=== PATIENT | male | born 1955 | race Caucasian/White ===

== ENCOUNTER 2017-05-25 06:54 | Emergency (ER) | payer MEDICAID, OTHER ==
[~2017-05-25] VITALS: Ht 172.7 cm; Wt 92.7 kg
[2017-05-25 06:56] VITALS: Ht 172.7 cm; Wt 92.7 kg
[2017-05-25] MEDS ORDERED: NITROGLYCERIN (SL) 0.4 MG TAB SL PRN (07:00)
[2017-05-25] MEDS ORDERED: NITROGLYCERIN 2% 1 GM OINT PKT TD STA (07:00)
[2017-05-25 07:46] LABS: BASOPHIL # 0.1 10^3/ul (0.0-0.1); BASOPHILS % 0.7 % (0.0-2.0); EOSINOPHILS # 0.3 10^3/ul (0.0-0.5); EOSINOPHILS % 3.5 % (0.0-7.0); HEMATOCRIT 30.1 % (42.0-52.0); HEMOGLOBIN 10.1 g/dl (14.0-18.0); LYMPHOCYTES # 2.3 10^3/ul (0.8-2.9); LYMPHOCYTES % 26.2 % (15.0-51.0); MEAN CORPUSCULAR HEMOGLOBIN 29.9 pg (29.0-33.0); MEAN CORPUSCULAR HGB CONC 33.6 g/dl (32.0-37.0); MEAN CORPUSCULAR VOLUME 89.1 fl (82.0-101.0); MEAN PLATELET VOLUME 10.5 fl (7.4-10.4); MONOCYTE # 0.8 10^3/ul (0.3-0.9); MONOCYTES % 8.9 % (0.0-11.0); NEUTROPHIL # 5.3 10^3/ul (1.6-7.5); NEUTROPHILS % 60.4 % (39.0-77.0); PLATELET COUNT 208 10^3/UL (140-415); RED BLOOD COUNT 3.38 10^6/ul (4.70-6.10); RED CELL DISTRIBUTION WIDTH 14.1 % (11.5-14.5); WHITE BLOOD COUNT 8.7 10^3/ul (4.8-10.8)
--- NOTE | 2017-05-25 07:59 | RADRPT ---
PROCEDURE: XR Chest. CLINICAL INDICATION: Chest pain. TECHNIQUE: Chest x-ray, single view. COMPARISON: None. FINDINGS: The cardiac silhouette is magnified.Thoracic aortic arch atherosclerotic calcification is present.Pu lmonary vascularity is within normal limits.Low lung volumes are observed. Mild basilar atelectatic changes are present.There is no focal pulmonary parenchymal opacification. There is no evidence of l arge layering pleural effusion. Degenerative changes of the spine are observed. The visualized upper abdomen is unremarkable. IMPRESSION: Low lung volumes with mild basilar atelectatic changes. Thoracic aortic atherosclerosis. RPTAT: AAQQ .Qian Rodney MD, MD Date Time Electronically viewed and signed by .Qian Rodney MD, on 05/25/2017 07:59 .T/
[2017-05-25 08:08] LABS: CALCIUM 9.4 mg/dl (8.4-10.2); CREATININE 3.89 mg/dl (0.61-1.24); POTASSIUM 3.5 mmol/L (3.5-5.1)
[2017-05-25 08:23] LABS: TROPONIN-I 0.04 ng/ml (0.00-0.12)
--- NOTE | 2017-05-25 09:59 | ERD ---
ER Documentation Chief Complaint Date/Time DATE: 05/25/17 TIME: 09:58 Chief Complaint BROUGHT IN VIA EMS FROM HOME DUE TO WAKING UP WITH INCREASING CHEST PAIN HPI Patient is a 61-year-old male with coronary disease, hypertension, and diabetes who presents with chest pain. The patient was brought in by ambulance. He tried nitroglycerin and valerian root at home. He was given aspirin nitroglycerin by paramedics. He said that he currently does not have any chest pain. The chest pain started when he woke up from sleep and was in the midsternal area. It was constant and did not radiate. ROS All systems reviewed and are negative except as per history of present illness. Allergies Allergies: Coded Allergies: No Known Allergy (Verified Allergy, Unknown, 01/12/07) PMhx/Soc History of Surgery: No Anesthesia Reaction: No Hx Neurological Disorder: No Hx Respiratory Disorders: No Hx Cardiac Disorders: Yes (htn , high cholesterol , stent ) Hx Psychiatric Problems: No Hx Miscellaneous Medical Probl: Yes (dm ) Hx Alcohol Use: Yes Hx Substance Use: No Hx Tobacco Use: Yes Smoking Status: Current every day smoker FmHx Family History: coronary disease Physical Exam Vitals Vital Signs Date Time Temp Pulse Resp B/P Pulse Ox O2 Delivery O2 Flow Rate FiO2 05/25/17 08:30 78 18 158/93 99 Room Air 05/25/17 07:07 05/25/17 06:56 97.8 73 18 150/89 100 Physical Exam Const: No acute distress Head: Atraumatic Eyes: Normal Conjunctiva ENT: Normal External Ears, Nose and Mouth. Neck: Full range of motion..~ No meningismus. Resp: Clear to auscultation bilaterally Cardio: Regular rate and rhythm, no murmurs Abd: Soft, non tender, non distended. Normal bowel sounds Skin: No petechiae or rashes Back: No midline or flank tenderness Ext: No cyanosis, or edema Neur: Awake and alert Psych: Normal Mood and Affect Result Diagram: 05/25/1715 05/25/1715 Results 24 hrs Laboratory Tests Test 05/25/17 07:15 White Blood Count 8.710^3/ul Red Blood Count 3.3810^6/ul Hemoglobin 10.1g/dl Hematocrit 30.1% Mean Corpuscular Volume 89.1fl Mean Corpuscular Hemoglobin 29.9pg Mean Corpuscular Hemoglobin Concent 33.6g/dl Red Cell Distribution Width 14.1% Platelet Count 19005^3/UL Mean Platelet Volume 10.5fl Neutrophils % 60.4% Lymphocytes % 26.2% Monocytes % 8.9% Eosinophils % 3.5% Basophils % 0.7% Nucleated Red Blood Cells % 0.0/100WBC Neutrophils # 5.310^3/ul Lymphocytes # 2.310^3/ul Monocytes # 0.810^3/ul Eosinophils # 0.310^3/ul Basophils # 0.110^3/ul Nucleated Red Blood Cells # 0.010^3/ul Sodium Level 141mmol/L Potassium Level 3.5mmol/L Chloride Level 108mmol/L Carbon Dioxide Level 25mmol/L Anion Gap 12 Blood Urea Nitrogen 64mg/dl Creatinine 3.89mg/dl Glucose Level 156mg/dl Calcium Level 9.4mg/dl Troponin I 0.040ng/ml Current Medications Medications (Trade) Dose Ordered Sig/Tori Route PRN Reason Start Time Stop Time Status Last Admin Dose Admin Nitroglycerin (Nitroglycerin 2% Oint) 1 inch ONCE STAT TD 05/25/17 07:00 05/25/17 07:01 DC 05/25/17 07:06 Nitroglycerin (Nitroglycerin (Sl Tab) 0.4 Mg) 1 tab Q5M UP TO 3 DOSES PRN SL CHEST PAIN 05/25/17 07:00 Procedures/MDM EKG #1 read by me: Rate/Rhythm: Left bundle branch block a rate of 75 Intervals: Prolonged MA interval and prolonged QRS interval Impression: Bundle branch block with negative Sgarbossa criteria EKG #2 read by me: Rate/Rhythm: Left bundle branch block a rate of 70 Intervals: Prolonged MA interval and prolonged QRS interval Impression: Bundle branch block with negative Sgarbossa criteria Chest x-ray shows no pneumonia or pneumothorax per radiology. Smoking Cessation Therapy: Pt. was lectured for greater than 3 minutes on the health risks of continued smoking and the benefits of cessation. Patient is a 61-year-old male with multiple cardiac risk factors who presents with chest pain. His troponin is 0.040 which is within normal limits however I am concerned about acute coronary syndrome given his age and comorbidities. I doubt pneumonia, pneumothorax, pulmonary embolism, or aortic dissection. I wanted to admit the patient to the hospital for further treatment but the patient is refusing. He is going to sign out AGAINST MEDICAL ADVICE. He can follow-up with his primary doctor within 24 hours. He can return sooner if symptoms worsen. Departure Diagnosis: Primary Impression: Chest pain Chest pain type: unspecified Qualified Code: R07.9 - Chest pain, unspecified type Additional Impressions: Anemia Anemia type: unspecified type Qualified Code: D64.9 - Anemia, unspecified type Chronic renal failure Chronic kidney disease stage: unspecified stage Qualified Code: N18.9 - Chronic renal failure, unspecified CKD stage Condition: Fair Patient Instructions: Chest Pain, Uncertain Cause Referrals: SOLITARIO BETANCOURT (PCP) Additional Instructions: FOLLOW UP WITH YOUR PRIMARY CARE PHYSICIAN TOMORROW.Return to this facility if you are not improving as expected. TANNA HICKEY MD May 25, 2017 09:59
[2017-05-25 10:20] VITALS: BP 152/88; PULSE 77; RESP 18; TEMP 97.8
== END 2017-05-25 10:22 | disposition left against medical advice (07) ==
LOC: E/R 06:54
DX: R07.9 Chest pain, unspecified (principal); D64.9 Anemia, unspecified; E11.22 Type 2 diabetes mellitus with diabetic chronic kidney disease; N18.9 Chronic kidney disease, unspecified; I12.9 Hypertensive chronic kidney disease with stage 1 through stage 4 chronic kidney disease, or unspecified chronic kidney disease; F17.210 Nicotine dependence, cigarettes, uncomplicated; I25.10 Atherosclerotic heart disease of native coronary artery without angina pectoris; Z98.61 Coronary angioplasty status
CPT/HCPCS: 36415; 71010; 80048; 84484; 85025; 93005; Z7502; Z7610

== ENCOUNTER 2017-06-06 23:33 | Inpatient (IN) | payer OTHER ==
[~2017-06-06] VITALS: Ht 175.3 cm; Wt 96.2 kg
[2017-06-06] MEDS ORDERED: SOD CHLORIDE 0.9% 500 ML IV STA (23:50)
[2017-06-07] VITALS (38 sets, daily range): BP systolic 123–164; BP diastolic 74–93; PULSE 42–69; RESP 10–21; Ht 175.3 cm; Wt 96.2 kg
[2017-06-07 00:22] LABS: BASOPHIL # 0.1 10^3/ul (0.0-0.1); BASOPHILS % 0.9 % (0.0-2.0); EOSINOPHILS # 0.3 10^3/ul (0.0-0.5); HEMATOCRIT 29.4 % (42.0-52.0); LYMPHOCYTES % 25.2 % (15.0-51.0); MEAN CORPUSCULAR HEMOGLOBIN 29.5 pg (29.0-33.0); MEAN CORPUSCULAR VOLUME 86.7 fl (82.0-101.0); MEAN PLATELET VOLUME 10.4 fl (7.4-10.4); MONOCYTE # 0.6 10^3/ul (0.3-0.9); MONOCYTES % 6.9 % (0.0-11.0); NEUTROPHIL # 5.1 10^3/ul (1.6-7.5); NEUTROPHILS % 62.8 % (39.0-77.0); PLATELET COUNT 168 10^3/UL (140-415); RED BLOOD COUNT 3.39 10^6/ul (4.70-6.10); RED CELL DISTRIBUTION WIDTH 14.2 % (11.5-14.5); WHITE BLOOD COUNT 8.1 10^3/ul (4.8-10.8)
[2017-06-07 00:48] LABS: ALBUMIN 3.4 g/dl (3.3-4.9); CALCIUM 9.2 mg/dl (8.4-10.2); CREATININE 3.58 mg/dl (0.61-1.24); TOTAL PROTEIN 6.8 g/dl (6.1-8.1)
--- NOTE | 2017-06-07 00:56 | RADRPT ---
PROCEDURE: XR Chest. CLINICAL INDICATION: Chest pain. TECHNIQUE: Single AP portable chest. COMPARISON: No prior Chest x-ray FINDINGS: The cardiomediastinal silhouette is within normal limits of size. Tortuosity and ectasia of the thor acic aorta. Atherosclerotic calcification of the aorta. The lungs are clear without pleural effusi on or focal consolidation. No pneumothorax. The osseous structures and soft tissues are unremarkable . IMPRESSION: 1. No evidence for active cardiopulmonary disease. RPTAT:AAJJ Physician Cheli Date Time Electronically viewed and signed by Physician Cheli on 06/07/2017 00:56 KAREL/
[2017-06-07 01:01] LABS: TROPONIN-I 0.03 ng/ml (0.00-0.12)
[2017-06-07] MEDS ORDERED: NITROGLYCERIN 2% 1 GM OINT PKT TD STA (01:01)
[2017-06-07] MEDS ORDERED: morphine 4 MG/ML VIAL IV STA (01:01)
[2017-06-07] MEDS ORDERED: ONDANSETRON 4 MG INJ IV STA (01:01)
[2017-06-07] MEDS ORDERED: VALS320T11 PO (01:57)
[2017-06-07] MEDS ORDERED: EZET10TA3 PO (01:57)
[2017-06-07] MEDS ORDERED: TAMS0.4C2 PO (01:57)
[2017-06-07] MEDS ORDERED: METO-407 PO (01:57)
[2017-06-07] MEDS ORDERED: NIFE30TA60 PO (01:57)
[2017-06-07] MEDS ORDERED: FURO40SO PO (01:57)
[2017-06-07] MEDS ORDERED: LABE200T25 PO (01:57)
[2017-06-07] MEDS ORDERED: HYDR-3672 PO (01:57)
[2017-06-07] MEDS ORDERED: ATOR40TA68 PO (01:57)
[2017-06-07] MEDS ORDERED: CLON0.3T PO (01:57)
[2017-06-07] MEDS ORDERED: CLOP75TA4 PO (01:57)
[2017-06-07] MEDS ORDERED: LINA5TAB PO (01:57)
[2017-06-07] MEDS ORDERED: INSU100I7 SQ (01:57)
[2017-06-07] MEDS ORDERED: ASPI-664 PO (01:57)
--- NOTE | 2017-06-07 02:18 | ERA ---
ER Documentation Chief Complaint Date/Time DATE: 06/07/17 TIME: 02:17 Chief Complaint BIB RA FROM HOME FOR CHEST PAIN X 1 WEEK, BS: 355 HPI 61-year-old male brought in from home by ambulance for chest pain on and off for the past 3 days. Patient has history of cardiac stenting in the past and had a recent angiogram which showed blockage. Patient did not proceed with stenting secondary to contrast bolus and history of renal failure. Medically managed the past 4 months but has had chest pain over the past 2 days is crushing, substernal with no exacerbating or alleviating factors. Currently chest pain-free after nitroglycerin given by EMS. Mild associated shortness of breath no nausea no vomiting no chills. No other current issues. ROS All systems reviewed and are negative except as per history of present illness. Medications Home Meds Reported Medications Insulin Lispro Protamin/Lispro (Humalog Mix 75-25 Kwikpen) 100 Unit/1 Ml Insuln.pen, 0 SQ 06/07/17 Linagliptin (TRADJENTA) 5 Mg Tablet, 5 MG PO, TAB 06/07/17 Ezetimibe* (Zetia*) 10 Mg Tablet, 10 MG PO HS, TAB 06/07/17 Valsartan* (Diovan*) 320 Mg Tablet, 320 MG PO DAILY, TAB 06/07/17 Clopidogrel Bisulfate* (Clopidogrel Bisulfate*) 75 Mg Tablet, 75 MG PO DAILY, # 30 TAB 06/07/17 Tamsulosin Hcl* (Tamsulosin Hcl*) 0.4 Mg Cap.er.24h, 0.4 MG PO DAILY, CAP 06/07/17 Aspirin* (Aspirin* EC) 81 Mg Tablet.dr, 81 MG PO DAILY, TAB 06/07/17 Atorvastatin* (Atorvastatin*) 40 Mg Tablet, 40 MG PO QHS, #30 TAB 06/07/17 Furosemide* (Furosemide*) 40 Mg/5 Ml Solution, 40 MG PO DAILY, #150 ML 06/07/17 Metoprolol Tartrate* (Lopressor*) 100 Mg Tablet, 100 MG PO BID, #60 TAB 06/07/17 Labetalol Hcl* (Labetalol Hcl*) 200 Mg Tablet, 200 MG PO BID, TAB 06/07/17 Clonidine Hcl* (Clonidine Hcl*) 0.3 Mg Tablet, 0.3 MG PO Q6H, TAB 06/07/17 Hydralazine Hcl* (Apresoline*) 50 Mg Tab, 50 MG PO Q8, #90 TAB 06/07/17 Nifedipine* (Nifedipine ER*) 30 Mg Tablet.sa, 30 MG PO DAILY, TAB.SA 06/07/17 Allergies Allergies: Coded Allergies: No Known Allergy (Unverified , 06/07/17) PMhx/Soc Medical and Surgical Hx: pt denies Surgical Hx History of Surgery: No Anesthesia Reaction: No Hx Neurological Disorder: No Hx Respiratory Disorders: No Hx Cardiac Disorders: Yes (htn , high cholesterol , stent ) Hx Psychiatric Problems: No Hx Miscellaneous Medical Probl: Yes (dm ) Hx Alcohol Use: Yes (occasional drinker) Hx Substance Use: No Hx Tobacco Use: Yes (on nicotine patch) Smoking Status: Former smoker Physical Exam Vitals Vital Signs Date Time Temp Pulse Resp B/P Pulse Ox O2 Delivery O2 Flow Rate FiO2 06/07/17 01:54 98.3 72 20 170/92 98 Room Air 06/07/17 00:08 Nasal Cannula 2 06/06/17 23:43 98.5 82 18 95 Physical Exam Const: [] Head: Atraumatic Eyes: Normal Conjunctiva ENT: Normal External Ears, Nose and Mouth. Neck: Full range of motion..~ No meningismus. Resp: Clear to auscultation bilaterally Cardio: Regular rate and rhythm, no murmurs Abd: Soft, non tender, non distended. Normal bowel sounds Skin: No petechiae or rashes Back: No midline or flank tenderness Ext: No cyanosis, or edema Neur: Awake and alert Psych: Normal Mood and Affect Result Diagram: 06/07/17 0001 06/07/17 0001 Results 24 hrs Laboratory Tests Test 06/07/17 00:01 White Blood Count 8.110^3/ul Red Blood Count 3.3910^6/ul Hemoglobin 10.0g/dl Hematocrit 29.4% Mean Corpuscular Volume 86.7fl Mean Corpuscular Hemoglobin 29.5pg Mean Corpuscular Hemoglobin Concent 34.0g/dl Red Cell Distribution Width 14.2% Platelet Count 02569^3/UL Mean Platelet Volume 10.4fl Neutrophils % 62.8% Lymphocytes % 25.2% Monocytes % 6.9% Eosinophils % 4.0% Basophils % 0.9% Nucleated Red Blood Cells % 0.0/100WBC Neutrophils # 5.110^3/ul Lymphocytes # 2.010^3/ul Monocytes # 0.610^3/ul Eosinophils # 0.310^3/ul Basophils # 0.110^3/ul Nucleated Red Blood Cells # 0.010^3/ul Sodium Level 139mmol/L Potassium Level 4.0mmol/L Chloride Level 107mmol/L Carbon Dioxide Level 23mmol/L Anion Gap 13 Blood Urea Nitrogen 43mg/dl Creatinine 3.58mg/dl Glucose Level 242mg/dl Calcium Level 9.2mg/dl Total Bilirubin 0.0mg/dl Direct Bilirubin 0.00mg/dl Indirect Bilirubin 0.0mg/dl Aspartate Amino Transf (AST/SGOT) 18IU/L Alanine Aminotransferase (ALT/SGPT) 25IU/L Alkaline Phosphatase 67IU/L Troponin I 0.030ng/ml B-Type Natriuretic Peptide 4550PG/ML Total Protein 6.8g/dl Albumin 3.4g/dl Globulin 3.40g/dl Albumin/Globulin Ratio 1.00 Current Medications Medications (Trade) Dose Ordered Sig/Tori Route PRN Reason Start Time Stop Time Status Last Admin Dose Admin Sodium Chloride (NS) 500 ml @ 500 mls/hr Q1H STAT IV 06/06/17 23:50 06/07/17 00:49 DC 06/07/17 00:14 Nitroglycerin (Nitroglycerin 2% Oint) 1 inch ONCE STAT TD 06/07/17 01:01 06/07/17 01:02 DC 06/07/17 01:06 Morphine Sulfate (morphine) 4 mg ONCE STAT IV 06/07/17 01:01 06/07/17 01:02 DC 06/07/17 01:06 Ondansetron HCl (Zofran Inj) 4 mg ONCE STAT IV 06/07/17 01:01 06/07/17 01:02 DC 06/07/17 01:06 IV Flush (NS 3 ml) 3 ml PER PROTOCOL IV 06/07/17 02:30 UNV Ondansetron HCl (Zofran Inj) 4 mg Q6H PRN IV NAUSEA AND/OR VOMITING 06/07/17 02:30 UNV Nitroglycerin (Nitroglycerin (Sl Tab) 0.4 Mg) 1 tab Q5M PRN SL CHEST PAIN 06/07/17 02:30 UNV Acetaminophen (Tylenol Tab) 650 mg Q6H PRN PO PAIN LEVEL 1-3 OR FEVER 06/07/17 02:30 UNV Morphine Sulfate (morphine) 2 mg Q4H PRN IV PAIN LEVEL 7-10 06/07/17 02:30 UNV Docusate Sodium (Colace) 100 mg Q12H PRN PO CONSTIPATION 06/07/17 02:30 UNV Bisacodyl (Dulcolax) 5 mg DAILY PRN PO CONSTIPATION 06/07/17 02:30 UNV Famotidine (Pepcid) 20 mg Q12 PO 06/07/17 09:00 UNV Procedures/MDM EKG: Rate/Rhythm: [Normal Sinus Rhythm] QRS, ST, T-waves: Left bundle branch block pattern Impression: [No evidence of ischemia or arrhythmia] Chest X-ray 1V Interpreted by me: Soft Tissue: No acute abnormalities Bones: No acute abnormalities Mediastinum/Cardiac Silhouette/Lungs: [No acute abnormalities] Patient's symptoms are concerning for cardiac cause will require inpatient workup and continuous monitoring. Further w/u for ischemia, arrhythmia, PE or dissection will be deferred to the inpatient team. Accepting Care Team: Current data and ongoing care discussed. Time: 2 AM Primary Provider: Dr. Pineda Consulting: [[place]] Outstanding Data: none Departure Diagnosis: Primary Impression: Chest pain Qualified Code: I20.0 - Unstable angina pectoris Condition: Serious [place] Jun 07, 2017 02:18
[2017-06-07] MEDS ORDERED: NACL 0.9% 3 ML SYG IV SCH (02:30)
[2017-06-07] MEDS ORDERED: morphine 2 MG INJ IV PRN (02:30)
[2017-06-07] MEDS ORDERED: NITROGLYCERIN (SL) 0.4 MG TAB SL PRN (02:30)
[2017-06-07] MEDS ORDERED: ACETAMINOPHEN 325 MG TAB PO PRN (02:30)
[2017-06-07] MEDS ORDERED: ONDANSETRON 4 MG INJ IV PRN (02:30)
--- NOTE | 2017-06-07 04:12 | HP ---
Date/Time of Note Date/Time of Note DATE: 06/07/17 TIME: 04:00 Assessment/Plan VTE Prophylaxis VTE Prophylaxis Intervention: SCD's Lines/Catheters IV Catheter Type (from Nrs): Peripheral IV Assessment/Plan Chief Complaint/Hosp Course This is a 61 year old male being admitted to the telemetry floor for: #1. Chest pain: rule out ACS. Extensive risk factors and hx of cardiac disease with stenting. Trend troponins, echo in the am, cardiology consult. #2: CAD: History of 2 stents. Continue Plavix/aspirin/Zetia #3 CHF: Etiology unknown at this time systolic versus diastolic. Patient does not appear to be decompensated at this time. BNP is around 4000. Will check a echocardiogram to further evaluate. Will continue home medications. #4 hypertension: Continue patient home blood pressure medications, except will hold ARB at this time secondary to elevated creatinine. #5 DM: check a1c, ISS, hold home medications #6 Chronic kidney disease: patient remains non oliguric. Avoid nephrotoxic agents. Urine microscopic exam, urinalysis, renal ultrasound, nephro consult, will hold ARB up at this time and continue as per nephro recs. #7 HLD: on zetia #8 dvt and gi prophylaxis: scds, acid ba Further treatment strategy will be in implemented as per the clinical course. Problems: HPI/ROS Admit Date/Time Admit Date/Time Jun 07, 2017 at 02:04 Hx of Present Illness cc: chest pain This is 61-year-old male brought in from home by ambulance for chest pain.. Patient has history of cardiac stenting. He apparently required additional stenting however secondary to his kidney issue they didn't proceed. Medically managed the past 4 months. He had chest pain for 2 hours starting at 9 pm last night, substernal with no exacerbating or alleviating factors, nonradiating.. Currently chest pain-free after nitroglycerin given by EMS. Mild associated shortness of breath no nausea no vomiting no chills. Denies any diaphoresis or lower extremity swelling. allergies; nkda Meds: see yaquelin BASSETT Const: As per HPI Eyes : No pain discharge or redness or change in visual acuity ENT: No pain, sore throat, congestion, congestion, dysphagia or discharge Respiratory: As per HPI Cardiovascular: As per HPI GI : no change in appetite, abdominal pain, nausea, vomiting, diarrhea, constipation, or change in the color his stool Genitourinary: No dysuria, hematuria, flank pain , discharge or CVA tenderness Musculoskeletal: No joint pain, back pain, neck pain, restricted range of motion in neck or joints Skin: No rash, bruising or hives Neuro: No headache, dizziness, syncope, seizure, focal weakness Endocrine: No polyuria, polydipsia, temperature intolerance Psych: No hallucination, depression, anxiety or suicidal ideation PMH/Family/Social Past Medical History cad, [place] in 2007, DM, CKD Past Surgical History Cardiac stents x 2 Family History Significant Family History: no pertinent family hx Social History Alcohol Use: none Smoking Status: Current every day smoker (3 cigs per day x 40 years) Drug Use: none Exam/Review of Systems Vital Signs Vitals Vital Signs Date Time Temp Pulse Resp B/P Pulse Ox O2 Delivery O2 Flow Rate FiO2 06/07/17 03:22 78 18 163/92 18 Room Air 06/07/17 01:54 98.3 06/07/17 00:08 2 Exam Exam General: Patient is a pleasant male lying in bed in no acute distress HEENT: Atraumatic, normocephalic. The pupils are equal, round and reactive. Extraocular motor are intact Neck: Supple with full range of motion. No rigidity or meningismus Chest: Nontender Lungs: Clear to auscultation bilaterally no crackles rales or wheezing Heart: Normal S1-S2, Regular rhythm and rate. No overt murmurs appreciated Abdomen: Soft , nontender, nondistended , bowel sounds are present. No guarding no rebound tenderness Neurologic: Normal mental status, speech normal, cranial nerves II through XII are intact, motor and sensory are intact, no focal weakness Additional Comments EKG: Rate/Rhythm: [Normal Sinus Rhythm] QRS, ST, T-waves: Left bundle branch block pattern As per ED physician documentation PROCEDURE: XR Chest. CLINICAL INDICATION: Chest pain. TECHNIQUE: Single AP portable chest. COMPARISON: No prior Chest x-ray FINDINGS: The cardiomediastinal silhouette is within normal limits of size. Tortuosity and ectasia of the thoracic aorta. Atherosclerotic calcification of the aorta. The lungs are clear without pleural effusion or focal consolidation. No pneumothorax. The osseous structures and soft tissues are unremarkable. IMPRESSION: 1. No evidence for active cardiopulmonary disease. RPTAT:AAJJ Roma Ventura Physician Date Time Electronically viewed and signed by Roma Ventura Physician on 06/07/2017 00:56 KAREL/ CC: [place] Labs Result Diagram: 06/07/17 0001 06/07/17 0001 Medications Medications Current Medications Ondansetron HCl (Zofran Inj) 4 mg Q6H PRN IV NAUSEA AND/OR VOMITING; Start 06/07/17 at 02:30 Nitroglycerin (Nitroglycerin (Sl Tab) 0.4 Mg) 1 tab Q5M PRN SL CHEST PAIN; Start 06/07/17 at 02:30 Acetaminophen (Tylenol Tab) 650 mg Q6H PRN PO PAIN LEVEL 1-3 OR FEVER; Start 06/07/17 at 02:30 Morphine Sulfate (morphine) 2 mg Q4H PRN IV PAIN LEVEL 7-10; Start 06/07/17 at 02:30 Docusate Sodium (Colace) 100 mg Q12H PRN PO CONSTIPATION; Start 06/07/17 at 02: 30 Bisacodyl (Dulcolax) 5 mg DAILY PRN PO CONSTIPATION; Start 06/07/17 at 02:30 Famotidine (Pepcid) 20 mg DAILY PO ; Start 06/07/17 at 09:00 FORTINO THOMAS Jun 07, 2017 04:12
[2017-06-07] MEDS ORDERED: FUROSEMIDE 40 MG TAB PO SCH (06:00)
[2017-06-07 07:57] LABS: ALBUMIN/GLOBULIN RATIO 0.96; CALCIUM 8.9 mg/dl (8.4-10.2); CREATININE 3.66 mg/dl (0.61-1.24); POTASSIUM 3.7 mmol/L (3.5-5.1); TOTAL PROTEIN 6.1 g/dl (6.1-8.1)
[2017-06-07 08:10] LABS: CK-MB 2.87 ng/ml (0.0-2.4)
[2017-06-07 08:14] LABS: TROPONIN-I 0.489 ng/ml (0.00-0.12)
[2017-06-07] MEDS ORDERED: HEPARIN 25000 UNITS/250 ML 250 ML IV SCH (08:30)
[2017-06-07] MEDS ORDERED: FUROSEMIDE 40 MG INJ IV ONE (08:30)
[2017-06-07] MEDS ORDERED: HEPARIN 1000 UNITS/ML 10 ML INJ IV PRN (08:30)
[2017-06-07] MEDS ORDERED: HEPARIN 1000 UNITS/ML 10 ML INJ IV ONE (08:30)
--- NOTE | 2017-06-07 08:45 | CONS ---
Date/Time of Note Date/Time of Note DATE: 06/07/17 TIME: 08:33 Assessment/Plan Assessment/Plan Chief Complaint/Hosp Course NSTEMI: Initial trop normal, now 0.5. Coudl still be type II in setting of uncontrolled BP, known CAD, and mild CHF. I spoke with Dr. Rosales and he will call me back once he checks on the pt's last cardiac cath anatomy. For now, anticoagulate, control BP, trend trops, and await prior cath results to decide on need for repeat cath. Acute on chronic ?systolic heart failure: Unknown EF. Mild CHF by exam CKD: unknown baseline. Cr 3.6 here CAD s/p prior PCI 2006 DM HTN urgency -start heparin drip -continue ASA/plavix -increase lipitor to 80mg -d/c po lasix and give lasix 40mg IV x 1 now -add imdur 60mg -add metoprolol 50mg BID -trend trops -echo -await callback from Dr. Rosales to decide on repeat cath or not Problems: Consultation Date/Type/Reason Admit Date/Time Jun 07, 2017 at 02:04 Date of Consultation: Jun 07, 2017 Type of Consultation: Cardiology Reason for Consultation Chest pain Referring Provider: FORTINO THOMAS Hx of Present Illness 61 yo M with a h/o CAD s/p PCI 10 yrs ago, CKD (Cr 3.6 here, unknown baseline), HTN, DM, active smoker, who presented with chest pain. The pt notes that he had a cardiac cath with his epic professional Dr. River Rosales in December. It is unclear if he has a revascularizeable lesion, [employer], or small vessel disease but he was told that they would manage him medically first due to his renal disease and risk of HD. He has been having exertional chest pain since the angiogram. The pt had chest pain last night not relieved with NTG x 3. He is chest pain free now. His BP was 190s at home during the chest pain. He denies SOB, orthopnea. He has edema which is recent. per HPI Past Medical History per HPI Social History Alcohol Use: none Smoking Status: Current every day smoker Drug Use: none Exam/Review of Systems Vital Signs Vitals Vital Signs Date Time Temp Pulse Resp B/P Pulse Ox O2 Delivery O2 Flow Rate FiO2 06/07/17 08:09 64 06/07/17 07:48 98.4 19 163/92 97 06/07/17 04:30 Nasal Cannula 2.0 Intake and Output 06/06/17 06/06/17 06/07/17 14:59 22:59 06:59 Intake Total 240 ml Balance 240 ml Exam Constitutional: alert, oriented Psych: nl mood/affect, no complaints Head: atraumatic, normocephalic Neck: jvd (8cm) Respiratory: crackles/rales (mild ), No clear to auscultation Cardiovascular: edema (1+), regular rate and rhythm, No systolic murmur Gastrointestinal: non-tender, soft Musculoskeletal: nl extremities to inspection Neurological: nl mental status, nl speech Results EKG: sinus, LBBB Result Diagram: 06/07/17 0001 06/07/17 0710 Results 24 hrs Laboratory Tests Test 06/07/17 00:01 06/07/17 07:10 White Blood Count 8.1 Red Blood Count 3.39 L Hemoglobin 10.0 L Hematocrit 29.4 L Mean Corpuscular Volume 86.7 Mean Corpuscular Hemoglobin 29.5 Mean Corpuscular Hemoglobin Concent 34.0 Red Cell Distribution Width 14.2 Platelet Count 168 Mean Platelet Volume 10.4 Neutrophils % 62.8 Lymphocytes % 25.2 Monocytes % 6.9 Eosinophils % 4.0 Basophils % 0.9 Nucleated Red Blood Cells % 0.0 Neutrophils # 5.1 Lymphocytes # 2.0 Monocytes # 0.6 Eosinophils # 0.3 Basophils # 0.1 Nucleated Red Blood Cells # 0.0 Sodium Level 139 139 Potassium Level 4.0 3.7 Chloride Level 107 108 Carbon Dioxide Level 23 26 Anion Gap 13 9 Blood Urea Nitrogen 43 H 41 H Creatinine 3.58 H 3.66 H Glucose Level 242 H 162 Calcium Level 9.2 8.9 Total Bilirubin 0.0 L 0.0 L Direct Bilirubin 0.00 0.00 Indirect Bilirubin 0.0 0.0 Aspartate Amino Transf (AST/SGOT) 18 18 Alanine Aminotransferase (ALT/SGPT) 25 31 Alkaline Phosphatase 67 69 Troponin I 0.030 0.489 *H B-Type Natriuretic Peptide 4550 H Total Protein 6.8 6.1 Albumin 3.4 3.0 L Globulin 3.40 H 3.10 Albumin/Globulin Ratio 1.00 0.96 Hemoglobin A1c 7.8 H Magnesium Level 2.0 Creatine Kinase 60 Creatine Kinase Index 4.8 Creatinine Kinase MB (Mass) 2.87 H Medications Medications Current Medications Ondansetron HCl (Zofran Inj) 4 mg Q6H PRN IV NAUSEA AND/OR VOMITING; Start 06/07/17 at 02:30 Nitroglycerin (Nitroglycerin (Sl Tab) 0.4 Mg) 1 tab Q5M PRN SL CHEST PAIN; Start 06/07/17 at 02:30 Acetaminophen (Tylenol Tab) 650 mg Q6H PRN PO PAIN LEVEL 1-3 OR FEVER; Start 06/07/17 at 02:30 Morphine Sulfate (morphine) 2 mg Q4H PRN IV PAIN LEVEL 7-10; Start 06/07/17 at 02:30 Docusate Sodium (Colace) 100 mg Q12H PRN PO CONSTIPATION; Start 06/07/17 at 02: 30 Bisacodyl (Dulcolax) 5 mg DAILY PRN PO CONSTIPATION; Start 06/07/17 at 02:30 Famotidine (Pepcid) 20 mg DAILY PO ; Start 06/07/17 at 09:00 Aspirin (Halfprin) 81 mg DAILY PO ; Start 06/07/17 at 09:00 Clonidine (Catapres) 0.3 mg Q6H PO Last administered on 06/07/17 05:08; Admin Dose 0.3 MG; Start 06/07/17 at 05:00 Clopidogrel Bisulfate (plaVIX) 75 mg DAILY PO ; Start 06/07/17 at 09:00 EZETIMIBE (Zetia) 10 mg HS PO ; Start 06/07/17 at 21:00 Hydralazine HCl (Apresoline) 50 mg Q8 PO Last administered on 06/07/17 05:09; Admin Dose 50 MG; Start 06/07/17 at 06:00 Nifedipine (Procardia Xl) 30 mg DAILY PO ; Start 06/07/17 at 09:00 Tamsulosin HCl (Flomax) 0.4 mg DAILY@21 PO ; Start 06/07/17 at 21:00 Isosorbide Mononitrate (Imdur) 60 mg DAILY PO ; Start 06/07/17 at 09:00 Atorvastatin Calcium (Lipitor) 80 mg QHS PO ; Start 06/07/17 at 21:00; Status UNV Furosemide (Lasix) 40 mg ONCE ONCE IV ; Start 06/07/17 at 08:30; Stop 06/07/17 at 08:31; Status UNV Miscellaneous Information (* Miscellaneous Pharmacy Order) DC previous hepa... ONCE ONCE XX ; Start 06/07/17 at 08:30; Stop 06/07/17 at 08:31; Status UNV Heparin Sodium (Porcine) (Heparin (1000 Units/ml)) 4,000 unit ONCE ONCE IV ; Start 06/07/17 at 08:30; Stop 06/07/17 at 08:31; Status UNV Metoprolol Tartrate (Lopressor) 50 mg BID PO ; Start 06/07/17 at 09:00; Status UNV TAYLER BE Jun 07, 2017 08:45
[2017-06-07] MEDS ORDERED: CLOPIDOGREL 75 MG TAB PO SCH (09:00)
[2017-06-07] MEDS ORDERED: VALSARTAN 160 MG TAB PO SCH (09:00)
[2017-06-07] MEDS ORDERED: METOPROLOL 25 MG TAB PO SCH (09:00)
[2017-06-07] MEDS: NIFEdipine (XL) 30 MG TAB PO SCH (09:07)
[2017-06-07] MEDS: FAMOTIDINE 20 MG TAB PO SCH (09:07)
[2017-06-07] MEDS: ISOSORBIDE MONONITRATE(SR)60 MG TAB PO SCH (09:08)
[2017-06-07] MEDS: ASPIRIN (EC) 81 MG TAB PO SCH (09:08)
--- NOTE | 2017-06-07 09:57 | RADRPT ---
PROCEDURE: Renal US. CLINICAL INDICATION: Chest pain. Flank pain. TECHNIQUE: Multiple sonographic images of the kidneys and urinary bladder were obtained. The imag es were reviewed on a PACS workstation. COMPARISON: No prior studies are available for comparison. FINDINGS: The right kidney measures 9.4 cm. The left kidney measures 9.6 cm. There is a benign cyst in the mid right kidney measuring 1.8 cm. There is a benign cyst in the upper left kidney measuring 2.6 cm and a benign cyst in the upper left kidney measuring 2.3 cm. There is a nonobstructing calculus in the upper left kidney measuring 0.7 cm. There is no other renal calculus. There is no solid renal mass. There is no hydronephrosis. Renal parenchymal thickness is normal bilaterally. Both kidneys are hyperechoic consistent with medical renal disease. The perirenal regions are normal with no fluid collection or mass. The urinary bladder is unremarkable. IMPRESSION: 1. Benign bilateral renal cysts. 2. Nonobstructing 0.7 cm calculus in the upper left kidney. 3. Bilateral hyperechoic kidneys consistent with medical renal disease. 4. Otherwise unremarkable study. RPTAT: QQ .Hardy Ghosh MD, Date Time Electronically viewed and signed by .Hardy Ghosh MD, on 06/07/2017 09:57 .R/
[2017-06-07 12:29] LABS: BASOPHIL # 0.1 10^3/ul (0.0-0.1); BASOPHILS % 0.9 % (0.0-2.0); EOSINOPHILS # 0.3 10^3/ul (0.0-0.5); EOSINOPHILS % 3.4 % (0.0-7.0); HEMATOCRIT 28.6 % (42.0-52.0); HEMOGLOBIN 9.3 g/dl (14.0-18.0); LYMPHOCYTES # 2.2 10^3/ul (0.8-2.9); LYMPHOCYTES % 23.6 % (15.0-51.0); MEAN CORPUSCULAR HEMOGLOBIN 28.4 pg (29.0-33.0); MEAN CORPUSCULAR HGB CONC 32.5 g/dl (32.0-37.0); MEAN CORPUSCULAR VOLUME 87.5 fl (82.0-101.0); MEAN PLATELET VOLUME 10.9 fl (7.4-10.4); MONOCYTE # 0.7 10^3/ul (0.3-0.9); MONOCYTES % 7.4 % (0.0-11.0); NEUTROPHIL # 5.9 10^3/ul (1.6-7.5); NEUTROPHILS % 64.3 % (39.0-77.0); PLATELET COUNT 163 10^3/UL (140-415); RED BLOOD COUNT 3.27 10^6/ul (4.70-6.10); RED CELL DISTRIBUTION WIDTH 14.4 % (11.5-14.5); WHITE BLOOD COUNT 9.1 10^3/ul (4.8-10.8)
[2017-06-07 12:31] LABS: INR 0.97; PROTIME 12.9 Sec (12.2-14.2)
[2017-06-07 12:49] LABS: CK-MB 3.23 ng/ml (0.0-2.4)
[2017-06-07 12:53] LABS: TROPONIN-I 0.874 ng/ml (0.00-0.12)
--- NOTE | 2017-06-07 13:17 | CONS ---
DATE OF ADMISSION: 06/07/2017 DATE OF CONSULTATION: 06/07/2017 TYPE OF CONSULTATION: Nephrology. REASON FOR CONSULTATION: Chronic kidney disease. HISTORY OF PRESENT ILLNESS: This is a 61-year-old male with a past medical history of CKD stage IV with a baseline renal function around 25%, history of coronary artery disease, history of hypertensi on, diabetes, dyslipidemia who presents to [facility] for chest pain. The patient stated he has had cardiac stenting in the past and previous angiograms. The patient, upon arrival to the emergency room, was noted to have shortness of breath. An x-ray was done which showed findin gs of no acute cardiopulmonary disease. In the emergency room, the patient was given statin therapy , diuretics, morphine and admitted to telemetry. In terms of the patient's renal history, the patient has underlying chronic kidney disease. He sees a argon tester in outpatient setting, does not know the name. Per patient, he has a renal function around 20% to 25%. PAST MEDICAL HISTORY: History of chronic kidney disease, history of tobacco use, history of diabete s, hypertension, coronary artery disease. PAST SURGICAL HISTORY: Status post cardiac catheterization and PCIs. SOCIAL HISTORY: Occasional smoker, positive tobacco use. FAMILY HISTORY: Noncontributory. MEDICATIONS: The patient's medications have been reviewed. REVIEW OF SYSTEMS: A 14-point review of systems was conducted. Pertinent positives in HPI, otherwi se negative. PHYSICAL EXAMINATION: VITAL SIGNS: Blood pressure is 163/92, respirations 19, pulse 66, temperature is 98.4. HEENT: Head is normocephalic. NECK: Supple. HEART: Regular rate. LUNGS: Show diminished breath sounds at base. ABDOMEN: Soft, nontender to palpation. No rebound or guarding. EXTREMITIES: Negative for clubbing, cyanosis, or edema. DERMATOLOGIC: No rashes. MUSCULOSKELETAL: No joint effusions. NEUROLOGIC: No focal deficits. LABORATORY DATA: Sodium 139, potassium 2.7, BUN 41, creatinine 3.66. Hemoglobin A1c is 7.8. White count 8.1, hemoglobin is 8.0, hematocrit 29.4, platelet count is 168. ASSESSMENT AND PLAN: This is a 61-year-old male who presents with: 1. Nonoliguric acute kidney injury on top of chronic kidney disease stage IV with unknown baseline creatinine with an estimated EGFR of around 25% per patient. Etiology of current acute kidney injur y may be secondary to hemodynamics. Plan is to check urinalysis with microanalysis, check urine heena ctrolytes, will check a renal ultrasound. Otherwise, continue current supportive care, renally dose medications, avoid nephrotoxins. Withhold BAHMAN inhibitor, ARB at this time. Monitor closely on diu retic therapy. 2. Anemia. Monitor hemoglobin and hematocrit levels. 3. Mineral bone disorder. Monitor calcium and phosphorus levels. 4. Hypertension. Continue current blood pressure regimen. 5. Congestive heart failure, unclear if systolic, diastolic. The patient is noted to be decompensa latricia. Followup 2D echo. Continue gentle diuresis. Monitor renal function closely. 6. History of coronary artery disease. Continue medical management and followup cardiology. 7. Chest pain, rule out acute coronary syndrome, continue to monitor serial troponins. 8. Dyslipidemia, continue statin therapy. Thank you, Dr. Pineda, for this interesting consult. It will be a pleasure to follow patient with you throughout the hospital course. Dictated By: REBECCA BLANKENSHIP/BRANDON Conf#: [id number] DID#: [id number]
[2017-06-07 13:21] LABS: PARTIAL THROMBOPLASTIN TIME 88.2 Sec (25.0-35.0)
[2017-06-07] MEDS ORDERED: HEPARIN 1000 UNITS/NS (A-LINE) 1,000 ML ONE (16:44)
[2017-06-07] MEDS ORDERED: LIDOCAINE 1% (MDV) 20 ML INJ ONE (16:44)
[2017-06-07] MEDS ORDERED: HEPARIN 1000 UNITS/ML 10 ML INJ ONE (16:44)
[2017-06-07] MEDS ORDERED: IODIXANOL LOCM 100 ML BTL ONE (16:44)
[2017-06-07] MEDS ORDERED: NITROGLYCERIN (IC) 100 MCG/ML INJ ONE (16:45)
[2017-06-07] MEDS ORDERED: FENTAnyl 50 MCG/ML VIAL ONE (16:45)
[2017-06-07] MEDS ORDERED: MIDAZOLAM 1 MG/ML 2 ML INJ ONE (16:45)
[2017-06-07] MEDS ORDERED: VERAPAMIL 5 MG INJ ONE (16:45)
--- NOTE | 2017-06-07 18:06 | OPR ---
Date/Time of Note Date/Time of Note DATE: 06/07/17 TIME: 17:54 Operative Report Preoperative Diagnosis NSTEMI Postoperative Diagnosis same, 3 vessel disease Surgeon see signature line [place] Representative none Anesthesia Type: moderate sedation Estimated Blood Loss: minimal Transfusion none Specimen none Grafts/Implants none Complications none Procedure Description Procedure Date: 06/07/2017 Help Desk Rep/surgeon:Davonte Benson MD. Procedures Performed: 1)Left heart catheterization with selective left and right coronary angiography. Pre-operative Diagnosis:NSTEMI Post-operative Diagnosis: NSTEMI with three vessel CAD Indications: Description of Procedure: After informed consent, the patient was brought to the cardiac catheterization lab. The procedure site was prepped and draped in usual manner. The patient was premedicated with versed 1 mg and fentanyl 50 mcg. 2 mL lidocaine was injected into the right wrist. Next using the posterior wall technique, the 6/ 5 irish sheath was inserted into the right radial artery. Next using the JL3.5 and JR4, selective angiography of the left and right coronary arteries were obtained and the JL entered the LV so hemodynamics were also obtained.Next all equipment was removed and hemostasis was obtained by TR band. Findings: Anatomy/Hemodynamics: Left main:ostial 20% LAD: mid long segment up to 70%, followed by 80% Diagonal:bifurcating vessel, both branches diffuse 90% disease Ramus: large vessel with mid 80% Circumflex:mid 80% at OM1 Obtuse marginal: prox long 80% RCA:prox stent 50% ISR, mid stent 99% ISR PDA:one branch appears to be occluded with left-right collaterals PLV:luminal irregularities LV angiography:not done due to elevated Cr LV-Ao: no gradient LVEDP: 17 mmHg Contrast used: 30mL Fluoroscopy time:5.6 min Estimated blood loss<10 mL. Specimen: none Grafts/implants: none Complications: none Assessment: Three vessel CAD NSTEMI DM HTN CKD 4 Plan: -will need eval for CABG in this diabetic male with depressed LV function and multivessel CAD -continue medical management for now, d/c plavix -will discuss with primary organizational consultant, DAVONTE Goldtsein Jun 07, 2017 18:06
--- NOTE | 2017-06-07 18:27 | RADRPT ---
Echocardiogram Report Patient Name: LISA SANCHES Gender: Male Date: 1955 Study Date: 07-Jun-2017 [employer] Instructor: Darryl Dunlap [facility] Location: [id number] Ref. Physician: FORTINO THOMAS Quality: Adequate Procedures: Transthoracic echocardiogram with complete 2D, M-Mode, and doppler examination. Indications: Chest Pain. 2D/M Mode Doppler Measurement Value Normal Ranges Measurement Value Normal Ranges LVIDd 2D 4.4 3.5 - 5.6 cm AV Peak Edward 1.3 m/sec LVIDs 2D 2.8 2.1 - 4.1 cm AV Peak PG 6.3 mmHg LVPWd 2D 1.6 0.6 - 1.1 cm LVOT Peak Edward 1.1 m/sec IVSd 2D 1.6 0.6 - 1.1 cm LVOT Peak PG 5.1 mmHg AoR Diam 2D 3.2 2.0 - 3.7 cm MV E Peak Edward 0.7 m/sec EDV 2D 87.9 cm3 MV A Peak Edward 1.1 m/sec ESV 2D 23.1 cm3 MV E/A 0.7 LA Dimen 2D 3.5 2.3 - 4.0 cm MV Decel Time 256 msec MV Decel Yancey 3 MV E/A 0.7 TR Peak Edward 2.2 m/sec TR Peak PG 20.0 mmHg RVSP 23.0 mmHg Findings Left Ventricle: Normal left ventricular cavity size. Moderate concentric left ventricular hypertrophy. Mild left ventricular systolic dysfunction. Ejection fraction is visually estimated at 40 %. Tissue Doppler/Mitral Doppler indices are consistent with impaired relaxation (Stage I diastolic dysfunction). Abnormal septal motion secondary to LBBB as well as septal hypokinesis. Inferior and inferolateral hypokinesis. Right Ventricle: Normal right ventricular size. Normal right ventricular systolic function. Left Atrium: There is mild enlargement of left atrium. Right Atrium: The right atrium is normal in size. Mitral Valve: Mild mitral annular calcification. Mild mitral valve regurgitation. Aortic Valve: Normal appearance of the aortic valve. No significant aortic stenosis or insufficiency. Tricuspid Valve: Normal appearance of the tricuspid valve. Estimated peak PA systolic pressure 23 mmHg. There is trace tricuspid regurgitation. Pulmonic Valve: Pulmonic valve not well visualized. Pericardium: Normal pericardium with no significant pericardial effusion. Aorta: Normal aortic root. IVC: Normal size and normal respiratory collapse consistent with normal right atrial pressure. Conclusions 1.Normal left ventricular cavity size. Moderate concentric left ventricular hypertrophy. Mild left ventricular systolic dysfunction. Ejection fraction is visually estimated at 40 %. Tissue Doppler/Mitral Doppler indices are consistent with impaired relaxation (Stage I diastolic dysfunction). Abnormal septal motion secondary to LBBB as well as septal hypokinesis. Inferior and inferolateral hypokinesis. 2.Mild mitral valve regurgitation. 3.Estimated peak PA systolic pressure 23 mmHg based on RA pressure of 3 mmHg. Electronically Signed By: Davonte Benson 07-Jun-2017 18:27:19 -0700 Patient Name: LISA SANCHES Study Date: 07-Jun-2017 [id number]
[2017-06-07] MEDS ORDERED: ATORVASTATIN 40 MG TAB PO SCH (21:00)
[2017-06-07] MEDS: EZETIMIBE 10 MG TAB PO SCH (21:03)
[2017-06-07] MEDS: TAMSULOSIN (SR) 0.4 MG CAP PO SCH (21:03)
[2017-06-07] MEDS: ATORVASTATIN 40 MG TAB PO SCH (21:03)
[2017-06-08] VITALS (11 sets, daily range): BP systolic 135–162; BP diastolic 74–87; PULSE 50–63; RESP 18–22
[2017-06-08 07:38] LABS: BASOPHIL # 0.1 10^3/ul (0.0-0.1); BASOPHILS % 0.6 % (0.0-2.0); EOSINOPHILS # 0.3 10^3/ul (0.0-0.5); EOSINOPHILS % 3.9 % (0.0-7.0); HEMOGLOBIN 9.4 g/dl (14.0-18.0); LYMPHOCYTES # 1.7 10^3/ul (0.8-2.9); LYMPHOCYTES % 20.7 % (15.0-51.0); MEAN CORPUSCULAR HEMOGLOBIN 28.3 pg (29.0-33.0); MEAN CORPUSCULAR HGB CONC 32.4 g/dl (32.0-37.0); MEAN CORPUSCULAR VOLUME 87.3 fl (82.0-101.0); MEAN PLATELET VOLUME 10.9 fl (7.4-10.4); MONOCYTE # 0.6 10^3/ul (0.3-0.9); MONOCYTES % 7.5 % (0.0-11.0); NEUTROPHIL # 5.5 10^3/ul (1.6-7.5); NEUTROPHILS % 67.1 % (39.0-77.0); PLATELET COUNT 151 10^3/UL (140-415); RED BLOOD COUNT 3.32 10^6/ul (4.70-6.10); RED CELL DISTRIBUTION WIDTH 14.7 % (11.5-14.5); WHITE BLOOD COUNT 8.2 10^3/ul (4.8-10.8)
[2017-06-08 08:04] LABS: CHOL/HDL RATIO 3.1 RATIO
[2017-06-08 08:06] LABS: CALCIUM 9.1 mg/dl (8.4-10.2); CREATININE 3.69 mg/dl (0.61-1.24); PHOSPHORUS 4.6 mg/dl (2.5-4.9); POTASSIUM 4.2 mmol/L (3.5-5.1)
[2017-06-08] MEDS: NIFEdipine (XL) 30 MG TAB PO SCH (10:48)
[2017-06-08] MEDS: ISOSORBIDE MONONITRATE(SR)60 MG TAB PO SCH (10:48)
[2017-06-08] MEDS: FAMOTIDINE 20 MG TAB PO SCH (10:49)
[2017-06-08] MEDS: ASPIRIN (EC) 81 MG TAB PO SCH (10:49)
--- NOTE | 2017-06-08 12:11 | PN ---
Date/Time of Note Date/Time of Note DATE: 06/08/17 TIME: 12:09 Assessment/Plan VTE Prophylaxis VTE Prophylaxis Intervention: heparin Lines/Catheters IV Catheter Type (from Nrs): Peripheral IV Urinary Cath still in place: No Assessment/Plan Assessment/Plan 1. Acute NSTEMI 2 acute on chronic Systolic heart failure 3. H/o CKD with h/o left nephrectomy for RCC 4. h/o CAD s/p prior PCI 2006 5. Hypertensive urgency 6. 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 Subjective 24 Hr Interval Summary Free Text/Dictation no chest pain, no palpitation, no SOB Exam/Review of Systems Vital Signs Vitals Vital Signs Date Time Temp Pulse Resp B/P Pulse Ox O2 Delivery O2 Flow Rate FiO2 06/08/17 11:29 97.8 67 20 162/87 98 06/07/17 19:50 Room Air 06/07/17 08:00 2.0 Intake and Output 06/07/17 06/07/17 06/08/17 15:00 23:00 07:00 Intake Total 30 ml 300 ml Output Total 1200 ml 1200 ml Balance -1170 ml -900 ml Exam Constitutional: alert Psych: no complaints Head: normocephalic Eyes: nl conjunctiva ENMT: nl external ears & nose Neck: non-tender, supple Respiratory: clear to auscultation, diminished breath sounds, normal air movement Cardiovascular: nl pulses, regular rate and rhythm Gastrointestinal: nl liver, spleen, non-tender, soft Musculoskeletal: nl extremities to inspection Neurological: SOD FARMER II-XII intact, nl mental status, nl speech, nl strength Results Result Diagram: 06/08/17 0706/08/17 07 Results 24 hrs Laboratory Tests Test 06/07/17 13:40 06/07/17 20:18 06/08/17 07:02 Activated Partial Thromboplast Time 62.6 H 27.9 White Blood Count 8.2 Red Blood Count 3.32 L Hemoglobin 9.4 L Hematocrit 29.0 L Mean Corpuscular Volume 87.3 Mean Corpuscular Hemoglobin 28.3 L Mean Corpuscular Hemoglobin Concent 32.4 Red Cell Distribution Width 14.7 H Platelet Count 151 Mean Platelet Volume 10.9 H Neutrophils % 67.1 Lymphocytes % 20.7 Monocytes % 7.5 Eosinophils % 3.9 Basophils % 0.6 Nucleated Red Blood Cells % 0.0 Neutrophils # 5.5 Lymphocytes # 1.7 Monocytes # 0.6 Eosinophils # 0.3 Basophils # 0.1 Nucleated Red Blood Cells # 0.0 Sodium Level 141 Potassium Level 4.2 Chloride Level 109 Carbon Dioxide Level 25 Anion Gap 11 Blood Urea Nitrogen 42 H Creatinine 3.69 H Glucose Level 199 Calcium Level 9.1 Phosphorus Level 4.6 Magnesium Level 2.0 Triglycerides Level 135 Cholesterol Level 95 L LDL Cholesterol, Calculated 38 HDL Cholesterol 30 Cholesterol/HDL Ratio 3.1 Medications Medications Current Medications Ondansetron HCl (Zofran Inj) 4 mg Q6H PRN IV NAUSEA AND/OR VOMITING; Start 06/07/17 at 02:30 Nitroglycerin (Nitroglycerin (Sl Tab) 0.4 Mg) 1 tab Q5M PRN SL CHEST PAIN Last administered on 06/07/17 08:56; Admin Dose 1 TAB; Start 06/07/17 at 02:30 Acetaminophen (Tylenol Tab) 650 mg Q6H PRN PO PAIN LEVEL 1-3 OR FEVER; Start 06/07/17 at 02:30 Morphine Sulfate (morphine) 2 mg Q4H PRN IV PAIN LEVEL 7-10; Start 06/07/17 at 02:30 Docusate Sodium (Colace) 100 mg Q12H PRN PO CONSTIPATION; Start 06/07/17 at 02: 30 Bisacodyl (Dulcolax) 5 mg DAILY PRN PO CONSTIPATION; Start 06/07/17 at 02:30 Famotidine (Pepcid) 20 mg DAILY PO Last administered on 06/08/17 10:49; Admin Dose 20 MG; Start 06/07/17 at 09:00 Aspirin (Halfprin) 81 mg DAILY PO Last administered on 06/08/17 10:49; Admin Dose 81 MG; Start 06/07/17 at 09:00 Clonidine (Catapres) 0.3 mg Q6H PO Last administered on 06/08/17 10:48; Admin Dose 0.3 MG; Start 06/07/17 at 05:00 EZETIMIBE (Zetia) 10 mg HS PO Last administered on 06/07/17 21:03; Admin Dose 10 MG; Start 06/07/17 at 21:00 Nifedipine (Procardia Xl) 30 mg DAILY PO Last administered on 06/08/17 10:48; Admin Dose 30 MG; Start 06/07/17 at 09:00 Tamsulosin HCl (Flomax) 0.4 mg DAILY@21 PO Last administered on 06/07/17 21:03 ; Admin Dose 0.4 MG; Start 06/07/17 at 21:00 Isosorbide Mononitrate (Imdur) 60 mg DAILY PO Last administered on 06/08/17 10 :48; Admin Dose 60 MG; Start 06/07/17 at 09:00 Atorvastatin Calcium (Lipitor) 80 mg QHS PO Last administered on 06/07/17 21: 03; Admin Dose 80 MG; Start 06/07/17 at 21:00 Hydralazine HCl (Apresoline) 10 mg Q6H PRN IV SBP>160; Start 06/07/17 at 09:00 Carvedilol (Coreg) 12.5 mg BID PO Last administered on 06/08/17 10:49; Admin Dose 12.5 MG; Start 06/07/17 at 09:00 Miscellaneous Information (* Miscellaneous Pharmacy Order) HOLD all METFORMIN ... ONCE XX ; Start 06/07/17 at 18:00; Stop 06/09/17 at 17:59 Morphine Sulfate (morphine) 2 mg Q2H PRN IV FOR NON CARDIAC PAIN (4-10); Start 06/07/17 at 18:00 Hydralazine HCl (Apresoline) 100 mg Q8 PO ; Start 06/08/17 at 14:00; Status HERBIE MCKAY MD Jun 08, 2017 12:11
--- NOTE | 2017-06-08 13:11 | CONS ---
Date/Time of Note Date/Time of Note DATE: 06/08/17 TIME: 13:06 Assessment/Plan Assessment/Plan Chief Complaint/Hosp Course NSTEMI: s/p cath with 3 vessel CAD, needs CABG Acute on chronic systolic heart failure: EF 40-45%F. ~Euvolemic now CKD: unknown baseline. Cr 3.6 here, stable so far CAD s/p prior PCI 2006 H/o CVA: thinks his speech has changed DM HTN urgency -Dr. Penny to evaluate for CABG -continue ASA -d/c plavix -lipitor 80mg -hold lasix for now -continue imdur 60mg -metoprolol 50mg BID -increase hydralazine to 100mg TID -continue clonidine Problems: Consultation Date/Type/Reason Admit Date/Time Jun 07, 2017 at 02:04 Initial Consult Date 06/07/17 Type of Consultation: Cardiology Referring Provider: FORTINO THOMAS 24 HR Interval Summary Free Text/Dictation No o/n events. Mild chest pain in am before receiving BP meds. Agreeable to CABG. thinks that he has been having slurred speech over the past 2-3 days ( prior to arrival) Exam/Review of Systems Vital Signs Vitals Vital Signs Date Time Temp Pulse Resp B/P Pulse Ox O2 Delivery O2 Flow Rate FiO2 06/08/17 12:42 59 06/08/17 11:29 97.8 20 162/87 98 06/07/17 19:50 Room Air 06/07/17 08:00 2.0 Intake and Output 06/07/17 06/07/17 06/08/17 15:00 23:00 07:00 Intake Total 30 ml 300 ml Output Total 1200 ml 1200 ml Balance -1170 ml -900 ml Exam Constitutional: alert, oriented Psych: nl mood/affect, no complaints Head: atraumatic, normocephalic Neck: No jvd Respiratory: clear to auscultation, No crackles/rales Cardiovascular: edema (trace), regular rate and rhythm Gastrointestinal: non-tender, soft Neurological: nl mental status, nl speech Results Result Diagram: 06/08/17 0702 06/08/17 0702 Results 24 hrs Laboratory Tests Test 06/07/17 13:40 06/07/17 20:18 06/08/17 07:02 Activated Partial Thromboplast Time 62.6 H 27.9 White Blood Count 8.2 Red Blood Count 3.32 L Hemoglobin 9.4 L Hematocrit 29.0 L Mean Corpuscular Volume 87.3 Mean Corpuscular Hemoglobin 28.3 L Mean Corpuscular Hemoglobin Concent 32.4 Red Cell Distribution Width 14.7 H Platelet Count 151 Mean Platelet Volume 10.9 H Neutrophils % 67.1 Lymphocytes % 20.7 Monocytes % 7.5 Eosinophils % 3.9 Basophils % 0.6 Nucleated Red Blood Cells % 0.0 Neutrophils # 5.5 Lymphocytes # 1.7 Monocytes # 0.6 Eosinophils # 0.3 Basophils # 0.1 Nucleated Red Blood Cells # 0.0 Sodium Level 141 Potassium Level 4.2 Chloride Level 109 Carbon Dioxide Level 25 Anion Gap 11 Blood Urea Nitrogen 42 H Creatinine 3.69 H Glucose Level 199 Calcium Level 9.1 Phosphorus Level 4.6 Magnesium Level 2.0 Triglycerides Level 135 Cholesterol Level 95 L LDL Cholesterol, Calculated 38 HDL Cholesterol 30 Cholesterol/HDL Ratio 3.1 Medications Medications Current Medications Ondansetron HCl (Zofran Inj) 4 mg Q6H PRN IV NAUSEA AND/OR VOMITING; Start 06/07/17 at 02:30 Nitroglycerin (Nitroglycerin (Sl Tab) 0.4 Mg) 1 tab Q5M PRN SL CHEST PAIN Last administered on 06/07/17 08:56; Admin Dose 1 TAB; Start 06/07/17 at 02:30 Acetaminophen (Tylenol Tab) 650 mg Q6H PRN PO PAIN LEVEL 1-3 OR FEVER; Start 06/07/17 at 02:30 Morphine Sulfate (morphine) 2 mg Q4H PRN IV PAIN LEVEL 7-10; Start 06/07/17 at 02:30 Docusate Sodium (Colace) 100 mg Q12H PRN PO CONSTIPATION; Start 06/07/17 at 02: 30 Bisacodyl (Dulcolax) 5 mg DAILY PRN PO CONSTIPATION; Start 06/07/17 at 02:30 Famotidine (Pepcid) 20 mg DAILY PO Last administered on 06/08/17 10:49; Admin Dose 20 MG; Start 06/07/17 at 09:00 Aspirin (Halfprin) 81 mg DAILY PO Last administered on 06/08/17 10:49; Admin Dose 81 MG; Start 06/07/17 at 09:00 Clonidine (Catapres) 0.3 mg Q6H PO Last administered on 06/08/17 10:48; Admin Dose 0.3 MG; Start 06/07/17 at 05:00 EZETIMIBE (Zetia) 10 mg HS PO Last administered on 06/07/17 21:03; Admin Dose 10 MG; Start 06/07/17 at 21:00 Nifedipine (Procardia Xl) 30 mg DAILY PO Last administered on 06/08/17 10:48; Admin Dose 30 MG; Start 06/07/17 at 09:00 Tamsulosin HCl (Flomax) 0.4 mg DAILY@21 PO Last administered on 06/07/17 21:03 ; Admin Dose 0.4 MG; Start 06/07/17 at 21:00 Isosorbide Mononitrate (Imdur) 60 mg DAILY PO Last administered on 06/08/17 10 :48; Admin Dose 60 MG; Start 06/07/17 at 09:00 Atorvastatin Calcium (Lipitor) 80 mg QHS PO Last administered on 06/07/17 21: 03; Admin Dose 80 MG; Start 06/07/17 at 21:00 Hydralazine HCl (Apresoline) 10 mg Q6H PRN IV SBP>160; Start 06/07/17 at 09:00 Carvedilol (Coreg) 12.5 mg BID PO Last administered on 06/08/17 10:49; Admin Dose 12.5 MG; Start 06/07/17 at 09:00 Miscellaneous Information (* Miscellaneous Pharmacy Order) HOLD all METFORMIN ... ONCE XX ; Start 06/07/17 at 18:00; Stop 06/09/17 at 17:59 Morphine Sulfate (morphine) 2 mg Q2H PRN IV FOR NON CARDIAC PAIN (4-10); Start 06/07/17 at 18:00 Hydralazine HCl (Apresoline) 100 mg Q8 PO ; Start 06/08/17 at 14:00 TAYLER BE Jun 08, 2017 13:11
--- NOTE | 2017-06-08 14:05 | PN ---
DATE: 06/08/2017 SUBJECTIVE: The patient is stable. No events overnight. No fevers, chills, nausea or vomiting. OBJECTIVE: VITAL SIGNS: Blood pressure is 162/76, respirations 18, pulse 76, temperature 98.3. HEENT: Head is normocephalic. NECK: Supple. HEART: Regular rate. LUNGS: Show diminished breath sounds at base. ABDOMEN: Soft, nontender to palpation. No rebound or guarding. EXTREMITIES: Negative for clubbing, cyanosis, no edema. DERMATOLOGIC: No rashes. MUSCULOSKELETAL: No joint effusions. NEUROLOGIC: No change in exam. MEDICATIONS: The patient's medications have been reviewed. LABORATORY DATA: Showed sodium 141, potassium 4.2, BUN 42, creatinine 3.69. White count 8.2, hemog lobin 9.4, hematocrit 29.1, platelet count 151. ASSESSMENT AND PLAN: 1. Nonoliguric acute kidney injury on top of chronic kidney disease stage IV with unknown baseline creatinine with EGFR of 25%. Etiology of current acute kidney injury is secondary to hemodynamics. Renal function appears to be stable. No evidence of contrast-associated nephropathy. At this poin t, would continue current treatment plan, supportive care, renally dose medications, avoid nephrotox ins. 2. Anemia, monitor hemoglobin and hematocrit levels. 3. Mineral bone disorder. We will also monitor calcium and phosphorus levels. 4. Hypertension. Continue current blood pressure regimen. 5. Congestive heart failure. Continue medical management and follow up with cardiology. 6. Non-ST elevation myocardial infarction. The patient is status post cardiac catheterization. Th e patient will be evaluated for possible coronary artery bypass graft. Continue medical management. 7. Dyslipidemia. Continue statin therapy. Dictated By: REBECCA BLANKENSHIP/BRANDON Conf#: [id number] DID#: [id number]
--- NOTE | 2017-06-08 14:09 | CONS ---
Date/Time of Note Date/Time of Note DATE: 06/08/17 TIME: 14:02 Assessment/Plan Assessment/Plan Additional Assessment/Plan 61 year old male with severe 3V CAD and ischemic cardiomyopathy with EF of 40% and diabetes. I agree CABG is best option. He was on plavix until yesterday and because of his renal insufficiency he will need to wait until Sunday of next week. I explained to patient and his the benefits, risks and alternatives of surgery. The risks are but not limited to bleeding, infection, stroke, need for dialysis, respiratory failure and . They understand and agree to surgery. Consultation Date/Type/Reason Admit Date/Time Jun 07, 2017 at 02:04 Date of Consultation: Jun 08, 2017 Reason for Consultation evaluate for cabg Referring Provider: TAYLER BE Hx of Present Illness 61 year old male with history of DM, HTN, CAD, previous stenting admitted with SOB and chest pain and ruled in for NSTEMI. Cath today shows severe 3V CAD. We are asked to see her regarding CABG. He has renal insufficiency with creat of 3.3 and was on plavix up until yesterday Constitutional: No chills, No diaphoresis, No disoriented, No febrile, No improved, No no complaints, No other, No poor po, No requiring IVF, No requiring O2 Eyes: No discharge, No no complaints, No other, No pain, No redness, No visual change ENT: No bleeding, No congestion, No discharge, No dysphagia, No no complaints, No other, No pain, No sore throat Respiratory: cough, shortness of breath Cardiovascular: chest pain Gastrointestinal: No blood, No constipation, No decreased appetite, No diarrhea , No flatus, No nausea, No no complaints, No other, No pain, No passing stool, No vomiting Genitourinary: No bleeding, No discharge, No dysuria, No flank pain, No hematuria, No no complaints, No other Musculoskeletal: No back pain, No bone/joint pain, No neck pain, No no complaints, No other, No restricted range of motion, No swelling Skin: No bruising, No erythema, No laceration, No no complaints, No other, No pruritis, No rash, No skin lesions Neurologic: No confusion, No dizziness, No focal-weakness, No headache, No no complaints, No other, No seizure, No syncope Endocrine: No dry skin, No no complaints, No other, No polydypsia, No polyuria , No temp intolerance Lymphatic: No adenopathy, No lymphadema, No no complaints, No other, No tender nodes Psychological: nl mood/affect, no complaints, No anxiety, No confusion, No depression, No other, No suicidal Immunologic: No immunodeficiency, No no complaints, No other, No pruritis, No rhinitis, No urticaria Past Medical History Medical History: angina, congestive heart failure, coronary artery disease, diabetes, high cholesterol, hypertension Past Surgical History Past Surgical Hx: no surgical history Family History Significant Family History: no pertinent family hx Social History Alcohol Use: none Smoking Status: Current every day smoker Drug Use: none Exam/Review of Systems Vital Signs Vitals Vital Signs Date Time Temp Pulse Resp B/P Pulse Ox O2 Delivery O2 Flow Rate FiO2 06/08/17 12:42 59 06/08/17 11:29 97.8 20 162/87 98 06/07/17 19:50 Room Air 06/07/17 08:00 2.0 Intake and Output 06/07/17 06/07/17 06/08/17 15:00 23:00 07:00 Intake Total 30 ml 300 ml Output Total 1200 ml 1200 ml Balance -1170 ml -900 ml Exam Constitutional: No alert, No distress, No frail, No non-verbal, No obese, No oriented, No other, No well developed Psych: No anxiety, No confusion, No depression, No nl mood/affect, No no complaints, No other, No suicidal Head: No atraumatic, No hematomas, No lacerations, No normocephalic, No other Eyes: No EOMI, No PERRL, No fundi, disc, No icteric, No nl conjunctiva, No nl lids, No nl sclera, No other ENMT: No intubated, No mucosa pink and moist, No nl external ears & nose, No nl lips & teeth, No nl nasal mucosa & septum, No other, No tympanic membranes Neck: No bruits, No jvd, No masses, No non-tender, No nuchal rigidity, No other , No supple, No thyromegaly Respiratory: No clear to auscultation, No congested cough, No crackles/rales, No diminished breath sounds, No intercostal retraction, No labored breathing, No normal air movement, No other, No respirations, No tactile fremitus, No wheezing Cardiovascular: No S3, No S4, No bruits, No diastolic murmur, No edema, No gallop, No irregular rhythm, No jugular venous distention (JVD), No murmurs/ extra sounds, No nl pulses, No other, No regular rate and rhythm, No rub, No systolic murmur Gastrointestinal: No ascites, No bowel sounds, No distended, No firm, No hepatomegaly, No mass, No nl liver, spleen, No non-tender, No other, No rebound or guarding, No soft, No splenomegaly, No surgical scars, No tender Genitourinary - Male: No CVA tenderness, No discharge, No nl penis, No nl scrotum, No other Musculoskeletal: No joint tenderness, No muscle tone, No muscle weakness, No nl extremities to inspection, No nl gait and stance, No other, No range of motion, No spine non-tender, No swelling Extremities: No calf tenderness, No clubbing, No cyanosis, No edema, No normal pulses, No other, No palpable cord, No pitting pedal edema, No tenderness Neurological: No CASHIER TUBE ROOM II-XII intact, No DTR's symmetric, No confused, No focal weakness, No lethargic, No nl mental status, No nl speech, No nl strength, No numbness, No other, No reflexes, No unresponsive Skin: No diaphoresis, No ecchymosis, No laceration, No nl turgor, No other, No puncture, No rash or lesions Lymph: No enlarged, No nl lymph nodes, No nontender, No other Results Result Diagram: 06/08/1770106/08/17 07 Results 24 hrs Laboratory Tests Test 06/07/17 20:18 06/08/17 07:02 Activated Partial Thromboplast Time 27.9 White Blood Count 8.2 Red Blood Count 3.32 L Hemoglobin 9.4 L Hematocrit 29.0 L Mean Corpuscular Volume 87.3 Mean Corpuscular Hemoglobin 28.3 L Mean Corpuscular Hemoglobin Concent 32.4 Red Cell Distribution Width 14.7 H Platelet Count 151 Mean Platelet Volume 10.9 H Neutrophils % 67.1 Lymphocytes % 20.7 Monocytes % 7.5 Eosinophils % 3.9 Basophils % 0.6 Nucleated Red Blood Cells % 0.0 Neutrophils # 5.5 Lymphocytes # 1.7 Monocytes # 0.6 Eosinophils # 0.3 Basophils # 0.1 Nucleated Red Blood Cells # 0.0 Sodium Level 141 Potassium Level 4.2 Chloride Level 109 Carbon Dioxide Level 25 Anion Gap 11 Blood Urea Nitrogen 42 H Creatinine 3.69 H Glucose Level 199 Calcium Level 9.1 Phosphorus Level 4.6 Magnesium Level 2.0 Triglycerides Level 135 Cholesterol Level 95 L LDL Cholesterol, Calculated 38 HDL Cholesterol 30 Cholesterol/HDL Ratio 3.1 Medications Medications Current Medications Ondansetron HCl (Zofran Inj) 4 mg Q6H PRN IV NAUSEA AND/OR VOMITING; Start 06/07/17 at 02:30 Nitroglycerin (Nitroglycerin (Sl Tab) 0.4 Mg) 1 tab Q5M PRN SL CHEST PAIN Last administered on 06/07/17 08:56; Admin Dose 1 TAB; Start 06/07/17 at 02:30 Acetaminophen (Tylenol Tab) 650 mg Q6H PRN PO PAIN LEVEL 1-3 OR FEVER; Start 06/07/17 at 02:30 Morphine Sulfate (morphine) 2 mg Q4H PRN IV PAIN LEVEL 7-10; Start 06/07/17 at 02:30 Docusate Sodium (Colace) 100 mg Q12H PRN PO CONSTIPATION; Start 06/07/17 at 02: 30 Bisacodyl (Dulcolax) 5 mg DAILY PRN PO CONSTIPATION; Start 06/07/17 at 02:30 Famotidine (Pepcid) 20 mg DAILY PO Last administered on 06/08/17 10:49; Admin Dose 20 MG; Start 06/07/17 at 09:00 Aspirin (Halfprin) 81 mg DAILY PO Last administered on 06/08/17 10:49; Admin Dose 81 MG; Start 06/07/17 at 09:00 Clonidine (Catapres) 0.3 mg Q6H PO Last administered on 06/08/17 10:48; Admin Dose 0.3 MG; Start 06/07/17 at 05:00 EZETIMIBE (Zetia) 10 mg HS PO Last administered on 06/07/17 21:03; Admin Dose 10 MG; Start 06/07/17 at 21:00 Nifedipine (Procardia Xl) 30 mg DAILY PO Last administered on 06/08/17 10:48; Admin Dose 30 MG; Start 06/07/17 at 09:00 Tamsulosin HCl (Flomax) 0.4 mg DAILY@21 PO Last administered on 06/07/17 21:03 ; Admin Dose 0.4 MG; Start 06/07/17 at 21:00 Isosorbide Mononitrate (Imdur) 60 mg DAILY PO Last administered on 06/08/17 10 :48; Admin Dose 60 MG; Start 06/07/17 at 09:00 Atorvastatin Calcium (Lipitor) 80 mg QHS PO Last administered on 06/07/17 21: 03; Admin Dose 80 MG; Start 06/07/17 at 21:00 Hydralazine HCl (Apresoline) 10 mg Q6H PRN IV SBP>160; Start 06/07/17 at 09:00 Carvedilol (Coreg) 12.5 mg BID PO Last administered on 06/08/17 10:49; Admin Dose 12.5 MG; Start 06/07/17 at 09:00 Miscellaneous Information (* Miscellaneous Pharmacy Order) HOLD all METFORMIN ... ONCE XX ; Start 06/07/17 at 18:00; Stop 06/09/17 at 17:59 Morphine Sulfate (morphine) 2 mg Q2H PRN IV FOR NON CARDIAC PAIN (4-10); Start 06/07/17 at 18:00 Hydralazine HCl (Apresoline) 100 mg Q8 PO ; Start 06/08/17 at 14:00 DENISA GREENE MD Jun 08, 2017 14:09
--- NOTE | 2017-06-08 16:33 | RADRPT ---
PROCEDURE: CT Brain without contrast. CLINICAL INDICATION: Neurologic deficit TECHNIQUE: A CT of the brain was performed on multidetector high-resolution CT scanner utilizing a xial sections from the skull base through the vertex without contrast. One or more of the following dose reduction techniques were used: Automated exposure control, Adjustment of the mA and/or kV acc ording to patient size, and/or use of iterative reconstruction technique. DOSE: CTDI = 45 mGy and the DLP = 720 mGy-cm. COMPARISON: None available FINDINGS: No acute intracranial hemorrhage, significant mass effect or midline shift. Patchy hypoattenuation o f the cerebral white matter is compatible with chronic microvascular ischemic changes. Vascular calc ifications. Prominence of the cortical sulci and ventricles are related to mild cerebral volume los s. No significant opacification of the visualized paranasal sinuses or mastoids. IMPRESSION: No acute intracranial hemorrhage or mass effect. Chronic microvascular disease and intracranial atherosclerosis. If there remains suspicion for acute stroke, consider MRI for further evaluation. RPTAT: AA .Manny Garcia MD, MD Date Time Electronically viewed and signed by .Manny Garcia MD, MD on 06/08/2017 16:33 .T/
[2017-06-08] MEDS: EZETIMIBE 10 MG TAB PO SCH (20:53)
[2017-06-08] MEDS: TAMSULOSIN (SR) 0.4 MG CAP PO SCH (20:53)
[2017-06-08] MEDS: ATORVASTATIN 40 MG TAB PO SCH (20:53)
[2017-06-09] VITALS (13 sets, daily range): BP systolic 114–178; BP diastolic 60–94; PULSE 56–64; RESP 18–59
[2017-06-09 07:39] LABS: BASOPHIL # 0.1 10^3/ul (0.0-0.1); BASOPHILS % 0.6 % (0.0-2.0); EOSINOPHILS # 0.3 10^3/ul (0.0-0.5); HEMATOCRIT 30.8 % (42.0-52.0); HEMOGLOBIN 10.2 g/dl (14.0-18.0); LYMPHOCYTES # 1.9 10^3/ul (0.8-2.9); LYMPHOCYTES % 21.3 % (15.0-51.0); MEAN CORPUSCULAR HEMOGLOBIN 29.2 pg (29.0-33.0); MEAN CORPUSCULAR HGB CONC 33.1 g/dl (32.0-37.0); MEAN CORPUSCULAR VOLUME 88.3 fl (82.0-101.0); MEAN PLATELET VOLUME 10.5 fl (7.4-10.4); MONOCYTE # 0.7 10^3/ul (0.3-0.9); MONOCYTES % 8.4 % (0.0-11.0); NEUTROPHIL # 5.9 10^3/ul (1.6-7.5); NEUTROPHILS % 66.5 % (39.0-77.0); PLATELET COUNT 164 10^3/UL (140-415); RED BLOOD COUNT 3.49 10^6/ul (4.70-6.10); RED CELL DISTRIBUTION WIDTH 14.3 % (11.5-14.5); WHITE BLOOD COUNT 8.9 10^3/ul (4.8-10.8)
[2017-06-09] MEDS: FAMOTIDINE 20 MG TAB PO SCH (07:52)
[2017-06-09] MEDS: ASPIRIN (EC) 81 MG TAB PO SCH (07:53)
[2017-06-09] MEDS: NIFEdipine (XL) 30 MG TAB PO SCH (07:53)
[2017-06-09] MEDS: ISOSORBIDE MONONITRATE(SR)60 MG TAB PO SCH (07:53)
[2017-06-09] MEDS: hydrALAzine 20 MG INJ IV PRN (07:54)
[2017-06-09 08:13] LABS: CALCIUM 9.2 mg/dl (8.4-10.2); CREATININE 4.26 mg/dl (0.61-1.24); PHOSPHORUS 4.2 mg/dl (2.5-4.9); POTASSIUM 4.4 mmol/L (3.5-5.1)
--- NOTE | 2017-06-09 08:48 | PN ---
Date/Time of Note Date/Time of Note DATE: 06/09/17 TIME: 08:46 Assessment/Plan Lines/Catheters IV Catheter Type (from [facility]): Saline Lock [place] in Place (from [facility]): No Assessment/Plan Chief Complaint/Hosp Course worsening renal function. creat up to 4.2 tentatively on for Sunday unless renal functions continues to decline Problems: Exam/Review of Systems Vital Signs Vitals Vital Signs Date Time Temp Pulse Resp B/P Pulse Ox O2 Delivery O2 Flow Rate FiO2 06/09/17 08:00 60 06/09/17 07:58 98.0 18 178/94 98 06/07/17 19:50 Room Air 06/07/17 08:00 2.0 Intake and Output 06/08/17 06/08/17 06/09/17 15:00 23:00 07:00 Intake Total 480 ml Output Total 1500 ml Balance -1020 ml Results Result Diagram: 06/09/17 0709 06/09/17 0709 DENISA GREENE MD Jun 09, 2017 08:48
[2017-06-09] MEDS ORDERED: NIFEdipine (XL) 30 MG TAB PO ONE (09:30)
[2017-06-09] MEDS ORDERED: ISOSORBIDE MONONITRATE(SR)60 MG TAB PO ONE (09:30)
--- NOTE | 2017-06-09 10:01 | CONS ---
Date/Time of Note Date/Time of Note DATE: 06/09/17 TIME: 09:58 Assessment/Plan Assessment/Plan Chief Complaint/Hosp Course NSTEMI: s/p cath with 3 vessel CAD, needs CABG Acute on chronic systolic heart failure: EF 40-45%F. ~Euvolemic now Acute on chronic renal failure: unknown baseline. Cr 3.6 initially, now 4.2. ? AMANDA based on timing but minimal contrast used CAD s/p prior PCI 2006 H/o CVA: thinks his speech has changed. CT negative DM HTN urgency -awaiting CABG likely Sunday pending improvement in renal function -continue ASA -lipitor 80mg -hold lasix for now -increase to imdur 120mg -increase to nifedipine 60mg -metoprolol 50mg BID -hydralazine 100mg TID -continue clonidine Problems: Consultation Date/Type/Reason Admit Date/Time Jun 07, 2017 at 02:04 Initial Consult Date 06/07/17 Type of Consultation: Cardiology Referring Provider: TAYLER BE 24 HR Interval Summary Free Text/Dictation No o/n events. Mild CP again this am when SBP 180. Cr up to 4.2 today Exam/Review of Systems Vital Signs Vitals Vital Signs Date Time Temp Pulse Resp B/P Pulse Ox O2 Delivery O2 Flow Rate FiO2 06/09/17 08:00 60 06/09/17 07:58 98.0 18 178/94 98 06/07/17 19:50 Room Air 06/07/17 08:00 2.0 Intake and Output 06/08/17 06/08/17 06/09/17 15:00 23:00 07:00 Intake Total 480 ml Output Total 1500 ml Balance -1020 ml Exam Constitutional: alert, oriented Psych: no complaints Head: atraumatic, normocephalic Neck: No jvd Respiratory: clear to auscultation, No crackles/rales Cardiovascular: edema (trace), regular rate and rhythm Gastrointestinal: non-tender, soft Neurological: nl mental status, nl speech Results Result Diagram: 06/09/17 0709 06/09/17 0709 Results 24 hrs Laboratory Tests Test 06/09/17 07:09 White Blood Count 8.9 Red Blood Count 3.49 L Hemoglobin 10.2 L Hematocrit 30.8 L Mean Corpuscular Volume 88.3 Mean Corpuscular Hemoglobin 29.2 Mean Corpuscular Hemoglobin Concent 33.1 Red Cell Distribution Width 14.3 Platelet Count 164 Mean Platelet Volume 10.5 H Neutrophils % 66.5 Lymphocytes % 21.3 Monocytes % 8.4 Eosinophils % 3.0 Basophils % 0.6 Nucleated Red Blood Cells % 0.0 Neutrophils # 5.9 Lymphocytes # 1.9 Monocytes # 0.7 Eosinophils # 0.3 Basophils # 0.1 Nucleated Red Blood Cells # 0.0 Sodium Level 139 Potassium Level 4.4 Chloride Level 106 Carbon Dioxide Level 26 Anion Gap 11 Blood Urea Nitrogen 44 H Creatinine 4.26 H Glucose Level 198 Calcium Level 9.2 Phosphorus Level 4.2 Magnesium Level 2.0 Medications Medications Current Medications Ondansetron HCl (Zofran Inj) 4 mg Q6H PRN IV NAUSEA AND/OR VOMITING; Start 06/07/17 at 02:30 Nitroglycerin (Nitroglycerin (Sl Tab) 0.4 Mg) 1 tab Q5M PRN SL CHEST PAIN Last administered on 06/07/17 08:56; Admin Dose 1 TAB; Start 06/07/17 at 02:30 Acetaminophen (Tylenol Tab) 650 mg Q6H PRN PO PAIN LEVEL 1-3 OR FEVER; Start 06/07/17 at 02:30 Morphine Sulfate (morphine) 2 mg Q4H PRN IV PAIN LEVEL 7-10; Start 06/07/17 at 02:30 Docusate Sodium (Colace) 100 mg Q12H PRN PO CONSTIPATION; Start 06/07/17 at 02: 30 Bisacodyl (Dulcolax) 5 mg DAILY PRN PO CONSTIPATION; Start 06/07/17 at 02:30 Famotidine (Pepcid) 20 mg DAILY PO Last administered on 06/09/17 07:52; Admin Dose 20 MG; Start 06/07/17 at 09:00 Aspirin (Halfprin) 81 mg DAILY PO Last administered on 06/09/17 07:53; Admin Dose 81 MG; Start 06/07/17 at 09:00 Clonidine (Catapres) 0.3 mg Q6H PO Last administered on 06/09/17 06:25; Admin Dose 0.3 MG; Start 06/07/17 at 05:00 EZETIMIBE (Zetia) 10 mg HS PO Last administered on 06/08/17 20:53; Admin Dose 10 MG; Start 06/07/17 at 21:00 Tamsulosin HCl (Flomax) 0.4 mg DAILY@21 PO Last administered on 06/08/17 20:53 ; Admin Dose 0.4 MG; Start 06/07/17 at 21:00 Atorvastatin Calcium (Lipitor) 80 mg QHS PO Last administered on 06/08/17 20: 53; Admin Dose 80 MG; Start 06/07/17 at 21:00 Hydralazine HCl (Apresoline) 10 mg Q6H PRN IV SBP>160 Last administered on 06/09 07:54; Admin Dose 10 MG; Start 06/07/17 at 09:00 Carvedilol (Coreg) 12.5 mg BID PO Last administered on 06/09/17 07:53; Admin Dose 12.5 MG; Start 06/07/17 at 09:00 Miscellaneous Information (* Miscellaneous Pharmacy Order) HOLD all METFORMIN ... ONCE XX Last administered on 06/08/17 18:01; Admin Dose 1 EA; Start at 18:00; Stop 06/09/17 at 17:59 Morphine Sulfate (morphine) 2 mg Q2H PRN IV FOR NON CARDIAC PAIN (4-10); Start 06/07/17 at 18:00 Hydralazine HCl (Apresoline) 100 mg Q8 PO Last administered on 06/09/17 06:25 ; Admin Dose 100 MG; Start 06/08/17 at 14:00 Nifedipine (Procardia Xl) 60 mg DAILY PO ; Start 06/10/17 at 09:00 Isosorbide Mononitrate (Imdur) 120 mg DAILY PO ; Start 06/10/17 at 09:00 TAYLER BE Jun 09, 2017 10:01
--- NOTE | 2017-06-09 10:28 | PN ---
Date/Time of Note Date/Time of Note DATE: 06/09/17 TIME: 10:26 Assessment/Plan VTE Prophylaxis VTE Prophylaxis Intervention: other Lines/Catheters IV C[facility]ter Type [facility] Peripheral IV Urinary Cath still in place: No Assessment/Plan Chief Complaint/Hosp Course 1. Nonoliguric acute kidney injury (mild) on top of chronic kidney disease stage IV with EGFR of 25%. Etiology of current acute kidney injury is secondary to hemodynamics. Renal function appears to be stable. No evidence of contrast-associated nephropathy. At this point, would continue current treatment plan, supportive care, renally dose medications, avoid nephrotoxins. no indication for HD at this time 2. Anemia, monitor hemoglobin and hematocrit levels. no epogen at this time 3. Mineral bone disorder. We will also monitor calcium and phosphorus levels. 4. Hypertension. Continue current blood pressure regimen. 5. Congestive heart failure. good uop with diuresis. no jan or arb at this time 6. Non-ST elevation myocardial infarction. The patient is status post cardiac catheterization. The patient will be evaluated for possible coronary artery bypass graft. Continue medical management. 7. Dyslipidemia. Continue statin therapy. Problems: Subjective 24 Hr Interval Summary Free Text/Dictation renal follow up SUBJECTIVE: The patient is stable. No events overnight. No fevers, chills, nausea or vomiting. arf on ckd is worse good uop d/w Dr Weiss OBJECTIVE: HEENT: Head is normocephalic. NECK: Supple. HEART: Regular rate. LUNGS: Show diminished breath sounds at base. ABDOMEN: Soft, nontender to palpation. No rebound or guarding. EXTREMITIES: Negative for clubbing, cyanosis, no edema. DERMATOLOGIC: No rashes. MUSCULOSKELETAL: No joint effusions. NEUROLOGIC: No change in exam. MEDICATIONS: The patient's medications have been reviewed. Exam/Review of Systems Vital Signs Vitals Vital Signs Date Time Temp Pulse Resp B/P Pulse Ox O2 Delivery O2 Flow Rate FiO2 06/09/17 08:00 60 06/09/17 07:58 98.0 18 178/94 98 06/07/17 19:50 Room Air 06/07/17 08:00 2.0 Intake and Output 06/08/17 06/08/17 06/09/17 15:00 23:00 07:00 Intake Total 480 ml Output Total 1500 ml Balance -1020 ml Results Result Diagram: 06/09/17 0709 06/09/17 0709 Results 24 hrs Laboratory Tests Test 06/09/17 07:09 White Blood Count 8.9 Red Blood Count 3.49 L Hemoglobin 10.2 L Hematocrit 30.8 L Mean Corpuscular Volume 88.3 Mean Corpuscular Hemoglobin 29.2 Mean Corpuscular Hemoglobin Concent 33.1 Red Cell Distribution Width 14.3 Platelet Count 164 Mean Platelet Volume 10.5 H Neutrophils % 66.5 Lymphocytes % 21.3 Monocytes % 8.4 Eosinophils % 3.0 Basophils % 0.6 Nucleated Red Blood Cells % 0.0 Neutrophils # 5.9 Lymphocytes # 1.9 Monocytes # 0.7 Eosinophils # 0.3 Basophils # 0.1 Nucleated Red Blood Cells # 0.0 Sodium Level 139 Potassium Level 4.4 Chloride Level 106 Carbon Dioxide Level 26 Anion Gap 11 Blood Urea Nitrogen 44 H Creatinine 4.26 H Glucose Level 198 Calcium Level 9.2 Phosphorus Level 4.2 Magnesium Level 2.0 Medications Medications Current Medications Ondansetron HCl (Zofran Inj) 4 mg Q6H PRN IV NAUSEA AND/OR VOMITING; Start 06/07/17 at 02:30 Nitroglycerin (Nitroglycerin (Sl Tab) 0.4 Mg) 1 tab Q5M PRN SL CHEST PAIN Last administered on 06/07/17 08:56; Admin Dose 1 TAB; Start 06/07/17 at 02:30 Acetaminophen (Tylenol Tab) 650 mg Q6H PRN PO PAIN LEVEL 1-3 OR FEVER; Start 06/07/17 at 02:30 Morphine Sulfate (morphine) 2 mg Q4H PRN IV PAIN LEVEL 7-10; Start 06/07/17 at 02:30 Docusate Sodium (Colace) 100 mg Q12H PRN PO CONSTIPATION; Start 06/07/17 at 02: 30 Bisacodyl (Dulcolax) 5 mg DAILY PRN PO CONSTIPATION; Start 06/07/17 at 02:30 Famotidine (Pepcid) 20 mg DAILY PO Last administered on 06/09/17 07:52; Admin Dose 20 MG; Start 06/07/17 at 09:00 Aspirin (Halfprin) 81 mg DAILY PO Last administered on 06/09/17 07:53; Admin Dose 81 MG; Start 06/07/17 at 09:00 Clonidine (Catapres) 0.3 mg Q6H PO Last administered on 06/09/17 06:25; Admin Dose 0.3 MG; Start 06/07/17 at 05:00 EZETIMIBE (Zetia) 10 mg HS PO Last administered on 06/08/17 20:53; Admin Dose 10 MG; Start 06/07/17 at 21:00 Tamsulosin HCl (Flomax) 0.4 mg DAILY@21 PO Last administered on 06/08/17 20:53 ; Admin Dose 0.4 MG; Start 06/07/17 at 21:00 Atorvastatin Calcium (Lipitor) 80 mg QHS PO Last administered on 06/08/17 20: 53; Admin Dose 80 MG; Start 06/07/17 at 21:00 Hydralazine HCl (Apresoline) 10 mg Q6H PRN IV SBP>160 Last administered on 06/09 07:54; Admin Dose 10 MG; Start 06/07/17 at 09:00 Carvedilol (Coreg) 12.5 mg BID PO Last administered on 06/09/17 07:53; Admin Dose 12.5 MG; Start 06/07/17 at 09:00 Miscellaneous Information (* Miscellaneous Pharmacy Order) HOLD all METFORMIN ... ONCE XX Last administered on 06/08/17 18:01; Admin Dose 1 EA; Start at 18:00; Stop 06/09/17 at 17:59 Morphine Sulfate (morphine) 2 mg Q2H PRN IV FOR NON CARDIAC PAIN (4-10); Start 06/07/17 at 18:00 Hydralazine HCl (Apresoline) 100 mg Q8 PO Last administered on 06/09/17 06:25 ; Admin Dose 100 MG; Start 06/08/17 at 14:00 Nifedipine (Procardia Xl) 60 mg DAILY PO ; Start 06/10/17 at 09:00 Isosorbide Mononitrate (Imdur) 120 mg DAILY PO ; Start 06/10/17 at 09:00 MONA QUAN DO Jun 09, 2017 10:28
--- NOTE | 2017-06-09 14:43 | PN ---
Date/Time of Note Date/Time of Note DATE: 06/09/17 TIME: 14:40 Assessment/Plan VTE Prophylaxis VTE Prophylaxis Intervention: heparin Lines/Catheters IV Catheter Type (from Nrsg): Peripheral IV Urinary Cath still in place: No Assessment/Plan Assessment/Plan 1. Acute NSTEMI s/p Cath showing 3 V CAD-- need CABG 2 acute on chronic Systolic heart failure 3. H/o CKD with h/o left nephrectomy for RCC 4. h/o CAD s/p prior PCI 2006 5. Hypertensive urgency 6. DM II, poorlycontrolled Plan: s/p LHC by which showed 3 V CAD- s/p CT surgery evaluation, plan for CABG on sunday tentatively. heparin gtt as per cardiology - Nurse instructed to check with cardiology if still needs it nephrology has been following pt - Cr bumped to 4.26 pt needs better creatinine as per CT surgery prior to getting CABG Subjective 24 Hr Interval Summary Free Text/Dictation no acute events, no chest pain, BP stable,afebrile ,s/p CT surgery evaluation for CABG Exam/Review of Systems Vital Signs Vitals Vital Signs Date Time Temp Pulse Resp B/P Pulse Ox O2 Delivery O2 Flow Rate FiO2 06/09/17 12:24 98.0 62 18 154/88 98 06/07/17 19:50 Room Air 06/07/17 08:00 2.0 Intake and Output 06/08/17 06/08/17 06/09/17 15:00 23:00 07:00 Intake Total 480 ml Output Total 1500 ml Balance -1020 ml Exam Constitutional: alert Psych: no complaints Head: normocephalic Eyes: nl conjunctiva Neck: non-tender, supple Respiratory: clear to auscultation, diminished breath sounds, normal air movement Cardiovascular: nl pulses, regular rate and rhythm Gastrointestinal: non-tender, soft Musculoskeletal: nl extremities to inspection 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, nl mental status, nl speech, nl strength Results Result Diagram: 06/09/17 0709 06/09/17 0709 Results 24 hrs Laboratory Tests Test 06/09/17 07:09 White Blood Count 8.9 Red Blood Count 3.49 L Hemoglobin 10.2 L Hematocrit 30.8 L Mean Corpuscular Volume 88.3 Mean Corpuscular Hemoglobin 29.2 Mean Corpuscular Hemoglobin Concent 33.1 Red Cell Distribution Width 14.3 Platelet Count 164 Mean Platelet Volume 10.5 H Neutrophils % 66.5 Lymphocytes % 21.3 Monocytes % 8.4 Eosinophils % 3.0 Basophils % 0.6 Nucleated Red Blood Cells % 0.0 Neutrophils # 5.9 Lymphocytes # 1.9 Monocytes # 0.7 Eosinophils # 0.3 Basophils # 0.1 Nucleated Red Blood Cells # 0.0 Sodium Level 139 Potassium Level 4.4 Chloride Level 106 Carbon Dioxide Level 26 Anion Gap 11 Blood Urea Nitrogen 44 H Creatinine 4.26 H Glucose Level 198 Calcium Level 9.2 Phosphorus Level 4.2 Magnesium Level 2.0 Medications Medications Current Medications Ondansetron HCl (Zofran Inj) 4 mg Q6H PRN IV NAUSEA AND/OR VOMITING; Start 06/07/17 at 02:30 Nitroglycerin (Nitroglycerin (Sl Tab) 0.4 Mg) 1 tab Q5M PRN SL CHEST PAIN Last administered on 06/07/17 08:56; Admin Dose 1 TAB; Start 06/07/17 at 02:30 Acetaminophen (Tylenol Tab) 650 mg Q6H PRN PO PAIN LEVEL 1-3 OR FEVER; Start 06/07/17 at 02:30 Morphine Sulfate (morphine) 2 mg Q4H PRN IV PAIN LEVEL 7-10; Start 06/07/17 at 02:30 Docusate Sodium (Colace) 100 mg Q12H PRN PO CONSTIPATION; Start 06/07/17 at 02: 30 Bisacodyl (Dulcolax) 5 mg DAILY PRN PO CONSTIPATION; Start 06/07/17 at 02:30 Famotidine (Pepcid) 20 mg DAILY PO Last administered on 06/09/17 07:52; Admin Dose 20 MG; Start 06/07/17 at 09:00 Aspirin (Halfprin) 81 mg DAILY PO Last administered on 06/09/17 07:53; Admin Dose 81 MG; Start 06/07/17 at 09:00 Clonidine (Catapres) 0.3 mg Q6H PO Last administered on 06/09/17 12:53; Admin Dose 0.3 MG; Start 06/07/17 at 05:00 EZETIMIBE (Zetia) 10 mg HS PO Last administered on 06/08/17 20:53; Admin Dose 10 MG; Start 06/07/17 at 21:00 Tamsulosin HCl (Flomax) 0.4 mg DAILY@21 PO Last administered on 06/08/17 20:53 ; Admin Dose 0.4 MG; Start 06/07/17 at 21:00 Atorvastatin Calcium (Lipitor) 80 mg QHS PO Last administered on 06/08/17 20: 53; Admin Dose 80 MG; Start 06/07/17 at 21:00 Hydralazine HCl (Apresoline) 10 mg Q6H PRN IV SBP>160 Last administered on 06/09 07:54; Admin Dose 10 MG; Start 06/07/17 at 09:00 Carvedilol (Coreg) 12.5 mg BID PO Last administered on 06/09/17 07:53; Admin Dose 12.5 MG; Start 06/07/17 at 09:00 Miscellaneous Information (* Miscellaneous Pharmacy Order) HOLD all METFORMIN ... ONCE XX Last administered on 06/08/17 18:01; Admin Dose 1 EA; Start at 18:00; Stop 06/09/17 at 17:59 Morphine Sulfate (morphine) 2 mg Q2H PRN IV FOR NON CARDIAC PAIN (4-10); Start 06/07/17 at 18:00 Hydralazine HCl (Apresoline) 100 mg Q8 PO Last administered on 06/09/17 06:25 ; Admin Dose 100 MG; Start 06/08/17 at 14:00 Nifedipine (Procardia Xl) 60 mg DAILY PO ; Start 06/10/17 at 09:00 Isosorbide Mononitrate (Imdur) 120 mg DAILY PO ; Start 06/10/17 at 09:00 HERBIE YEN MD Jun 09, 2017 14:43
--- NOTE | 2017-06-09 15:45 | RADRPT ---
PROCEDURE: US Carotids. CLINICAL INDICATION: bruit , preop cabg TECHNIQUE: Multiple sonographic of the carotid bifurcation region and vertebral arteries were obta ined utilizing adams scale, duplex and color-flow imaging. The images were reviewed on a PACS worksta tion. COMPARISON: No prior studies are available for comparison. FINDINGS: Evaluation of the right carotid bifurcation region reveals moderate calcific atherosclerotic disease . There is a 53% stenosis in the right carotid bulb region. Evaluation of the left carotid bifurcation region reveals mild to calcific atherosclerotic disease. There is antegrade flow within the vertebral arteries bilaterally. RIGHT CAROTID MEASUREMENTS: Common Carotid [id number] (cm/sec) Internal Carotid Artery - .3 (cm/sec) Internal Carotid Artery - mid69.6 (cm/sec) Internal Carotid Artery - .4 (cm/sec) Internal Carotid/Common Carotid1.25 LEFT CAROTID MEASUREMENTS: Common Carotid [id number] (cm/sec) Internal Carotid Artery - ganlaoab76.9 (cm/sec) Internal Carotid Artery - mid63.8 (cm/sec) Internal Carotid Artery - .4 (cm/sec) Internal Carotid/Common Carotid0.55 RPTAT: AA IMPRESSION: No evidence for hemodynamically significant stenosis in the bilateral internal carotid arteries - va lidated velocity measurements with angiographic measurements, velocity criteria are extrapolated fro m diameter data as defined by the Society of Radiologists in Ultrasound Consensus Conference Radiolo gy 2003; 229;340-346. This study does indirectly reference the measurement of the distal ICA diamet er as the denominator for stenosis measurement. Normal antegrade flow in the vertebral arteries bilaterally. Mild to moderate calcific plaque bilaterally with a 53% stenosis in the right carotid bulb. .Rhett Dove MD, Date Time Electronically viewed and signed by .Rhett Dove MD, MD on 06/09/2017 15:45 .S/
[2017-06-09] MEDS: EZETIMIBE 10 MG TAB PO SCH (20:37)
[2017-06-09] MEDS: ATORVASTATIN 40 MG TAB PO SCH (20:38)
[2017-06-09] MEDS: TAMSULOSIN (SR) 0.4 MG CAP PO SCH (20:39)
[2017-06-10] VITALS (13 sets, daily range): BP systolic 115–156; BP diastolic 60–82; PULSE 57–66; RESP 18–20
[2017-06-10 07:30] LABS: ADD UMIC YES; UR ASCORBIC ACID NEGATIVE (NEGATIVE); UR BILIRUBIN (Dip) NEGATIVE (NEGATIVE); UR BLOOD (Dip) 3+ mg/dL (NEGATIVE); UR CLARITY CLEAR (CLEAR); UR COLOR STRAW (YELLOW); UR GLUCOSE (Dip) 1+ mg/dL (NEGATIVE); UR KETONES (Dip) NEGATIVE (NEGATIVE); UR LEUKOCYTE ESTERASE (Dip) NEGATIVE Leu/ul (NEGATIVE); UR NITRITE (Dip) NEGATIVE (NEGATIVE); UR RBC > 182 /HPF (0-5); UR TOTAL PROTEIN (Dip) 2+ mg/dl (NEGATIVE); UR UROBILINOGEN (Dip) NEGATIVE (NEGATIVE)
[2017-06-10] MEDS: FAMOTIDINE 20 MG TAB PO SCH (08:11)
[2017-06-10] MEDS: NIFEdipine (XL) 30 MG TAB PO SCH (08:11)
[2017-06-10] MEDS: ASPIRIN (EC) 81 MG TAB PO SCH (08:12)
[2017-06-10] MEDS: ISOSORBIDE MONONITRATE(SR)60 MG TAB PO SCH (08:13)
--- NOTE | 2017-06-10 08:59 | PN ---
Date/Time of Note Date/Time of Note DATE: 06/10/17 TIME: 08:58 Assessment/Plan VTE Prophylaxis VTE Prophylaxis Intervention: heparin Lines/Catheters IV Catheter Type (from Nrsg): Peripheral IV Urinary Cath still in place: No Assessment/Plan Assessment/Plan Clinically stable. Recheck Cr. today. Surgery tentativelly Sunday Exam/Review of Systems Vital Signs Vitals Vital Signs Date Time Temp Pulse Resp B/P Pulse Ox O2 Delivery O2 Flow Rate FiO2 06/10/17 08:31 61 06/10/17 08:24 98.0 18 156/76 98 06/07/17 19:50 Room Air 06/07/17 08:00 2.0 Intake and Output 06/09/17 06/09/17 06/10/17 15:00 23:00 07:00 Intake Total 750 ml Output Total 1200 ml Balance -450 ml Results Result Diagram: 06/09/17 0709 06/09/17 0709 Results 24 hrs Laboratory Tests Test 06/10/17 04:35 Urine Color STRAW Urine Clarity CLEAR Urine pH 6.0 Urine Specific [place] 1.010 Urine Ketones NEGATIVE Urine Nitrite NEGATIVE Urine Bilirubin NEGATIVE Urine Urobilinogen NEGATIVE Urine Leukocyte Esterase NEGATIVE Urine Microscopic RBC > 182 H Urine Microscopic WBC 8 H Urine Hemoglobin 3+ H Urine Random Creatinine 47.57 Urine Random Sodium 83 Urine Glucose 1+ H Urine Total Protein 171.0 H Medications Medications Current Medications Ondansetron HCl (Zofran Inj) 4 mg Q6H PRN IV NAUSEA AND/OR VOMITING; Start 06/07/17 at 02:30 Nitroglycerin (Nitroglycerin (Sl Tab) 0.4 Mg) 1 tab Q5M PRN SL CHEST PAIN Last administered on 06/07/17t 08:56; Admin Dose 1 TAB; Start 06/07/17 at 02:30 Acetaminophen (Tylenol Tab) 650 mg Q6H PRN PO PAIN LEVEL 1-3 OR FEVER; Start 06/07/17 at 02:30 Morphine Sulfate (morphine) 2 mg Q4H PRN IV PAIN LEVEL 7-10; Start 06/07/17 at 02:30 Docusate Sodium (Colace) 100 mg Q12H PRN PO CONSTIPATION; Start 06/07/17 at 02: 30 Bisacodyl (Dulcolax) 5 mg DAILY PRN PO CONSTIPATION; Start 06/07/17 at 02:30 Famotidine (Pepcid) 20 mg DAILY PO Last administered on 06/10/17 08:11; Admin Dose 20 MG; Start 06/07/17 at 09:00 Aspirin (Halfprin) 81 mg DAILY PO Last administered on 06/10/17 08:12; Admin Dose 81 MG; Start 06/07/17 at 09:00 Clonidine (Catapres) 0.3 mg Q6H PO Last administered on 06/10/17 05:38; Admin Dose 0.3 MG; Start 06/07/17 at 05:00 EZETIMIBE (Zetia) 10 mg HS PO Last administered on 06/09/17 20:37; Admin Dose 10 MG; Start 06/07/17 at 21:00 Tamsulosin HCl (Flomax) 0.4 mg DAILY@21 PO Last administered on 06/09/17 20:39 ; Admin Dose 0.4 MG; Start 06/07/17 at 21:00 Atorvastatin Calcium (Lipitor) 80 mg QHS PO Last administered on 06/09/17 20: 38; Admin Dose 80 MG; Start 06/07/17 at 21:00 Hydralazine HCl (Apresoline) 10 mg Q6H PRN IV SBP>160 Last administered on 06/09 07:54; Admin Dose 10 MG; Start 06/07/17 at 09:00 Carvedilol (Coreg) 12.5 mg BID PO Last administered on 06/10/17 08:12; Admin Dose 12.5 MG; Start 06/07/17 at 09:00 Morphine Sulfate (morphine) 2 mg Q2H PRN IV FOR NON CARDIAC PAIN (4-10); Start 06/07/17 at 18:00 Hydralazine HCl (Apresoline) 100 mg Q8 PO Last administered on 06/10/17 05:35 ; Admin Dose 100 MG; Start 06/08/17 at 14:00 Nifedipine (Procardia Xl) 60 mg DAILY PO Last administered on 06/10/17 08:11; Admin Dose 60 MG; Start 06/10/17 at 09:00 Isosorbide Mononitrate (Imdur) 120 mg DAILY PO Last administered on 06/10/17 08:13; Admin Dose 120 MG; Start 06/10/17 at 09:00 MEL MAYS MD Jun 10, 2017 08:59
--- NOTE | 2017-06-10 10:46 | PN ---
Date/Time of Note Date/Time of Note DATE: 06/10/17 TIME: 10:46 Assessment/Plan VTE Prophylaxis VTE Prophylaxis Intervention: other Lines/Catheters IV [facility] Peripheral IV Urinary Cath still in place: No Assessment/Plan Chief Complaint/Hosp Course 1. Nonoliguric acute kidney injury (mild) on top of chronic kidney disease stage IV with EGFR of 25%. Etiology of current acute kidney injury is secondary to hemodynamics. Renal function appears to be stable. No evidence of contrast-associated nephropathy. At this point, would continue current treatment plan, supportive care, renally dose medications, avoid nephrotoxins. no indication for HD at this time 2. Anemia, monitor hemoglobin and hematocrit levels. no epogen at this time 3. Mineral bone disorder. We will also monitor calcium and phosphorus levels. 4. Hypertension. Continue current blood pressure regimen. 5. Congestive heart failure. good uop with diuresis. no jan or arb at this time 6. Non-ST elevation myocardial infarction. The patient is status post cardiac catheterization. The patient will be evaluated for possible coronary artery bypass graft. Continue medical management. 7. Dyslipidemia. Continue statin therapy. Problems: Exam/Review of Systems Vital Signs Vitals Vital Signs Date Time Temp Pulse Resp B/P Pulse Ox O2 Delivery O2 Flow Rate FiO2 06/10/17 08:31 61 06/10/17 08:24 98.0 18 156/76 98 06/07/17 19:50 Room Air 06/07/17 08:00 2.0 Intake and Output 06/09/17 06/09/17 06/10/17 15:00 23:00 07:00 Intake Total 750 ml Output Total 1200 ml Balance -450 ml Results Result Diagram: 06/09/17 0709 06/09/17 0709 Results 24 hrs Laboratory Tests Test 06/10/17 04:35 Urine Color STRAW Urine Clarity CLEAR Urine pH 6.0 Urine Specific [place] 1.010 Urine Ketones NEGATIVE Urine Nitrite NEGATIVE Urine Bilirubin NEGATIVE Urine Urobilinogen NEGATIVE Urine Leukocyte Esterase NEGATIVE Urine Microscopic RBC > 182 H Urine Microscopic WBC 8 H Urine Hemoglobin 3+ H Urine Random Creatinine 47.57 Urine Random Sodium 83 Urine Glucose 1+ H Urine Total Protein 171.0 H Medications Medications Current Medications Ondansetron HCl (Zofran Inj) 4 mg Q6H PRN IV NAUSEA AND/OR VOMITING; Start 06/07/17 at 02:30 Nitroglycerin (Nitroglycerin (Sl Tab) 0.4 Mg) 1 tab Q5M PRN SL CHEST PAIN Last administered on 06/07/17 08:56; Admin Dose 1 TAB; Start 06/07/17 at 02:30 Acetaminophen (Tylenol Tab) 650 mg Q6H PRN PO PAIN LEVEL 1-3 OR FEVER; Start 06/07/17 at 02:30 Morphine Sulfate (morphine) 2 mg Q4H PRN IV PAIN LEVEL 7-10; Start 06/07/17 at 02:30 Docusate Sodium (Colace) 100 mg Q12H PRN PO CONSTIPATION; Start 06/07/17 at 02: 30 Bisacodyl (Dulcolax) 5 mg DAILY PRN PO CONSTIPATION; Start 06/07/17 at 02:30 Famotidine (Pepcid) 20 mg DAILY PO Last administered on 06/10/17 08:11; Admin Dose 20 MG; Start 06/07/17 at 09:00 Aspirin (Halfprin) 81 mg DAILY PO Last administered on 06/10/17 08:12; Admin Dose 81 MG; Start 06/07/17 at 09:00 Clonidine (Catapres) 0.3 mg Q6H PO Last administered on 06/10/17 05:38; Admin Dose 0.3 MG; Start 06/07/17 at 05:00 EZETIMIBE (Zetia) 10 mg HS PO Last administered on 06/09/17 20:37; Admin Dose 10 MG; Start 06/07/17 at 21:00 Tamsulosin HCl (Flomax) 0.4 mg DAILY@21 PO Last administered on 06/09/17 20:39 ; Admin Dose 0.4 MG; Start 06/07/17 at 21:00 Atorvastatin Calcium (Lipitor) 80 mg QHS PO Last administered on 06/09/17 20: 38; Admin Dose 80 MG; Start 06/07/17 at 21:00 Hydralazine HCl (Apresoline) 10 mg Q6H PRN IV SBP>160 Last administered on 06/09 07:54; Admin Dose 10 MG; Start 06/07/17 at 09:00 Carvedilol (Coreg) 12.5 mg BID PO Last administered on 06/10/17 08:12; Admin Dose 12.5 MG; Start 06/07/17 at 09:00 Morphine Sulfate (morphine) 2 mg Q2H PRN IV FOR NON CARDIAC PAIN (4-10); Start 06/07/17 at 18:00 Hydralazine HCl (Apresoline) 100 mg Q8 PO Last administered on 06/10/17 05:35 ; Admin Dose 100 MG; Start 06/08/17 at 14:00 Nifedipine (Procardia Xl) 60 mg DAILY PO Last administered on 06/10/17 08:11; Admin Dose 60 MG; Start 06/10/17 at 09:00 Isosorbide Mononitrate (Imdur) 120 mg DAILY PO Last administered on 06/10/17 08:13; Admin Dose 120 MG; Start 06/10/17 at 09:00 MONA QUAN DO Jun 10, 2017 10:46
--- NOTE | 2017-06-10 11:35 | PN ---
Date/Time of Note Date/Time of Note DATE: 06/10/17 TIME: 11:33 Assessment/Plan VTE Prophylaxis VTE Prophylaxis Intervention: SCD's Lines/Catheters IV Catheter Type (from Nrs): Peripheral IV Urinary Cath still in place: No Assessment/Plan Assessment/Plan 1. Acute NSTEMI s/p Cath showing 3 V CAD-- need CABG 2 acute on chronic Systolic heart failure 3. H/o CKD with h/o left nephrectomy for RCC 4. h/o CAD s/p prior PCI 2006 5. Hypertensive urgency 6. DM II, poorlycontrolled 7. Acute on chronic renal failure due to hemodynamics from NSTEMI Plan: s/p LHC by which showed 3 V CAD- s/p CT surgery evaluation, plan for CABG on sunday tentatively. s/p heparin gtt for NSTEMI, now stopped, nephrology has been following pt - Cr bumped to 4.26 yetserday, pt will need better improvement in Cr Prior to CABG as per CT surgery will follow up Exam/Review of Systems Vital Signs Vitals Vital Signs Date Time Temp Pulse Resp B/P Pulse Ox O2 Delivery O2 Flow Rate FiO2 06/10/17 08:31 61 06/10/17 08:24 98.0 18 156/76 98 06/07/17 19:50 Room Air 06/07/17 08:00 2.0 Intake and Output 06/09/17 06/09/17 06/10/17 15:00 23:00 07:00 Intake Total 750 ml Output Total 1200 ml Balance -450 ml Exam Constitutional: alert Respiratory: clear to auscultation, diminished breath sounds, normal air movement Cardiovascular: nl pulses, regular rate and rhythm Gastrointestinal: non-tender, soft Musculoskeletal: nl extremities to inspection Neurological: [place] [employer]OPER II-XII 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, nl mental status, nl speech, nl strength Results Result Diagram: 06/09/17 0709 06/09/17 0709 Results 24 hrs Laboratory Tests Test 06/10/17 04:35 Urine Color STRAW Urine Clarity CLEAR Urine pH 6.0 Urine Specific [place] 1.010 Urine Ketones NEGATIVE Urine Nitrite NEGATIVE Urine Bilirubin NEGATIVE Urine Urobilinogen NEGATIVE Urine Leukocyte Esterase NEGATIVE Urine Microscopic RBC > 182 H Urine Microscopic WBC 8 H Urine Hemoglobin 3+ H Urine Random Creatinine 47.57 Urine Random Sodium 83 Urine Glucose 1+ H Urine Total Protein 171.0 H Medications Medications Current Medications Ondansetron HCl (Zofran Inj) 4 mg Q6H PRN IV NAUSEA AND/OR VOMITING; Start 06/07/17 at 02:30 Nitroglycerin (Nitroglycerin (Sl Tab) 0.4 Mg) 1 tab Q5M PRN SL CHEST PAIN Last administered on 06/07/17 08:56; Admin Dose 1 TAB; Start 06/07/17 at 02:30 Acetaminophen (Tylenol Tab) 650 mg Q6H PRN PO PAIN LEVEL 1-3 OR FEVER; Start 06/07/17 at 02:30 Morphine Sulfate (morphine) 2 mg Q4H PRN IV PAIN LEVEL 7-10; Start 06/07/17 at 02:30 Docusate Sodium (Colace) 100 mg Q12H PRN PO CONSTIPATION; Start 06/07/17 at 02: 30 Bisacodyl (Dulcolax) 5 mg DAILY PRN PO CONSTIPATION; Start 06/07/17 at 02:30 Famotidine (Pepcid) 20 mg DAILY PO Last administered on 06/10/17 08:11; Admin Dose 20 MG; Start 06/07/17 at 09:00 Aspirin (Halfprin) 81 mg DAILY PO Last administered on 06/10/17 08:12; Admin Dose 81 MG; Start 06/07/17 at 09:00 Clonidine (Catapres) 0.3 mg Q6H PO Last administered on 06/10/17 05:38; Admin Dose 0.3 MG; Start 06/07/17 at 05:00 EZETIMIBE (Zetia) 10 mg HS PO Last administered on 06/09/17 20:37; Admin Dose 10 MG; Start 06/07/17 at 21:00 Tamsulosin HCl (Flomax) 0.4 mg DAILY@21 PO Last administered on 06/09/17 20:39 ; Admin Dose 0.4 MG; Start 06/07/17 at 21:00 Atorvastatin Calcium (Lipitor) 80 mg QHS PO Last administered on 06/09/17 20: 38; Admin Dose 80 MG; Start 06/07/17 at 21:00 Hydralazine HCl (Apresoline) 10 mg Q6H PRN IV SBP>160 Last administered on 06/09 07:54; Admin Dose 10 MG; Start 06/07/17 at 09:00 Carvedilol (Coreg) 12.5 mg BID PO Last administered on 06/10/17 08:12; Admin Dose 12.5 MG; Start 06/07/17 at 09:00 Morphine Sulfate (morphine) 2 mg Q2H PRN IV FOR NON CARDIAC PAIN (4-10); Start 06/07/17 at 18:00 Hydralazine HCl (Apresoline) 100 mg Q8 PO Last administered on 06/10/17 05:35 ; Admin Dose 100 MG; Start 06/08/17 at 14:00 Nifedipine (Procardia Xl) 60 mg DAILY PO Last administered on 06/10/17 08:11; Admin Dose 60 MG; Start 06/10/17 at 09:00 Isosorbide Mononitrate (Imdur) 120 mg DAILY PO Last administered on 06/10/17 08:13; Admin Dose 120 MG; Start 06/10/17 at 09:00 HERBIE YEN MD Jun 10, 2017 11:35
[2017-06-10 11:43] LABS: CALCIUM 9.3 mg/dl (8.4-10.2); CREATININE 4.28 mg/dl (0.61-1.24); POTASSIUM 4.1 mmol/L (3.5-5.1)
--- NOTE | 2017-06-10 17:08 | CONS ---
Date/Time of Note Date/Time of Note DATE: 06/10/17 TIME: 17:06 Assessment/Plan Assessment/Plan Chief Complaint/Hosp Course NSTEMI: s/p cath with 3 vessel CAD, needs CABG Acute on chronic systolic heart failure: EF 40-45%F. ~Euvolemic now Acute on chronic renal failure: unknown baseline. Cr 3.6 initially, now 4.2. ? AMANDA based on timing but minimal contrast used CAD s/p prior PCI 2006 H/o CVA: thinks his speech has changed. CT negative DM HTN urgency -awaiting CABG likely Sunday pending improvement in renal function -continue ASA -lipitor 80mg -hold lasix for now -imdur 120mg -nifedipine 60mg -metoprolol 50mg BID -hydralazine 100mg TID -continue clonidine Problems: Consultation Date/Type/Reason Admit Date/Time Jun 07, 2017 at 02:04 Initial Consult Date 06/07/17 Type of Consultation: Cardiology Referring Provider: TAYLER BE 24 HR Interval Summary Free Text/Dictation Cr stabilized. No o/n events. BP much better Exam/Review of Systems Vital Signs Vitals Vital Signs Date Time Temp Pulse Resp B/P Pulse Ox O2 Delivery O2 Flow Rate FiO2 06/10/17 16:46 98.0 59 18 115/60 98 06/07/17 19:50 Room Air 06/07/17 08:00 2.0 Intake and Output 06/09/17 06/09/17 06/10/17 15:00 23:00 07:00 Intake Total 750 ml Output Total 1200 ml Balance -450 ml Exam Constitutional: alert, oriented Psych: nl mood/affect, no complaints Head: atraumatic, normocephalic Neck: No jvd Respiratory: clear to auscultation, No crackles/rales Cardiovascular: regular rate and rhythm, No edema, No systolic murmur Gastrointestinal: soft, No tender Neurological: nl mental status, nl speech Results Result Diagram: 06/09/17 0709 06/10/17 1056 Results 24 hrs Laboratory Tests Test 06/10/17 04:35 06/10/17 10:56 Urine Color STRAW Urine Clarity CLEAR Urine pH 6.0 Urine Specific [place] 1.010 Urine Ketones NEGATIVE Urine Nitrite NEGATIVE Urine Bilirubin NEGATIVE Urine Urobilinogen NEGATIVE Urine Leukocyte Esterase NEGATIVE Urine Microscopic RBC > 182 H Urine Microscopic WBC 8 H Urine Hemoglobin 3+ H Urine Random Creatinine 47.57 Urine Random Sodium 83 Urine Glucose 1+ H Urine Total Protein 171.0 H Sodium Level 136 Potassium Level 4.1 Chloride Level 105 Carbon Dioxide Level 24 Anion Gap 11 Blood Urea Nitrogen 54 H Creatinine 4.28 H Glucose Level 203 Calcium Level 9.3 Medications Medications Current Medications Ondansetron HCl (Zofran Inj) 4 mg Q6H PRN IV NAUSEA AND/OR VOMITING; Start 06/07/17 at 02:30 Nitroglycerin (Nitroglycerin (Sl Tab) 0.4 Mg) 1 tab Q5M PRN SL CHEST PAIN Last administered on 06/07/17 08:56; Admin Dose 1 TAB; Start 06/07/17 at 02:30 Acetaminophen (Tylenol Tab) 650 mg Q6H PRN PO PAIN LEVEL 1-3 OR FEVER; Start 06/07/17 at 02:30 Morphine Sulfate (morphine) 2 mg Q4H PRN IV PAIN LEVEL 7-10; Start 06/07/17 at 02:30 Docusate Sodium (Colace) 100 mg Q12H PRN PO CONSTIPATION; Start 06/07/17 at 02: 30 Bisacodyl (Dulcolax) 5 mg DAILY PRN PO CONSTIPATION; Start 06/07/17 at 02:30 Famotidine (Pepcid) 20 mg DAILY PO Last administered on 06/10/17 08:11; Admin Dose 20 MG; Start 06/07/17 at 09:00 Aspirin (Halfprin) 81 mg DAILY PO Last administered on 06/10/17 08:12; Admin Dose 81 MG; Start 06/07/17 at 09:00 Clonidine (Catapres) 0.3 mg Q6H PO Last administered on 06/10/17 13:00; Admin Dose 0.3 MG; Start 06/07/17 at 05:00 EZETIMIBE (Zetia) 10 mg HS PO Last administered on 06/09/17 20:37; Admin Dose 10 MG; Start 06/07/17 at 21:00 Tamsulosin HCl (Flomax) 0.4 mg DAILY@21 PO Last administered on 06/09/17 20:39 ; Admin Dose 0.4 MG; Start 06/07/17 at 21:00 Atorvastatin Calcium (Lipitor) 80 mg QHS PO Last administered on 06/09/17 20: 38; Admin Dose 80 MG; Start 06/07/17 at 21:00 Hydralazine HCl (Apresoline) 10 mg Q6H PRN IV SBP>160 Last administered on 06/09 07:54; Admin Dose 10 MG; Start 06/07/17 at 09:00 Carvedilol (Coreg) 12.5 mg BID PO Last administered on 06/10/17 08:12; Admin Dose 12.5 MG; Start 06/07/17 at 09:00 Morphine Sulfate (morphine) 2 mg Q2H PRN IV FOR NON CARDIAC PAIN (4-10); Start 06/07/17 at 18:00 Hydralazine HCl (Apresoline) 100 mg Q8 PO Last administered on 06/10/17 12:59 ; Admin Dose 100 MG; Start 06/08/17 at 14:00 Nifedipine (Procardia Xl) 60 mg DAILY PO Last administered on 06/10/17 08:11; Admin Dose 60 MG; Start 06/10/17 at 09:00 Isosorbide Mononitrate (Imdur) 120 mg DAILY PO Last administered on 06/10/17 08:13; Admin Dose 120 MG; Start 06/10/17 at 09:00 TAYLER BE Jun 10, 2017 17:08
[2017-06-10] MEDS: ATORVASTATIN 40 MG TAB PO SCH (21:01)
[2017-06-10] MEDS: TAMSULOSIN (SR) 0.4 MG CAP PO SCH (21:01)
[2017-06-10] MEDS: EZETIMIBE 10 MG TAB PO SCH (21:02)
[2017-06-11] VITALS (11 sets, daily range): BP systolic 116–152; BP diastolic 58–84; PULSE 57–65; RESP 18–20
[2017-06-11 06:35] LABS: BASOPHILS % 0.4 % (0.0-2.0); EOSINOPHILS # 0.2 10^3/ul (0.0-0.5); EOSINOPHILS % 3.2 % (0.0-7.0); HEMATOCRIT 29.1 % (42.0-52.0); HEMOGLOBIN 9.6 g/dl (14.0-18.0); LYMPHOCYTES # 1.7 10^3/ul (0.8-2.9); LYMPHOCYTES % 24.9 % (15.0-51.0); MEAN CORPUSCULAR HEMOGLOBIN 28.4 pg (29.0-33.0); MEAN CORPUSCULAR VOLUME 86.1 fl (82.0-101.0); MEAN PLATELET VOLUME 10.4 fl (7.4-10.4); MONOCYTE # 0.8 10^3/ul (0.3-0.9); NEUTROPHIL # 4.2 10^3/ul (1.6-7.5); NEUTROPHILS % 60.1 % (39.0-77.0); PLATELET COUNT 146 10^3/UL (140-415); RED BLOOD COUNT 3.38 10^6/ul (4.70-6.10); RED CELL DISTRIBUTION WIDTH 14.1 % (11.5-14.5)
[2017-06-11 06:57] LABS: INR 0.99; PARTIAL THROMBOPLASTIN TIME 32.8 Sec (25.0-35.0); PROTIME 13.1 Sec (12.2-14.2)
[2017-06-11 07:04] LABS: CALCIUM 9.1 mg/dl (8.4-10.2); CREATININE 4.46 mg/dl (0.61-1.24); MAGNESIUM 2.1 mg/dl (1.7-2.5); PHOSPHORUS 4.2 mg/dl (2.5-4.9); POTASSIUM 3.7 mmol/L (3.5-5.1)
[2017-06-11] MEDS: NIFEdipine (XL) 30 MG TAB PO SCH (09:32)
[2017-06-11] MEDS: ISOSORBIDE MONONITRATE(SR)60 MG TAB PO SCH (09:33)
[2017-06-11] MEDS: ASPIRIN (EC) 81 MG TAB PO SCH (09:34)
[2017-06-11] MEDS: FAMOTIDINE 20 MG TAB PO SCH (09:34)
--- NOTE | 2017-06-11 10:37 | PN ---
Date/Time of Note Date/Time of Note DATE: 06/11/17 TIME: 10:37 Assessment/Plan VTE Prophylaxis VTE Prophylaxis Intervention: SCD's Lines/Catheters IV [facility] Type (from [facility]): Saline Lock Urinary Cath still in place: No Assessment/Plan Chief Complaint/Hosp Course 61-year-old male history of cardiac stents brought in for chest pain 1.NSTEMI: Status post cardiac catheterization with 3 vessel CAD -Recommend CABG. Tentatively scheduled for Sunday as renal function needs to improve prior surgery. 2.Acute on chronic systolic heart failure. Last Known ejection fraction 40-45%. -Continue medical optimization. -Fluid status closely, strict ins and outs. Lasix on hold secondary to poor renal function. 3. Acute on chronic kidney disease. ERIC likely hemodynamic versus contrast induced nephropathy. -Nephrology following and we will follow recommendations. 4. Type 2 diabetes. A1c 7.8. Patient with hyperglycemia. -Start Accu-Cheks,insulin sliding scale Lantus insulin based on weight. Hold oral agents for now. -Diabetic education. 5. Essential hypertension. -Continue antihypertensives. 6. Dyslipidemia. -Continue statin. 7. History of coronary artery disease with prior PCI's. 8. History of cerebrovascular accident. 10. Anemia of chronic kidney disease. -H&H stable. Will continue to monitor. Prophylaxis: SCDs/Pepcid Patient is seen in collaboration with Dr. Anderson. Problems: Subjective 24 Hr Interval Summary Free Text/Dictation Patient sleeping. No acute distress. Exam/Review of Systems Vital Signs Vitals Vital Signs Date Time Temp Pulse Resp B/P Pulse Ox O2 Delivery O2 Flow Rate FiO2 06/11/17 08:18 61 06/11/17 07:52 97.9 20 152/84 96 06/07/17 19:50 Room Air 06/07/17 08:00 2.0 Intake and Output 06/10/17 06/10/17 06/11/17 15:00 23:00 07:00 Intake Total 800 ml Output Total 1000 ml Balance -200 ml Exam General: Well developed obese [place] male t, not in any acute distress . HEENT: Normocephalic, Atraumatic, No laceration or hematoma; Eyes: PEERL, Conjunctiva clear, Anicteric sclera Neck: Supple without any lymphadenopathy, nontender, no JVD, no carotid bruits, trachea midline, no thyromegaly Cardiac: S1, S2 auscultated, regular rhythm and rate, no mumurs or gallop Pulmonary: Normal respiratory effort. Chest clear to auscultation bilaterally, no adventitious breath sounds GI: Abdomen normal to inspection. Soft, non tender, non- distended, no masses, no rebound tenderness or guarding. Bowel sounds active on all four quadrants Genitourinary: Deferred Extremities: No cyanosis, clubbing, or edema. Pulses [2+] bilaterally. Full ROM on all four extremities. No focal weakness appreciated. Neurologic: Alert to person, place, time, and situation. Affect appropriate, intact sensation. Skin: Clean,dry, and intact. No ecchymosis, no rashes, or lesions Results Result Diagram: 06/11/17 0539 06/11/17 0539 Results 24 hrs Laboratory Tests Test 06/10/17 10:56 06/11/17 05:39 Sodium Level 136 138 Potassium Level 4.1 3.7 Chloride Level 105 105 Carbon Dioxide Level 24 25 Anion Gap 11 12 Blood Urea Nitrogen 54 H 62 H Creatinine 4.28 H 4.46 H Glucose Level 203 164 Calcium Level 9.3 9.1 White Blood Count 7.0 # Red Blood Count 3.38 L Hemoglobin 9.6 L Hematocrit 29.1 L Mean Corpuscular Volume 86.1 Mean Corpuscular Hemoglobin 28.4 L Mean Corpuscular Hemoglobin Concent 33.0 Red Cell Distribution Width 14.1 Platelet Count 146 Mean Platelet Volume 10.4 Neutrophils % 60.1 Lymphocytes % 24.9 Monocytes % 11.0 Eosinophils % 3.2 Basophils % 0.4 Nucleated Red Blood Cells % 0.0 Neutrophils # 4.2 Lymphocytes # 1.7 Monocytes # 0.8 Eosinophils # 0.2 Basophils # 0.0 Nucleated Red Blood Cells # 0.0 Prothrombin Time 13.1 Prothrombin Time Ratio 1.0 INR International Normalized Ratio 0.99 Activated Partial Thromboplast Time 32.8 Phosphorus Level 4.2 Magnesium Level 2.1 Medications Medications Current Medications Ondansetron HCl (Zofran Inj) 4 mg Q6H PRN IV NAUSEA AND/OR VOMITING; Start 06/07/17 at 02:30 Nitroglycerin (Nitroglycerin (Sl Tab) 0.4 Mg) 1 tab Q5M PRN SL CHEST PAIN Last administered on 06/07/17t 08:56; Admin Dose 1 TAB; Start 06/07/17 at 02:30 Acetaminophen (Tylenol Tab) 650 mg Q6H PRN PO PAIN LEVEL 1-3 OR FEVER; Start 06/07/17 at 02:30 Morphine Sulfate (morphine) 2 mg Q4H PRN IV PAIN LEVEL 7-10; Start 06/07/17 at 02:30 Docusate Sodium (Colace) 100 mg Q12H PRN PO CONSTIPATION; Start 06/07/17 at 02: 30 Bisacodyl (Dulcolax) 5 mg DAILY PRN PO CONSTIPATION; Start 06/07/17 at 02:30 Famotidine (Pepcid) 20 mg DAILY PO Last administered on 06/11/17 09:34; Admin Dose 20 MG; Start 06/07/17 at 09:00 Aspirin (Halfprin) 81 mg DAILY PO Last administered on 06/11/17 09:34; Admin Dose 81 MG; Start 06/07/17 at 09:00 Clonidine (Catapres) 0.3 mg Q6H PO Last administered on 06/11/17 05:45; Admin Dose 0.3 MG; Start 06/07/17 at 05:00 EZETIMIBE (Zetia) 10 mg HS PO Last administered on 06/10/17 21:02; Admin Dose 10 MG; Start 06/07/17 at 21:00 Tamsulosin HCl (Flomax) 0.4 mg DAILY@21 PO Last administered on 06/10/17 21:01 ; Admin Dose 0.4 MG; Start 06/07/17 at 21:00 Atorvastatin Calcium (Lipitor) 80 mg QHS PO Last administered on 06/10/17 21: 01; Admin Dose 80 MG; Start 06/07/17 at 21:00 Hydralazine HCl (Apresoline) 10 mg Q6H PRN IV SBP>160 Last administered on 06/09 07:54; Admin Dose 10 MG; Start 06/07/17 at 09:00 Carvedilol (Coreg) 12.5 mg BID PO Last administered on 06/11/17 09:33; Admin Dose 12.5 MG; Start 06/07/17 at 09:00 Morphine Sulfate (morphine) 2 mg Q2H PRN IV FOR NON CARDIAC PAIN (4-10); Start 06/07/17 at 18:00 Hydralazine HCl (Apresoline) 100 mg Q8 PO Last administered on 06/11/17 05:44 ; Admin Dose 100 MG; Start 06/08/17 at 14:00 Nifedipine (Procardia Xl) 60 mg DAILY PO Last administered on 06/11/17 09:32; Admin Dose 60 MG; Start 06/10/17 at 09:00 Isosorbide Mononitrate 120 mg 120 mg DAILY PO Last administered on 06/11/17 09 :33; Admin Dose 120 MG; Start 06/10/17 at 09:00 Insulin Human Regular 100 unit/ Sodium Chloride 100 ml @ 0 mls/hr Q0M IVPB ; Start 06/12/17 at 07:00; Stop 06/12/17 at 12:00 Norepinephrine 250 ml @ 0 mls/hr ONCE IV ; Start 06/12/17 at 07:00; Stop 06/12 at 12:00 Epinephrine 4 mg/ Dextrose 250 ml @ 0 mls/hr Q0M IV ; Start 06/12/17 at 07:00; Stop 06/12/17 at 12:00 Phenylephrine HCl (Daniel-Syneph) 250 ml @ 0 mls/hr ONCE IV ; Start 06/12/17 at 07 :00; Stop 06/12/17 at 12:00 Aspirin 600 mg 600 mg ONCE SC ; Start 06/12/17 at 07:00; Stop 06/12/17 at 12: 00 Heparin Sodium (Porcine) 56145 unit/Milrinone Lactate 10 mg/ Sodium Chloride 1, 011 ml @ 0 mls/hr ONCE SC ; Start 06/12/17 at 07:00; Stop 06/12/17 at 12:00 Milrinone Lactate/ Sodium Chloride (Primacor/NS) 52 ml @ 0 mls/hr ONCE IV ; Start 06/12/17 at 07:00; Stop 06/12/17 at 07:01 BRAULIO BINGHAM NP Jun 11, 2017 10:37
--- NOTE | 2017-06-11 13:41 | CONS ---
Date/Time of Note Date/Time of Note DATE: 06/11/17 TIME: 13:39 Assessment/Plan Assessment/Plan Chief Complaint/Hosp Course NSTEMI: s/p cath with 3 vessel CAD, needs CABG Acute on chronic systolic heart failure: EF 40-45%F. ~Euvolemic to dry now Acute on chronic renal failure: unknown baseline. Cr 3.6 initially, now 4.6. ? AMANDA based on timing but minimal contrast used. Likely from dehydration as refraining from PO intake CAD s/p prior PCI 2006 H/o CVA: thinks his speech has changed. CT negative DM HTN urgency -advised pt to drink liberally today, otherwise can give 250mL IVF -awaiting CABG likely Sunday pending improvement in renal function -continue ASA -lipitor 80mg -hold lasix for now -imdur 120mg -nifedipine 60mg -metoprolol 50mg BID -hydralazine 100mg TID -continue clonidine Problems: Consultation Date/Type/Reason Admit Date/Time Jun 07, 2017 at 02:04 Initial Consult Date 06/07/17 Type of Consultation: Cardiology Referring Provider: TAYLER BE 24 HR Interval Summary Free Text/Dictation Cr worse again. No chest pain. Surgery postponed to Sunday likely Has not been eating or drinking well Exam/Review of Systems Vital Signs Vitals Vital Signs Date Time Temp Pulse Resp B/P Pulse Ox O2 Delivery O2 Flow Rate FiO2 06/11/17 12:09 64 06/11/17 11:15 98.2 18 135/75 97 06/07/17 19:50 Room Air 06/07/17 08:00 2.0 Intake and Output 06/10/17 06/10/17 06/11/17 15:00 23:00 07:00 Intake Total 800 ml Output Total 1000 ml Balance -200 ml Exam Constitutional: alert, oriented Psych: nl mood/affect, no complaints Head: atraumatic, normocephalic Neck: No jvd Respiratory: clear to auscultation, No crackles/rales Cardiovascular: regular rate and rhythm, No edema, No systolic murmur Gastrointestinal: non-tender, soft Neurological: nl mental status, nl speech Results Result Diagram: 06/11/17 0539 06/11/17 0539 Results 24 hrs Laboratory Tests Test 06/11/17 05:39 White Blood Count 7.0 # Red Blood Count 3.38 L Hemoglobin 9.6 L Hematocrit 29.1 L Mean Corpuscular Volume 86.1 Mean Corpuscular Hemoglobin 28.4 L Mean Corpuscular Hemoglobin Concent 33.0 Red Cell Distribution Width 14.1 Platelet Count 146 Mean Platelet Volume 10.4 Neutrophils % 60.1 Lymphocytes % 24.9 Monocytes % 11.0 Eosinophils % 3.2 Basophils % 0.4 Nucleated Red Blood Cells % 0.0 Neutrophils # 4.2 Lymphocytes # 1.7 Monocytes # 0.8 Eosinophils # 0.2 Basophils # 0.0 Nucleated Red Blood Cells # 0.0 Prothrombin Time 13.1 Prothrombin Time Ratio 1.0 INR International Normalized Ratio 0.99 Activated Partial Thromboplast Time 32.8 Sodium Level 138 Potassium Level 3.7 Chloride Level 105 Carbon Dioxide Level 25 Anion Gap 12 Blood Urea Nitrogen 62 H Creatinine 4.46 H Glucose Level 164 Calcium Level 9.1 Phosphorus Level 4.2 Magnesium Level 2.1 Medications Medications Current Medications Ondansetron HCl (Zofran Inj) 4 mg Q6H PRN IV NAUSEA AND/OR VOMITING; Start 06/07/17 at 02:30 Nitroglycerin (Nitroglycerin (Sl Tab) 0.4 Mg) 1 tab Q5M PRN SL CHEST PAIN Last administered on 06/07/17 08:56; Admin Dose 1 TAB; Start 06/07/17 at 02:30 Acetaminophen (Tylenol Tab) 650 mg Q6H PRN PO PAIN LEVEL 1-3 OR FEVER; Start 06/07/17 at 02:30 Morphine Sulfate (morphine) 2 mg Q4H PRN IV PAIN LEVEL 7-10; Start 06/07/17 at 02:30 Docusate Sodium (Colace) 100 mg Q12H PRN PO CONSTIPATION; Start 06/07/17 at 02: 30 Bisacodyl (Dulcolax) 5 mg DAILY PRN PO CONSTIPATION; Start 06/07/17 at 02:30 Famotidine (Pepcid) 20 mg DAILY PO Last administered on 06/11/17 09:34; Admin Dose 20 MG; Start 06/07/17 at 09:00 Aspirin (Halfprin) 81 mg DAILY PO Last administered on 06/11/17 09:34; Admin Dose 81 MG; Start 06/07/17 at 09:00 Clonidine (Catapres) 0.3 mg Q6H PO Last administered on 06/11/17 12:22; Admin Dose 0.3 MG; Start 06/07/17 at 05:00 EZETIMIBE (Zetia) 10 mg HS PO Last administered on 06/10/17 21:02; Admin Dose 10 MG; Start 06/07/17 at 21:00 Tamsulosin HCl (Flomax) 0.4 mg DAILY@21 PO Last administered on 06/10/17 21:01 ; Admin Dose 0.4 MG; Start 06/07/17 at 21:00 Atorvastatin Calcium (Lipitor) 80 mg QHS PO Last administered on 06/10/17 21: 01; Admin Dose 80 MG; Start 06/07/17 at 21:00 Hydralazine HCl (Apresoline) 10 mg Q6H PRN IV SBP>160 Last administered on 06/09 07:54; Admin Dose 10 MG; Start 06/07/17 at 09:00 Carvedilol (Coreg) 12.5 mg BID PO Last administered on 06/11/17 09:33; Admin Dose 12.5 MG; Start 06/07/17 at 09:00 Morphine Sulfate (morphine) 2 mg Q2H PRN IV FOR NON CARDIAC PAIN (4-10); Start 06/07/17 at 18:00 Hydralazine HCl (Apresoline) 100 mg Q8 PO Last administered on 06/11/17 05:44 ; Admin Dose 100 MG; Start 06/08/17 at 14:00 Nifedipine (Procardia Xl) 60 mg DAILY PO Last administered on 06/11/17 09:32; Admin Dose 60 MG; Start 06/10/17 at 09:00 Isosorbide Mononitrate 120 mg 120 mg DAILY PO Last administered on 06/11/17 09 :33; Admin Dose 120 MG; Start 06/10/17 at 09:00 Insulin Human Regular 100 unit/ Sodium Chloride 100 ml @ 0 mls/hr Q0M IVPB ; Start 06/13/17 at 07:00; Stop 06/13/17 at 12:00 Norepinephrine 250 ml @ 0 mls/hr ONCE IV ; Start 06/13/17 at 07:00; Stop 06/13 at 12:00 Epinephrine 4 mg/ Dextrose 250 ml @ 0 mls/hr Q0M IV ; Start 06/13/17 at 07:00; Stop 06/13/17 at 12:00 Phenylephrine HCl (Daniel-Syneph) 250 ml @ 0 mls/hr ONCE IV ; Start 06/13/17 at 07 :00; Stop 06/13/17 at 12:00 Aspirin 600 mg 600 mg ONCE ID ; Start 06/13/17 at 07:00; Stop 06/13/17 at 12: 00 Heparin Sodium (Porcine) 45987 unit/Milrinone Lactate 10 mg/ Sodium Chloride 1, 011 ml @ 0 mls/hr ONCE SC ; Start 06/13/17 at 07:00; Stop 06/13/17 at 12:00 Milrinone Lactate/ Sodium Chloride (Primacor/NS) 52 ml @ 0 mls/hr ONCE IV ; Start 06/13/17 at 07:00; Stop 06/13/17 at 12:00 TAYLER BE Jun 11, 2017 13:41
[2017-06-11] MEDS ORDERED: LACTULOSE 30ML CUP PO ONE (14:00)
--- NOTE | 2017-06-11 14:06 | PN ---
Date/Time of Note Date/Time of Note DATE: 06/11/17 TIME: 14:06 Assessment/Plan Lines/Catheters IV Catheter Type (from [facility]): Saline Lock [place] in Place (from [facility]): No Assessment/Plan Chief Complaint/Hosp Course worsening renal function. creat up to 4.5 tentatively on for Sunday now unless renal functions continues to go up Problems: Exam/Review of Systems Vital Signs Vitals Vital Signs Date Time Temp Pulse Resp B/P Pulse Ox O2 Delivery O2 Flow Rate FiO2 06/11/17 12:09 64 06/11/17 11:15 98.2 18 135/75 97 06/07/17 19:50 Room Air 06/07/17 08:00 2.0 Intake and Output 06/10/17 06/10/17 06/11/17 15:00 23:00 07:00 Intake Total 800 ml Output Total 1000 ml Balance -200 ml Results Result Diagram: 06/11/17 0539 06/11/17 0539 DENISA GREENE MD Jun 11, 2017 14:06
--- NOTE | 2017-06-11 15:17 | PN ---
Date/Time of Note Date/Time of Note DATE: 06/11/17 TIME: 15:03 Assessment/Plan VTE Prophylaxis VTE Prophylaxis Intervention: other Lines/Catheters IV [facility] Type (from [facility]): Saline Lock Urinary Cath still in place: No Assessment/Plan Chief Complaint/Hosp Course renal follow up SUBJECTIVE: The patient is stable. No events overnight. No fevers, chills, nausea or vomiting. arf on ckd is slightly worse. Lasix was dc'd good uop d/w Dr Weiss OBJECTIVE: HEENT: Head is normocephalic. NECK: Supple. HEART: Regular rate. LUNGS: Show diminished breath sounds at base. ABDOMEN: Soft, nontender to palpation. No rebound or guarding. EXTREMITIES: Negative for clubbing, cyanosis, no edema. DERMATOLOGIC: No rashes. MUSCULOSKELETAL: No joint effusions. NEUROLOGIC: No change in exam. MEDICATIONS: The patient's medications have been reviewed. 1. Nonoliguric acute kidney injury (mild) on top of chronic kidney disease stage IV with EGFR of 25%. Etiology of current acute kidney injury is secondary to hemodynamics. Renal function appears to be slightly worse. No evidence of contrast-associated nephropathy. At this point, would continue current treatment plan, supportive care, renally dose medications, avoid nephrotoxins. no indication for HD at this time. Should be ok for CABG on Sunday 2. Anemia, monitor hemoglobin and hematocrit levels. no epogen at this time 3. Mineral bone disorder. We will also monitor calcium and phosphorus levels. 4. Hypertension. Continue current blood pressure regimen. 5. Congestive heart failure. good uop with diuresis. no jan or arb at this time 6. Non-ST elevation myocardial infarction. The patient is status post cardiac catheterization. The patient will be evaluated for possible coronary artery bypass graft. Continue medical management. 7. Dyslipidemia. Continue statin therapy. Problems: Exam/Review of Systems Vital Signs Vitals Vital Signs Date Time Temp Pulse Resp B/P Pulse Ox O2 Delivery O2 Flow Rate FiO2 06/11/17 14:56 97.7 64 18 137/74 96 Room Air 06/07/17 08:00 2.0 Intake and Output 06/10/17 06/10/17 06/11/17 15:00 23:00 07:00 Intake Total 800 ml Output Total 1000 ml Balance -200 ml Results Result Diagram: 06/11/17 0539 06/11/17 0539 Results 24 hrs Laboratory Tests Test 06/11/17 05:39 White Blood Count 7.0 # Red Blood Count 3.38 L Hemoglobin 9.6 L Hematocrit 29.1 L Mean Corpuscular Volume 86.1 Mean Corpuscular Hemoglobin 28.4 L Mean Corpuscular Hemoglobin Concent 33.0 Red Cell Distribution Width 14.1 Platelet Count 146 Mean Platelet Volume 10.4 Neutrophils % 60.1 Lymphocytes % 24.9 Monocytes % 11.0 Eosinophils % 3.2 Basophils % 0.4 Nucleated Red Blood Cells % 0.0 Neutrophils # 4.2 Lymphocytes # 1.7 Monocytes # 0.8 Eosinophils # 0.2 Basophils # 0.0 Nucleated Red Blood Cells # 0.0 Prothrombin Time 13.1 Prothrombin Time Ratio 1.0 INR International Normalized Ratio 0.99 Activated Partial Thromboplast Time 32.8 Sodium Level 138 Potassium Level 3.7 Chloride Level 105 Carbon Dioxide Level 25 Anion Gap 12 Blood Urea Nitrogen 62 H Creatinine 4.46 H Glucose Level 164 Calcium Level 9.1 Phosphorus Level 4.2 Magnesium Level 2.1 Medications Medications Current Medications Ondansetron HCl (Zofran Inj) 4 mg Q6H PRN IV NAUSEA AND/OR VOMITING; Start 06/07/17 at 02:30 Nitroglycerin (Nitroglycerin (Sl Tab) 0.4 Mg) 1 tab Q5M PRN SL CHEST PAIN Last administered on 06/07/17 08:56; Admin Dose 1 TAB; Start 06/07/17 at 02:30 Acetaminophen (Tylenol Tab) 650 mg Q6H PRN PO PAIN LEVEL 1-3 OR FEVER; Start 06/07/17 at 02:30 Morphine Sulfate (morphine) 2 mg Q4H PRN IV PAIN LEVEL 7-10; Start 06/07/17 at 02:30 Docusate Sodium (Colace) 100 mg Q12H PRN PO CONSTIPATION; Start 06/07/17 at 02: 30 Bisacodyl (Dulcolax) 5 mg DAILY PRN PO CONSTIPATION; Start 06/07/17 at 02:30 Famotidine (Pepcid) 20 mg DAILY PO Last administered on 06/11/17 09:34; Admin Dose 20 MG; Start 06/07/17 at 09:00 Aspirin (Halfprin) 81 mg DAILY PO Last administered on 06/11/17 09:34; Admin Dose 81 MG; Start 06/07/17 at 09:00 Clonidine (Catapres) 0.3 mg Q6H PO Last administered on 06/11/17 12:22; Admin Dose 0.3 MG; Start 06/07/17 at 05:00 EZETIMIBE (Zetia) 10 mg HS PO Last administered on 06/10/17 21:02; Admin Dose 10 MG; Start 06/07/17 at 21:00 Tamsulosin HCl (Flomax) 0.4 mg DAILY@21 PO Last administered on 06/10/17 21:01 ; Admin Dose 0.4 MG; Start 06/07/17 at 21:00 Atorvastatin Calcium (Lipitor) 80 mg QHS PO Last administered on 06/10/17 21: 01; Admin Dose 80 MG; Start 06/07/17 at 21:00 Hydralazine HCl (Apresoline) 10 mg Q6H PRN IV SBP>160 Last administered on 06/09 07:54; Admin Dose 10 MG; Start 06/07/17 at 09:00 Carvedilol (Coreg) 12.5 mg BID PO Last administered on 06/11/17 09:33; Admin Dose 12.5 MG; Start 06/07/17 at 09:00 Morphine Sulfate (morphine) 2 mg Q2H PRN IV FOR NON CARDIAC PAIN (4-10); Start 06/07/17 at 18:00 Hydralazine HCl (Apresoline) 100 mg Q8 PO Last administered on 06/11/17 14:55 ; Admin Dose 100 MG; Start 06/08/17 at 14:00 Nifedipine (Procardia Xl) 60 mg DAILY PO Last administered on 06/11/17 09:32; Admin Dose 60 MG; Start 06/10/17 at 09:00 Isosorbide Mononitrate 120 mg 120 mg DAILY PO Last administered on 06/11/17 09 :33; Admin Dose 120 MG; Start 06/10/17 at 09:00 Insulin Human Regular 100 unit/ Sodium Chloride 100 ml @ 0 mls/hr Q0M IVPB ; Start 06/13/17 at 07:00; Stop 06/13/17 at 12:00 Norepinephrine 250 ml @ 0 mls/hr ONCE IV ; Start 06/13/17 at 07:00; Stop 06/13 at 12:00 Epinephrine 4 mg/ Dextrose 250 ml @ 0 mls/hr Q0M IV ; Start 06/13/17 at 07:00; Stop 06/13/17 at 12:00 Phenylephrine HCl (Daniel-Syneph) 250 ml @ 0 mls/hr ONCE IV ; Start 06/13/17 at 07 :00; Stop 06/13/17 at 12:00 Aspirin 600 mg 600 mg ONCE MD ; Start 06/13/17 at 07:00; Stop 06/13/17 at 12: 00 Heparin Sodium (Porcine) 87282 unit/Milrinone Lactate 10 mg/ Sodium Chloride 1, 011 ml @ 0 mls/hr ONCE SC ; Start 06/13/17 at 07:00; Stop 06/13/17 at 12:00 Milrinone Lactate/ Sodium Chloride (Primacor/NS) 52 ml @ 0 mls/hr ONCE IV ; Start 06/13/17 at 07:00; Stop 06/13/17 at 12:00 MONA QUAN DO Jun 11, 2017 15:17
[2017-06-11] MEDS ORDERED: GLUCAGON 1 MG INJ IM PRN (16:30)
[2017-06-11] MEDS ORDERED: GLUCOSE GEL 15 GRAM TUBE PO PRN ×2 (16:30)
[2017-06-11] MEDS ORDERED: DEXTROSE 50% 50 ML SYRINGE IV PRN ×2 (16:30)
[2017-06-11] MEDS ORDERED: GLUCOSE GEL 15 GRAM TUBE BUCCAL PRN (16:30)
[2017-06-11] MEDS: INSULIN ASPART [NOVOLOG] 3 ML PEN SC SCH ×2 (17:28→21:58)
[2017-06-11] MEDS: ATORVASTATIN 40 MG TAB PO SCH (21:40)
[2017-06-11] MEDS: EZETIMIBE 10 MG TAB PO SCH (21:41)
[2017-06-11] MEDS: TAMSULOSIN (SR) 0.4 MG CAP PO SCH (21:49)
[2017-06-12] VITALS (12 sets, daily range): BP systolic 116–142; BP diastolic 56–72; PULSE 53–77; RESP 16–18
[2017-06-12] MEDS: ACCU-CHEK XX SCH ×2 (02:00)
--- NOTE | 2017-06-12 06:54 | CONS ---
Date/Time of Note Date/Time of Note DATE: 06/12/17 TIME: 06:53 Assessment/Plan Assessment/Plan Chief Complaint/Hosp Course NSTEMI: s/p cath with 3 vessel CAD, needs CABG Acute on chronic systolic heart failure: EF 40-45%F. ~Euvolemic to dry now Acute on chronic renal failure: unknown baseline. Cr 3.6 initially, now 4.6. ? AMANDA based on timing but minimal contrast used. Likely from dehydration as refraining from PO intake CAD s/p prior PCI 2006 H/o CVA: thinks his speech has changed. CT negative DM HTN urgency -f/u labs this am -awaiting CABG possibly tomorrow pending improvement in renal function -continue ASA -lipitor 80mg -hold lasix for now -imdur 120mg -nifedipine 60mg -metoprolol 50mg BID -hydralazine 100mg TID -continue clonidine Problems: Consultation Date/Type/Reason Admit Date/Time Jun 07, 2017 at 02:04 Initial Consult Date 06/07/17 Type of Consultation: Cardiology Referring Provider: TAYLER BE 24 HR Interval Summary Free Text/Dictation No o/n events. Drank liberal fluids yesterday. No complaints Exam/Review of Systems Vital Signs Vitals Vital Signs Date Time Temp Pulse Resp B/P Pulse Ox O2 Delivery O2 Flow Rate FiO2 06/12/17 04:04 63 06/12/17 03:35 97.9 18 120/58 97 06/11/17 14:56 Room Air Intake and Output 06/11/17 06/11/17 06/12/17 15:00 23:00 07:00 Intake Total 680 ml 500 ml Output Total 850 ml Balance -170 ml 500 ml Exam Constitutional: alert, oriented Psych: no complaints Head: atraumatic, normocephalic Neck: No jvd Respiratory: clear to auscultation, No crackles/rales Cardiovascular: regular rate and rhythm, No edema, No systolic murmur Gastrointestinal: non-tender, soft Neurological: nl mental status, nl speech Results Result Diagram: 06/11/17 0539 06/11/17 0539 Results 24 hrs Laboratory Tests Test 06/11/17 17:26 06/11/17 21:45 06/12/17 02:00 Bedside Glucose 166 233 H 231 H Medications Medications Current Medications Ondansetron HCl (Zofran Inj) 4 mg Q6H PRN IV NAUSEA AND/OR VOMITING; Start 06/07/17 at 02:30 Nitroglycerin (Nitroglycerin (Sl Tab) 0.4 Mg) 1 tab Q5M PRN SL CHEST PAIN Last administered on 06/07/17 08:56; Admin Dose 1 TAB; Start 06/07/17 at 02:30 Acetaminophen (Tylenol Tab) 650 mg Q6H PRN PO PAIN LEVEL 1-3 OR FEVER; Start 06/07/17 at 02:30 Morphine Sulfate (morphine) 2 mg Q4H PRN IV PAIN LEVEL 7-10; Start 06/07/17 at 02:30 Docusate Sodium (Colace) 100 mg Q12H PRN PO CONSTIPATION; Start 06/07/17 at 02: 30 Bisacodyl (Dulcolax) 5 mg DAILY PRN PO CONSTIPATION; Start 06/07/17 at 02:30 Famotidine (Pepcid) 20 mg DAILY PO Last administered on 06/11/17 09:34; Admin Dose 20 MG; Start 06/07/17 at 09:00 Aspirin (Halfprin) 81 mg DAILY PO Last administered on 06/11/17 09:34; Admin Dose 81 MG; Start 06/07/17 at 09:00 Clonidine (Catapres) 0.3 mg Q6H PO Last administered on 06/12/17 06:12; Admin Dose 0.3 MG; Start 06/07/17 at 05:00 EZETIMIBE (Zetia) 10 mg HS PO Last administered on 06/11/17 21:41; Admin Dose 10 MG; Start 06/07/17 at 21:00 Tamsulosin HCl (Flomax) 0.4 mg DAILY@21 PO Last administered on 06/11/17 21:49 ; Admin Dose 0.4 MG; Start 06/07/17 at 21:00 Atorvastatin Calcium (Lipitor) 80 mg QHS PO Last administered on 06/11/17 21: 40; Admin Dose 80 MG; Start 06/07/17 at 21:00 Hydralazine HCl (Apresoline) 10 mg Q6H PRN IV SBP>160 Last administered on 06/09 07:54; Admin Dose 10 MG; Start 06/07/17 at 09:00 Carvedilol (Coreg) 12.5 mg BID PO Last administered on 06/11/17 21:39; Admin Dose 12.5 MG; Start 06/07/17 at 09:00 Morphine Sulfate (morphine) 2 mg Q2H PRN IV FOR NON CARDIAC PAIN (4-10); Start 06/07/17 at 18:00 Hydralazine HCl (Apresoline) 100 mg Q8 PO Last administered on 06/12/17 06:13 ; Admin Dose 100 MG; Start 06/08/17 at 14:00 Nifedipine (Procardia Xl) 60 mg DAILY PO Last administered on 06/11/17 09:32; Admin Dose 60 MG; Start 06/10/17 at 09:00 Isosorbide Mononitrate 120 mg 120 mg DAILY PO Last administered on 06/11/17 09 :33; Admin Dose 120 MG; Start 06/10/17 at 09:00 Insulin Human Regular 100 unit/ Sodium Chloride 100 ml @ 0 mls/hr Q0M IVPB ; Start 06/13/17 at 07:00; Stop 06/13/17 at 12:00 Norepinephrine 250 ml @ 0 mls/hr ONCE IV ; Start 06/13/17 at 07:00; Stop 06/13 at 12:00 Phenylephrine HCl (Daniel-Syneph) 250 ml @ 0 mls/hr ONCE IV ; Start 06/13/17 at 07 :00; Stop 06/13/17 at 12:00 Aspirin 600 mg 600 mg ONCE [place] ; Start 06/13/17 at 07:00; Stop 06/13/17 at 12: 00 Heparin Sodium (Porcine) 49441 unit/Milrinone Lactate 10 mg/ Sodium Chloride 1, 011 ml @ 0 mls/hr ONCE SC ; Start 06/13/17 at 07:00; Stop 06/13/17 at 12:00 Milrinone Lactate/ Sodium Chloride (Primacor/NS) 52 ml @ 0 mls/hr ONCE IV ; Start 06/13/17 at 07:00; Stop 06/13/17 at 12:00 Diagnostic Test (Pha) (Accu-Chek) 1 ea 02 XX Last administered on 06/12/17 02 :00; Admin Dose 1 EA; Start 06/12/17 at 02:00 Diagnostic Test (Pha) (Accu-Chek) 1 ea 02 XX Last administered on 06/12/17t 02 :00; Admin Dose 1 EA; Start 06/12/17 at 02:00 Insulin Glargine 14 unit 14 unit DAILY@08 SC ; Start 06/12/17 at 08:00 Epinephrine/ Dextrose (EPINEPHrine/D5W) 250 ml @ 0 mls/hr Q0M IV ; Start at 07:00; Stop 06/13/17 at 12:00 Miscellaneous Information 1 ea NOTE XX ; Start 06/11/17 at 16:30 Glucose (Glutose) 15 gm Q15M PRN PO DECREASED GLUCOSE; Start 06/11/17 at 16:30 Glucose (Glutose) 22.5 gm Q15M PRN PO DECREASED GLUCOSE; Start 06/11/17 at 16: 30 Dextrose (D50w Syringe) 25 ml Q15M PRN IV DECREASED GLUCOSE; Start 06/11/17 at 16:30 Dextrose (D50w Syringe) 50 ml Q15M PRN IV DECREASED GLUCOSE; Start 06/11/17 at 16:30 Glucagon (Glucagen) 1 mg Q15M PRN IM DECREASED GLUCOSE; Start 06/11/17 at 16:30 Glucose (Glutose) 15 gm Q15M PRN BUCCAL DECREASED GLUCOSE; Start 06/11/17 at 16 :30 TAYLER BE Jun 12, 2017 06:54
[2017-06-12] MEDS ORDERED: PHENYLephrine 20MG IN 250 ML 250 ML IV SCH (07:00)
[2017-06-12] MEDS ORDERED: INSULIN HUMAN REGULAR 100 UNIT in SOD CHLORIDE 0.9% 99 ML IVPB SCH (07:00)
[2017-06-12] MEDS ORDERED: NORepinephrine 8MG/250 ML (PMX 250 ML IV SCH (07:00)
[2017-06-12] MEDS ORDERED: MILRINONE LACTATE 2 MG in SOD CHLORIDE 0.9% 50 ML IV SCH (07:00)
[2017-06-12] MEDS ORDERED: HEPARIN (10000 UNITS/ML) 10,000 UNIT, MILRINONE LACTATE 10 MG in SOD CHLORIDE 0.9% 1,00... SC SCH (07:00)
[2017-06-12] MEDS ORDERED: ASPIRIN 600 MG SUPP PR SCH (07:00)
[2017-06-12] MEDS ORDERED: EPINEPHrine 4 MG in DEXTROSE 5% 246 ML IV SCH (07:00)
[2017-06-12 07:55] LABS: CALCIUM 8.7 mg/dl (8.4-10.2); CREATININE 4.47 mg/dl (0.61-1.24); MAGNESIUM 2.1 mg/dl (1.7-2.5); PHOSPHORUS 5.1 mg/dl (2.5-4.9); POTASSIUM 3.6 mmol/L (3.5-5.1)
[2017-06-12] MEDS: INSULIN ASPART [NOVOLOG] 3 ML PEN SC SCH ×6 (08:27→21:00)
--- NOTE | 2017-06-12 08:47 | PN ---
Date/Time of Note Date/Time of Note DATE: 06/12/17 TIME: 08:45 Assessment/Plan VTE Prophylaxis VTE Prophylaxis Intervention: heparin Lines/Catheters IV C[facility]ter Type (from [facility]): Saline Lock Urinary Cath still in place: No Assessment/Plan Chief Complaint/Hosp Course 61-year-old male history of cardiac stents brought in for chest pain 1.NSTEMI: Status post cardiac catheterization with 3 vessel CAD -Recommend CABG. Tentatively scheduled for Sunday as renal function needs to improve prior surgery. 2.Acute on chronic systolic heart failure. Last Known ejection fraction 40-45%. -Continue medical optimization. -Fluid status closely, strict ins and outs. Lasix on hold secondary to poor renal function. 3. Acute on chronic kidney disease. ERIC likely hemodynamic versus contrast induced nephropathy. -Nephrology following and we will follow recommendations. 4. Hyperglycemia with Type 2 diabetes. A1c 7.8. -Add premeal Aspart. Continue Accu-Cheks,insulin sliding scale/ Lantus insulin. Will titrate by 15-20%. Hold oral agents for now. -Diabetic education requested-pending. 5. Essential hypertension. -Continue antihypertensives. 6. Dyslipidemia. -Continue statin. 7. History of coronary artery disease with prior PCI's. 8. History of cerebrovascular accident. 10. Anemia of chronic kidney disease. -H&H stable. Will continue to monitor. Prophylaxis: SCDs/Pepcid Patient is seen in collaboration with Dr. Anderson. Problems: Subjective 24 Hr Interval Summary Free Text/Dictation Blood sugar has been running high. Patient on cab controlled diet. Exam/Review of Systems Vital Signs Vitals Vital Signs Date Time Temp Pulse Resp B/P Pulse Ox O2 Delivery O2 Flow Rate FiO2 06/12/17 08:00 77 06/12/17 07:21 97.0 16 127/72 96 06/11/17 14:56 Room Air Intake and Output 06/11/17 06/11/17 06/12/17 15:00 23:00 07:00 Intake Total 680 ml 500 ml Output Total 850 ml Balance -170 ml 500 ml Exam General: Well developed obese [place] male t, not in any acute distress . HEENT: Normocephalic, Atraumatic, No laceration or hematoma; Eyes: PEERL, Conjunctiva clear, Anicteric sclera Neck: Supple without any lymphadenopathy, nontender, no JVD, no carotid bruits, trachea midline, no thyromegaly Cardiac: S1, S2 auscultated, regular rhythm and rate, no mumurs or gallop Pulmonary: Normal respiratory effort. Chest clear to auscultation bilaterally, no adventitious breath sounds GI: Abdomen normal to inspection. Soft, non tender, non- distended, no masses, no rebound tenderness or guarding. Bowel sounds active on all four quadrants Genitourinary: Deferred Extremities: No cyanosis, clubbing, or edema. Pulses [2+] bilaterally. Full ROM on all four extremities. No focal weakness appreciated. Neurologic: Alert to person, place, time, and situation. Affect appropriate, intact sensation. Skin: Clean,dry, and intact. No ecchymosis, no rashes, or lesions Results Result Diagram: 06/11/17 0539 06/12/17 0656 Results 24 hrs Laboratory Tests Test 06/11/17 17:26 06/11/17 21:45 06/12/17 02:00 06/12/17 06:56 Bedside Glucose 166 233 H 231 H Sodium Level 134 L Potassium Level 3.6 Chloride Level 104 Carbon Dioxide Level 24 Anion Gap 10 Blood Urea Nitrogen 69 H Creatinine 4.47 H Glucose Level 176 Calcium Level 8.7 Phosphorus Level 5.1 H Magnesium Level 2.1 Test 06/12/17 08:25 Bedside Glucose 212 Medications Medications Current Medications Ondansetron HCl (Zofran Inj) 4 mg Q6H PRN IV NAUSEA AND/OR VOMITING; Start 06/07/17 at 02:30 Nitroglycerin (Nitroglycerin (Sl Tab) 0.4 Mg) 1 tab Q5M PRN SL CHEST PAIN Last administered on 06/07/17t 08:56; Admin Dose 1 TAB; Start 06/07/17 at 02:30 Acetaminophen (Tylenol Tab) 650 mg Q6H PRN PO PAIN LEVEL 1-3 OR FEVER; Start 06/07/17 at 02:30 Morphine Sulfate (morphine) 2 mg Q4H PRN IV PAIN LEVEL 7-10; Start 06/07/17 at 02:30 Docusate Sodium (Colace) 100 mg Q12H PRN PO CONSTIPATION; Start 06/07/17 at 02: 30 Bisacodyl (Dulcolax) 5 mg DAILY PRN PO CONSTIPATION; Start 06/07/17 at 02:30 Famotidine (Pepcid) 20 mg DAILY PO Last administered on 06/11/17 09:34; Admin Dose 20 MG; Start 06/07/17 at 09:00 Aspirin (Halfprin) 81 mg DAILY PO Last administered on 06/11/17 09:34; Admin Dose 81 MG; Start 06/07/17 at 09:00 Clonidine (Catapres) 0.3 mg Q6H PO Last administered on 06/12/17 06:12; Admin Dose 0.3 MG; Start 06/07/17 at 05:00 EZETIMIBE (Zetia) 10 mg HS PO Last administered on 06/11/17 21:41; Admin Dose 10 MG; Start 06/07/17 at 21:00 Tamsulosin HCl (Flomax) 0.4 mg DAILY@21 PO Last administered on 06/11/17 21:49 ; Admin Dose 0.4 MG; Start 06/07/17 at 21:00 Atorvastatin Calcium (Lipitor) 80 mg QHS PO Last administered on 06/11/17 21: 40; Admin Dose 80 MG; Start 06/07/17 at 21:00 Hydralazine HCl (Apresoline) 10 mg Q6H PRN IV SBP>160 Last administered on 06/09 07:54; Admin Dose 10 MG; Start 06/07/17 at 09:00 Carvedilol (Coreg) 12.5 mg BID PO Last administered on 06/11/17 21:39; Admin Dose 12.5 MG; Start 06/07/17 at 09:00 Morphine Sulfate (morphine) 2 mg Q2H PRN IV FOR NON CARDIAC PAIN (4-10); Start 06/07/17 at 18:00 Hydralazine HCl (Apresoline) 100 mg Q8 PO Last administered on 06/12/17 06:13 ; Admin Dose 100 MG; Start 06/08/17 at 14:00 Nifedipine (Procardia Xl) 60 mg DAILY PO Last administered on 06/11/17 09:32; Admin Dose 60 MG; Start 06/10/17 at 09:00 Isosorbide Mononitrate 120 mg 120 mg DAILY PO Last administered on 06/11/17 09 :33; Admin Dose 120 MG; Start 06/10/17 at 09:00 Insulin Human Regular 100 unit/ Sodium Chloride 100 ml @ 0 mls/hr Q0M IVPB ; Start 06/13/17 at 07:00; Stop 06/13/17 at 12:00 Norepinephrine 250 ml @ 0 mls/hr ONCE IV ; Start 06/13/17 at 07:00; Stop 06/13 at 12:00 Phenylephrine HCl (Daniel-Syneph) 250 ml @ 0 mls/hr ONCE IV ; Start 06/13/17 at 07 :00; Stop 06/13/17 at 12:00 Aspirin 600 mg 600 mg ONCE [place] ; Start 06/13/17 at 07:00; Stop 06/13/17 at 12: 00 Heparin Sodium (Porcine) 64718 unit/Milrinone Lactate 10 mg/ Sodium Chloride 1, 011 ml @ 0 mls/hr ONCE SC ; Start 06/13/17 at 07:00; Stop 06/13/17 at 12:00 Milrinone Lactate/ Sodium Chloride (Primacor/NS) 52 ml @ 0 mls/hr ONCE IV ; Start 06/13/17 at 07:00; Stop 06/13/17 at 12:00 Diagnostic Test (Pha) (Accu-Chek) 1 ea 02 XX Last administered on 06/12/17t 02 :00; Admin Dose 1 EA; Start 06/12/17 at 02:00 Diagnostic Test (Pha) (Accu-Chek) 1 ea 02 XX Last administered on 06/12/17t 02 :00; Admin Dose 1 EA; Start 06/12/17 at 02:00 Insulin Glargine 14 unit 14 unit DAILY@08 SC ; Start 06/12/17 at 08:00 Epinephrine/ Dextrose (EPINEPHrine/D5W) 250 ml @ 0 mls/hr Q0M IV ; Start at 07:00; Stop 06/13/17 at 12:00 Miscellaneous Information 1 ea NOTE XX ; Start 06/11/17 at 16:30 Glucose (Glutose) 15 gm Q15M PRN PO DECREASED GLUCOSE; Start 06/11/17 at 16:30 Glucose (Glutose) 22.5 gm Q15M PRN PO DECREASED GLUCOSE; Start 06/11/17 at 16: 30 Dextrose (D50w Syringe) 25 ml Q15M PRN IV DECREASED GLUCOSE; Start 06/11/17 at 16:30 Dextrose (D50w Syringe) 50 ml Q15M PRN IV DECREASED GLUCOSE; Start 06/11/17 at 16:30 Glucagon (Glucagen) 1 mg Q15M PRN IM DECREASED GLUCOSE; Start 06/11/17 at 16:30 Glucose (Glutose) 15 gm Q15M PRN BUCCAL DECREASED GLUCOSE; Start 06/11/17 at 16 :30 BRAULIO BINGHAM NP Jun 12, 2017 08:47
[2017-06-12] MEDS ORDERED: LINAGLIPTIN 5 MG TABLET PO SCH (09:00)
[2017-06-12] MEDS: ASPIRIN (EC) 81 MG TAB PO SCH (09:00)
[2017-06-12] MEDS: FAMOTIDINE 20 MG TAB PO SCH (09:01)
[2017-06-12] MEDS: ISOSORBIDE MONONITRATE(SR)60 MG TAB PO SCH (09:01)
[2017-06-12] MEDS: NIFEdipine (XL) 30 MG TAB PO SCH (09:02)
[2017-06-12] MEDS: INSULIN GLARGINE [LANtus] 3 ML PEN SC SCH (09:10)
[2017-06-12 12:09] LABS: BASOPHILS % 0.5 % (0.0-2.0); EOSINOPHILS # 0.2 10^3/ul (0.0-0.5); EOSINOPHILS % 2.9 % (0.0-7.0); HEMATOCRIT 29.7 % (42.0-52.0); LYMPHOCYTES % 25.6 % (15.0-51.0); MEAN CORPUSCULAR HEMOGLOBIN 29.4 pg (29.0-33.0); MEAN CORPUSCULAR HGB CONC 33.7 g/dl (32.0-37.0); MEAN CORPUSCULAR VOLUME 87.4 fl (82.0-101.0); MEAN PLATELET VOLUME 10.8 fl (7.4-10.4); MONOCYTE # 0.9 10^3/ul (0.3-0.9); MONOCYTES % 11.6 % (0.0-11.0); NEUTROPHIL # 4.7 10^3/ul (1.6-7.5); NEUTROPHILS % 59.1 % (39.0-77.0); PLATELET COUNT 163 10^3/UL (140-415); RED CELL DISTRIBUTION WIDTH 13.8 % (11.5-14.5); WHITE BLOOD COUNT 7.9 10^3/ul (4.8-10.8)
--- NOTE | 2017-06-12 13:20 | CONS ---
Date/Time of Note Date/Time of Note DATE: 06/12/17 TIME: 13:19 Consult Date/Type/Reason Admit Date/Time Jun 07, 2017 at 02:04 Initial Consult Date 06/08/17 Type of Consultation: nephrology Ordering Provider: TAYLER BE The patient is stable. No events overnight. No fevers, chills, nausea or vomiting. arf on ckd is slightly worse. Lasix was dc'd good uop d/w Dr Weiss OBJECTIVE: HEENT: Head is normocephalic. NECK: Supple. HEART: Regular rate. LUNGS: Show diminished breath sounds at base. ABDOMEN: Soft, nontender to palpation. No rebound or guarding. EXTREMITIES: Negative for clubbing, cyanosis, no edema. DERMATOLOGIC: No rashes. MUSCULOSKELETAL: No joint effusions. NEUROLOGIC: No change in exam. MEDICATIONS: The patient's medications have been reviewed. Objective Vital Signs Date Time Temp Pulse Resp B/P Pulse Ox O2 Delivery O2 Flow Rate FiO2 06/12/17 12:29 97.4 59 18 130/72 95 06/11/17 14:56 Room Air Intake and Output 06/11/17 06/11/17 06/12/17 15:00 23:00 07:00 Intake Total 680 ml 500 ml Output Total 850 ml Balance -170 ml 500 ml Results/Medications Result Diagram: 06/12/17 0656 06/12/17 0656 Results 24 hrs Laboratory Tests Test 06/11/17 17:26 06/11/17 21:45 06/12/17 02:00 06/12/17 06:56 Bedside Glucose 166 233 H 231 H White Blood Count 7.9 Red Blood Count 3.40 L Hemoglobin 10.0 L Hematocrit 29.7 L Mean Corpuscular Volume 87.4 Mean Corpuscular Hemoglobin 29.4 Mean Corpuscular Hemoglobin Concent 33.7 Red Cell Distribution Width 13.8 Platelet Count 163 Mean Platelet Volume 10.8 H Neutrophils % 59.1 Lymphocytes % 25.6 Monocytes % 11.6 H Eosinophils % 2.9 Basophils % 0.5 Nucleated Red Blood Cells % 0.0 Neutrophils # 4.7 Lymphocytes # 2.0 Monocytes # 0.9 Eosinophils # 0.2 Basophils # 0.0 Nucleated Red Blood Cells # 0.0 Sodium Level 134 L Potassium Level 3.6 Chloride Level 104 Carbon Dioxide Level 24 Anion Gap 10 Blood Urea Nitrogen 69 H Creatinine 4.47 H Glucose Level 176 Calcium Level 8.7 Phosphorus Level 5.1 H Magnesium Level 2.1 Test 06/12/17 08:25 06/12/17 12:40 Bedside Glucose 212 166 Medications Current Medications Ondansetron HCl (Zofran Inj) 4 mg Q6H PRN IV NAUSEA AND/OR VOMITING; Start 06/07/17 at 02:30 Nitroglycerin (Nitroglycerin (Sl Tab) 0.4 Mg) 1 tab Q5M PRN SL CHEST PAIN Last administered on 06/07/17 08:56; Admin Dose 1 TAB; Start 06/07/17 at 02:30 Acetaminophen (Tylenol Tab) 650 mg Q6H PRN PO PAIN LEVEL 1-3 OR FEVER; Start 06/07/17 at 02:30 Morphine Sulfate (morphine) 2 mg Q4H PRN IV PAIN LEVEL 7-10; Start 06/07/17 at 02:30 Docusate Sodium (Colace) 100 mg Q12H PRN PO CONSTIPATION; Start 06/07/17 at 02: 30 Bisacodyl (Dulcolax) 5 mg DAILY PRN PO CONSTIPATION; Start 06/07/17 at 02:30 Famotidine (Pepcid) 20 mg DAILY PO Last administered on 06/12/17 09:01; Admin Dose 20 MG; Start 06/07/17 at 09:00 Aspirin (Halfprin) 81 mg DAILY PO Last administered on 06/12/17 09:00; Admin Dose 81 MG; Start 06/07/17 at 09:00 Clonidine (Catapres) 0.3 mg Q6H PO Last administered on 06/12/17 13:08; Admin Dose 0.3 MG; Start 06/07/17 at 05:00 EZETIMIBE (Zetia) 10 mg HS PO Last administered on 06/11/17 21:41; Admin Dose 10 MG; Start 06/07/17 at 21:00 Tamsulosin HCl (Flomax) 0.4 mg DAILY@21 PO Last administered on 06/11/17 21:49 ; Admin Dose 0.4 MG; Start 06/07/17 at 21:00 Atorvastatin Calcium (Lipitor) 80 mg QHS PO Last administered on 06/11/17 21: 40; Admin Dose 80 MG; Start 06/07/17 at 21:00 Hydralazine HCl (Apresoline) 10 mg Q6H PRN IV SBP>160 Last administered on 06/09 07:54; Admin Dose 10 MG; Start 06/07/17 at 09:00 Carvedilol (Coreg) 12.5 mg BID PO Last administered on 06/12/17 09:03; Admin Dose 12.5 MG; Start 06/07/17 at 09:00 Morphine Sulfate (morphine) 2 mg Q2H PRN IV FOR NON CARDIAC PAIN (4-10); Start 06/07/17 at 18:00 Hydralazine HCl (Apresoline) 100 mg Q8 PO Last administered on 06/12/17 06:13 ; Admin Dose 100 MG; Start 06/08/17 at 14:00 Nifedipine (Procardia Xl) 60 mg DAILY PO Last administered on 06/12/17 09:02 ; Admin Dose 60 MG; Start 06/10/17 at 09:00 Isosorbide Mononitrate 120 mg 120 mg DAILY PO Last administered on 06/12/17 09:01; Admin Dose 120 MG; Start 06/10/17 at 09:00 Insulin Human Regular 100 unit/ Sodium Chloride 100 ml @ 0 mls/hr Q0M IVPB ; Start 06/13/17 at 07:00; Stop 06/13/17 at 12:00 Norepinephrine 250 ml @ 0 mls/hr ONCE IV ; Start 06/13/17 at 07:00; Stop 06/13 at 12:00 Phenylephrine HCl (Daniel-Syneph) 250 ml @ 0 mls/hr ONCE IV ; Start 06/13/17 at 07 :00; Stop 06/13/17 at 12:00 Aspirin 600 mg 600 mg ONCE [place] ; Start 06/13/17 at 07:00; Stop 06/13/17 at 12: 00 Heparin Sodium (Porcine) 76981 unit/Milrinone Lactate 10 mg/ Sodium Chloride 1, 011 ml @ 0 mls/hr ONCE SC ; Start 06/13/17 at 07:00; Stop 06/13/17 at 12:00 Milrinone Lactate/ Sodium Chloride (Primacor/NS) 52 ml @ 0 mls/hr ONCE IV ; Start 06/13/17 at 07:00; Stop 06/13/17 at 12:00 Diagnostic Test (Pha) (Accu-Chek) 1 ea 02 XX Last administered on 06/12/17 02 :00; Admin Dose 1 EA; Start 06/12/17 at 02:00 Diagnostic Test (Pha) (Accu-Chek) 1 ea 02 XX Last administered on 06/12/17 02 :00; Admin Dose 1 EA; Start 06/12/17 at 02:00 Insulin Glargine 14 unit 14 unit DAILY@08 SC Last administered on 06/12/17 09 :10; Admin Dose 14 UNIT; Start 06/12/17 at 08:00 Epinephrine/ Dextrose (EPINEPHrine/D5W) 250 ml @ 0 mls/hr Q0M IV ; Start at 07:00; Stop 06/13/17 at 12:00 Miscellaneous Information 1 ea NOTE XX ; Start 06/11/17 at 16:30 Glucose (Glutose) 15 gm Q15M PRN PO DECREASED GLUCOSE; Start 06/11/17 at 16:30 Glucose (Glutose) 22.5 gm Q15M PRN PO DECREASED GLUCOSE; Start 06/11/17 at 16: 30 Dextrose (D50w Syringe) 25 ml Q15M PRN IV DECREASED GLUCOSE; Start 06/11/17 at 16:30 Dextrose (D50w Syringe) 50 ml Q15M PRN IV DECREASED GLUCOSE; Start 06/11/17 at 16:30 Glucagon (Glucagen) 1 mg Q15M PRN IM DECREASED GLUCOSE; Start 06/11/17 at 16:30 Glucose (Glutose) 15 gm Q15M PRN BUCCAL DECREASED GLUCOSE; Start 06/11/17 at 16 :30 Assessment/Plan Chief Complaint/Hosp Course 1. Nonoliguric acute kidney injury (mild) on top of chronic kidney disease stage IV with EGFR of 25%. Etiology of current acute kidney injury is secondary to hemodynamics. Renal function appears to be slightly worse. No evidence of contrast-associated nephropathy. At this point, would continue current treatment plan, supportive care, renally dose medications, avoid nephrotoxins. no indication for HD at this time. Should be ok for CABG on Sunday 2. Anemia, monitor hemoglobin and hematocrit levels. no epogen at this time 3. Mineral bone disorder. We will also monitor calcium and phosphorus levels. 4. Hypertension. Continue current blood pressure regimen. 5. Congestive heart failure. good uop with diuresis. no jan or arb at this time 6. Non-ST elevation myocardial infarction. The patient is status post cardiac catheterization. The patient will be evaluated for possible coronary artery bypass graft. Continue medical management. 7. Dyslipidemia. Continue statin therapy. Problems: ANGELLA KING MD Jun 12, 2017 13:20
--- NOTE | 2017-06-12 13:51 | PN ---
Date/Time of Note Date/Time of Note DATE: 06/12/17 TIME: 13:50 Assessment/Plan Lines/Catheters IV [facility] (from [facility] Saline Lock [place] in Place (from Nrs): No Assessment/Plan Chief Complaint/Hosp Course creatinine stable. plan for CABG in AM Problems: Exam/Review of Systems Vital Signs Vitals Vital Signs Date Time Temp Pulse Resp B/P Pulse Ox O2 Delivery O2 Flow Rate FiO2 06/12/17 12:29 97.4 59 18 130/72 95 06/11/17 14:56 Room Air Intake and Output 06/11/17 06/11/17 06/12/17 15:00 23:00 07:00 Intake Total 680 ml 500 ml Output Total 850 ml Balance -170 ml 500 ml Results Result Diagram: 06/12/17 0656 06/12/17 0656 DENISA GREENE MD Jun 12, 2017 13:51
[2017-06-12] MEDS ORDERED: CEFAZOLIN 2 GM/50 ML (PMX) 50 ML IVPB SCH (14:00)
[2017-06-12 16:36] LABS: MICROALBUMIN 78.1 mg/dL
[2017-06-12] MEDS: TAMSULOSIN (SR) 0.4 MG CAP PO SCH (21:04)
[2017-06-12] MEDS: ATORVASTATIN 40 MG TAB PO SCH (21:04)
[2017-06-12] MEDS: EZETIMIBE 10 MG TAB PO SCH (21:04)
[2017-06-13] VITALS (56 sets, daily range): BP systolic 89–167; BP diastolic 42–88; PULSE 75–95; RESP 10–29; TEMP 96.8–99.1
[2017-06-13] MEDS: ACCU-CHEK XX SCH ×9 (02:00→22:44)
[2017-06-13] MEDS ORDERED: PAPAVERINE 60 MG INJ ONE (06:32)
[2017-06-13] MEDS ORDERED: VANCOMYCIN 1 GM INJ ONE (06:32)
[2017-06-13] MEDS ORDERED: HEPARIN 1000 UNITS/ML 10 ML INJ ONE ×4 (06:33→09:25)
[2017-06-13] MEDS ORDERED: NORepinephrine 8MG/250 ML (PMX 250 ML IV SCH (07:00)
[2017-06-13] MEDS ORDERED: INSULIN HUMAN REGULAR 100 UNIT in SOD CHLORIDE 0.9% 99 ML IVPB SCH (07:00)
[2017-06-13] MEDS ORDERED: MILRINONE LACTATE 2 MG in SOD CHLORIDE 0.9% 50 ML IV SCH (07:00)
[2017-06-13] MEDS ORDERED: PHENYLephrine 20MG IN 250 ML 250 ML IV SCH (07:00)
[2017-06-13] MEDS ORDERED: ASPIRIN 600 MG SUPP PR SCH (07:00)
[2017-06-13] MEDS ORDERED: HEPARIN (10000 UNITS/ML) 10,000 UNIT, MILRINONE LACTATE 10 MG in SOD CHLORIDE 0.9% 1,00... SC SCH (07:00)
[2017-06-13] MEDS ORDERED: EPINEPHrine 4 MG in DEXTROSE 5% 246 ML IV SCH ×4 (07:00)
[2017-06-13] MEDS ORDERED: NITROGLYCERIN 50 MG/D5W 250 ML BTL ONE (07:00)
[2017-06-13] MEDS ORDERED: DOPamine-D5W 1.6 MG/ML 250 ML ONE (07:00)
--- NOTE | 2017-06-13 07:00 | HPN ---
Date/Time of Note Date/Time of Note DATE: 06/13/17 TIME: 07:00 Interval H&P Admission Note Pt. seen H&P reviewed: No system changes DENISA GREENE MD Jun 13, 2017 07:00
[2017-06-13] MEDS ORDERED: MIDAZOLAM 5 ML ONE (07:13)
[2017-06-13] MEDS ORDERED: PHENYLephrine (100 MCG/ML) 5ML SYG ONE ×2 (07:15→09:28)
[2017-06-13] MEDS ORDERED: CA CHLORIDE 10% 10 ML SYRINGE ONE (07:43)
[2017-06-13] MEDS ORDERED: AMINOCAPROIC ACID 5 GM INJ ONE ×4 (07:43→10:28)
[2017-06-13] MEDS ORDERED: PHENYLephrine 10 MG INJ ONE (07:43)
[2017-06-13] MEDS ORDERED: MAGNESIUM SULFATE (MG) 50% 10 ML INJ ONE (07:43)
[2017-06-13] MEDS ORDERED: ALBUMIN HUMAN 25% 200 ML ONE (07:43)
[2017-06-13] MEDS ORDERED: LIDOCAINE 100 MG SYRINGE ONE (07:43)
[2017-06-13] MEDS ORDERED: NA BICARBONATE 8.4% 50 ML SYG ONE ×3 (07:43→17:31)
[2017-06-13] MEDS ORDERED: FUROSEMIDE 20 MG INJ ONE ×3 (07:44→11:46)
[2017-06-13] MEDS ORDERED: POTASSIUM CHLORIDE 40 MEQ INJ ONE (07:44)
[2017-06-13] MEDS ORDERED: MANNITOL 25% 150 ML ONE (07:44)
[2017-06-13] MEDS ORDERED: CEFAZOLIN 1 GM INJ ONE ×2 (08:09→10:28)
[2017-06-13] MEDS ORDERED: SOD CHLORIDE 0.9% IV ONE (09:00)
[2017-06-13] MEDS ORDERED: DESMOPRESSIN IV ONE (09:00)
[2017-06-13] MEDS ORDERED: ROCURONIUM 50 MG INJ ONE (10:28)
[2017-06-13] MEDS ORDERED: ETOMIDATE 20 MG INJ ONE (10:28)
[2017-06-13] MEDS ORDERED: LIDOCAINE 2% (SDV) 5 ML INJ ONE (10:28)
[2017-06-13] MEDS ORDERED: PROTAMINE 250 MG INJ ONE (10:28)
[2017-06-13] MEDS ORDERED: ALBUMIN HUMAN 25% 100 ML ONE (10:44)
--- NOTE | 2017-06-13 11:40 | PN ---
Date/Time of Note Date/Time of Note DATE: 06/13/17 TIME: 11:40 Assessment/Plan VTE Prophylaxis VTE Prophylaxis Intervention: other Lines/Catheters IV Catheter Type (from [facility]): Saline Lock Urinary Cath still in place: No Assessment/Plan Chief Complaint/Hosp Course late entry renal follow up SUBJECTIVE: The patient is stable. No events overnight. No fevers, chills, nausea or vomiting. arf on ckd is slightly worse. Lasix was dc'd good uop d/w Dr Weiss OBJECTIVE: HEENT: Head is normocephalic. NECK: Supple. HEART: Regular rate. LUNGS: Show diminished breath sounds at base. ABDOMEN: Soft, nontender to palpation. No rebound or guarding. EXTREMITIES: Negative for clubbing, cyanosis, no edema. DERMATOLOGIC: No rashes. MUSCULOSKELETAL: No joint effusions. NEUROLOGIC: No change in exam. MEDICATIONS: The patient's medications have been reviewed. 1. Nonoliguric acute kidney injury (mild) on top of chronic kidney disease stage IV with EGFR of 25%. Etiology of current acute kidney injury is secondary to hemodynamics. Renal function appears to be stable. No evidence of contrast-associated nephropathy. At this point, would continue current treatment plan, supportive care, renally dose medications, avoid nephrotoxins. no indication for HD at this time. Should be ok for CABG today 2. Anemia, monitor hemoglobin and hematocrit levels. no epogen at this time 3. Mineral bone disorder. We will also monitor calcium and phosphorus levels. 4. Hypertension. Continue current blood pressure regimen. 5. Congestive heart failure. good uop with diuresis. no jan or arb at this time 6. Non-ST elevation myocardial infarction. The patient is status post cardiac catheterization. The patient will be evaluated for possible coronary artery bypass graft. Continue medical management. 7. Dyslipidemia. Continue statin therapy. Problems: Exam/Review of Systems Vital Signs Vitals Vital Signs Date Time Temp Pulse Resp B/P Pulse Ox O2 Delivery O2 Flow Rate FiO2 06/13/17 07:01 97.3 78 16 159/84 98 Room Air Intake and Output 06/12/17 06/12/17 06/13/17 15:00 23:00 07:00 Intake Total 600 ml 400 ml Output Total 650 ml Balance -50 ml 400 ml Results Result Diagram: 06/12/17 0656 06/12/17 06 Results 24 hrs Laboratory Tests Test 06/12/17 12:40 06/12/17 17:57 06/12/17 17:59 06/12/17 21:11 Bedside Glucose 166 88 108 174 Test 06/13/17 06:05 Bedside Glucose 158 Medications Medications Current Medications Ondansetron HCl (Zofran Inj) 4 mg Q6H PRN IV NAUSEA AND/OR VOMITING; Start 06/07/17 at 02:30 Nitroglycerin (Nitroglycerin (Sl Tab) 0.4 Mg) 1 tab Q5M PRN SL CHEST PAIN Last administered on 06/07/17 08:56; Admin Dose 1 TAB; Start 06/07/17 at 02:30 Acetaminophen (Tylenol Tab) 650 mg Q6H PRN PO PAIN LEVEL 1-3 OR FEVER; Start 06/07/17 at 02:30 Morphine Sulfate (morphine) 2 mg Q4H PRN IV PAIN LEVEL 7-10; Start 06/07/17 at 02:30 Docusate Sodium (Colace) 100 mg Q12H PRN PO CONSTIPATION; Start 06/07/17 at 02: 30 Bisacodyl (Dulcolax) 5 mg DAILY PRN PO CONSTIPATION; Start 06/07/17 at 02:30 Famotidine (Pepcid) 20 mg DAILY PO Last administered on 06/12/17 09:01; Admin Dose 20 MG; Start 06/07/17 at 09:00 Aspirin (Halfprin) 81 mg DAILY PO Last administered on 06/12/17 09:00; Admin Dose 81 MG; Start 06/07/17 at 09:00 Clonidine (Catapres) 0.3 mg Q6H PO Last administered on 06/12/17 23:53; Admin Dose 0.3 MG; Start 06/07/17 at 05:00 EZETIMIBE (Zetia) 10 mg HS PO Last administered on 06/12/17 21:04; Admin Dose 10 MG; Start 06/07/17 at 21:00 Tamsulosin HCl (Flomax) 0.4 mg DAILY@21 PO Last administered on 06/12/17 21: 04; Admin Dose 0.4 MG; Start 06/07/17 at 21:00 Atorvastatin Calcium (Lipitor) 80 mg QHS PO Last administered on 06/12/17 21: 04; Admin Dose 80 MG; Start 06/07/17 at 21:00 Hydralazine HCl (Apresoline) 10 mg Q6H PRN IV SBP>160 Last administered on 06/09 07:54; Admin Dose 10 MG; Start 06/07/17 at 09:00 Carvedilol (Coreg) 12.5 mg BID PO Last administered on 06/12/17 09:03; Admin Dose 12.5 MG; Start 06/07/17 at 09:00 Morphine Sulfate (morphine) 2 mg Q2H PRN IV FOR NON CARDIAC PAIN (4-10); Start 06/07/17 at 18:00 Hydralazine HCl (Apresoline) 100 mg Q8 PO Last administered on 06/12/17 22:38 ; Admin Dose 100 MG; Start 06/08/17 at 14:00 Nifedipine (Procardia Xl) 60 mg DAILY PO Last administered on 06/12/17 09:02 ; Admin Dose 60 MG; Start 06/10/17 at 09:00 Isosorbide Mononitrate 120 mg 120 mg DAILY PO Last administered on 06/12/17 09:01; Admin Dose 120 MG; Start 06/10/17 at 09:00 Insulin Human Regular 100 unit/ Sodium Chloride 100 ml @ 0 mls/hr Q0M IVPB ; Start 06/13/17 at 07:00; Stop 06/13/17 at 12:00 Norepinephrine 250 ml @ 0 mls/hr ONCE IV ; Start 06/13/17 at 07:00; Stop 06/13 at 12:00 Phenylephrine HCl (Daniel-Syneph) 250 ml @ 0 mls/hr ONCE IV ; Start 06/13/17 at 07 :00; Stop 06/13/17 at 12:00 Aspirin 600 mg 600 mg ONCE DE ; Start 06/13/17 at 07:00; Stop 06/13/17 at 12: 00 Heparin Sodium (Porcine) 63334 unit/Milrinone Lactate 10 mg/ Sodium Chloride 1, 011 ml @ 0 mls/hr ONCE SC ; Start 06/13/17 at 07:00; Stop 06/13/17 at 12:00 Milrinone Lactate/ Sodium Chloride (Primacor/NS) 52 ml @ 0 mls/hr ONCE IV ; Start 06/13/17 at 07:00; Stop 06/13/17 at 12:00 Diagnostic Test (Pha) (Accu-Chek) 1 ea 02 XX Last administered on 06/12/17 02 :00; Admin Dose 1 EA; Start 06/12/17 at 02:00 Diagnostic Test (Pha) (Accu-Chek) 1 ea 02 XX Last administered on 06/12/17 02 :00; Admin Dose 1 EA; Start 06/12/17 at 02:00 Insulin Glargine 14 unit 14 unit DAILY@08 SC Last administered on 06/12/17 09 :10; Admin Dose 14 UNIT; Start 06/12/17 at 08:00 Epinephrine/ Dextrose (EPINEPHrine/D5W) 250 ml @ 0 mls/hr Q0M IV ; Start at 07:00; Stop 06/13/17 at 12:00 Miscellaneous Information 1 ea NOTE XX ; Start 06/11/17 at 16:30 Glucose (Glutose) 15 gm Q15M PRN PO DECREASED GLUCOSE; Start 06/11/17 at 16:30 Glucose (Glutose) 22.5 gm Q15M PRN PO DECREASED GLUCOSE; Start 06/11/17 at 16: 30 Dextrose (D50w Syringe) 25 ml Q15M PRN IV DECREASED GLUCOSE; Start 06/11/17 at 16:30 Dextrose (D50w Syringe) 50 ml Q15M PRN IV DECREASED GLUCOSE; Start 06/11/17 at 16:30 Glucagon (Glucagen) 1 mg Q15M PRN IM DECREASED GLUCOSE; Start 06/11/17 at 16:30 Glucose (Glutose) 15 gm Q15M PRN BUCCAL DECREASED GLUCOSE; Start 06/11/17 at 16 :30 MONA QUAN DO Jun 13, 2017 11:40
--- NOTE | 2017-06-13 12:16 | SIPON ---
Date/Time of Note Date/Time of Note DATE: 06/13/17 TIME: 12:14 Operative Report Preoperative Diagnosis NSTEMI, 3V CAD Postoperative Diagnosis same Operation/Procedure Performed CABGX5, MAYER to LAD, SVG to PDA, SVG to Diag2, SVG to Ramus sequenced to OM Surgeon Lobito Greene MD parking assistant Rashad Bush MD Second assist: KEON LOJA Anesthesia: general Estimated blood loss: other Transfusion Required none Specimen none Grafts/Implants none Complications none LOBITO GREENE MD Jun 13, 2017 12:16
[2017-06-13] MEDS ORDERED: DOPamine-D5W 1.6 MG/ML 250 ML IV SCH (12:30)
[2017-06-13] MEDS ORDERED: INSULIN HUMAN REGULAR 100 UNIT in SOD CHLORIDE 0.9% 99 ML IV SCH (12:30)
[2017-06-13] MEDS ORDERED: HYDROmorphONE 1 MG/ML SYG IV PRN (12:30)
[2017-06-13] MEDS ORDERED: ACETAMINOPHEN 325 MG TAB PO PRN (12:30)
[2017-06-13] MEDS ORDERED: DEXTROSE 50% 50 ML SYRINGE IV PRN ×2 (12:30)
[2017-06-13] MEDS ORDERED: INSULIN ASPART [NOVOLOG] 3 ML PEN SC SCH ×2 (13:00)
[2017-06-13 13:37] LABS: BASOPHILS % 0.1 % (0.0-2.0); EOSINOPHILS # 0.1 10^3/ul (0.0-0.5); EOSINOPHILS % 1.2 % (0.0-7.0); HEMATOCRIT 24.8 % (42.0-52.0); HEMOGLOBIN 8.4 g/dl (14.0-18.0); LYMPHOCYTES # 1.2 10^3/ul (0.8-2.9); MEAN CORPUSCULAR HEMOGLOBIN 29.4 pg (29.0-33.0); MEAN CORPUSCULAR HGB CONC 33.9 g/dl (32.0-37.0); MEAN CORPUSCULAR VOLUME 86.7 fl (82.0-101.0); MEAN PLATELET VOLUME 9.8 fl (7.4-10.4); MONOCYTE # 0.8 10^3/ul (0.3-0.9); MONOCYTES % 9.2 % (0.0-11.0); NEUTROPHIL # 6.8 10^3/ul (1.6-7.5); NEUTROPHILS % 76.1 % (39.0-77.0); PLATELET COUNT 100 10^3/UL (140-415); RED BLOOD COUNT 2.86 10^6/ul (4.70-6.10); RED CELL DISTRIBUTION WIDTH 13.8 % (11.5-14.5); WHITE BLOOD COUNT 8.9 10^3/ul (4.8-10.8)
[2017-06-13 13:38] LABS: AADO2 Arterial 284.9 mmHg (7.0-24.0); Arterial Base Excess -3.9 mmol/L (-3.0-3); Arterial COHb 0.3 % (0.0-3.0); Arterial Fraction of Oxyhgb 94.5 % (93.0-99.0); Arterial HCO3 22.6 mmol/L (22.0-26.0); Arterial MetHb 0.3 % (0.0-1.5); Arterial Total Hemglobin 9.2 g/dl (12.0-18.0); MODE VENT - AC
[2017-06-13 13:42] LABS: Allen Test ACCEPTAB; MODE VENT - AC; MetHgb Mixed Venous 0.5 %; Mixed Venous COHb 0.3 %; Mixed Venous Fraction OxyHgb 68.5 %; Mixed Venous Oxygen Sat 69.1 mmHG (65.0-75.0); Mixed Venous Total Hemglobin 9.3 g/dl; Sample Type BLMV
[2017-06-13] MEDS: HYDROmorphONE 1 MG/ML SYG IV PRN ×5 (13:50→18:58)
[2017-06-13 14:00] LABS: INR 1.25; PARTIAL THROMBOPLASTIN TIME 30.8 Sec (25.0-35.0); PROTIME 15.8 Sec (12.2-14.2); PT RATIO 1.2
[2017-06-13 14:02] LABS: CALCIUM 8.5 mg/dl (8.4-10.2); CREATININE 4.4 mg/dl (0.61-1.24); MAGNESIUM 2.5 mg/dl (1.7-2.5); POTASSIUM 3.7 mmol/L (3.5-5.1)
[2017-06-13] MEDS: NITROGLYCERIN 50 MG/D5W (PMX) 250 ML IV SCH (14:07)
--- NOTE | 2017-06-13 14:34 | PN ---
Date/Time of Note Date/Time of Note DATE: 06/13/17 TIME: 14:31 Assessment/Plan VTE Prophylaxis VTE Prophylaxis Intervention: anti-embolic stocking Lines/Catheters IV [facility]from [facility] Saline Lock Central line still needed: Yes Urinary Cath still in place: Yes Reason Cath still needed: other (indicate) Assessment/Plan Chief Complaint/Hosp Course 1. CAD. Status post CABGX5, MAYER to LAD, SVG to PDA, SVG to Diag2, SVG to Ramus sequenced to OM on 06/13/2017. Continue Aspirin. 2. Acute on chronic systolic heart failure. Ejection fraction of 40%. To optimize cardiac medications. 3. Acute on chronic kidney disease. The patient being followed by nephrology. 4. Diabetes mellitus. Hemoglobin A1c 7.8. Currently on insulin drip. 5. Dyslipidemia. Resume statins as per cardiology. 6. Normocytic, normochromic anemia. Probably anemia chronic kidney disease and also from acute blood loss status post CABG. Monitor H&H closely. Blood transfusion will be deferred to cardiac surgery. 7. Fluids, electrolytes, and nutrition. N.p.o. 8. DVT prophylaxis. As per cardiac surgery. 9. Plan. Continue postoperative care. Ventilator weaning as per cardiac surgery. Discussed with Dr. Anderson. Critical CARE time: 35 minutes. Problems: Subjective 24 Hr Interval Summary Free Text/Dictation Patient is status post CABG today. Drips 1. Insulin. 2. Dopamine. 3. Nitroglycerin. Lines 1. ETT 2. CTs 3. [place]. 4. Right IJ SG. 5. Left radial A-line. 6. [place]. Exam/Review of Systems Vital Signs Vitals Vital Signs Date Time Temp Pulse Resp B/P Pulse Ox O2 Delivery O2 Flow Rate FiO2 06/13/17 14:00 80 14 162/70 100 06/13/17 13:02 98.4 06/13/17 07:01 Room Air Intake and Output 06/12/17 06/12/17 06/13/17 15:00 23:00 07:00 Intake Total 600 ml 400 ml Output Total 650 ml Balance -50 ml 400 ml Exam General: Adequately build 61 year-old male lying in bed in no apparent distress. HEENT: Normocephalic, atraumatic. Eyes: Anicteric sclerae, conjunctivae clear. ENT: Nasal septum midline, oral mucosa is dry. Neck supple, no JVD noticed. Respiratory: Bilaterally diminished breath sounds. ETT to mechanical ventilator. Cardiovascular: S1, S2 heard. Dressing over her sternotomy site. Chest tubes 2. Sanguinous secretions. Abdomen: Soft, nontender, and nondistended. Bowel sounds positive in all 4 quadrants. Genitourinary: Deferred. Extremities: No cyanosis, no clubbing, no edema. Peripheral pulses palpable. Neurologic: Patient is somnolent. Skin: Normal skin turgor. Results Result Diagram: 06/13/17 1325 06/13/17 1325 Results 24 hrs Laboratory Tests Test 06/12/17 17:57 06/12/17 17:59 06/12/17 21:11 06/13/17 06:05 Bedside Glucose 88 108 174 158 Test 06/13/17 12:17 06/13/17 12:39 06/13/17 13:25 06/13/17 13:36 Blood Gas Specimen Source Blood arterial BLMV Arterial Blood Date Drawn 06/13/2017 1:20:40 PM 06/13/2017 1:38:55 PM Arterial Blood pH (Temp corrected) 7.291 *L Arterial Blood pCO2 (Temp correct) 48.0 H Arterial Blood pO2 (Temp corrected) 90.1 Arterial Blood HCO3 22.6 Arterial Blood Base Excess -3.9 L Arterial Blood Oxygen Saturation 95.1 Jaspal Test N/A ACCEPTAB Arterial Blood Gas Puncture Site A-Line PAL Arterial Blood Carboxyhemoglobin 0.3 Arterial Blood Methemoglobin 0.3 Blood Gas A-a O2 Differential 284.9 H Oxyhemoglobin Percent 94.5 Total Hemoglobin 9.2 L Blood Gas Temperature 37.0 37.0 Blood Gas Respiration Rate 14.0 14.0 Blood Gas Actual Respiration Rate 14 14 Blood Gas Modality VENT - AC VENT - AC FiO2 60.0 60.0 Blood Gas Tidal Volume 500.0 500.0 Blood Gas Low PEEP Setting 5.0 5.0 Blood Gas Critical Value Read Back Y LUKE RN Blood Gas Notified Whom DMITRY RT Blood Gas Notified Time 06/13/2017 1:38:34 PM 06/13/2017 1:42:40 PM Bedside Glucose 170 140 White Blood Count 8.9 Red Blood Count 2.86 L Hemoglobin 8.4 L Hematocrit 24.8 L Mean Corpuscular Volume 86.7 Mean Corpuscular Hemoglobin 29.4 Mean Corpuscular Hemoglobin Concent 33.9 Red Cell Distribution Width 13.8 Platelet Count 100 #L Mean Platelet Volume 9.8 Neutrophils % 76.1 Lymphocytes % 13.0 L Monocytes % 9.2 Eosinophils % 1.2 Basophils % 0.1 Nucleated Red Blood Cells % 0.0 Neutrophils # 6.8 Lymphocytes # 1.2 Monocytes # 0.8 Eosinophils # 0.1 Basophils # 0.0 Nucleated Red Blood Cells # 0.0 Prothrombin Time 15.8 #H Prothrombin Time Ratio 1.2 INR International Normalized Ratio 1.25 Activated Partial Thromboplast Time 30.8 Sodium Level 141 Potassium Level 3.7 Chloride Level 107 Carbon Dioxide Level 22 Anion Gap 16 Blood Urea Nitrogen 61 H Creatinine 4.40 H Glucose Level 130 # Calcium Level 8.5 Magnesium Level 2.5 Mixed Venous Blood PO2 38.4 Mixed Venous Blood O2 Saturation 69.1 Mixed Venous Blood Total Hemoglobin 9.3 Mixed Venous Blood Oxyhemoglobin 68.5 Mixed Venous Bld Carboxyhemoglobin 0.3 Mixed Venous Blood Methemoglobin 0.5 Medications Medications Current Medications Nitroglycerin (Nitroglycerin (Sl Tab) 0.4 Mg) 1 tab Q5M PRN SL CHEST PAIN Last administered on 06/07/17 08:56; Admin Dose 1 TAB; Start 06/07/17 at 02:30 Docusate Sodium (Colace) 100 mg Q12H PRN PO CONSTIPATION; Start 06/07/17 at 02: 30 Bisacodyl (Dulcolax) 5 mg DAILY PRN PO CONSTIPATION; Start 06/07/17 at 02:30 Clonidine (Catapres) 0.3 mg Q6H PO Last administered on 06/12/17 23:53; Admin Dose 0.3 MG; Start 06/07/17 at 05:00 EZETIMIBE (Zetia) 10 mg HS PO Last administered on 06/12/17 21:04; Admin Dose 10 MG; Start 06/07/17 at 21:00 Tamsulosin HCl (Flomax) 0.4 mg DAILY@21 PO Last administered on 06/12/17 21: 04; Admin Dose 0.4 MG; Start 06/07/17 at 21:00 Atorvastatin Calcium (Lipitor) 80 mg QHS PO Last administered on 06/12/17 21: 04; Admin Dose 80 MG; Start 06/07/17 at 21:00 Hydralazine HCl (Apresoline) 10 mg Q6H PRN IV SBP>160 Last administered on 06/09 07:54; Admin Dose 10 MG; Start 06/07/17 at 09:00 Carvedilol (Coreg) 12.5 mg BID PO Last administered on 06/12/17 09:03; Admin Dose 12.5 MG; Start 06/07/17 at 09:00 Morphine Sulfate (morphine) 2 mg Q2H PRN IV FOR NON CARDIAC PAIN (4-10); Start 06/07/17 at 18:00 Hydralazine HCl (Apresoline) 100 mg Q8 PO Last administered on 06/12/17 22:38 ; Admin Dose 100 MG; Start 06/08/17 at 14:00 Nifedipine (Procardia Xl) 60 mg DAILY PO Last administered on 06/12/17 09:02 ; Admin Dose 60 MG; Start 06/10/17 at 09:00 Isosorbide Mononitrate (Imdur) 120 mg DAILY PO Last administered on 06/12/17 09:01; Admin Dose 120 MG; Start 06/10/17 at 09:00 Diagnostic Test (Pha) (Accu-Chek) 1 ea 02 XX Last administered on 06/12/17 02 :00; Admin Dose 1 EA; Start 06/12/17 at 02:00 Insulin Glargine (Lantus) 14 unit DAILY@08 SC Last administered on 06/12/17 09:10; Admin Dose 14 UNIT; Start 06/12/17 at 08:00 Miscellaneous Information 1 ea NOTE XX ; Start 06/11/17 at 16:30 Glucose (Glutose) 15 gm Q15M PRN PO DECREASED GLUCOSE; Start 06/11/17 at 16:30 Glucose (Glutose) 22.5 gm Q15M PRN PO DECREASED GLUCOSE; Start 06/11/17 at 16: 30 Glucagon (Glucagen) 1 mg Q15M PRN IM DECREASED GLUCOSE; Start 06/11/17 at 16:30 Glucose 15 gm 15 gm Q15M PRN BUCCAL DECREASED GLUCOSE; Start 06/11/17 at 16:30 Cefazolin Sodium (Ancef 1 Gm/50 ml (Pmx)) 50 ml @ 100 mls/hr Q12H IVPB ; Start 06/13/17 at 12:30; Stop 06/14/17 at 00:59 Hydromorphone HCl (Dilaudid) 0.2 mg Q15M PRN IV PAIN LEVEL 1-5; Start at 12:30 Hydromorphone HCl (Dilaudid) 0.4 mg Q15M PRN IV PAIN LEVEL 6-10 Last administered on 06/13/17t 14:13; Admin Dose 0.4 MG; Start 06/13/17 at 12:30 Oxycodone/ Acetaminophen (Percocet (5/ 325)) 1 tab Q3H PRN PO PAIN LEVEL 1-5; Start 06/13/17 at 12:30 Oxycodone/ Acetaminophen (Percocet (5/ 325)) 2 tab Q3H PRN PO PAIN LEVEL 6-10; Start 06/13/17 at 12:30 Ondansetron HCl (Zofran Inj) 4 mg Q6H PRN IV NAUSEA AND/OR VOMITING; Start 07/20 at 12:30 Famotidine (Pepcid Iv) 20 mg Q24H IV ; Start 06/13/17 at 20:00 Aspirin (Aspirin) 325 mg DAILY PO ; Start 06/14/17 at 09:00 Acetaminophen (Tylenol Tab) 650 mg Q3H PRN PO ELEVATED TEMPERATURE; Start 07/20 at 12:30 Diagnostic Test (Pha) (Accu-Chek) 1 ea Q1H XX ; Start 06/13/17 at 12:30 Dextrose (D50w Syringe) 25 ml Q15M PRN IV Till BS 80 mg/dL or above x2; Start 06/13/17 at 12:30 Dextrose (D50w Syringe) 50 ml Q15M PRN IV Till BS 80 mg/dL or above x2; Start 06/13/17 at 12:30 ANGEL WALKER NP Jun 13, 2017 14:34
--- NOTE | 2017-06-13 14:42 | OPR ---
DATE OF OPERATION: 06/13/2017 PREOPERATIVE DIAGNOSIS: Three-vessel coronary artery disease, non-STEMI. POSTOPERATIVE DIAGNOSIS: Three-vessel coronary artery disease, non-STEMI. PROCEDURE PERFORMED: 1. CABG x5, MAYER to LAD, SVG to diagonal artery, SVG to posterior descending artery, saphenous vein graft to diagonal artery. 2. Saphenous vein graft to ramus intermedius sequenced to obtuse marginal artery, endoscopic vein h arvesting of greater saphenous vein from both lower extremities. SURGEON: Denisa Penny MD INSTRUCTOR PILOT: Juan Carlos Bush MD [employer]PA[employer]ER HELPER: SAJI Stafford ANESTHESIOLOGIST: Dr. Islas. ANESTHESIA: General endotracheal. COMPLICATIONS: None. FINDINGS: LV function improved after revascularization from 40% to 50%. No atheromas or plaques we re noted in the ascending aorta. The LAD was a 2.25 mm vessel and the flow in the MAYER to LAD was 3 2 mL per minute. The diagonal artery was a 2 mm vessel and the flow in this was 53 mL per minute, t he flow in the PDA was 88 mL per minute, it was a 2.25 mm vessel. The intermediate was a 2.5 mm ves harpal and the OM was a 1.75 mm vessel. The flow in this was 100 mL per minute. INDICATION: The patient is a 61-year-old gentleman who was admitted with chest pain and ruled in fo r a non-STEMI. He underwent an angiogram which showed severe 3-vessel coronary artery disease. He was referred for CABG. The benefits, risks, alternatives were explained to the patient and his , who understood and consented. DESCRIPTION OF PROCEDURE: Patient was brought to the operating room. He was placed in supine posit ion. He was induced and underwent general endotracheal intubation without complications. He was pr epped and draped in usual sterile fashion. Median sternotomy was made simultaneous to the harvestin g of the saphenous veins both lower extremity. Heparin was given. MAYER was taken down using clips and cautery. Pericardial well was established, ascending aorta was scanned there was no atheromas o r plaques. Pursestring was placed in the ascending aorta followed by the right atrium. We also mary deedee an ascending aortic vent. Once all our lines were in place, we commenced cardiopulmonary bypass . We placed a crossclamp and arrested the heart using antegrade cardioplegia and topical ice. Once th e heart was arrested, we identified the PDA. With mean arteriotomy extended with Torres scissors, an astomosed our vein graft using 7-0 Prolene in a running fashion in end-to-side manner. Vein grafts cut to length. We then identified the OM1, made arteriotomy extended with Torres scissors, anastomos ed our vein graft using 7-0 Prolene in a running fashion in end-to-side manner. We then identified the ramus intermedius, made arteriotomy extended with Torres scissors, we completed the ramus interme dius anastomosis. We identified the diagonal artery made arteriotomy extended with Torres scissors a nd anastomosed our vein graft using 7-0 Prolene in a running fashion in end-to-side manner. We then identified the LAD, made the arteriotomy extended with Torres scissors, anastomosed our MAYER using 7 -0 Prolene in a running fashion in end-to-side manner. Once this was completed, we rewarmed the patient, gave warm blood, removed the crossclamp cardiovert ed to normal sinus rhythm. We placed a partial clamp on the ascending aorta, made 3 aortotomies, an astomosed our right vein graft to the middle aortotomy using 5-0 Prolene in a running fashion in end -to-side manner. The diagonal, vein graft was then anastomosed to the proximal aortotomy using 5-0 Prolene in a running fashion in end-to-side manner. Then, the OM was anastomosed with this most dis rika aortotomy using 5-0 Prolene in a running fashion in end-to-side manner. Once this was completed, partial clamp was removed. Vein grafts were deaired. Distal hemostasis wa s achieved. We placed a ventricular pacing wire followed by left pleural tube and an anterior media stinal tube. We then began ventilating and weaned the patient off cardiopulmonary bypass without di fficulty. Once he was off bypass, we gave protamine. We delined the patient and then closed the ch est using interrupted cables followed by closure of the fascia using 0 Vicryl followed by closure of skin using 4-0 Monocryl in subcuticular fashion. Lower extremity incisions were closed using 3-0 V icryl for the deep layer and 4-0 Monocryl for the skin. Dressings were applied. Patient was taken to the ICU in critical but stable condition. Dictated By: DENISA JACOBS/BRANDON Conf#: [id number] DID#: [id number]
[2017-06-13] MEDS: CEFAZOLIN 1 GM/50 ML (PMX) 50 ML IVPB SCH ×2 (14:48→23:27)
--- NOTE | 2017-06-13 16:00 | RADRPT ---
PROCEDURE: XR Chest. CLINICAL INDICATION: Check line placement. Post CABG. TECHNIQUE: Single frontal view. COMPARISON: 06/07/2017. FINDINGS: The endotracheal tube is in satisfactory position with the tip 5 cm above the sree. There is a rig ht internal jugular vein [place]-Nita catheter with the tip in the right main pulmonary artery. The med iastinal drain and left chest tube are in satisfactory position. There is mild left basilar atelecta sis. The lungs are otherwise clear. The heart is enlarged. There is calcification in the aorta consistent with atherosclerosis. There ar e new sternal wires and mediastinal clips. There is no pleural effusion. There is no pneumothorax. IMPRESSION: 1. Endotracheal tube and Lynn-Nita catheter in satisfactory position. 2. Postoperative changes with median sternotomy, mediastinal drain, and left chest tube. 3. Mild left basilar atelectasis. 4. Cardiomegaly and atherosclerosis. RPTAT: QQ .Hardy Ghosh MD, MD Date Time Electronically viewed and signed by .Hardy Ghosh MD, MD on 06/13/2017 15:59 .R/
[2017-06-13 16:55] LABS: HEMATOCRIT 24.3 % (42.0-52.0); HEMOGLOBIN 8.2 g/dl (14.0-18.0)
[2017-06-13 17:20] LABS: AADO2 Arterial 54.8 mmHg (7.0-24.0); Arterial Base Excess -8.3 mmol/L (-3.0-3); Arterial COHb 0.3 % (0.0-3.0); Arterial Fraction of Oxyhgb 96.8 % (93.0-99.0); Arterial HCO3 17.7 mmol/L (22.0-26.0); Arterial MetHb 0.1 % (0.0-1.5); Arterial Total Hemglobin 11.1 g/dl (12.0-18.0); MODE VENT - CPAP
[2017-06-13] MEDS ORDERED: NA BICARBONATE 8.4% 50 ML SYG IV ONE (17:44)
--- NOTE | 2017-06-13 17:55 | RADRPT ---
PROCEDURE: XR Chest. CLINICAL INDICATION: Shortness of breath. TECHNIQUE: Single frontal view. COMPARISON: 06/13/2017. 1214 hours. FINDINGS: The endotracheal tube and [place]-Nita catheter are in satisfactory position. The mediastinal drain and left chest tube remain in satisfactory position. There are sternal wires and mediastinal clips. The heart is mildly enlarged, similar to the prior study. There is mild left basilar atelectasis. Th e lungs are otherwise clear. There is no pleural effusion or pneumothorax. There is gaseous distension of the stomach. IMPRESSION: 1. Gaseous distension of the stomach. 2. No other significant change from the prior study done earlier the same day. RPTAT: QQ .Hardy Ghosh MD, MD Date Time Electronically viewed and signed by .Hardy Ghosh MD, on 06/13/2017 17:54 .R/
[2017-06-13 18:15] LABS: AADO2 Arterial 72.1 mmHg (7.0-24.0); Arterial Base Excess -5.6 mmol/L (-3.0-3); Arterial COHb 0.3 % (0.0-3.0); Arterial Fraction of Oxyhgb 97.7 % (93.0-99.0); Arterial HCO3 18.1 mmol/L (22.0-26.0); Arterial MetHb 0.3 % (0.0-1.5); Arterial Total Hemglobin 9.1 g/dl (12.0-18.0); MODE VENT - AC
--- NOTE | 2017-06-13 18:27 | CONS ---
Date/Time of Note Date/Time of Note DATE: 06/13/17 TIME: 18:22 Assessment/Plan Assessment/Plan Chief Complaint/Hosp Course CAD s/p CABG x5: MAYER to LAD, SVG to diagonal artery, SVG to posterior descending artery, SVG to ramus intermedius sequenced to obtuse marginal artery. Doing well post-op NSTEMI Acute on chronic systolic heart failure: EF 40-45%F. ~Euvolemic Acute on chronic renal failure: unknown baseline. Cr 3.6 initially, now ~4.5 CAD s/p prior PCI 2006 H/o CVA:CT negative DM HTN urgency -continue ASA -lipitor 80mg restart below BP meds slowly as tolerated (just got off dopamine) -imdur 120mg -nifedipine 60mg -metoprolol 50mg BID -hydralazine 100mg TID -clonidine Problems: Consultation Date/Type/Reason Admit Date/Time Jun 07, 2017 at 02:04 Initial Consult Date 06/07/17 Type of Consultation: Cardiology Referring Provider: TAYLER BE 24 HR Interval Summary Free Text/Dictation Successful CABG this am without complications. Chest tube apparently stopped draining earlier and CVP was rising but then a clot was removed and it is now draining freely again. [place] pressures within range now. Awake and responsive, Still intubated. Exam/Review of Systems Vital Signs Vitals Vital Signs Date Time Temp Pulse Resp B/P Pulse Ox O2 Delivery O2 Flow Rate FiO2 06/13/17 17:49 80 135/73 06/13/17 17:30 10 100 06/13/17 17:30 40 06/13/17 17:00 98.3 06/13/17 07:01 Room Air Intake and Output 06/12/17 06/12/17 06/13/17 15:00 23:00 07:00 Intake Total 600 ml 400 ml Output Total 650 ml Balance -50 ml 400 ml Exam Constitutional: alert ENMT: intubated Neck: No jvd Respiratory: diminished breath sounds, No clear to auscultation Cardiovascular: other (distant heart sounds.), regular rate and rhythm, No systolic murmur Gastrointestinal: non-tender, soft Neurological: nl mental status Results Result Diagram: 06/13/17 1650 06/13/17 1325 Results 24 hrs Laboratory Tests Test 06/12/17 21:11 06/13/17 06:05 06/13/17 12:17 06/13/17 12:39 Bedside Glucose 174 158 170 Blood Gas Specimen Source Blood arterial Arterial Blood Date Drawn 06/13/2017 1:20:40 PM Arterial Blood pH (Temp corrected) 7.291 *L Arterial Blood pCO2 (Temp correct) 48.0 H Arterial Blood pO2 (Temp corrected) 90.1 Arterial Blood HCO3 22.6 Arterial Blood Base Excess -3.9 L Arterial Blood Oxygen Saturation 95.1 Jaspal Test N/A Arterial Blood Gas Puncture Site A-Line Arterial Blood Carboxyhemoglobin 0.3 Arterial Blood Methemoglobin 0.3 Blood Gas A-a O2 Differential 284.9 H Oxyhemoglobin Percent 94.5 Total Hemoglobin 9.2 L Blood Gas Temperature 37.0 Blood Gas Respiration Rate 14.0 Blood Gas Actual Respiration Rate 14 Blood Gas Modality VENT - AC FiO2 60.0 Blood Gas Tidal Volume 500.0 Blood Gas Low PEEP Setting 5.0 Blood Gas Critical Value Read Back Y LUKE RN Blood Gas Notified Whom JLD Blood Gas Notified Time 06/13/2017 1:38:34 PM Test 06/13/17 13:25 06/13/17 13:36 06/13/17 14:42 06/13/17 15:55 White Blood Count 8.9 Red Blood Count 2.86 L Hemoglobin 8.4 L Hematocrit 24.8 L Mean Corpuscular Volume 86.7 Mean Corpuscular Hemoglobin 29.4 Mean Corpuscular Hemoglobin Concent 33.9 Red Cell Distribution Width 13.8 Platelet Count 100 #L Mean Platelet Volume 9.8 Neutrophils % 76.1 Lymphocytes % 13.0 L Monocytes % 9.2 Eosinophils % 1.2 Basophils % 0.1 Nucleated Red Blood Cells % 0.0 Neutrophils # 6.8 Lymphocytes # 1.2 Monocytes # 0.8 Eosinophils # 0.1 Basophils # 0.0 Nucleated Red Blood Cells # 0.0 Prothrombin Time 15.8 #H Prothrombin Time Ratio 1.2 INR International Normalized Ratio 1.25 Activated Partial Thromboplast Time 30.8 Sodium Level 141 Potassium Level 3.7 Chloride Level 107 Carbon Dioxide Level 22 Anion Gap 16 Blood Urea Nitrogen 61 H Creatinine 4.40 H Glucose Level 130 # Calcium Level 8.5 Magnesium Level 2.5 Blood Gas Specimen Source BLMV Arterial Blood Date Drawn 06/13/2017 1:38:55 PM Arterial Blood Gas Puncture Site PAL Jaspal Test ACCEPTAB Mixed Venous Blood PO2 38.4 Mixed Venous Blood O2 Saturation 69.1 Mixed Venous Blood Total Hemoglobin 9.3 Mixed Venous Blood Oxyhemoglobin 68.5 Mixed Venous Bld Carboxyhemoglobin 0.3 Mixed Venous Blood Methemoglobin 0.5 Blood Gas Temperature 37.0 Blood Gas Respiration Rate 14.0 Blood Gas Actual Respiration Rate 14 Blood Gas Modality VENT - AC FiO2 60.0 Blood Gas Tidal Volume 500.0 Blood Gas Low PEEP Setting 5.0 Blood Gas Notified Whom RT Blood Gas Notified Time 06/13/2017 1:42:40 PM Bedside Glucose 140 140 159 Test 06/13/17 16:50 06/13/17 17:00 06/13/17 17:20 06/13/17 17:59 Hemoglobin 8.2 L Hematocrit 24.3 L Blood Gas Specimen Source Blood arterial Blood arterial Arterial Blood Date Drawn 06/13/2017 5:11:56 PM 06/13/2017 6:07:25 PM Arterial Blood pH (Temp corrected) 7.286 *L 7.413 Arterial Blood pCO2 (Temp correct) 38.0 29.0 L Arterial Blood pO2 (Temp corrected) 114.5 H 179.8 H Arterial Blood HCO3 17.7 L 18.1 L Arterial Blood Base Excess -8.3 L -5.6 L Arterial Blood Oxygen Saturation 97.2 98.3 H Jaspal Test N/A N/A Arterial Blood Gas Puncture Site A-Line A-Line Arterial Blood Carboxyhemoglobin 0.3 0.3 Arterial Blood Methemoglobin 0.1 0.3 Blood Gas A-a O2 Differential 54.8 H 72.1 H Oxyhemoglobin Percent 96.8 97.7 Total Hemoglobin 11.1 L 9.1 L Blood Gas Temperature 37.0 37.0 Blood Gas Modality VENT - CPAP VENT - AC FiO2 30.0 40.0 Blood Gas Critical Value Read Back RN YOUNG Blood Gas Notified Whom BT RT Blood Gas Notified Time 06/13/2017 5:19:45 PM 06/13/2017 6:15:33 PM Blood Gas Respiration Rate 14.0 Blood Gas Actual Respiration Rate 19 Blood Gas Tidal Volume 500.0 Blood Gas Low PEEP Setting 5.0 Bedside Glucose 140 Medications Medications Current Medications Nitroglycerin (Nitroglycerin (Sl Tab) 0.4 Mg) 1 tab Q5M PRN SL CHEST PAIN Last administered on 06/07/17 08:56; Admin Dose 1 TAB; Start 06/07/17 at 02:30 Docusate Sodium (Colace) 100 mg Q12H PRN PO CONSTIPATION; Start 06/07/17 at 02: 30 Bisacodyl (Dulcolax) 5 mg DAILY PRN PO CONSTIPATION; Start 06/07/17 at 02:30 Clonidine (Catapres) 0.3 mg Q6H PO Last administered on 06/12/17 23:53; Admin Dose 0.3 MG; Start 06/07/17 at 05:00 EZETIMIBE (Zetia) 10 mg HS PO Last administered on 06/12/17 21:04; Admin Dose 10 MG; Start 06/07/17 at 21:00 Tamsulosin HCl (Flomax) 0.4 mg DAILY@21 PO Last administered on 06/12/17 21: 04; Admin Dose 0.4 MG; Start 06/07/17 at 21:00 Atorvastatin Calcium (Lipitor) 80 mg QHS PO Last administered on 06/12/17 21: 04; Admin Dose 80 MG; Start 06/07/17 at 21:00 Hydralazine HCl (Apresoline) 10 mg Q6H PRN IV SBP>160 Last administered on 06/09 07:54; Admin Dose 10 MG; Start 06/07/17 at 09:00 Carvedilol (Coreg) 12.5 mg BID PO Last administered on 06/12/17 09:03; Admin Dose 12.5 MG; Start 06/07/17 at 09:00 Morphine Sulfate (morphine) 2 mg Q2H PRN IV FOR NON CARDIAC PAIN (4-10); Start 06/07/17 at 18:00 Hydralazine HCl (Apresoline) 100 mg Q8 PO Last administered on 06/12/17 22:38 ; Admin Dose 100 MG; Start 06/08/17 at 14:00 Nifedipine (Procardia Xl) 60 mg DAILY PO Last administered on 06/12/17 09:02 ; Admin Dose 60 MG; Start 06/10/17 at 09:00 Isosorbide Mononitrate (Imdur) 120 mg DAILY PO Last administered on 06/12/17 09:01; Admin Dose 120 MG; Start 06/10/17 at 09:00 Diagnostic Test (Pha) (Accu-Chek) 1 ea 02 XX Last administered on 06/12/17 02 :00; Admin Dose 1 EA; Start 06/12/17 at 02:00 Insulin Glargine (Lantus) 14 unit DAILY@08 SC Last administered on 06/12/17 09:10; Admin Dose 14 UNIT; Start 06/12/17 at 08:00 Miscellaneous Information 1 ea NOTE XX ; Start 06/11/17 at 16:30 Glucose (Glutose) 15 gm Q15M PRN PO DECREASED GLUCOSE; Start 06/11/17 at 16:30 Glucose (Glutose) 22.5 gm Q15M PRN PO DECREASED GLUCOSE; Start 06/11/17 at 16: 30 Glucagon (Glucagen) 1 mg Q15M PRN IM DECREASED GLUCOSE; Start 06/11/17 at 16:30 Glucose 15 gm 15 gm Q15M PRN BUCCAL DECREASED GLUCOSE; Start 06/11/17 at 16:30 Cefazolin Sodium (Ancef 1 Gm/50 ml (Pmx)) 50 ml @ 100 mls/hr Q12H IVPB Last administered on 06/13/17 14:48; Admin Dose 100 MLS/HR; Start 06/13/17 at 12: 30; Stop 06/14/17 at 00:59 Hydromorphone HCl (Dilaudid) 0.2 mg Q15M PRN IV PAIN LEVEL 1-5; Start at 12:30 Hydromorphone HCl (Dilaudid) 0.4 mg Q15M PRN IV PAIN LEVEL 6-10 Last administered on 06/13/17 16:59; Admin Dose 0.4 MG; Start 06/13/17 at 12:30 Oxycodone/ Acetaminophen (Percocet (5/ 325)) 1 tab Q3H PRN PO PAIN LEVEL 1-5; Start 06/13/17 at 12:30 Oxycodone/ Acetaminophen (Percocet (5/ 325)) 2 tab Q3H PRN PO PAIN LEVEL 6-10; Start 06/13/17 at 12:30 Ondansetron HCl (Zofran Inj) 4 mg Q6H PRN IV NAUSEA AND/OR VOMITING; Start 07/20 at 12:30 Famotidine (Pepcid Iv) 20 mg Q24H IV ; Start 06/13/17 at 20:00 Aspirin (Aspirin) 325 mg DAILY PO ; Start 06/14/17 at 09:00 Acetaminophen (Tylenol Tab) 650 mg Q3H PRN PO ELEVATED TEMPERATURE; Start 07/20 at 12:30 Diagnostic Test (Pha) (Accu-Chek) 1 ea Q1H XX ; Start 06/13/17 at 12:30 Dextrose (D50w Syringe) 25 ml Q15M PRN IV Till BS 80 mg/dL or above x2; Start 06/13/17 at 12:30 Dextrose (D50w Syringe) 50 ml Q15M PRN IV Till BS 80 mg/dL or above x2; Start 06/13/17 at 12:30 TAYLER BE Jun 13, 2017 18:27
[2017-06-13] MEDS: INSULIN GLARGINE [LANtus] 3 ML PEN SC SCH (19:00)
[2017-06-13] MEDS: ISOSORBIDE MONONITRATE(SR)60 MG TAB PO SCH (19:00)
[2017-06-13] MEDS: NIFEdipine (XL) 30 MG TAB PO SCH (19:00)
[2017-06-13] MEDS: INSULIN ASPART [NOVOLOG] 3 ML PEN SC SCH ×2 (19:00)
[2017-06-13] MEDS: ATORVASTATIN 40 MG TAB PO SCH (20:29)
[2017-06-13] MEDS: EZETIMIBE 10 MG TAB PO SCH (20:29)
[2017-06-13] MEDS: TAMSULOSIN (SR) 0.4 MG CAP PO SCH (20:29)
[2017-06-13] MEDS: FAMOTIDINE 20 MG INJ IV SCH (20:40)
[2017-06-13] MEDS ORDERED: FAMOTIDINE 20 MG TAB PO SCH (21:00)
[2017-06-13 22:44] LABS: AADO2 Arterial 76.3 mmHg (7.0-24.0); Allen Test ACCEPTAB; Arterial Base Excess -7.4 mmol/L (-3.0-3); Arterial COHb 0.3 % (0.0-3.0); Arterial Fraction of Oxyhgb 97.5 % (93.0-99.0); Arterial HCO3 16.7 mmol/L (22.0-26.0); Arterial MetHb 0.3 % (0.0-1.5); Arterial Total Hemglobin 8.7 g/dl (12.0-18.0); Blood Gas PS 10; MODE VENT - CPAP
[2017-06-13] MEDS ORDERED: ALBUTEROL/IPRATROPIUM (NEB) 3 ML AMP HHN PRN (23:00)
[2017-06-13] MEDS: morphine 2 MG INJ IV PRN (23:27)
[2017-06-13] MEDS: ALBUMIN HUMAN 5% 250 ML IV SCH (23:40)
[2017-06-14] VITALS (72 sets, daily range): BP systolic 92–166; BP diastolic 44–83; PULSE 74–97; RESP 10–31; TEMP 98.8–99.4
[2017-06-14] MEDS: ACCU-CHEK XX SCH ×23 (00:03→23:19)
[2017-06-14] MEDS: ALBUMIN HUMAN 5% 250 ML IV SCH (00:46)
[2017-06-14] MEDS: morphine 2 MG INJ IV PRN ×3 (01:26→05:34)
[2017-06-14] MEDS: OXYCODONE/ACETAMINOPHEN (5/325) TAB PO PRN ×5 (02:13→23:12)
[2017-06-14] MEDS: ONDANSETRON 4 MG INJ IV PRN (03:17)
[2017-06-14] MEDS: NITROGLYCERIN 50 MG/D5W (PMX) 250 ML IV SCH (03:28)
[2017-06-14 05:10] LABS: AADO2 Arterial 88.1 mmHg (7.0-24.0); Arterial Base Excess -7.8 mmol/L (-3.0-3); Arterial COHb 0.3 % (0.0-3.0); Arterial Fraction of Oxyhgb 93.7 % (93.0-99.0); Arterial HCO3 18.3 mmol/L (22.0-26.0); Arterial MetHb 0.3 % (0.0-1.5); Arterial Total Hemglobin 10.1 g/dl (12.0-18.0); MODE NASAL CANNULA
[2017-06-14 05:31] LABS: INR 1.1; PROTIME 14.2 Sec (12.2-14.2); PT RATIO 1.1
[2017-06-14 05:32] LABS: PARTIAL THROMBOPLASTIN TIME 26.9 Sec (25.0-35.0)
[2017-06-14 05:38] LABS: BASOPHILS % 0.3 % (0.0-2.0); HEMATOCRIT 21.7 % (42.0-52.0); HEMOGLOBIN 7.2 g/dl (14.0-18.0); LYMPHOCYTES # 0.8 10^3/ul (0.8-2.9); LYMPHOCYTES % 6.8 % (15.0-51.0); MEAN CORPUSCULAR HEMOGLOBIN 29.8 pg (29.0-33.0); MEAN CORPUSCULAR HGB CONC 33.2 g/dl (32.0-37.0); MEAN CORPUSCULAR VOLUME 89.7 fl (82.0-101.0); MEAN PLATELET VOLUME 11.2 fl (7.4-10.4); NEUTROPHIL # 9.6 10^3/ul (1.6-7.5); NEUTROPHILS % 83.6 % (39.0-77.0); PLATELET COUNT 119 10^3/UL (140-415); POSITIVE DIFF @See below; RED BLOOD COUNT 2.42 10^6/ul (4.70-6.10); RED CELL DISTRIBUTION WIDTH 14.2 % (11.5-14.5); WHITE BLOOD COUNT 11.5 10^3/ul (4.8-10.8)
[2017-06-14 05:42] LABS: CALCIUM 8.9 mg/dl (8.4-10.2); CREATININE 5.78 mg/dl (0.61-1.24); MAGNESIUM 2.5 mg/dl (1.7-2.5); POTASSIUM 4.1 mmol/L (3.5-5.1)
--- NOTE | 2017-06-14 07:02 | PN ---
Date/Time of Note Date/Time of Note DATE: 06/14/17 TIME: 07:01 Assessment/Plan Lines/Catheters IV Catheter Type (from [facility]): Central Line [place] in Place (from [facility]): Yes Assessment/Plan Chief Complaint/Hosp Course creatinine 5.7, making some urine give one unit PRBC d/c sakina start beta ba. Problems: Exam/Review of Systems Vital Signs Vitals Vital Signs Date Time Temp Pulse Resp B/P Pulse Ox O2 Delivery O2 Flow Rate FiO2 06/14/17 06:30 91 15 117/50 98 06/14/17 06:00 99.4 06/14/17 00:00 Nasal Cannula 3.0 06/13/17 23:40 31 Intake and Output 06/13/17 06/13/17 06/14/17 14:59 22:59 06:59 Intake Total 2500 ml 118.0 ml 914.0 ml Output Total 1262 ml 508 ml 424 ml Balance 1238 ml -390.0 ml 490.0 ml Results Result Diagram: 06/14/17 0345 06/14/17 0345 DENISA GREENE MD Jun 14, 2017 07:02
[2017-06-14] MEDS: morphine 10 MG INJ IV PRN ×2 (07:07→23:49)
[2017-06-14] MEDS: ASPIRIN 325 MG TAB PO SCH (08:36)
--- NOTE | 2017-06-14 08:38 | RADRPT ---
PROCEDURE: XR Chest. CLINICAL INDICATION: Shortness of breath. TECHNIQUE: Single frontal view. COMPARISON: 06/13/2017. FINDINGS: The endotracheal tube has been removed. The right internal jugular vein [place] catheter, left geovanna st tube, and mediastinal drain remain in satisfactory position. There is mild left basilar atelectas is. The lungs are otherwise clear. The heart is mildly enlarged. There are sternal wires and mediastinal clips. There is no pleural effusion or pneumothorax. There is gaseous distension of the stomach. IMPRESSION: 1. No change from 06/13/2017. RPTAT: QQ .Hardy Ghosh MD, MD Date Time Electronically viewed and signed by .Hardy Ghosh MD, MD on 06/14/2017 08:37 .R/
--- NOTE | 2017-06-14 08:39 | CONS ---
Date/Time of Note Date/Time of Note DATE: 06/14/17 TIME: 08:32 Assessment/Plan Assessment/Plan Chief Complaint/Hosp Course CAD s/p CABG x5: MAYER to LAD, SVG to diagonal artery, SVG to posterior descending artery, SVG to ramus intermedius sequenced to obtuse marginal artery. Doing well post-op NSTEMI Acute on chronic systolic heart failure: EF 40-45%F. ~Euvolemic. CVP was 8 this am prior to [place] being removed Acute on chronic renal failure: unknown baseline. Cr 3.6 initially, up to 5.7 this am. UOP decreasing CAD s/p prior PCI 2006 H/o CVA:CT negative DM HTN -consider cautious IV hydration but fluid status is tenuous and he will be receiving PRBCs this am as well -continue ASA 325mg -lipitor 80mg -d/c imdur 120mg Below meds with holding parameters -nifedipine 60mg -coreg 12.5mg BID -hydralazine 100mg TID -clonidine Problems: Consultation Date/Type/Reason Admit Date/Time Jun 07, 2017 at 02:04 Initial Consult Date 06/07/17 Type of Consultation: Cardiology Referring Provider: TAYLER BE 24 HR Interval Summary Free Text/Dictation Extubated overnight. Not on pressors. NTG drip d/c-ed. Has alot of pain. Cr 5.7 this am, UOP decreasing. CVP was 8 prior to [place] being removed Exam/Review of Systems Vital Signs Vitals Vital Signs Date Time Temp Pulse Resp B/P Pulse Ox O2 Delivery O2 Flow Rate FiO2 06/14/17 07:30 94 17 143/65 99 06/14/17 07:00 99.4 06/14/17 00:00 Nasal Cannula 3.0 06/13/17 23:40 31 Intake and Output 06/13/17 06/13/17 06/14/17 15:00 23:00 07:00 Intake Total 2500 ml 119.0 ml 919.5 ml Output Total 1331 ml 493 ml 370 ml Balance 1169 ml -374.0 ml 549.5 ml Exam Constitutional: alert, oriented Head: atraumatic, normocephalic Neck: jvd (7cm) Respiratory: diminished breath sounds, No clear to auscultation Cardiovascular: regular rate and rhythm, No edema Gastrointestinal: non-tender, soft Neurological: nl mental status, nl speech Results Result Diagram: 06/14/17 0345 06/14/17 0345 Results 24 hrs Laboratory Tests Test 06/13/17 12:17 06/13/17 12:39 06/13/17 13:25 06/13/17 13:36 Blood Gas Specimen Source Blood arterial BLMV Arterial Blood Date Drawn 06/13/2017 1:20:40 PM 06/13/2017 1:38:55 PM Arterial Blood pH (Temp corrected) 7.291 *L Arterial Blood pCO2 (Temp correct) 48.0 H Arterial Blood pO2 (Temp corrected) 90.1 Arterial Blood HCO3 22.6 Arterial Blood Base Excess -3.9 L Arterial Blood Oxygen Saturation 95.1 Jaspal Test N/A ACCEPTAB Arterial Blood Gas Puncture Site A-Line PAL Arterial Blood Carboxyhemoglobin 0.3 Arterial Blood Methemoglobin 0.3 Blood Gas A-a O2 Differential 284.9 H Oxyhemoglobin Percent 94.5 Total Hemoglobin 9.2 L Blood Gas Temperature 37.0 37.0 Blood Gas Respiration Rate 14.0 14.0 Blood Gas Actual Respiration Rate 14 14 Blood Gas Modality VENT - AC VENT - AC FiO2 60.0 60.0 Blood Gas Tidal Volume 500.0 500.0 Blood Gas Low PEEP Setting 5.0 5.0 Blood Gas Critical Value Read Back Y LUKE RN Blood Gas Notified Whom DMITRY RT Blood Gas Notified Time 06/13/2017 1:38:34 PM 06/13/2017 1:42:40 PM Bedside Glucose 170 140 White Blood Count 8.9 Red Blood Count 2.86 L Hemoglobin 8.4 L Hematocrit 24.8 L Mean Corpuscular Volume 86.7 Mean Corpuscular Hemoglobin 29.4 Mean Corpuscular Hemoglobin Concent 33.9 Red Cell Distribution Width 13.8 Platelet Count 100 #L Mean Platelet Volume 9.8 Neutrophils % 76.1 Lymphocytes % 13.0 L Monocytes % 9.2 Eosinophils % 1.2 Basophils % 0.1 Nucleated Red Blood Cells % 0.0 Neutrophils # 6.8 Lymphocytes # 1.2 Monocytes # 0.8 Eosinophils # 0.1 Basophils # 0.0 Nucleated Red Blood Cells # 0.0 Prothrombin Time 15.8 #H Prothrombin Time Ratio 1.2 INR International Normalized Ratio 1.25 Activated Partial Thromboplast Time 30.8 Sodium Level 141 Potassium Level 3.7 Chloride Level 107 Carbon Dioxide Level 22 Anion Gap 16 Blood Urea Nitrogen 61 H Creatinine 4.40 H Glucose Level 130 # Calcium Level 8.5 Magnesium Level 2.5 Mixed Venous Blood PO2 38.4 Mixed Venous Blood O2 Saturation 69.1 Mixed Venous Blood Total Hemoglobin 9.3 Mixed Venous Blood Oxyhemoglobin 68.5 Mixed Venous Bld Carboxyhemoglobin 0.3 Mixed Venous Blood Methemoglobin 0.5 Test 06/13/17 14:42 06/13/17 15:55 06/13/17 16:50 06/13/17 17:00 Bedside Glucose 140 159 Hemoglobin 8.2 L Hematocrit 24.3 L Blood Gas Specimen Source Blood arterial Arterial Blood Date Drawn 06/13/2017 5:11:56 PM Arterial Blood pH (Temp corrected) 7.286 *L Arterial Blood pCO2 (Temp correct) 38.0 Arterial Blood pO2 (Temp corrected) 114.5 H Arterial Blood HCO3 17.7 L Arterial Blood Base Excess -8.3 L Arterial Blood Oxygen Saturation 97.2 Jaspal Test N/A Arterial Blood Gas Puncture Site A-Line Arterial Blood Carboxyhemoglobin 0.3 Arterial Blood Methemoglobin 0.1 Blood Gas A-a O2 Differential 54.8 H Oxyhemoglobin Percent 96.8 Total Hemoglobin 11.1 L Blood Gas Temperature 37.0 Blood Gas Modality VENT - CPAP FiO2 30.0 Blood Gas Critical Value Read Back BRI LINDSAY Blood Gas Notified Whom BT Blood Gas Notified Time 06/13/2017 5:19:45 PM Test 06/13/17 17:20 06/13/17 17:59 06/13/17 20:06 06/13/17 22:03 Blood Gas Specimen Source Blood arterial Arterial Blood Date Drawn 06/13/2017 6:07:25 PM Arterial Blood pH (Temp corrected) 7.413 Arterial Blood pCO2 (Temp correct) 29.0 L Arterial Blood pO2 (Temp corrected) 179.8 H Arterial Blood HCO3 18.1 L Arterial Blood Base Excess -5.6 L Arterial Blood Oxygen Saturation 98.3 H Jaspal Test N/A Arterial Blood Gas Puncture Site A-Line Arterial Blood Carboxyhemoglobin 0.3 Arterial Blood Methemoglobin 0.3 Blood Gas A-a O2 Differential 72.1 H Oxyhemoglobin Percent 97.7 Total Hemoglobin 9.1 L Blood Gas Temperature 37.0 Blood Gas Respiration Rate 14.0 Blood Gas Actual Respiration Rate 19 Blood Gas Modality VENT - AC FiO2 40.0 Blood Gas Tidal Volume 500.0 Blood Gas Low PEEP Setting 5.0 Blood Gas Notified Whom RT Blood Gas Notified Time 06/13/2017 6:15:33 PM Bedside Glucose 140 112 113 Test 06/13/17 22:30 06/14/17 00:01 06/14/17 02:04 06/14/17 03:45 Blood Gas Specimen Source Blood arterial Arterial Blood Date Drawn 06/13/2017 10:30:22 PM Arterial Blood pH (Temp corrected) 7.382 Arterial Blood pCO2 (Temp correct) 28.8 L Arterial Blood pO2 (Temp corrected) 139.8 H Arterial Blood HCO3 16.7 L Arterial Blood Base Excess -7.4 L Arterial Blood Oxygen Saturation 98.1 H Jaspal Test ACCEPTAB Arterial Blood Gas Puncture Site A-Line Arterial Blood Carboxyhemoglobin 0.3 Arterial Blood Methemoglobin 0.3 Blood Gas A-a O2 Differential 76.3 H Oxyhemoglobin Percent 97.5 Total Hemoglobin 8.7 L Blood Gas Temperature 37.0 Blood Gas Actual Respiration Rate 12 Blood Gas Modality VENT - CPAP FiO2 35.0 Blood Gas Low PEEP Setting 5.0 Blood Gas Pressure Support 10 Blood Gas Notified Whom MA Blood Gas Notified Time 06/13/2017 10:44:15 PM Bedside Glucose 92 123 White Blood Count 11.5 #H Red Blood Count 2.42 L Hemoglobin 7.2 L Hematocrit 21.7 L Mean Corpuscular Volume 89.7 Mean Corpuscular Hemoglobin 29.8 Mean Corpuscular Hemoglobin Concent 33.2 Red Cell Distribution Width 14.2 Platelet Count 119 L Mean Platelet Volume 11.2 H Neutrophils % 83.6 H Lymphocytes % 6.8 L Monocytes % 9.0 Eosinophils % 0.0 Basophils % 0.3 Nucleated Red Blood Cells % 0.0 Neutrophils # 9.6 H Lymphocytes # 0.8 Monocytes # 1.0 H Eosinophils # 0.0 Basophils # 0.0 Nucleated Red Blood Cells # 0.0 Prothrombin Time 14.2 Prothrombin Time Ratio 1.1 INR International Normalized Ratio 1.10 Activated Partial Thromboplast Time 26.9 Sodium Level 144 Potassium Level 4.1 Chloride Level 107 Carbon Dioxide Level 20 L Anion Gap 21 H Blood Urea Nitrogen 74 H Creatinine 5.78 H Glucose Level 103 Calcium Level 8.9 Phosphorus Level 7.1 #H Magnesium Level 2.5 Test 06/14/17 04:09 06/14/17 05:00 06/14/17 06:02 Bedside Glucose 120 103 Blood Gas Specimen Source Blood arterial Arterial Blood Date Drawn 06/14/2017 5:00:57 AM Arterial Blood pH (Temp corrected) 7.285 *L Arterial Blood pCO2 (Temp correct) 39.3 Arterial Blood pO2 (Temp corrected) 79.6 L Arterial Blood HCO3 18.3 L Arterial Blood Base Excess -7.8 L Arterial Blood Oxygen Saturation 94.3 L Jaspal Test N/A Arterial Blood Gas Puncture Site A-Line Arterial Blood Carboxyhemoglobin 0.3 Arterial Blood Methemoglobin 0.3 Blood Gas A-a O2 Differential 88.1 H Oxyhemoglobin Percent 93.7 Total Hemoglobin 10.1 L Blood Gas Temperature 37.0 Blood Gas Modality NASAL CANNULA FiO2 30.0 Blood Gas Critical Value Read Back ABROUILLARD RN Blood Gas Notified Whom MA Blood Gas Notified Time 06/14/2017 5:09:54 AM Medications Medications Current Medications Nitroglycerin (Nitroglycerin (Sl Tab) 0.4 Mg) 1 tab Q5M PRN SL CHEST PAIN Last administered on 06/07/17 08:56; Admin Dose 1 TAB; Start 06/07/17 at 02:30 Docusate Sodium (Colace) 100 mg Q12H PRN PO CONSTIPATION; Start 06/07/17 at 02: 30 Bisacodyl (Dulcolax) 5 mg DAILY PRN PO CONSTIPATION; Start 06/07/17 at 02:30 Clonidine (Catapres) 0.3 mg Q6H PO Last administered on 06/14/17 05:34; Admin Dose 0.3 MG; Start 06/07/17 at 05:00 EZETIMIBE (Zetia) 10 mg HS PO Last administered on 06/12/17 21:04; Admin Dose 10 MG; Start 06/07/17 at 21:00 Tamsulosin HCl (Flomax) 0.4 mg DAILY@21 PO Last administered on 06/12/17 21: 04; Admin Dose 0.4 MG; Start 06/07/17 at 21:00 Atorvastatin Calcium (Lipitor) 80 mg QHS PO Last administered on 06/12/17 21: 04; Admin Dose 80 MG; Start 06/07/17 at 21:00 Hydralazine HCl (Apresoline) 10 mg Q6H PRN IV SBP>160 Last administered on 06/09 07:54; Admin Dose 10 MG; Start 06/07/17 at 09:00 Carvedilol (Coreg) 12.5 mg BID PO Last administered on 06/12/17 09:03; Admin Dose 12.5 MG; Start 06/07/17 at 09:00 Hydralazine HCl (Apresoline) 100 mg Q8 PO Last administered on 06/14/17 05:34 ; Admin Dose 100 MG; Start 06/08/17 at 14:00 Nifedipine (Procardia Xl) 60 mg DAILY PO Last administered on 06/12/17 09:02 ; Admin Dose 60 MG; Start 06/10/17 at 09:00 Diagnostic Test (Pha) (Accu-Chek) 1 ea 02 XX Last administered on 06/12/17 02 :00; Admin Dose 1 EA; Start 06/12/17 at 02:00 Miscellaneous Information 1 ea NOTE XX ; Start 06/11/17 at 16:30 Glucose (Glutose) 15 gm Q15M PRN PO DECREASED GLUCOSE; Start 06/11/17 at 16:30 Glucose (Glutose) 22.5 gm Q15M PRN PO DECREASED GLUCOSE; Start 06/11/17 at 16: 30 Glucagon (Glucagen) 1 mg Q15M PRN IM DECREASED GLUCOSE; Start 06/11/17 at 16:30 Glucose (Glutose) 15 gm Q15M PRN BUCCAL DECREASED GLUCOSE; Start 06/11/17 at 16 :30 Hydromorphone HCl (Dilaudid) 0.2 mg Q15M PRN IV PAIN LEVEL 1-5 Last administered on 06/13/17 21:01; Admin Dose 0.2 MG; Start 06/13/17 at 12:30 Hydromorphone HCl (Dilaudid) 0.4 mg Q15M PRN IV PAIN LEVEL 6-10 Last administered on 06/13/17 18:58; Admin Dose 0.4 MG; Start 06/13/17 at 12:30 Oxycodone/ Acetaminophen (Percocet (5/ 325)) 1 tab Q3H PRN PO PAIN LEVEL 1-5 Last administered on 06/14/17 04:20; Admin Dose 1 TAB; Start 06/13/17 at 12: 30 Oxycodone/ Acetaminophen (Percocet (5/ 325)) 2 tab Q3H PRN PO PAIN LEVEL 6-10 Last administered on 06/14/17 02:13; Admin Dose 2 TAB; Start 06/13/17 at 12: 30 Ondansetron HCl (Zofran Inj) 4 mg Q6H PRN IV NAUSEA AND/OR VOMITING Last administered on 06/14/17 03:17; Admin Dose 4 MG; Start 06/13/17 at 12:30 Famotidine (Pepcid Iv) 20 mg Q24H IV Last administered on 06/13/17 20:40; Admin Dose 20 MG; Start 06/13/17 at 20:00 Aspirin (Aspirin) 325 mg DAILY PO ; Start 06/14/17 at 09:00 Acetaminophen (Tylenol Tab) 650 mg Q3H PRN PO ELEVATED TEMPERATURE; Start 07/20 at 12:30 Diagnostic Test (Pha) (Accu-Chek) 1 ea Q1H XX Last administered on 06/14/17 06:02; Admin Dose 1 EA; Start 06/13/17 at 12:30 Dextrose (D50w Syringe) 25 ml Q15M PRN IV Till BS 80 mg/dL or above x2; Start 06/13/17 at 12:30 Dextrose (D50w Syringe) 50 ml Q15M PRN IV Till BS 80 mg/dL or above x2; Start 06/13/17 at 12:30 Morphine Sulfate (morphine) 6 mg Q2H PRN IV FOR NON CARDIAC PAIN (4-10) Last administered on 06/14/17 07:07; Admin Dose 6 MG; Start 06/14/17 at 08:00 TAYLER BE Jun 14, 2017 08:39
[2017-06-14] MEDS: NIFEdipine (XL) 30 MG TAB PO SCH (08:54)
[2017-06-14] MEDS ORDERED: METOPROLOL 25 MG TAB PO SCH (09:00)
--- NOTE | 2017-06-14 09:33 | CONS ---
Date/Time of Note Date/Time of Note DATE: 06/14/17 TIME: 09:27 Consult Date/Type/Reason Admit Date/Time Jun 07, 2017 at 02:04 Initial Consult Date 06/08/17 Type of Consultation: neph Ordering Provider: TAYLER BE Subjective SUBJECTIVE: The patient is stable. Extubated overnight. Not on pressors. NTG drip d/c-ed. Has alot of pain. Cr 5.7 this am, UOP decreasing. CVP was 8 prior to swan being removed arf on ckd is slightly worse. Lasix was dc'd good uop d/w Dr Weiss OBJECTIVE: HEENT: Head is normocephalic. NECK: Supple. HEART: Regular rate. LUNGS: Show diminished breath sounds at base. ABDOMEN: Soft, nontender to palpation. No rebound or guarding. EXTREMITIES: Negative for clubbing, cyanosis, no edema. DERMATOLOGIC: No rashes. MUSCULOSKELETAL: No joint effusions. NEUROLOGIC: No change in exam. MEDICATIONS: The patient's medications have been reviewed. Objective Vital Signs Date Time Temp Pulse Resp B/P Pulse Ox O2 Delivery O2 Flow Rate FiO2 06/14/17 09:00 93 26 166/71 97 Nasal Cannula 5.0 06/14/17 07:30 99.2 06/13/17 23:40 31 Intake and Output 06/13/17 06/13/17 06/14/17 15:00 23:00 07:00 Intake Total 2500 ml 119.0 ml 919.5 ml Output Total 1331 ml 493 ml 391 ml Balance 1169 ml -374.0 ml 528.5 ml Results/Medications Result Diagram: 06/14/17 0345 06/14/17 0345 Results 24 hrs Laboratory Tests Test 06/13/17 12:17 06/13/17 12:39 06/13/17 13:25 06/13/17 13:36 Blood Gas Specimen Source Blood arterial BLMV Arterial Blood Date Drawn 06/13/2017 1:20:40 PM 06/13/2017 1:38:55 PM Arterial Blood pH (Temp corrected) 7.291 *L Arterial Blood pCO2 (Temp correct) 48.0 H Arterial Blood pO2 (Temp corrected) 90.1 Arterial Blood HCO3 22.6 Arterial Blood Base Excess -3.9 L Arterial Blood Oxygen Saturation 95.1 Jaspal Test N/A ACCEPTAB Arterial Blood Gas Puncture Site A-Line PAL Arterial Blood Carboxyhemoglobin 0.3 Arterial Blood Methemoglobin 0.3 Blood Gas A-a O2 Differential 284.9 H Oxyhemoglobin Percent 94.5 Total Hemoglobin 9.2 L Blood Gas Temperature 37.0 37.0 Blood Gas Respiration Rate 14.0 14.0 Blood Gas Actual Respiration Rate 14 14 Blood Gas Modality VENT - AC VENT - AC FiO2 60.0 60.0 Blood Gas Tidal Volume 500.0 500.0 Blood Gas Low PEEP Setting 5.0 5.0 Blood Gas Critical Value Read Back Y LUKE RN Blood Gas Notified Whom PATSYD RT Blood Gas Notified Time 06/13/2017 1:38:34 PM 06/13/2017 1:42:40 PM Bedside Glucose 170 140 White Blood Count 8.9 Red Blood Count 2.86 L Hemoglobin 8.4 L Hematocrit 24.8 L Mean Corpuscular Volume 86.7 Mean Corpuscular Hemoglobin 29.4 Mean Corpuscular Hemoglobin Concent 33.9 Red Cell Distribution Width 13.8 Platelet Count 100 #L Mean Platelet Volume 9.8 Neutrophils % 76.1 Lymphocytes % 13.0 L Monocytes % 9.2 Eosinophils % 1.2 Basophils % 0.1 Nucleated Red Blood Cells % 0.0 Neutrophils # 6.8 Lymphocytes # 1.2 Monocytes # 0.8 Eosinophils # 0.1 Basophils # 0.0 Nucleated Red Blood Cells # 0.0 Prothrombin Time 15.8 #H Prothrombin Time Ratio 1.2 INR International Normalized Ratio 1.25 Activated Partial Thromboplast Time 30.8 Sodium Level 141 Potassium Level 3.7 Chloride Level 107 Carbon Dioxide Level 22 Anion Gap 16 Blood Urea Nitrogen 61 H Creatinine 4.40 H Glucose Level 130 # Calcium Level 8.5 Magnesium Level 2.5 Mixed Venous Blood PO2 38.4 Mixed Venous Blood O2 Saturation 69.1 Mixed Venous Blood Total Hemoglobin 9.3 Mixed Venous Blood Oxyhemoglobin 68.5 Mixed Venous Bld Carboxyhemoglobin 0.3 Mixed Venous Blood Methemoglobin 0.5 Test 06/13/17 14:42 06/13/17 15:55 06/13/17 16:50 06/13/17 17:00 Bedside Glucose 140 159 Hemoglobin 8.2 L Hematocrit 24.3 L Blood Gas Specimen Source Blood arterial Arterial Blood Date Drawn 06/13/2017 5:11:56 PM Arterial Blood pH (Temp corrected) 7.286 *L Arterial Blood pCO2 (Temp correct) 38.0 Arterial Blood pO2 (Temp corrected) 114.5 H Arterial Blood HCO3 17.7 L Arterial Blood Base Excess -8.3 L Arterial Blood Oxygen Saturation 97.2 Jaspal Test N/A Arterial Blood Gas Puncture Site A-Line Arterial Blood Carboxyhemoglobin 0.3 Arterial Blood Methemoglobin 0.1 Blood Gas A-a O2 Differential 54.8 H Oxyhemoglobin Percent 96.8 Total Hemoglobin 11.1 L Blood Gas Temperature 37.0 Blood Gas Modality VENT - CPAP FiO2 30.0 Blood Gas Critical Value Read Back RN YOUNG Blood Gas Notified Whom BT Blood Gas Notified Time 06/13/2017 5:19:45 PM Test 06/13/17 17:20 06/13/17 17:59 06/13/17 20:06 06/13/17 22:03 Blood Gas Specimen Source Blood arterial Arterial Blood Date Drawn 06/13/2017 6:07:25 PM Arterial Blood pH (Temp corrected) 7.413 Arterial Blood pCO2 (Temp correct) 29.0 L Arterial Blood pO2 (Temp corrected) 179.8 H Arterial Blood HCO3 18.1 L Arterial Blood Base Excess -5.6 L Arterial Blood Oxygen Saturation 98.3 H Jaspal Test N/A Arterial Blood Gas Puncture Site A-Line Arterial Blood Carboxyhemoglobin 0.3 Arterial Blood Methemoglobin 0.3 Blood Gas A-a O2 Differential 72.1 H Oxyhemoglobin Percent 97.7 Total Hemoglobin 9.1 L Blood Gas Temperature 37.0 Blood Gas Respiration Rate 14.0 Blood Gas Actual Respiration Rate 19 Blood Gas Modality VENT - AC FiO2 40.0 Blood Gas Tidal Volume 500.0 Blood Gas Low PEEP Setting 5.0 Blood Gas Notified Whom RT Blood Gas Notified Time 06/13/2017 6:15:33 PM Bedside Glucose 140 112 113 Test 06/13/17 22:30 06/14/17 00:01 06/14/17 02:04 06/14/17 03:45 Blood Gas Specimen Source Blood arterial Arterial Blood Date Drawn 06/13/2017 10:30:22 PM Arterial Blood pH (Temp corrected) 7.382 Arterial Blood pCO2 (Temp correct) 28.8 L Arterial Blood pO2 (Temp corrected) 139.8 H Arterial Blood HCO3 16.7 L Arterial Blood Base Excess -7.4 L Arterial Blood Oxygen Saturation 98.1 H Jaspal Test ACCEPTAB Arterial Blood Gas Puncture Site A-Line Arterial Blood Carboxyhemoglobin 0.3 Arterial Blood Methemoglobin 0.3 Blood Gas A-a O2 Differential 76.3 H Oxyhemoglobin Percent 97.5 Total Hemoglobin 8.7 L Blood Gas Temperature 37.0 Blood Gas Actual Respiration Rate 12 Blood Gas Modality VENT - CPAP FiO2 35.0 Blood Gas Low PEEP Setting 5.0 Blood Gas Pressure Support 10 Blood Gas Notified Whom LA Blood Gas Notified Time 06/13/2017 10:44:15 PM Bedside Glucose 92 123 White Blood Count 11.5 #H Red Blood Count 2.42 L Hemoglobin 7.2 L Hematocrit 21.7 L Mean Corpuscular Volume 89.7 Mean Corpuscular Hemoglobin 29.8 Mean Corpuscular Hemoglobin Concent 33.2 Red Cell Distribution Width 14.2 Platelet Count 119 L Mean Platelet Volume 11.2 H Neutrophils % 83.6 H Lymphocytes % 6.8 L Monocytes % 9.0 Eosinophils % 0.0 Basophils % 0.3 Nucleated Red Blood Cells % 0.0 Neutrophils # 9.6 H Lymphocytes # 0.8 Monocytes # 1.0 H Eosinophils # 0.0 Basophils # 0.0 Nucleated Red Blood Cells # 0.0 Prothrombin Time 14.2 Prothrombin Time Ratio 1.1 INR International Normalized Ratio 1.10 Activated Partial Thromboplast Time 26.9 Sodium Level 144 Potassium Level 4.1 Chloride Level 107 Carbon Dioxide Level 20 L Anion Gap 21 H Blood Urea Nitrogen 74 H Creatinine 5.78 H Glucose Level 103 Calcium Level 8.9 Phosphorus Level 7.1 #H Magnesium Level 2.5 Test 06/14/17 04:09 06/14/17 05:00 06/14/17 06:02 Bedside Glucose 120 103 Blood Gas Specimen Source Blood arterial Arterial Blood Date Drawn 06/14/2017 5:00:57 AM Arterial Blood pH (Temp corrected) 7.285 *L Arterial Blood pCO2 (Temp correct) 39.3 Arterial Blood pO2 (Temp corrected) 79.6 L Arterial Blood HCO3 18.3 L Arterial Blood Base Excess -7.8 L Arterial Blood Oxygen Saturation 94.3 L Jaspal Test N/A Arterial Blood Gas Puncture Site A-Line Arterial Blood Carboxyhemoglobin 0.3 Arterial Blood Methemoglobin 0.3 Blood Gas A-a O2 Differential 88.1 H Oxyhemoglobin Percent 93.7 Total Hemoglobin 10.1 L Blood Gas Temperature 37.0 Blood Gas Modality NASAL CANNULA FiO2 30.0 Blood Gas Critical Value Read Back ABROUILLARD RN Blood Gas Notified Whom MA Blood Gas Notified Time 06/14/2017 5:09:54 AM Medications Current Medications Nitroglycerin (Nitroglycerin (Sl Tab) 0.4 Mg) 1 tab Q5M PRN SL CHEST PAIN Last administered on 06/07/17 08:56; Admin Dose 1 TAB; Start 06/07/17 at 02:30 Docusate Sodium (Colace) 100 mg Q12H PRN PO CONSTIPATION; Start 06/07/17 at 02: 30 Bisacodyl (Dulcolax) 5 mg DAILY PRN PO CONSTIPATION; Start 06/07/17 at 02:30 Clonidine (Catapres) 0.3 mg Q6H PO Last administered on 06/14/17 05:34; Admin Dose 0.3 MG; Start 06/07/17 at 05:00 EZETIMIBE (Zetia) 10 mg HS PO Last administered on 06/12/17 21:04; Admin Dose 10 MG; Start 06/07/17 at 21:00 Tamsulosin HCl (Flomax) 0.4 mg DAILY@21 PO Last administered on 06/12/17 21: 04; Admin Dose 0.4 MG; Start 06/07/17 at 21:00 Atorvastatin Calcium (Lipitor) 80 mg QHS PO Last administered on 06/12/17 21: 04; Admin Dose 80 MG; Start 06/07/17 at 21:00 Hydralazine HCl (Apresoline) 10 mg Q6H PRN IV SBP>160 Last administered on 06/09 07:54; Admin Dose 10 MG; Start 06/07/17 at 09:00 Carvedilol (Coreg) 12.5 mg BID PO Last administered on 06/14/17 08:36; Admin Dose 12.5 MG; Start 06/07/17 at 09:00 Hydralazine HCl (Apresoline) 100 mg Q8 PO Last administered on 06/14/17 05:34 ; Admin Dose 100 MG; Start 06/08/17 at 14:00 Nifedipine (Procardia Xl) 60 mg DAILY PO Last administered on 06/14/17 08:54 ; Admin Dose 60 MG; Start 06/10/17 at 09:00 Diagnostic Test (Pha) (Accu-Chek) 1 ea 02 XX Last administered on 06/12/17 02 :00; Admin Dose 1 EA; Start 06/12/17 at 02:00 Miscellaneous Information 1 ea NOTE XX ; Start 06/11/17 at 16:30 Glucose (Glutose) 15 gm Q15M PRN PO DECREASED GLUCOSE; Start 06/11/17 at 16:30 Glucose (Glutose) 22.5 gm Q15M PRN PO DECREASED GLUCOSE; Start 06/11/17 at 16: 30 Glucagon (Glucagen) 1 mg Q15M PRN IM DECREASED GLUCOSE; Start 06/11/17 at 16:30 Glucose (Glutose) 15 gm Q15M PRN BUCCAL DECREASED GLUCOSE; Start 06/11/17 at 16 :30 Hydromorphone HCl (Dilaudid) 0.2 mg Q15M PRN IV PAIN LEVEL 1-5 Last administered on 06/13/17 21:01; Admin Dose 0.2 MG; Start 06/13/17 at 12:30 Hydromorphone HCl (Dilaudid) 0.4 mg Q15M PRN IV PAIN LEVEL 6-10 Last administered on 06/13/17 18:58; Admin Dose 0.4 MG; Start 06/13/17 at 12:30 Oxycodone/ Acetaminophen (Percocet (5/ 325)) 1 tab Q3H PRN PO PAIN LEVEL 1-5 Last administered on 06/14/17 04:20; Admin Dose 1 TAB; Start 06/13/17 at 12: 30 Oxycodone/ Acetaminophen (Percocet (5/ 325)) 2 tab Q3H PRN PO PAIN LEVEL 6-10 Last administered on 06/14/17 08:58; Admin Dose 2 TAB; Start 06/13/17 at 12: 30 Ondansetron HCl (Zofran Inj) 4 mg Q6H PRN IV NAUSEA AND/OR VOMITING Last administered on 06/14/17 03:17; Admin Dose 4 MG; Start 06/13/17 at 12:30 Famotidine (Pepcid Iv) 20 mg Q24H IV Last administered on 06/13/17 20:40; Admin Dose 20 MG; Start 06/13/17 at 20:00 Aspirin (Aspirin) 325 mg DAILY PO Last administered on 06/14/17 08:36; Admin Dose 325 MG; Start 06/14/17 at 09:00 Acetaminophen (Tylenol Tab) 650 mg Q3H PRN PO ELEVATED TEMPERATURE; Start 07/20 at 12:30 Diagnostic Test (Pha) (Accu-Chek) 1 ea Q1H XX Last administered on 06/14/17 06:02; Admin Dose 1 EA; Start 06/13/17 at 12:30 Dextrose (D50w Syringe) 25 ml Q15M PRN IV Till BS 80 mg/dL or above x2; Start 06/13/17 at 12:30 Dextrose (D50w Syringe) 50 ml Q15M PRN IV Till BS 80 mg/dL or above x2; Start 06/13/17 at 12:30 Morphine Sulfate (morphine) 6 mg Q2H PRN IV FOR NON CARDIAC PAIN (4-10) Last administered on 06/14/17 07:07; Admin Dose 6 MG; Start 06/14/17 at 08:00 Assessment/Plan Chief Complaint/Hosp Course 1. Nonoliguric acute kidney injury (mild) on top of chronic kidney disease stage IV with EGFR of 25%. Etiology of current acute kidney injury is secondary to hemodynamics. Renal function appears to be stable. No evidence of contrast-associated nephropathy. At this point, would continue current treatment plan, supportive care, renally dose medications, avoid nephrotoxins. no indication for HD at this time. slight azotemia concerning. recheck urine studies and ultrasound. 2. Anemia, monitor hemoglobin and hematocrit levels. no epogen at this time 3. Mineral bone disorder. We will also monitor calcium and phosphorus levels. 4. Hypertension. Continue current blood pressure regimen. 5. Congestive heart failure. good uop with diuresis. no jan or arb at this time 6. Non-ST elevation myocardial infarction. The patient is status post cardiac catheterization. The patient will be evaluated for possible coronary artery bypass graft. Continue medical management. 7. Dyslipidemia. Continue statin therapy. Problems: ROSITA NIEVES MD Jun 14, 2017 09:33
--- NOTE | 2017-06-14 10:01 | PN ---
Date/Time of Note Date/Time of Note DATE: 06/14/17 TIME: 09:56 Assessment/Plan VTE Prophylaxis VTE Prophylaxis Intervention: anti-embolic stocking Lines/Catheters IV Catheter Type (from Nrsg): Cordis Urinary Cath still in place: Yes Reason Cath still needed: urinary retention Assessment/Plan Chief Complaint/Hosp Course Assessment and plan/ 61-year-old male with: 1. CAD. Status post CABGX5, MAYER to LAD, SVG to PDA, SVG to Diag2, SVG to Ramus sequenced to OM on 06/13/2017, POD # 1. - Continue Aspirin, nifedipine, Zetia, Lipitor, insulin drip 2. Acute on chronic systolic heart failure. Ejection fraction of 40%. - To optimize cardiac medications. -Follow-up cardiology and CTS recommendation 3. Acute on chronic kidney disease. The patient being followed by nephrology -Her urine output, follow renal recommendations 4. Diabetes mellitus. Hemoglobin A1c 7.8. Currently on insulin drip. 5. Dyslipidemia. Resume statins as per cardiology. 6. Normocytic, normochromic anemia. Probably anemia chronic kidney disease and also from acute blood loss status post CABG. Monitor H&H closely. Blood transfusion will be deferred to cardiac surgery. 7. Fluids, electrolytes, and nutrition. N.p.o. 8. DVT prophylaxis. As per cardiac surgery. 9. Plan. Continue postoperative care. Ventilator weaning as per cardiac surgery. Critical CARE time: 45 minutes. Problems: Subjective 24 Hr Interval Summary Free Text/Dictation Patient had cardiac bypass 5 surgery yesterday. Having some hematuria, chest tubes are in place, off of nitro drip. Presently still on insulin drip. Exam/Review of Systems Vital Signs Vitals Vital Signs Date Time Temp Pulse Resp B/P Pulse Ox O2 Delivery O2 Flow Rate FiO2 06/14/17 09:00 93 26 166/71 97 Nasal Cannula 5.0 06/14/17 07:30 99.2 06/13/17 23:40 31 Intake and Output 06/13/17 06/13/17 06/14/17 15:00 23:00 07:00 Intake Total 2500 ml 119.0 ml 919.5 ml Output Total 1331 ml 493 ml 391 ml Balance 1169 ml -374.0 ml 528.5 ml Exam General: Adequately build 61 year-old male lying in bed using inspirometer presently HEENT: Normocephalic, atraumatic. Eyes: Anicteric sclerae, conjunctivae clear. ENT: Nasal septum midline, oral mucosa is dry. Neck supple, no JVD noticed. Respiratory: Some bilaterally diminished breath sounds. Cardiovascular: S1, S2 heard. Dressing over her sternotomy site. Chest tubes 2. Sanguinous secretions. Abdomen: Soft, nontender, and nondistended. Bowel sounds positive in all 4 quadrants. Extremities: No cyanosis, no clubbing, no edema. Neurologic: Patient is somnolent. Skin: Normal skin turgor. Results Result Diagram: 06/14/17 0345 06/14/17 0345 Results 24 hrs Laboratory Tests Test 06/13/17 12:17 06/13/17 12:39 06/13/17 13:25 06/13/17 13:36 Blood Gas Specimen Source Blood arterial BLMV Arterial Blood Date Drawn 06/13/2017 1:20:40 PM 06/13/2017 1:38:55 PM Arterial Blood pH (Temp corrected) 7.291 *L Arterial Blood pCO2 (Temp correct) 48.0 H Arterial Blood pO2 (Temp corrected) 90.1 Arterial Blood HCO3 22.6 Arterial Blood Base Excess -3.9 L Arterial Blood Oxygen Saturation 95.1 Jaspal Test N/A ACCEPTAB Arterial Blood Gas Puncture Site A-Line PAL Arterial Blood Carboxyhemoglobin 0.3 Arterial Blood Methemoglobin 0.3 Blood Gas A-a O2 Differential 284.9 H Oxyhemoglobin Percent 94.5 Total Hemoglobin 9.2 L Blood Gas Temperature 37.0 37.0 Blood Gas Respiration Rate 14.0 14.0 Blood Gas Actual Respiration Rate 14 14 Blood Gas Modality VENT - AC VENT - AC FiO2 60.0 60.0 Blood Gas Tidal Volume 500.0 500.0 Blood Gas Low PEEP Setting 5.0 5.0 Blood Gas Critical Value Read Back Y LUKE RN Blood Gas Notified Whom DMITRY RT Blood Gas Notified Time 06/13/2017 1:38:34 PM 06/13/2017 1:42:40 PM Bedside Glucose 170 140 White Blood Count 8.9 Red Blood Count 2.86 L Hemoglobin 8.4 L Hematocrit 24.8 L Mean Corpuscular Volume 86.7 Mean Corpuscular Hemoglobin 29.4 Mean Corpuscular Hemoglobin Concent 33.9 Red Cell Distribution Width 13.8 Platelet Count 100 #L Mean Platelet Volume 9.8 Neutrophils % 76.1 Lymphocytes % 13.0 L Monocytes % 9.2 Eosinophils % 1.2 Basophils % 0.1 Nucleated Red Blood Cells % 0.0 Neutrophils # 6.8 Lymphocytes # 1.2 Monocytes # 0.8 Eosinophils # 0.1 Basophils # 0.0 Nucleated Red Blood Cells # 0.0 Prothrombin Time 15.8 #H Prothrombin Time Ratio 1.2 INR International Normalized Ratio 1.25 Activated Partial Thromboplast Time 30.8 Sodium Level 141 Potassium Level 3.7 Chloride Level 107 Carbon Dioxide Level 22 Anion Gap 16 Blood Urea Nitrogen 61 H Creatinine 4.40 H Glucose Level 130 # Calcium Level 8.5 Magnesium Level 2.5 Mixed Venous Blood PO2 38.4 Mixed Venous Blood O2 Saturation 69.1 Mixed Venous Blood Total Hemoglobin 9.3 Mixed Venous Blood Oxyhemoglobin 68.5 Mixed Venous Bld Carboxyhemoglobin 0.3 Mixed Venous Blood Methemoglobin 0.5 Test 06/13/17 14:42 06/13/17 15:55 06/13/17 16:50 06/13/17 17:00 Bedside Glucose 140 159 Hemoglobin 8.2 L Hematocrit 24.3 L Blood Gas Specimen Source Blood arterial Arterial Blood Date Drawn 06/13/2017 5:11:56 PM Arterial Blood pH (Temp corrected) 7.286 *L Arterial Blood pCO2 (Temp correct) 38.0 Arterial Blood pO2 (Temp corrected) 114.5 H Arterial Blood HCO3 17.7 L Arterial Blood Base Excess -8.3 L Arterial Blood Oxygen Saturation 97.2 Jaspal Test N/A Arterial Blood Gas Puncture Site A-Line Arterial Blood Carboxyhemoglobin 0.3 Arterial Blood Methemoglobin 0.1 Blood Gas A-a O2 Differential 54.8 H Oxyhemoglobin Percent 96.8 Total Hemoglobin 11.1 L Blood Gas Temperature 37.0 Blood Gas Modality VENT - CPAP FiO2 30.0 Blood Gas Critical Value Read Back BRI LINDSAY Blood Gas Notified Whom BT Blood Gas Notified Time 06/13/2017 5:19:45 PM Test 06/13/17 17:20 06/13/17 17:59 06/13/17 20:06 06/13/17 22:03 Blood Gas Specimen Source Blood arterial Arterial Blood Date Drawn 06/13/2017 6:07:25 PM Arterial Blood pH (Temp corrected) 7.413 Arterial Blood pCO2 (Temp correct) 29.0 L Arterial Blood pO2 (Temp corrected) 179.8 H Arterial Blood HCO3 18.1 L Arterial Blood Base Excess -5.6 L Arterial Blood Oxygen Saturation 98.3 H Jaspal Test N/A Arterial Blood Gas Puncture Site A-Line Arterial Blood Carboxyhemoglobin 0.3 Arterial Blood Methemoglobin 0.3 Blood Gas A-a O2 Differential 72.1 H Oxyhemoglobin Percent 97.7 Total Hemoglobin 9.1 L Blood Gas Temperature 37.0 Blood Gas Respiration Rate 14.0 Blood Gas Actual Respiration Rate 19 Blood Gas Modality VENT - AC FiO2 40.0 Blood Gas Tidal Volume 500.0 Blood Gas Low PEEP Setting 5.0 Blood Gas Notified Whom RT Blood Gas Notified Time 06/13/2017 6:15:33 PM Bedside Glucose 140 112 113 Test 06/13/17 22:30 06/14/17 00:01 06/14/17 02:04 06/14/17 03:45 Blood Gas Specimen Source Blood arterial Arterial Blood Date Drawn 06/13/2017 10:30:22 PM Arterial Blood pH (Temp corrected) 7.382 Arterial Blood pCO2 (Temp correct) 28.8 L Arterial Blood pO2 (Temp corrected) 139.8 H Arterial Blood HCO3 16.7 L Arterial Blood Base Excess -7.4 L Arterial Blood Oxygen Saturation 98.1 H Jaspal Test ACCEPTAB Arterial Blood Gas Puncture Site A-Line Arterial Blood Carboxyhemoglobin 0.3 Arterial Blood Methemoglobin 0.3 Blood Gas A-a O2 Differential 76.3 H Oxyhemoglobin Percent 97.5 Total Hemoglobin 8.7 L Blood Gas Temperature 37.0 Blood Gas Actual Respiration Rate 12 Blood Gas Modality VENT - CPAP FiO2 35.0 Blood Gas Low PEEP Setting 5.0 Blood Gas Pressure Support 10 Blood Gas Notified Whom MA Blood Gas Notified Time 06/13/2017 10:44:15 PM Bedside Glucose 92 123 White Blood Count 11.5 #H Red Blood Count 2.42 L Hemoglobin 7.2 L Hematocrit 21.7 L Mean Corpuscular Volume 89.7 Mean Corpuscular Hemoglobin 29.8 Mean Corpuscular Hemoglobin Concent 33.2 Red Cell Distribution Width 14.2 Platelet Count 119 L Mean Platelet Volume 11.2 H Neutrophils % 83.6 H Lymphocytes % 6.8 L Monocytes % 9.0 Eosinophils % 0.0 Basophils % 0.3 Nucleated Red Blood Cells % 0.0 Neutrophils # 9.6 H Lymphocytes # 0.8 Monocytes # 1.0 H Eosinophils # 0.0 Basophils # 0.0 Nucleated Red Blood Cells # 0.0 Prothrombin Time 14.2 Prothrombin Time Ratio 1.1 INR International Normalized Ratio 1.10 Activated Partial Thromboplast Time 26.9 Sodium Level 144 Potassium Level 4.1 Chloride Level 107 Carbon Dioxide Level 20 L Anion Gap 21 H Blood Urea Nitrogen 74 H Creatinine 5.78 H Glucose Level 103 Calcium Level 8.9 Phosphorus Level 7.1 #H Magnesium Level 2.5 Test 06/14/17 04:09 06/14/17 05:00 06/14/17 06:02 06/14/17 09:07 Bedside Glucose 120 103 124 Blood Gas Specimen Source Blood arterial Arterial Blood Date Drawn 06/14/2017 5:00:57 AM Arterial Blood pH (Temp corrected) 7.285 *L Arterial Blood pCO2 (Temp correct) 39.3 Arterial Blood pO2 (Temp corrected) 79.6 L Arterial Blood HCO3 18.3 L Arterial Blood Base Excess -7.8 L Arterial Blood Oxygen Saturation 94.3 L Jaspal Test N/A Arterial Blood Gas Puncture Site A-Line Arterial Blood Carboxyhemoglobin 0.3 Arterial Blood Methemoglobin 0.3 Blood Gas A-a O2 Differential 88.1 H Oxyhemoglobin Percent 93.7 Total Hemoglobin 10.1 L Blood Gas Temperature 37.0 Blood Gas Modality NASAL CANNULA FiO2 30.0 Blood Gas Critical Value Read Back ABROUILLARD RN Blood Gas Notified Whom MA Blood Gas Notified Time 06/14/2017 5:09:54 AM Medications Medications Current Medications Nitroglycerin (Nitroglycerin (Sl Tab) 0.4 Mg) 1 tab Q5M PRN SL CHEST PAIN Last administered on 06/07/17 08:56; Admin Dose 1 TAB; Start 06/07/17 at 02:30 Docusate Sodium (Colace) 100 mg Q12H PRN PO CONSTIPATION; Start 06/07/17 at 02: 30 Bisacodyl (Dulcolax) 5 mg DAILY PRN PO CONSTIPATION; Start 06/07/17 at 02:30 Clonidine (Catapres) 0.3 mg Q6H PO Last administered on 06/14/17 05:34; Admin Dose 0.3 MG; Start 06/07/17 at 05:00 EZETIMIBE (Zetia) 10 mg HS PO Last administered on 06/12/17 21:04; Admin Dose 10 MG; Start 06/07/17 at 21:00 Tamsulosin HCl (Flomax) 0.4 mg DAILY@21 PO Last administered on 06/12/17 21: 04; Admin Dose 0.4 MG; Start 06/07/17 at 21:00 Atorvastatin Calcium (Lipitor) 80 mg QHS PO Last administered on 06/12/17 21: 04; Admin Dose 80 MG; Start 06/07/17 at 21:00 Hydralazine HCl (Apresoline) 10 mg Q6H PRN IV SBP>160 Last administered on 06/09 07:54; Admin Dose 10 MG; Start 06/07/17 at 09:00 Carvedilol (Coreg) 12.5 mg BID PO Last administered on 06/14/17 08:36; Admin Dose 12.5 MG; Start 06/07/17 at 09:00 Hydralazine HCl (Apresoline) 100 mg Q8 PO Last administered on 06/14/17 05:34 ; Admin Dose 100 MG; Start 06/08/17 at 14:00 Nifedipine (Procardia Xl) 60 mg DAILY PO Last administered on 06/14/17 08:54 ; Admin Dose 60 MG; Start 06/10/17 at 09:00 Diagnostic Test (Pha) (Accu-Chek) 1 ea 02 XX Last administered on 06/12/17 02 :00; Admin Dose 1 EA; Start 06/12/17 at 02:00 Miscellaneous Information 1 ea NOTE XX ; Start 06/11/17 at 16:30 Glucose (Glutose) 15 gm Q15M PRN PO DECREASED GLUCOSE; Start 06/11/17 at 16:30 Glucose (Glutose) 22.5 gm Q15M PRN PO DECREASED GLUCOSE; Start 06/11/17 at 16: 30 Glucagon (Glucagen) 1 mg Q15M PRN IM DECREASED GLUCOSE; Start 06/11/17 at 16:30 Glucose (Glutose) 15 gm Q15M PRN BUCCAL DECREASED GLUCOSE; Start 06/11/17 at 16 :30 Hydromorphone HCl (Dilaudid) 0.2 mg Q15M PRN IV PAIN LEVEL 1-5 Last administered on 06/13/17 21:01; Admin Dose 0.2 MG; Start 06/13/17 at 12:30 Hydromorphone HCl (Dilaudid) 0.4 mg Q15M PRN IV PAIN LEVEL 6-10 Last administered on 06/13/17 18:58; Admin Dose 0.4 MG; Start 06/13/17 at 12:30 Oxycodone/ Acetaminophen (Percocet (5/ 325)) 1 tab Q3H PRN PO PAIN LEVEL 1-5 Last administered on 06/14/17 04:20; Admin Dose 1 TAB; Start 06/13/17 at 12: 30 Oxycodone/ Acetaminophen (Percocet (5/ 325)) 2 tab Q3H PRN PO PAIN LEVEL 6-10 Last administered on 06/14/17 08:58; Admin Dose 2 TAB; Start 06/13/17 at 12: 30 Ondansetron HCl (Zofran Inj) 4 mg Q6H PRN IV NAUSEA AND/OR VOMITING Last administered on 06/14/17 03:17; Admin Dose 4 MG; Start 06/13/17 at 12:30 Famotidine (Pepcid Iv) 20 mg Q24H IV Last administered on 06/13/17 20:40; Admin Dose 20 MG; Start 06/13/17 at 20:00 Aspirin (Aspirin) 325 mg DAILY PO Last administered on 06/14/17 08:36; Admin Dose 325 MG; Start 06/14/17 at 09:00 Acetaminophen (Tylenol Tab) 650 mg Q3H PRN PO ELEVATED TEMPERATURE; Start 07/20 at 12:30 Diagnostic Test (Pha) (Accu-Chek) 1 ea Q1H XX Last administered on 06/14/17 06:02; Admin Dose 1 EA; Start 06/13/17 at 12:30 Dextrose (D50w Syringe) 25 ml Q15M PRN IV Till BS 80 mg/dL or above x2; Start 06/13/17 at 12:30 Dextrose (D50w Syringe) 50 ml Q15M PRN IV Till BS 80 mg/dL or above x2; Start 06/13/17 at 12:30 Morphine Sulfate (morphine) 6 mg Q2H PRN IV FOR NON CARDIAC PAIN (4-10) Last administered on 06/14/17 07:07; Admin Dose 6 MG; Start 06/14/17 at 08:00 LIZETTE APODACA Jun 14, 2017 10:01
--- NOTE | 2017-06-14 11:01 | RADRPT ---
PROCEDURE: Retroperitoneal US. CLINICAL INDICATION: Renal insufficiency TECHNIQUE: Multiple sonographic images of the kidneys and retroperitoneum were obtained. The imag es were reviewed on a PACS workstation. COMPARISON: US ABDOMEN 06/07/2017 FINDINGS: The right kidney measures 9.8 cm. The left kidney measures 9.7 cm. There is increased echogenicity of the kidneys. There is a 1.6 cm simple cyst in the right kidney. There is a 2.5 cm simple cyst in the left kidney. There is no evidence of hydronephrosis. The urinary bladder is decompressed by a Morocho catheter and not seen.. IMPRESSION: Echogenic kidneys, consistent with medical renal disease. No evidence of hydronephrosis. Small bilateral simple kidney cysts. RPTAT: AA .Rhett Dove MD, Date Time Electronically viewed and signed by .Rhett Dove MD, on 06/14/2017 11:01 .S/
[2017-06-14 11:48] LABS: Blood Gas PS 10
[2017-06-14 14:36] LABS: HEMATOCRIT 24.6 % (42.0-52.0); HEMOGLOBIN 7.9 g/dl (14.0-18.0)
[2017-06-14 15:53] LABS: ADD UMIC YES; UR ASCORBIC ACID NEGATIVE (NEGATIVE); UR BACTERIA FEW /HPF (NONE SEEN); UR BILIRUBIN (Dip) NEGATIVE (NEGATIVE); UR BLOOD (Dip) 2+ mg/dL (NEGATIVE); UR CLARITY CLOUDY (CLEAR); UR COLOR RED (YELLOW); UR GLUCOSE (Dip) 1+ mg/dL (NEGATIVE); UR KETONES (Dip) TRACE mg/dL (NEGATIVE); UR LEUKOCYTE ESTERASE (Dip) NEGATIVE Leu/ul (NEGATIVE); UR NITRITE (Dip) NEGATIVE (NEGATIVE); UR RBC > 182 /HPF (0-5); UR SPECIFIC GRAVITY (Dip) 1.015 (1.003-1.030); UR TOTAL PROTEIN (Dip) 3+ mg/dl (NEGATIVE); UR UROBILINOGEN (Dip) NEGATIVE (NEGATIVE)
[2017-06-14] MEDS: DOCUSATE SODIUM 100 MG CAP PO PRN (18:16)
[2017-06-14] MEDS: FAMOTIDINE 20 MG INJ IV SCH (21:19)
[2017-06-14] MEDS: ATORVASTATIN 40 MG TAB PO SCH (21:19)
[2017-06-14] MEDS: TAMSULOSIN (SR) 0.4 MG CAP PO SCH (21:20)
[2017-06-14] MEDS: EZETIMIBE 10 MG TAB PO SCH (21:20)
[2017-06-15] VITALS (30 sets, daily range): BP systolic 87–131; BP diastolic 55–85; PULSE 79–93; RESP 10–22
[2017-06-15] MEDS: ACCU-CHEK XX SCH ×11 (00:30→10:24)
[2017-06-15] MEDS: OXYCODONE/ACETAMINOPHEN (5/325) TAB PO PRN ×4 (01:31→15:11)
[2017-06-15 04:48] LABS: ABNORMAL IP MESSAGE 1; BASOPHILS % 0.2 % (0.0-2.0); HEMATOCRIT 25.4 % (42.0-52.0); HEMOGLOBIN 8.4 g/dl (14.0-18.0); LYMPHOCYTES # 1.7 10^3/ul (0.8-2.9); LYMPHOCYTES % 10.3 % (15.0-51.0); MEAN CORPUSCULAR HEMOGLOBIN 29.6 pg (29.0-33.0); MEAN CORPUSCULAR HGB CONC 33.1 g/dl (32.0-37.0); MEAN CORPUSCULAR VOLUME 89.4 fl (82.0-101.0); MONOCYTES % 11.9 % (0.0-11.0); NEUTROPHIL # 12.8 10^3/ul (1.6-7.5); NEUTROPHILS % 76.7 % (39.0-77.0); PLATELET COUNT 136 10^3/UL (140-415); POSITIVE DIFF @See below; RED BLOOD COUNT 2.84 10^6/ul (4.70-6.10); RED CELL DISTRIBUTION WIDTH 14.7 % (11.5-14.5); WHITE BLOOD COUNT 16.7 10^3/ul (4.8-10.8)
[2017-06-15 05:15] LABS: CALCIUM 8.6 mg/dl (8.4-10.2); CREATININE 7.69 mg/dl (0.61-1.24); MAGNESIUM 2.5 mg/dl (1.7-2.5); POTASSIUM 4.7 mmol/L (3.5-5.1)
--- NOTE | 2017-06-15 07:28 | CONS ---
Date/Time of Note Date/Time of Note DATE: 06/15/17 TIME: 07:23 Assessment/Plan Assessment/Plan Chief Complaint/Hosp Course CAD s/p CABG x5: MAYER to LAD, SVG to diagonal artery, SVG to posterior descending artery, SVG to ramus intermedius sequenced to obtuse marginal artery. Doing well post-op NSTEMI Acute on chronic systolic heart failure: EF 40-45%F. ~Euvolemic by exam Acute on chronic renal failure: unknown baseline. Cr 3.6 initially. Now up to 7.7 post op but maintaining UOP. CAD s/p prior PCI 2006 H/o CVA:CT negative DM HTN -no indication fo HD as still with adequate UOP, no heart failure or electrolyte abnormalities but renal function still worsening. I think he needs a higher BP as he is used to elevated pressures in general and he has been in the 90-110 range. -will d/c clonidine and nifedipine -decrease hydalazine to 50mg q8h with holding parameters -continue coreg 12.5mg BID -continue ASA 325mg -lipitor 80mg Problems: Consultation Date/Type/Reason Admit Date/Time Jun 07, 2017 at 02:04 Initial Consult Date 06/07/17 Type of Consultation: Cardiology Referring Provider: TAYLER BE 24 HR Interval Summary Free Text/Dictation No o/n events. BP has been on the low side, as low as 90s. Still making ~30mL/ hr urine but Cr 7.7 today. Exam/Review of Systems Vital Signs Vitals Vital Signs Date Time Temp Pulse Resp B/P Pulse Ox O2 Delivery O2 Flow Rate FiO2 06/15/17 06:00 85 10 91/56 92 Nasal Cannula 06/15/17 04:00 98.9 06/15/17 04:00 6.0 06/15/17 01:58 31 Intake and Output 06/14/17 06/14/17 06/15/17 15:00 23:00 07:00 Intake Total 963.5 ml 547 ml 305.5 ml Output Total 148 ml 331 ml 260 ml Balance 815.5 ml 216 ml 45.5 ml Exam Constitutional: alert, oriented Psych: no complaints Head: atraumatic, normocephalic Neck: No jvd Respiratory: crackles/rales (mild at bases ), No clear to auscultation Cardiovascular: No edema Gastrointestinal: non-tender, soft Neurological: nl mental status, nl speech Results Result Diagram: 06/15/17 0400 06/15/17 0400 Results 24 hrs Laboratory Tests Test 06/14/17 09:07 06/14/17 11:00 06/14/17 12:02 06/14/17 14:15 Bedside Glucose 124 130 120 Urine Color RED Urine Clarity CLOUDY A Urine pH 6.0 Urine Specific [place] 1.015 Urine Ketones TRACE A Urine Nitrite NEGATIVE Urine Bilirubin NEGATIVE Urine Urobilinogen NEGATIVE Urine Leukocyte Esterase NEGATIVE Urine Microscopic RBC > 182 H Urine Microscopic WBC > 182 H Urine Bacteria FEW A Urine Hemoglobin 2+ H Urine Random Creatinine 81.10 Urine Random Sodium 34 Urine Glucose 1+ H Urine Total Protein 3+ H Test 06/14/17 14:25 06/14/17 16:09 06/14/17 18:14 06/14/17 19:12 Hemoglobin 7.9 L Hematocrit 24.6 L Bedside Glucose 145 106 118 Test 06/14/17 21:17 06/14/17 22:20 06/14/17 23:18 06/15/17 01:38 Bedside Glucose 121 130 133 127 Test 06/15/17 02:40 06/15/17 04:00 06/15/17 04:05 06/15/17 05:08 Bedside Glucose 127 118 White Blood Count 16.7 #H Red Blood Count 2.84 L Hemoglobin 8.4 L Hematocrit 25.4 L Mean Corpuscular Volume 89.4 Mean Corpuscular Hemoglobin 29.6 Mean Corpuscular Hemoglobin Concent 33.1 Red Cell Distribution Width 14.7 H Platelet Count 136 L Mean Platelet Volume 11.0 H Neutrophils % 76.7 Lymphocytes % 10.3 L Monocytes % 11.9 H Eosinophils % 0.0 Basophils % 0.2 Nucleated Red Blood Cells % 0.0 Neutrophils # 12.8 H Lymphocytes # 1.7 Monocytes # 2.0 H Eosinophils # 0.0 Basophils # 0.0 Nucleated Red Blood Cells # 0.0 Sodium Level 144 Potassium Level 4.7 Chloride Level 104 Carbon Dioxide Level 19 L Anion Gap 26 H Blood Urea Nitrogen 88 H Creatinine 7.69 H Glucose Level 103 Calcium Level 8.6 Phosphorus Level 9.0 H Magnesium Level 2.5 Lab Scanned Report BLOOD TRANSFUSION Test 06/15/17 05:23 06/15/17 06:43 Bedside Glucose 132 140 Medications Medications Current Medications Nitroglycerin (Nitroglycerin (Sl Tab) 0.4 Mg) 1 tab Q5M PRN SL CHEST PAIN Last administered on 06/07/17 08:56; Admin Dose 1 TAB; Start 06/07/17 at 02:30 Docusate Sodium (Colace) 100 mg Q12H PRN PO CONSTIPATION Last administered on 06/14/17 18:16; Admin Dose 100 MG; Start 06/07/17 at 02:30 Bisacodyl (Dulcolax) 5 mg DAILY PRN PO CONSTIPATION; Start 06/07/17 at 02:30 Clonidine (Catapres) 0.3 mg Q6H PO Last administered on 06/15/17 05:44; Admin Dose 0.3 MG; Start 06/07/17 at 05:00 EZETIMIBE (Zetia) 10 mg HS PO Last administered on 06/14/17 21:20; Admin Dose 10 MG; Start 06/07/17 at 21:00 Tamsulosin HCl (Flomax) 0.4 mg DAILY@21 PO Last administered on 06/14/17 21: 20; Admin Dose 0.4 MG; Start 06/07/17 at 21:00 Atorvastatin Calcium (Lipitor) 80 mg QHS PO Last administered on 06/14/17 21: 19; Admin Dose 80 MG; Start 06/07/17 at 21:00 Hydralazine HCl (Apresoline) 10 mg Q6H PRN IV SBP>160 Last administered on 06/09 07:54; Admin Dose 10 MG; Start 06/07/17 at 09:00 Carvedilol (Coreg) 12.5 mg BID PO Last administered on 06/14/17 21:20; Admin Dose 12.5 MG; Start 06/07/17 at 09:00 Hydralazine HCl (Apresoline) 100 mg Q8 PO Last administered on 06/14/17 22:18 ; Admin Dose 100 MG; Start 06/08/17 at 14:00 Nifedipine (Procardia Xl) 60 mg DAILY PO Last administered on 06/14/17 08:54 ; Admin Dose 60 MG; Start 06/10/17 at 09:00 Diagnostic Test (Pha) (Accu-Chek) 1 ea 02 XX Last administered on 06/15/17 02 :41; Admin Dose 1 EA; Start 06/12/17 at 02:00 Miscellaneous Information 1 ea NOTE XX ; Start 06/11/17 at 16:30 Glucose (Glutose) 15 gm Q15M PRN PO DECREASED GLUCOSE; Start 06/11/17 at 16:30 Glucose (Glutose) 22.5 gm Q15M PRN PO DECREASED GLUCOSE; Start 06/11/17 at 16: 30 Glucagon (Glucagen) 1 mg Q15M PRN IM DECREASED GLUCOSE; Start 06/11/17 at 16:30 Glucose (Glutose) 15 gm Q15M PRN BUCCAL DECREASED GLUCOSE; Start 06/11/17 at 16 :30 Hydromorphone HCl (Dilaudid) 0.2 mg Q15M PRN IV PAIN LEVEL 1-5 Last administered on 06/13/17 21:01; Admin Dose 0.2 MG; Start 06/13/17 at 12:30 Hydromorphone HCl (Dilaudid) 0.4 mg Q15M PRN IV PAIN LEVEL 6-10 Last administered on 06/13/17 18:58; Admin Dose 0.4 MG; Start 06/13/17 at 12:30 Oxycodone/ Acetaminophen (Percocet (5/ 325)) 1 tab Q3H PRN PO PAIN LEVEL 1-5 Last administered on 06/14/17 23:12; Admin Dose 1 TAB; Start 06/13/17 at 12: 30 Oxycodone/ Acetaminophen (Percocet (5/ 325)) 2 tab Q3H PRN PO PAIN LEVEL 6-10 Last administered on 06/15/17 01:31; Admin Dose 2 TAB; Start 06/13/17 at 12: 30 Ondansetron HCl (Zofran Inj) 4 mg Q6H PRN IV NAUSEA AND/OR VOMITING Last administered on 06/14/17 03:17; Admin Dose 4 MG; Start 06/13/17 at 12:30 Famotidine (Pepcid Iv) 20 mg Q24H IV Last administered on 06/14/17 21:19; Admin Dose 20 MG; Start 06/13/17 at 20:00 Aspirin (Aspirin) 325 mg DAILY PO Last administered on 06/14/17 08:36; Admin Dose 325 MG; Start 06/14/17 at 09:00 Acetaminophen (Tylenol Tab) 650 mg Q3H PRN PO ELEVATED TEMPERATURE; Start 07/20 at 12:30 Diagnostic Test (Pha) (Accu-Chek) 1 ea Q1H XX Last administered on 06/15/17 06:44; Admin Dose 1 EA; Start 06/13/17 at 12:30 Dextrose (D50w Syringe) 25 ml Q15M PRN IV Till BS 80 mg/dL or above x2; Start 06/13/17 at 12:30 Dextrose (D50w Syringe) 50 ml Q15M PRN IV Till BS 80 mg/dL or above x2; Start 06/13/17 at 12:30 Morphine Sulfate (morphine) 6 mg Q2H PRN IV FOR NON CARDIAC PAIN (4-10) Last administered on 06/14/17 23:49; Admin Dose 6 MG; Start 06/14/17 at 08:00 TAYLER BE Jun 15, 2017 07:28
[2017-06-15] MEDS: ASPIRIN 325 MG TAB PO SCH (08:27)
--- NOTE | 2017-06-15 09:09 | PN ---
Date/Time of Note Date/Time of Note DATE: 06/15/17 TIME: 09:04 Assessment/Plan VTE Prophylaxis VTE Prophylaxis Intervention: anti-embolic stocking Lines/Catheters IV Catheter Type (from Nrsg): Central Line Central line still needed: Yes Urinary Cath still in place: Yes Reason Cath still needed: urinary retention Assessment/Plan Chief Complaint/Hosp Course Assessment and plan/ 61-year-old male with: 1. CAD - Status post CABGX5, MAYER to LAD, SVG to PDA, SVG to Diag2, SVG to Ramus sequenced to OM on 06/13/2017, POD # 2. - Continue Aspirin, Coreg, Zetia, Lipitor, insulin drip 2. Acute on chronic systolic heart failure. Ejection fraction of 40%. - To optimize cardiac medications, see # 1 -Follow-up cardiology and CTS recommendations 3. Acute on chronic kidney disease. The patient being followed by nephrology - creatinine has worsened today is in the 7 range, urine output is noted however. -Monitor urine output, follow renal recommendations -Per cardiology note from today, likely still does not need dialysis, they are lowering some of the blood pressure medicines to help the blood pressure go up and thus increase renal perfusion to help with the renal insufficiency presently going on 4. Diabetes mellitus. Hemoglobin A1c 7.8. again, s/p CABG - Currently on insulin drip - continue per CTS rec's 5. Dyslipidemia - statins 6. Normocytic, normochromic anemia. Probably anemia chronic kidney disease and also from acute blood loss status post CABG. Monitor H&H closely. Blood transfusion will be deferred to cardiac surgery. 7. Fluids, electrolytes, and nutrition - monitor 8. DVT prophylaxis. As per cardiac surgery. 9. Plan. Continue postoperative care. Ventilator weaning as per cardiac surgery. Critical CARE time: 40 minutes. Problems: Subjective 24 Hr Interval Summary Free Text/Dictation No acute events overnight, still on insulin drip, seen by cardiology team this morning. Exam/Review of Systems Vital Signs Vitals Vital Signs Date Time Temp Pulse Resp B/P Pulse Ox O2 Delivery O2 Flow Rate FiO2 06/15/17 08:30 89 15 122/78 94 Room Air 06/15/17 08:00 5.0 06/15/17 07:00 98.1 06/15/17 01:58 31 Intake and Output 06/14/17 06/14/17 06/15/17 15:00 23:00 07:00 Intake Total 963.5 ml 547 ml 306.5 ml Output Total 148 ml 331 ml 292 ml Balance 815.5 ml 216 ml 14.5 ml Exam General: Adequately build 61 year-old male lying in bed HEENT: Normocephalic, atraumatic. Eyes: Anicteric sclerae, conjunctivae clear. ENT: Nasal septum midline, oral mucosa is dry. Neck supple, no JVD noticed. Respiratory: Some bilaterally diminished breath sounds. Cardiovascular: S1, S2 heard. Dressing over her sternotomy site. Chest tubes 2. Sanguinous secretions. Abdomen: Soft, nontender, and nondistended. Bowel sounds positive in all 4 quadrants. Extremities: No cyanosis, no clubbing, no edema. Neurologic: Patient is somnolent. Skin: Normal skin turgor. Results Result Diagram: 06/15/1739906/15/17399 Results 24 hrs Laboratory Tests Test 06/14/17 09:07 06/14/17 11:00 06/14/17 12:02 06/14/17 14:15 Bedside Glucose 124 130 120 Urine Color RED Urine Clarity CLOUDY A Urine pH 6.0 Urine Specific [place] 1.015 Urine Ketones TRACE A Urine Nitrite NEGATIVE Urine Bilirubin NEGATIVE Urine Urobilinogen NEGATIVE Urine Leukocyte Esterase NEGATIVE Urine Microscopic RBC > 182 H Urine Microscopic WBC > 182 H Urine Bacteria FEW A Urine Hemoglobin 2+ H Urine Random Creatinine 81.10 Urine Random Sodium 34 Urine Glucose 1+ H Urine Total Protein 3+ H Test 06/14/17 14:25 06/14/17 16:09 06/14/17 18:14 06/14/17 19:12 Hemoglobin 7.9 L Hematocrit 24.6 L Bedside Glucose 145 106 118 Test 06/14/17 21:17 06/14/17 22:20 06/14/17 23:18 06/15/17 01:38 Bedside Glucose 121 130 133 127 Test 06/15/17 02:40 06/15/17 04:00 06/15/17 04:05 06/15/17 05:08 Bedside Glucose 127 118 White Blood Count 16.7 #H Red Blood Count 2.84 L Hemoglobin 8.4 L Hematocrit 25.4 L Mean Corpuscular Volume 89.4 Mean Corpuscular Hemoglobin 29.6 Mean Corpuscular Hemoglobin Concent 33.1 Red Cell Distribution Width 14.7 H Platelet Count 136 L Mean Platelet Volume 11.0 H Neutrophils % 76.7 Lymphocytes % 10.3 L Monocytes % 11.9 H Eosinophils % 0.0 Basophils % 0.2 Nucleated Red Blood Cells % 0.0 Neutrophils # 12.8 H Lymphocytes # 1.7 Monocytes # 2.0 H Eosinophils # 0.0 Basophils # 0.0 Nucleated Red Blood Cells # 0.0 Sodium Level 144 Potassium Level 4.7 Chloride Level 104 Carbon Dioxide Level 19 L Anion Gap 26 H Blood Urea Nitrogen 88 H Creatinine 7.69 H Glucose Level 103 Calcium Level 8.6 Phosphorus Level 9.0 H Magnesium Level 2.5 Lab Scanned Report BLOOD TRANSFUSION Test 06/15/17 05:23 06/15/17 06:43 06/15/17 07:41 06/15/17 08:26 Bedside Glucose 132 140 131 127 Medications Medications Current Medications Nitroglycerin (Nitroglycerin (Sl Tab) 0.4 Mg) 1 tab Q5M PRN SL CHEST PAIN Last administered on 06/07/17 08:56; Admin Dose 1 TAB; Start 06/07/17 at 02:30 Docusate Sodium (Colace) 100 mg Q12H PRN PO CONSTIPATION Last administered on 06/14/17 18:16; Admin Dose 100 MG; Start 06/07/17 at 02:30 Bisacodyl (Dulcolax) 5 mg DAILY PRN PO CONSTIPATION; Start 06/07/17 at 02:30 EZETIMIBE (Zetia) 10 mg HS PO Last administered on 06/14/17 21:20; Admin Dose 10 MG; Start 06/07/17 at 21:00 Tamsulosin HCl (Flomax) 0.4 mg DAILY@21 PO Last administered on 06/14/17 21: 20; Admin Dose 0.4 MG; Start 06/07/17 at 21:00 Atorvastatin Calcium (Lipitor) 80 mg QHS PO Last administered on 06/14/17 21: 19; Admin Dose 80 MG; Start 06/07/17 at 21:00 Hydralazine HCl (Apresoline) 10 mg Q6H PRN IV SBP>160 Last administered on 06/09 07:54; Admin Dose 10 MG; Start 06/07/17 at 09:00 Carvedilol (Coreg) 12.5 mg BID PO Last administered on 06/14/17 21:20; Admin Dose 12.5 MG; Start 06/07/17 at 09:00 Diagnostic Test (Pha) (Accu-Chek) 1 ea 02 XX Last administered on 06/15/17 02 :41; Admin Dose 1 EA; Start 06/12/17 at 02:00 Miscellaneous Information 1 ea NOTE XX ; Start 06/11/17 at 16:30 Glucose (Glutose) 15 gm Q15M PRN PO DECREASED GLUCOSE; Start 06/11/17 at 16:30 Glucose (Glutose) 22.5 gm Q15M PRN PO DECREASED GLUCOSE; Start 06/11/17 at 16: 30 Glucagon (Glucagen) 1 mg Q15M PRN IM DECREASED GLUCOSE; Start 06/11/17 at 16:30 Glucose (Glutose) 15 gm Q15M PRN BUCCAL DECREASED GLUCOSE; Start 06/11/17 at 16 :30 Hydromorphone HCl (Dilaudid) 0.2 mg Q15M PRN IV PAIN LEVEL 1-5 Last administered on 06/13/17 21:01; Admin Dose 0.2 MG; Start 06/13/17 at 12:30 Hydromorphone HCl (Dilaudid) 0.4 mg Q15M PRN IV PAIN LEVEL 6-10 Last administered on 06/13/17 18:58; Admin Dose 0.4 MG; Start 06/13/17 at 12:30 Oxycodone/ Acetaminophen (Percocet (5/ 325)) 1 tab Q3H PRN PO PAIN LEVEL 1-5 Last administered on 06/14/17 23:12; Admin Dose 1 TAB; Start 06/13/17 at 12: 30 Oxycodone/ Acetaminophen (Percocet (5/ 325)) 2 tab Q3H PRN PO PAIN LEVEL 6-10 Last administered on 06/15/17 08:31; Admin Dose 2 TAB; Start 06/13/17 at 12: 30 Ondansetron HCl (Zofran Inj) 4 mg Q6H PRN IV NAUSEA AND/OR VOMITING Last administered on 06/14/17 03:17; Admin Dose 4 MG; Start 06/13/17 at 12:30 Famotidine (Pepcid Iv) 20 mg Q24H IV Last administered on 06/14/17 21:19; Admin Dose 20 MG; Start 06/13/17 at 20:00 Aspirin (Aspirin) 325 mg DAILY PO Last administered on 06/15/17 08:27; Admin Dose 325 MG; Start 06/14/17 at 09:00 Acetaminophen (Tylenol Tab) 650 mg Q3H PRN PO ELEVATED TEMPERATURE; Start 07/20 at 12:30 Diagnostic Test (Pha) (Accu-Chek) 1 ea Q1H XX Last administered on 06/15/17 08:25; Admin Dose 1 EA; Start 06/13/17 at 12:30 Dextrose (D50w Syringe) 25 ml Q15M PRN IV Till BS 80 mg/dL or above x2; Start 06/13/17 at 12:30 Dextrose (D50w Syringe) 50 ml Q15M PRN IV Till BS 80 mg/dL or above x2; Start 06/13/17 at 12:30 Morphine Sulfate (morphine) 6 mg Q2H PRN IV FOR NON CARDIAC PAIN (4-10) Last administered on 06/14/17 23:49; Admin Dose 6 MG; Start 06/14/17 at 08:00 Hydralazine HCl (Apresoline) 50 mg Q8 PO ; Start 06/15/17 at 14:00 LIZETTE APODACA Jun 15, 2017 09:09
--- NOTE | 2017-06-15 09:57 | CONS ---
Date/Time of Note Date/Time of Note DATE: 06/15/17 TIME: 09:54 Consult Date/Type/Reason Admit Date/Time Jun 07, 2017 at 02:04 Initial Consult Date 06/08/17 Type of Consultation: nephrology Ordering Provider: TAYLER BE pt. seen and examined in icu has good uop. bp meds lowered. awaiting repeat labs. no indication for hd at this point. Exam Constitutional: alert, oriented Psych: no complaints Head: atraumatic, normocephalic Neck: No jvd Respiratory: crackles/rales (mild at bases ), No clear to auscultation Cardiovascular: No edema Gastrointestinal: non-tender, soft Neurological: nl mental status, nl speech Objective Vital Signs Date Time Temp Pulse Resp B/P Pulse Ox O2 Delivery O2 Flow Rate FiO2 06/15/17 09:00 88 11 114/70 91 Room Air 06/15/17 08:00 5.0 06/15/17 07:00 98.1 06/15/17 01:58 31 Intake and Output 06/14/17 06/14/17 06/15/17 15:00 23:00 07:00 Intake Total 963.5 ml 547 ml 306.5 ml Output Total 148 ml 331 ml 292 ml Balance 815.5 ml 216 ml 14.5 ml Results/Medications Result Diagram: 06/15/17 0400 06/15/17 0400 Results 24 hrs Laboratory Tests Test 06/14/17 11:00 06/14/17 12:02 06/14/17 14:15 06/14/17 14:25 Urine Color RED Urine Clarity CLOUDY A Urine pH 6.0 Urine Specific [place] 1.015 Urine Ketones TRACE A Urine Nitrite NEGATIVE Urine Bilirubin NEGATIVE Urine Urobilinogen NEGATIVE Urine Leukocyte Esterase NEGATIVE Urine Microscopic RBC > 182 H Urine Microscopic WBC > 182 H Urine Bacteria FEW A Urine Hemoglobin 2+ H Urine Random Creatinine 81.10 Urine Random Sodium 34 Urine Glucose 1+ H Urine Total Protein 3+ H Bedside Glucose 130 120 Hemoglobin 7.9 L Hematocrit 24.6 L Test 06/14/17 16:09 06/14/17 18:14 06/14/17 19:12 06/14/17 21:17 Bedside Glucose 145 106 118 121 Test 06/14/17 22:20 06/14/17 23:18 06/15/17 01:38 06/15/17 02:40 Bedside Glucose 130 133 127 127 Test 06/15/17 04:00 06/15/17 04:05 06/15/17 05:08 06/15/17 05:23 White Blood Count 16.7 #H Red Blood Count 2.84 L Hemoglobin 8.4 L Hematocrit 25.4 L Mean Corpuscular Volume 89.4 Mean Corpuscular Hemoglobin 29.6 Mean Corpuscular Hemoglobin Concent 33.1 Red Cell Distribution Width 14.7 H Platelet Count 136 L Mean Platelet Volume 11.0 H Neutrophils % 76.7 Lymphocytes % 10.3 L Monocytes % 11.9 H Eosinophils % 0.0 Basophils % 0.2 Nucleated Red Blood Cells % 0.0 Neutrophils # 12.8 H Lymphocytes # 1.7 Monocytes # 2.0 H Eosinophils # 0.0 Basophils # 0.0 Nucleated Red Blood Cells # 0.0 Sodium Level 144 Potassium Level 4.7 Chloride Level 104 Carbon Dioxide Level 19 L Anion Gap 26 H Blood Urea Nitrogen 88 H Creatinine 7.69 H Glucose Level 103 Calcium Level 8.6 Phosphorus Level 9.0 H Magnesium Level 2.5 Bedside Glucose 118 132 Lab Scanned Report BLOOD TRANSFUSION Test 06/15/17 06:43 06/15/17 07:41 06/15/17 08:26 06/15/17 09:24 Bedside Glucose 140 131 127 122 Medications Current Medications Nitroglycerin (Nitroglycerin (Sl Tab) 0.4 Mg) 1 tab Q5M PRN SL CHEST PAIN Last administered on 06/07/17 08:56; Admin Dose 1 TAB; Start 06/07/17 at 02:30 Docusate Sodium (Colace) 100 mg Q12H PRN PO CONSTIPATION Last administered on 06/14/17 18:16; Admin Dose 100 MG; Start 06/07/17 at 02:30 Bisacodyl (Dulcolax) 5 mg DAILY PRN PO CONSTIPATION; Start 06/07/17 at 02:30 EZETIMIBE (Zetia) 10 mg HS PO Last administered on 06/14/17 21:20; Admin Dose 10 MG; Start 06/07/17 at 21:00 Tamsulosin HCl (Flomax) 0.4 mg DAILY@21 PO Last administered on 06/14/17 21: 20; Admin Dose 0.4 MG; Start 06/07/17 at 21:00 Atorvastatin Calcium (Lipitor) 80 mg QHS PO Last administered on 06/14/17 21: 19; Admin Dose 80 MG; Start 06/07/17 at 21:00 Hydralazine HCl (Apresoline) 10 mg Q6H PRN IV SBP>160 Last administered on 06/09 07:54; Admin Dose 10 MG; Start 06/07/17 at 09:00 Carvedilol (Coreg) 12.5 mg BID PO Last administered on 06/14/17 21:20; Admin Dose 12.5 MG; Start 06/07/17 at 09:00 Diagnostic Test (Pha) (Accu-Chek) 1 ea 02 XX Last administered on 06/15/17 02 :41; Admin Dose 1 EA; Start 06/12/17 at 02:00 Miscellaneous Information 1 ea NOTE XX ; Start 06/11/17 at 16:30 Glucose (Glutose) 15 gm Q15M PRN PO DECREASED GLUCOSE; Start 06/11/17 at 16:30 Glucose (Glutose) 22.5 gm Q15M PRN PO DECREASED GLUCOSE; Start 06/11/17 at 16: 30 Glucagon (Glucagen) 1 mg Q15M PRN IM DECREASED GLUCOSE; Start 06/11/17 at 16:30 Glucose (Glutose) 15 gm Q15M PRN BUCCAL DECREASED GLUCOSE; Start 06/11/17 at 16 :30 Hydromorphone HCl (Dilaudid) 0.2 mg Q15M PRN IV PAIN LEVEL 1-5 Last administered on 06/13/17 21:01; Admin Dose 0.2 MG; Start 06/13/17 at 12:30 Hydromorphone HCl (Dilaudid) 0.4 mg Q15M PRN IV PAIN LEVEL 6-10 Last administered on 06/13/17 18:58; Admin Dose 0.4 MG; Start 06/13/17 at 12:30 Oxycodone/ Acetaminophen (Percocet (5/ 325)) 1 tab Q3H PRN PO PAIN LEVEL 1-5 Last administered on 06/14/17 23:12; Admin Dose 1 TAB; Start 06/13/17 at 12: 30 Oxycodone/ Acetaminophen (Percocet (5/ 325)) 2 tab Q3H PRN PO PAIN LEVEL 6-10 Last administered on 06/15/17 08:31; Admin Dose 2 TAB; Start 06/13/17 at 12: 30 Ondansetron HCl (Zofran Inj) 4 mg Q6H PRN IV NAUSEA AND/OR VOMITING Last administered on 06/14/17 03:17; Admin Dose 4 MG; Start 06/13/17 at 12:30 Famotidine (Pepcid Iv) 20 mg Q24H IV Last administered on 06/14/17 21:19; Admin Dose 20 MG; Start 06/13/17 at 20:00 Aspirin (Aspirin) 325 mg DAILY PO Last administered on 06/15/17 08:27; Admin Dose 325 MG; Start 06/14/17 at 09:00 Acetaminophen (Tylenol Tab) 650 mg Q3H PRN PO ELEVATED TEMPERATURE; Start 07/20 at 12:30 Diagnostic Test (Pha) (Accu-Chek) 1 ea Q1H XX Last administered on 06/15/17 09:18; Admin Dose 1 EA; Start 06/13/17 at 12:30 Dextrose (D50w Syringe) 25 ml Q15M PRN IV Till BS 80 mg/dL or above x2; Start 06/13/17 at 12:30 Dextrose (D50w Syringe) 50 ml Q15M PRN IV Till BS 80 mg/dL or above x2; Start 06/13/17 at 12:30 Morphine Sulfate (morphine) 6 mg Q2H PRN IV FOR NON CARDIAC PAIN (4-10) Last administered on 06/14/17 23:49; Admin Dose 6 MG; Start 06/14/17 at 08:00 Hydralazine HCl (Apresoline) 50 mg Q8 PO ; Start 06/15/17 at 14:00 Assessment/Plan Chief Complaint/Hosp Course 1. Nonoliguric acute kidney injury (mild) on top of chronic kidney disease stage IV with EGFR of 25%. Etiology of current acute kidney injury is secondary to hemodynamics. Renal function appears to be stable. No evidence of contrast-associated nephropathy. At this point, would continue current treatment plan, supportive care, renally dose medications, avoid nephrotoxins. -no indication for HD at this time. -watch for hd indication, but i agree with holding bp meds. watch lytes. 2. Anemia, monitor hemoglobin and hematocrit levels. r/o blood loss. 3. Mineral bone disorder. We will also monitor calcium and phosphorus levels. 4. Hypertension. Continue current blood pressure regimen. 5. Congestive heart failure. good uop with diuresis. appreciate cards inout. 6. Non-ST elevation myocardial infarction. cont cardiac meds. 7. Dyslipidemia. Continue statin therapy. Problems: ANGELLA KING MD Jun 15, 2017 09:57
--- NOTE | 2017-06-15 10:16 | RADRPT ---
PROCEDURE: XR Chest. CLINICAL INDICATION: Status post open heart surgery. TECHNIQUE: A single AP view of the chest was obtained. COMPARISON: Chest x-ray dated 06/14/2017 FINDINGS: There are postoperative changes with sternotomy wires. There is a right internal jugular Cordis cath eter. A mediastinal drain and left chest tube are in place. Lung volumes are low. There is diffuse prominence of the interstitial markings. No pneumothorax is seen. The cardiomediastinal silhouette is moderately enlarged Calcifications are seen within the ao rtic arch. The osseous structures are unremarkable. IMPRESSION: 1. Low lung volumes with mild interstitial edema. Overall, no significant interval change. 2. Expected post cardiac surgery changes. 3. Moderate cardiomegaly and aortic atherosclerosis. 4. Tubes and lines, as described above. RPTAT: HH .Brynn Pike MD, Date Time Electronically viewed and signed by .Brynn Pike MD, on 06/15/2017 10:16 .G/
--- NOTE | 2017-06-15 10:29 | PN ---
Date/Time of Note Date/Time of Note DATE: 06/15/17 TIME: 10:26 Assessment/Plan Lines/Catheters IV Catheter Type (from Nrsg): Central Line Flower in Place (from Nrsg): Yes Assessment/Plan Assessment/Plan s/p cabg acute kidney injury creat 7.69 chest tubes draining d/c central line Subjective 24 Hr Interval Summary Constitutional: no complaints Feeding: advancing diet Pain Control: moderate Exam/Review of Systems Vital Signs Vitals Vital Signs Date Time Temp Pulse Resp B/P Pulse Ox O2 Delivery O2 Flow Rate FiO2 06/15/17 09:00 88 11 114/70 91 Room Air 06/15/17 08:00 5.0 06/15/17 07:00 98.1 06/15/17 01:58 31 Intake and Output 06/14/17 06/14/17 06/15/17 14:59 22:59 06:59 Intake Total 970.0 ml 446 ml 406.5 ml Output Total 151 ml 349 ml 260 ml Balance 819.0 ml 97 ml 146.5 ml Exam Constitutional: alert, oriented Respiratory: congested cough, other (chest tubes mediastinal ) Cardiovascular: other (tachy) Genitourinary - Male: other (flower) Neurological: RUBBER CHEMIST II-XII intact, nl speech Results Result Diagram: 06/15/1739906/15/17399 ABEL RICHMOND MD Jun 15, 2017 10:29
[2017-06-15] MEDS ORDERED: GLUCOSE GEL 15 GRAM TUBE PO PRN ×2 (11:00)
[2017-06-15] MEDS ORDERED: DEXTROSE 50% 50 ML SYRINGE IV PRN ×2 (11:00)
[2017-06-15] MEDS ORDERED: GLUCAGON 1 MG INJ IM PRN (11:00)
[2017-06-15] MEDS ORDERED: GLUCOSE GEL 15 GRAM TUBE BUCCAL PRN (11:00)
[2017-06-15] MEDS ORDERED: INSULIN ASPART [NOVOLOG] 3 ML PEN SC SCH (11:30)
[2017-06-15] MEDS: INSULIN ASPART [NOVOLOG] 3 ML PEN SC SCH ×3 (11:35→21:00)
[2017-06-15] MEDS: INSULIN GLARGINE [LANtus] 3 ML PEN SC SCH (11:36)
--- NOTE | 2017-06-15 16:01 | RADRPT ---
Vent Rate: 88 bpm RR Interval: 0 msec [place] Interval: 184 msec QRS Duration: 170 msec QT Interval: 462 msec QTC Interval: 559 msec P-R-T [place]: 30 - -4 - 0 degrees Normal sinus rhythm Left bundle branch block Abnormal ECG Electronically Signed By: Greg Bravo [id number]
--- NOTE | 2017-06-15 16:04 | RADRPT ---
Vent Rate: 94 bpm RR Interval: 0 msec DC Interval: 180 msec QRS Duration: 168 msec QT Interval: 448 msec QTC Interval: 560 msec P-R-T [place]: 18 - -20 - 136 degrees Normal sinus rhythm Left bundle branch block Abnormal ECG Electronically Signed By: Greg Bravo [id number]
[2017-06-15] MEDS: FAMOTIDINE 20 MG TAB PO SCH (20:20)
[2017-06-15] MEDS: ATORVASTATIN 40 MG TAB PO SCH (20:20)
[2017-06-15] MEDS: EZETIMIBE 10 MG TAB PO SCH (20:20)
[2017-06-15] MEDS: TAMSULOSIN (SR) 0.4 MG CAP PO SCH (20:21)
[2017-06-15] MEDS ORDERED: HEPARIN 25000 UNITS/250 ML 250 ML ONE (23:35)
[2017-06-16] VITALS (49 sets, daily range): BP systolic 86–165; BP diastolic 56–100; PULSE 85–155; RESP 8–22
[2017-06-16] MEDS: OXYCODONE/ACETAMINOPHEN (5/325) TAB PO PRN ×4 (00:06→20:54)
[2017-06-16] MEDS: ACCU-CHEK XX SCH (01:55)
[2017-06-16] MEDS ORDERED: ACCU-CHEK XX SCH ×3 (02:00)
[2017-06-16] MEDS: HYDROmorphONE 1 MG/ML SYG IV PRN ×3 (03:05→12:09)
[2017-06-16 05:52] LABS: BASOPHILS % 0.4 % (0.0-2.0); EOSINOPHILS # 0.1 10^3/ul (0.0-0.5); EOSINOPHILS % 0.4 % (0.0-7.0); HEMATOCRIT 24.5 % (42.0-52.0); HEMOGLOBIN 7.9 g/dl (14.0-18.0); LYMPHOCYTES # 1.7 10^3/ul (0.8-2.9); LYMPHOCYTES % 14.7 % (15.0-51.0); MEAN CORPUSCULAR HEMOGLOBIN 28.9 pg (29.0-33.0); MEAN CORPUSCULAR HGB CONC 32.2 g/dl (32.0-37.0); MEAN CORPUSCULAR VOLUME 89.7 fl (82.0-101.0); MEAN PLATELET VOLUME 10.7 fl (7.4-10.4); MONOCYTE # 1.4 10^3/ul (0.3-0.9); MONOCYTES % 12.3 % (0.0-11.0); NEUTROPHIL # 8.1 10^3/ul (1.6-7.5); NEUTROPHILS % 70.9 % (39.0-77.0); PLATELET COUNT 150 10^3/UL (140-415); RED BLOOD COUNT 2.73 10^6/ul (4.70-6.10); RED CELL DISTRIBUTION WIDTH 14.9 % (11.5-14.5); WHITE BLOOD COUNT 11.4 10^3/ul (4.8-10.8)
[2017-06-16 06:38] LABS: CALCIUM 8.3 mg/dl (8.4-10.2); CREATININE 9.7 mg/dl (0.61-1.24); POTASSIUM 4.7 mmol/L (3.5-5.1)
--- NOTE | 2017-06-16 06:40 | PN ---
Date/Time of Note Date/Time of Note DATE: 06/16/17 TIME: 06:40 Assessment/Plan Lines/Catheters IV Catheter Type (from [facility]): Saline Lock Morocho in Place (from [facility]): Yes Assessment/Plan Chief Complaint/Hosp Course HD stable not making urine and creatinine up to 7 remove chest tubers probably need dialysis Problems: Exam/Review of Systems Vital Signs Vitals Vital Signs Date Time Temp Pulse Resp B/P Pulse Ox O2 Delivery O2 Flow Rate FiO2 06/16/17 06:00 92 9 124/71 96 Nasal Cannula 3.0 06/16/17 04:00 98.2 06/15/17 01:58 31 Intake and Output 06/15/17 06/15/17 06/16/17 15:00 23:00 07:00 Intake Total 202.5 ml 900 ml 300 ml Output Total 83 ml 53 ml 103 ml Balance 119.5 ml 847 ml 197 ml Results Result Diagram: 06/16/17 0518 06/15/17 0400 DENISA GREENE MD Jun 16, 2017 06:40
[2017-06-16] MEDS: INSULIN GLARGINE [LANtus] 3 ML PEN SC SCH (07:39)
[2017-06-16] MEDS: INSULIN ASPART [NOVOLOG] 3 ML PEN SC SCH ×4 (07:39→20:59)
[2017-06-16] MEDS ORDERED: INSULIN GLARGINE [LANtus] 3 ML PEN SC SCH (08:00)
[2017-06-16] MEDS: ASPIRIN 325 MG TAB PO SCH (08:30)
[2017-06-16] MEDS: ONDANSETRON 4 MG INJ IV PRN (09:11)
--- NOTE | 2017-06-16 09:42 | CONS ---
Date/Time of Note Date/Time of Note DATE: 06/16/17 TIME: 09:37 Consult Date/Type/Reason Admit Date/Time Jun 07, 2017 at 02:04 Initial Consult Date 06/08/17 Type of Consultation: nephrology Ordering Provider: TAYLER BE Subjective pt. seen and examined denies cp decreased uop..d/w cardiothoracic poor appetite Exam Constitutional: alert, oriented Psych: no complaints Head: atraumatic, normocephalic Neck: No jvd Respiratory: crackles/rales (mild at bases ), No clear to auscultation Cardiovascular: No edema Gastrointestinal: non-tender, soft Neurological: nl mental status, nl speech Objective Vital Signs Date Time Temp Pulse Resp B/P Pulse Ox O2 Delivery O2 Flow Rate FiO2 06/16/17 08:00 87 06/16/17 08:00 10 129/68 99 Nasal Cannula 3.0 06/16/17 07:00 98.3 06/15/17 01:58 31 Intake and Output 06/15/17 06/15/17 06/16/17 15:00 23:00 07:00 Intake Total 202.5 ml 900 ml 350 ml Output Total 83 ml 53 ml 127 ml Balance 119.5 ml 847 ml 223 ml Results/Medications Result Diagram: 06/16/17 0518 06/16/17 0526 Results 24 hrs Laboratory Tests Test 06/15/17 09:49 06/15/17 11:00 06/15/17 11:17 06/15/17 16:26 Bedside Glucose 117 149 213 Urine Collection Duration 24 Urine Total Volume (Protein) 500 Urine Total Protein 24 Hour Test 06/15/17 21:27 06/16/17 05:18 06/16/17 05:26 06/16/17 07:36 Bedside Glucose 166 182 White Blood Count 11.4 #H Red Blood Count 2.73 L Hemoglobin 7.9 L Hematocrit 24.5 L Mean Corpuscular Volume 89.7 Mean Corpuscular Hemoglobin 28.9 L Mean Corpuscular Hemoglobin Concent 32.2 Red Cell Distribution Width 14.9 H Platelet Count 150 Mean Platelet Volume 10.7 H Neutrophils % 70.9 Lymphocytes % 14.7 L Monocytes % 12.3 H Eosinophils % 0.4 Basophils % 0.4 Nucleated Red Blood Cells % 0.0 Neutrophils # 8.1 H Lymphocytes # 1.7 Monocytes # 1.4 H Eosinophils # 0.1 Basophils # 0.0 Nucleated Red Blood Cells # 0.0 Sodium Level 139 Potassium Level 4.7 Chloride Level 100 Carbon Dioxide Level 16 L Anion Gap 28 H Blood Urea Nitrogen 103 H Creatinine 9.70 #H Glucose Level 146 # Calcium Level 8.3 L Magnesium Level 2.5 Medications Current Medications Nitroglycerin (Nitroglycerin (Sl Tab) 0.4 Mg) 1 tab Q5M PRN SL CHEST PAIN Last administered on 06/07/17 08:56; Admin Dose 1 TAB; Start 06/07/17 at 02:30 Docusate Sodium (Colace) 100 mg Q12H PRN PO CONSTIPATION Last administered on 06/14/17 18:16; Admin Dose 100 MG; Start 06/07/17 at 02:30 Bisacodyl (Dulcolax) 5 mg DAILY PRN PO CONSTIPATION; Start 06/07/17 at 02:30 EZETIMIBE (Zetia) 10 mg HS PO Last administered on 06/15/17 20:20; Admin Dose 10 MG; Start 06/07/17 at 21:00 Tamsulosin HCl (Flomax) 0.4 mg DAILY@21 PO Last administered on 06/15/17 20: 21; Admin Dose 0.4 MG; Start 06/07/17 at 21:00 Atorvastatin Calcium (Lipitor) 80 mg QHS PO Last administered on 06/15/17 20: 20; Admin Dose 80 MG; Start 06/07/17 at 21:00 Hydralazine HCl (Apresoline) 10 mg Q6H PRN IV SBP>160 Last administered on 06/09 07:54; Admin Dose 10 MG; Start 06/07/17 at 09:00 Carvedilol (Coreg) 12.5 mg BID PO Last administered on 06/16/17 08:31; Admin Dose 12.5 MG; Start 06/07/17 at 09:00 Hydromorphone HCl (Dilaudid) 0.2 mg Q15M PRN IV PAIN LEVEL 1-5 Last administered on 06/13/17 21:01; Admin Dose 0.2 MG; Start 06/13/17 at 12:30 Hydromorphone HCl (Dilaudid) 0.4 mg Q15M PRN IV PAIN LEVEL 6-10 Last administered on 06/16/17 09:11; Admin Dose 0.4 MG; Start 06/13/17 at 12:30 Oxycodone/ Acetaminophen (Percocet (5/ 325)) 1 tab Q3H PRN PO PAIN LEVEL 1-5 Last administered on 06/16/17 01:55; Admin Dose 1 TAB; Start 06/13/17 at 12: 30 Oxycodone/ Acetaminophen (Percocet (5/ 325)) 2 tab Q3H PRN PO PAIN LEVEL 6-10 Last administered on 06/16/17 07:42; Admin Dose 2 TAB; Start 06/13/17 at 12: 30 Ondansetron HCl (Zofran Inj) 4 mg Q6H PRN IV NAUSEA AND/OR VOMITING Last administered on 06/16/17 09:11; Admin Dose 4 MG; Start 06/13/17 at 12:30 Aspirin (Aspirin) 325 mg DAILY PO Last administered on 06/16/17 08:30; Admin Dose 325 MG; Start 06/14/17 at 09:00 Acetaminophen (Tylenol Tab) 650 mg Q3H PRN PO ELEVATED TEMPERATURE; Start 07/20 at 12:30 Morphine Sulfate (morphine) 6 mg Q2H PRN IV FOR NON CARDIAC PAIN (4-10) Last administered on 06/14/17 23:49; Admin Dose 6 MG; Start 06/14/17 at 08:00 Hydralazine HCl (Apresoline) 50 mg Q8 PO ; Start 06/15/17 at 14:00 Diagnostic Test (Pha) (Accu-Chek) 1 ea 02 XX ; Start 06/16/17 at 02:00 Miscellaneous Information 1 ea NOTE XX ; Start 06/15/17 at 11:00 Glucose (Glutose) 15 gm Q15M PRN PO DECREASED GLUCOSE; Start 06/15/17 at 11:00 Glucose (Glutose) 22.5 gm Q15M PRN PO DECREASED GLUCOSE; Start 06/15/17 at 11: 00 Dextrose (D50w Syringe) 25 ml Q15M PRN IV DECREASED GLUCOSE; Start 06/15/17 at 11:00 Dextrose (D50w Syringe) 50 ml Q15M PRN IV DECREASED GLUCOSE; Start 06/15/17 at 11:00 Glucagon (Glucagen) 1 mg Q15M PRN IM DECREASED GLUCOSE; Start 06/15/17 at 11: 00 Glucose (Glutose) 15 gm Q15M PRN BUCCAL DECREASED GLUCOSE; Start 06/15/17 at 11:00 Insulin Glargine (Lantus) 24 unit DAILY@08 SC Last administered on 06/16/17 07:39; Admin Dose 24 UNIT; Start 06/15/17 at 11:30 Famotidine (Pepcid) 20 mg Q24H PO Last administered on 06/15/17 20:20; Admin Dose 20 MG; Start 06/15/17 at 20:00 Assessment/Plan Chief Complaint/Hosp Course 1. Nonoliguric acute kidney injury (mild) on top of chronic kidney disease stage IV with EGFR of 25%. -Etiology of current acute kidney injury is secondary to hemodynamics. -will need to start HD given poor urine output, rising creat, some uremic symptoms, probable need to transfuse. -Dr. Penny contacted for line insertion -avoid nephrotoxins, follow uop, should resolve ATN soon. 2. Anemia, monitor hemoglobin and hematocrit levels. r/o blood loss. 3. Mineral bone disorder. We will also monitor calcium and phosphorus levels. 4. Hypertension. Continue current blood pressure regimen. 5. Congestive heart failure. good uop with diuresis. appreciate cards inout. 6. Non-ST elevation myocardial infarction. cont cardiac meds. 7. Dyslipidemia. Continue statin therapy. Problems: ANGELLA KING MD Jun 16, 2017 09:42
--- NOTE | 2017-06-16 10:55 | PN ---
Date/Time of Note Date/Time of Note DATE: 06/16/17 TIME: 10:51 Assessment/Plan VTE Prophylaxis VTE Prophylaxis Intervention: anti-embolic stocking Lines/Catheters IV [facility]ter [facility]from [facility] Urinary Cath still in place: Yes Reason Cath still needed: urinary retention Assessment/Plan Chief Complaint/Hosp Course Assessment and plan/ 61-year-old male with: 1. CAD - Status post CABGX5, MAYER to LAD, SVG to PDA, SVG to Diag2, SVG to Ramus sequenced to OM on 06/13/2017, POD # 3. - Continue Aspirin, Coreg, Zetia, Lipitor, insulin drip 2. Acute on chronic systolic heart failure. Ejection fraction of 40%. - To optimize cardiac medications, see # 1 -Follow-up cardiology and CTS recommendations 3. Acute on chronic kidney disease. The patient being followed by nephrology - creatinine has worsened today is in the 9 range. -Monitor urine output, follow renal recommendations -Will likely need dialysis, catheter to be placed later today for dialysis, monitor for now 4. Diabetes mellitus. Hemoglobin A1c 7.8. again, s/p CABG -continue Lantus and moderate insulin sliding scale 5. Dyslipidemia - statins 6. Normocytic, normochromic anemia. Probably anemia chronic kidney disease and also from acute blood loss status post CABG. Monitor H&H closely. Blood transfusion will be deferred to cardiac surgery. 7. Fluids, electrolytes, and nutrition - monitor 8. DVT prophylaxis. As per cardiac surgery. 9. Plan. Continue postoperative care. Ventilator weaning as per cardiac surgery. Critical CARE time: 40 minutes. Problems: Subjective 24 Hr Interval Summary Free Text/Dictation Patient had chest tubes removed, sugars in the high normal range. Still with minimal urine output with some hematuria. Exam/Review of Systems Vital Signs Vitals Vital Signs Date Time Temp Pulse Resp B/P Pulse Ox O2 Delivery O2 Flow Rate FiO2 06/16/17 10:00 85 9 124/72 98 Nasal Cannula 3.0 06/16/17 07:00 98.3 06/15/17 01:58 31 Intake and Output 06/15/17 06/15/17 06/16/17 15:00 23:00 07:00 Intake Total 202.5 ml 900 ml 350 ml Output Total 83 ml 53 ml 127 ml Balance 119.5 ml 847 ml 223 ml Exam General: lying in bed HEENT: Normocephalic, atraumatic. Eyes: Anicteric sclerae, conjunctivae clear. ENT: Nasal septum midline, oral mucosa is dry. Neck supple, no JVD noticed. Respiratory: Some bilaterally diminished breath sounds. Cardiovascular: S1, S2 heard. Dressing over her sternotomy site. Abdomen: Soft, nontender, and nondistended. Bowel sounds positive in all 4 quadrants. Extremities: No cyanosis, no clubbing, no edema. Neurologic: no focal deficits Skin: Normal skin turgor. Results Result Diagram: 06/16/17 0518 06/16/17 0526 Results 24 hrs Laboratory Tests Test 06/15/17 11:00 06/15/17 11:17 06/15/17 16:26 06/15/17 21:27 Urine Collection Duration 24 Urine Total Volume (Protein) 500 Urine Total Protein 24 Hour Bedside Glucose 149 213 166 Test 06/16/17 05:18 06/16/17 05:26 06/16/17 07:36 White Blood Count 11.4 #H Red Blood Count 2.73 L Hemoglobin 7.9 L Hematocrit 24.5 L Mean Corpuscular Volume 89.7 Mean Corpuscular Hemoglobin 28.9 L Mean Corpuscular Hemoglobin Concent 32.2 Red Cell Distribution Width 14.9 H Platelet Count 150 Mean Platelet Volume 10.7 H Neutrophils % 70.9 Lymphocytes % 14.7 L Monocytes % 12.3 H Eosinophils % 0.4 Basophils % 0.4 Nucleated Red Blood Cells % 0.0 Neutrophils # 8.1 H Lymphocytes # 1.7 Monocytes # 1.4 H Eosinophils # 0.1 Basophils # 0.0 Nucleated Red Blood Cells # 0.0 Sodium Level 139 Potassium Level 4.7 Chloride Level 100 Carbon Dioxide Level 16 L Anion Gap 28 H Blood Urea Nitrogen 103 H Creatinine 9.70 #H Glucose Level 146 # Calcium Level 8.3 L Magnesium Level 2.5 Bedside Glucose 182 Medications Medications Current Medications Nitroglycerin (Nitroglycerin (Sl Tab) 0.4 Mg) 1 tab Q5M PRN SL CHEST PAIN Last administered on 06/07/17 08:56; Admin Dose 1 TAB; Start 06/07/17 at 02:30 Docusate Sodium (Colace) 100 mg Q12H PRN PO CONSTIPATION Last administered on 06/14/17 18:16; Admin Dose 100 MG; Start 06/07/17 at 02:30 Bisacodyl (Dulcolax) 5 mg DAILY PRN PO CONSTIPATION; Start 06/07/17 at 02:30 EZETIMIBE (Zetia) 10 mg HS PO Last administered on 06/15/17 20:20; Admin Dose 10 MG; Start 06/07/17 at 21:00 Tamsulosin HCl (Flomax) 0.4 mg DAILY@21 PO Last administered on 06/15/17 20: 21; Admin Dose 0.4 MG; Start 06/07/17 at 21:00 Atorvastatin Calcium (Lipitor) 80 mg QHS PO Last administered on 06/15/17 20: 20; Admin Dose 80 MG; Start 06/07/17 at 21:00 Hydralazine HCl (Apresoline) 10 mg Q6H PRN IV SBP>160 Last administered on 06/09 07:54; Admin Dose 10 MG; Start 06/07/17 at 09:00 Carvedilol (Coreg) 12.5 mg BID PO Last administered on 06/16/17 08:31; Admin Dose 12.5 MG; Start 06/07/17 at 09:00 Hydromorphone HCl (Dilaudid) 0.2 mg Q15M PRN IV PAIN LEVEL 1-5 Last administered on 06/13/17 21:01; Admin Dose 0.2 MG; Start 06/13/17 at 12:30 Hydromorphone HCl (Dilaudid) 0.4 mg Q15M PRN IV PAIN LEVEL 6-10 Last administered on 06/16/17 09:11; Admin Dose 0.4 MG; Start 06/13/17 at 12:30 Oxycodone/ Acetaminophen (Percocet (5/ 325)) 1 tab Q3H PRN PO PAIN LEVEL 1-5 Last administered on 06/16/17 01:55; Admin Dose 1 TAB; Start 06/13/17 at 12: 30 Oxycodone/ Acetaminophen (Percocet (5/ 325)) 2 tab Q3H PRN PO PAIN LEVEL 6-10 Last administered on 06/16/17 07:42; Admin Dose 2 TAB; Start 06/13/17 at 12: 30 Ondansetron HCl (Zofran Inj) 4 mg Q6H PRN IV NAUSEA AND/OR VOMITING Last administered on 06/16/17 09:11; Admin Dose 4 MG; Start 06/13/17 at 12:30 Aspirin (Aspirin) 325 mg DAILY PO Last administered on 06/16/17 08:30; Admin Dose 325 MG; Start 06/14/17 at 09:00 Acetaminophen (Tylenol Tab) 650 mg Q3H PRN PO ELEVATED TEMPERATURE; Start 07/20 at 12:30 Morphine Sulfate (morphine) 6 mg Q2H PRN IV FOR NON CARDIAC PAIN (4-10) Last administered on 06/14/17 23:49; Admin Dose 6 MG; Start 06/14/17 at 08:00 Hydralazine HCl (Apresoline) 50 mg Q8 PO ; Start 06/15/17 at 14:00 Diagnostic Test (Pha) (Accu-Chek) 1 ea 02 XX ; Start 06/16/17 at 02:00 Miscellaneous Information 1 ea NOTE XX ; Start 06/15/17 at 11:00 Glucose (Glutose) 15 gm Q15M PRN PO DECREASED GLUCOSE; Start 06/15/17 at 11:00 Glucose (Glutose) 22.5 gm Q15M PRN PO DECREASED GLUCOSE; Start 06/15/17 at 11: 00 Dextrose (D50w Syringe) 25 ml Q15M PRN IV DECREASED GLUCOSE; Start 06/15/17 at 11:00 Dextrose (D50w Syringe) 50 ml Q15M PRN IV DECREASED GLUCOSE; Start 06/15/17 at 11:00 Glucagon (Glucagen) 1 mg Q15M PRN IM DECREASED GLUCOSE; Start 06/15/17 at 11: 00 Glucose (Glutose) 15 gm Q15M PRN BUCCAL DECREASED GLUCOSE; Start 06/15/17 at 11:00 Insulin Glargine (Lantus) 24 unit DAILY@08 SC Last administered on 06/16/17 07:39; Admin Dose 24 UNIT; Start 06/15/17 at 11:30 Famotidine (Pepcid) 20 mg Q24H PO Last administered on 06/15/17 20:20; Admin Dose 20 MG; Start 06/15/17 at 20:00 LIZETTE APODACA Jun 16, 2017 10:55
--- NOTE | 2017-06-16 12:21 | RADRPT ---
PROCEDURE: XR 1 view Chest. CLINICAL INDICATION: Chest pain. TECHNIQUE: Portable Single frontal view of the chest was obtained. COMPARISON: June 15, 2017. FINDINGS: The right internal jugular central venous catheters been removed. Sternotomy wires are noted. There is moderate cardiomegaly.The lungs are hypoaerated. There is no focal consolidation. There is minimal bibasilar atelectasis. There is no pleural effusion. No pneumothorax is identified. The osseous structures are intact. IMPRESSION: Right internal jugular central venous catheter has been removed. Otherwise no significant change. Moderate cardiomegaly with aortic calcifications. Status post sternotomy. No evidence for acute cardiopulmonary disease. Further findings as detailed above. RPTAT: HVF .Mina Avendaño MD, MD Date Time Electronically viewed and signed by .Mina Avendaño MD, on 06/16/2017 12:21 .F/
[2017-06-16] MEDS ORDERED: HYDROmorphONE 1 MG/ML SYG IV PRN (12:30)
--- NOTE | 2017-06-16 12:58 | RADRPT ---
PROCEDURE: XR Chest. CLINICAL INDICATION: Line placement TECHNIQUE: A single AP view of the chest was obtained. COMPARISON: Chest x-ray performed earlier on the same date FINDINGS: There has been interval placement of a right internal jugular central venous catheter with tip near the cavoatrial junction. Multiple overlying monitor leads obscures evaluation. Lung volumes are low with compressive changes and crowding of the central pulmonary vascular marking s with bibasilar atelectasis . No pleural effusion or pneumothorax is seen. The cardiomediastinal s ilhouette is moderately enlarged. Calcifications are seen within the aortic arch. There are post c ardiac surgery changes with sternotomy wires. The osseous structures are unremarkable. IMPRESSION: 1. Low lung volumes with compressive changes and bibasilar atelectasis. No significant interval vito nge. 2. Moderate cardiomegaly and aortic atherosclerosis. 3. Interval placement of right internal jugular central venous catheter with tip near the cavoatria l junction. RPTAT: HH .Brynn Pike MD, MD Date Time Electronically viewed and signed by .Brynn Pike MD, on 06/16/2017 12:57 .G/
[2017-06-16] MEDS ORDERED: AMIODARONE 150MG/D5W BOLUS 100 ML ONE (16:28)
[2017-06-16] MEDS ORDERED: AMIODARONE 150MG/D5W BOLUS 100 ML IV ONE (16:30)
[2017-06-16] MEDS ORDERED: AMIODARONE 900 MG in DEXTROSE 5% 482 ML IV SCH (16:30)
[2017-06-16] MEDS: morphine 10 MG INJ IV PRN (16:30)
[2017-06-16 17:45] LABS: AADO2 Arterial 331.3 mmHg (7.0-24.0); Allen Test ACCEPTAB; Arterial Base Excess -8.8 mmol/L (-3.0-3); Arterial COHb 0.1 % (0.0-3.0); Arterial Fraction of Oxyhgb 90.1 % (93.0-99.0); Arterial HCO3 17.1 mmol/L (22.0-26.0); Arterial MetHb 0.2 % (0.0-1.5); Arterial Total Hemglobin 11.7 g/dl (12.0-18.0); MODE MASK - SIMPLE
[2017-06-16 18:29] LABS: D-DIMER 3911.64 ng/ml (<460)
[2017-06-16] MEDS ORDERED: NA BICARBONATE 8.4% 50 ML SYG IV ONE (18:30)
--- NOTE | 2017-06-16 18:38 | RADRPT ---
PROCEDURE: XR Chest. CLINICAL INDICATION: Dyspnea. TECHNIQUE: Single frontal view of the chest. COMPARISON: Chest dated today, about 5 hours ago. FINDINGS: Right central venous dialysis catheter in place with tip in superior vena cava right atrial junction . Cardiomegaly. Atherosclerotic calcifications in the thoracic aorta. Hypoinflated lungs with bibasi lar atelectasis versus airspace disease. Lung inflation is decreased over interval. Atelectasis vers us airspace disease is also increased. No signs of pleural fluid or pneumothorax are seen. The osseo us structures and soft tissues are unremarkable. IMPRESSION: 1. Prominent cardiomegaly. 2. Hypoinflated lungs with bibasilar atelectasis versus airspace disease. 3. This may represent a degree of failure versus volume overload. RPTAT: [facility] Physician Katia Date Time Electronically viewed and signed by Physician Katia on 06/16/2017 18:38 RS/
[2017-06-16] MEDS: EZETIMIBE 10 MG TAB PO SCH (20:53)
[2017-06-16] MEDS: ATORVASTATIN 40 MG TAB PO SCH (20:53)
[2017-06-16] MEDS: TAMSULOSIN (SR) 0.4 MG CAP PO SCH (20:54)
[2017-06-16] MEDS: FAMOTIDINE 20 MG TAB PO SCH (20:54)
[2017-06-16 21:11] LABS: AADO2 Arterial 592.7 mmHg (7.0-24.0); Allen Test ACCEPTAB; Arterial Base Excess -5.6 mmol/L (-3.0-3); Arterial COHb 0.3 % (0.0-3.0); Arterial Fraction of Oxyhgb 94.5 % (93.0-99.0); Arterial HCO3 19.7 mmol/L (22.0-26.0); Arterial MetHb 0.2 % (0.0-1.5); Arterial Total Hemglobin 8.8 g/dl (12.0-18.0); MODE MASK - NRB
[2017-06-17] VITALS (30 sets, daily range): BP systolic 126–180; BP diastolic 70–104; PULSE 75–104; RESP 8–26
[2017-06-17] MEDS: ACCU-CHEK XX SCH (02:00)
[2017-06-17] MEDS: hydrALAzine 20 MG INJ IV PRN ×3 (03:13→19:04)
--- NOTE | 2017-06-17 03:34 | RADRPT ---
PROCEDURE: Nuclear medicine lung ventilation-perfusion scan CLINICAL INDICATION: Shortness of breath, chest pain, evaluate for pulmonary embolism TECHNIQUE: 43 mCi of technetium-99m DTPA aerosol was injected intravenously and ventilation scan w as performed. 4.5 mCi of technetium 99m MAA was injected intravenously and perfusion scan was perfor med. COMPARISON: Chest x-ray of 06/16/2017 FINDINGS: On ventilation scan, there is mild inhomogeneity of distribution of activity and large cardiac silho uette matched with the chest x-ray and trapping of radio aerosol in central bronchi suggestive of ob structive changes. On perfusion scan there is mild inhomogeneity of distribution of activity matche d with the ventilation scan. There is large cardiac silhouette matched with the ventilation scan and with the chest x-ray. No segmental appearing perfusion defects suggestive of pulmonary embolism are seen. The probability of pulmonary embolism is thought to be very low. IMPRESSION: Very low probability of pulmonary embolism. RPTAT: HJES .Jessee Lindsey MD, Date Time Electronically viewed and signed by .Jessee Lindsey MD, on 06/17/2017 03:34 .S/
[2017-06-17 04:44] LABS: BASOPHILS % 0.3 % (0.0-2.0); EOSINOPHILS # 0.1 10^3/ul (0.0-0.5); EOSINOPHILS % 0.9 % (0.0-7.0); HEMATOCRIT 21.3 % (42.0-52.0); HEMOGLOBIN 7.3 g/dl (14.0-18.0); LYMPHOCYTES # 1.3 10^3/ul (0.8-2.9); LYMPHOCYTES % 13.2 % (15.0-51.0); MEAN CORPUSCULAR HEMOGLOBIN 29.8 pg (29.0-33.0); MEAN CORPUSCULAR HGB CONC 34.3 g/dl (32.0-37.0); MEAN CORPUSCULAR VOLUME 86.9 fl (82.0-101.0); MEAN PLATELET VOLUME 10.6 fl (7.4-10.4); MONOCYTE # 1.2 10^3/ul (0.3-0.9); MONOCYTES % 12.5 % (0.0-11.0); NEUTROPHIL # 6.9 10^3/ul (1.6-7.5); NEUTROPHILS % 71.9 % (39.0-77.0); NUCLEATED RED BLOOD CELLS% 0.2 /100WBC (0.0-0.0); PLATELET COUNT 148 10^3/UL (140-415); RED BLOOD COUNT 2.45 10^6/ul (4.70-6.10); RED CELL DISTRIBUTION WIDTH 14.8 % (11.5-14.5); WHITE BLOOD COUNT 9.6 10^3/ul (4.8-10.8)
[2017-06-17 05:18] LABS: CALCIUM 8.4 mg/dl (8.4-10.2); CREATININE 8.83 mg/dl (0.61-1.24); POTASSIUM 3.8 mmol/L (3.5-5.1)
[2017-06-17] MEDS: DOCUSATE SODIUM 100 MG CAP PO PRN (05:40)
--- NOTE | 2017-06-17 05:55 | OPR ---
DATE OF OPERATION: 06/16/2017 PRE-PROCEDURE DIAGNOSIS: Acute renal failure. POST-PROCEDURE DIAGNOSIS: Acute renal failure. PROCEDURE PERFORMED: Insertion of right internal jugular temporary dialysis catheter. SURGEON: Lobito Penny MD. ANESTHESIA: 1% lidocaine. INDICATION: The patient is a 61-year-old male with a renal insufficiency pre-CABG and post-CABG and now has acute renal failure and requires dialysis. The benefits, risks, and alternatives were expl ained to the patient and his , who understood and consented to the procedure. DESCRIPTION OF PROCEDURE: The patient was placed in supine position. His right neck was prepped an d draped in a sterile fashion. Lidocaine, 1%, was injected in the neck. A needle was inserted into the internal jugular vein. Blood was aspirated. A wire was guided through the needle. Needle was removed. We dilated over the wire and then placed a temporary dialysis catheter over the wire. Th e wire was removed. All the ports were aspirated and flushed and secured using nylon suture. The p atient tolerated the procedure. Chest x-ray was ordered. Dictated By: LOBITO PENNY MD AA/BRANDON Conf#: [id number] DID#: [id number] CC: LOBITO PENNY MD; FORTINO THOMAS MD;*End*
[2017-06-17] MEDS: OXYCODONE/ACETAMINOPHEN (5/325) TAB PO PRN (06:26)
[2017-06-17] MEDS: INSULIN ASPART [NOVOLOG] 3 ML PEN SC SCH ×4 (07:57→21:00)
[2017-06-17] MEDS: INSULIN GLARGINE [LANtus] 3 ML PEN SC SCH (07:58)
[2017-06-17] MEDS: ASPIRIN 325 MG TAB PO SCH (08:04)
[2017-06-17] MEDS: morphine 10 MG INJ IV PRN ×2 (08:06→12:31)
--- NOTE | 2017-06-17 08:32 | PN ---
Date/Time of Note Date/Time of Note DATE: 06/17/17 TIME: 08:28 Assessment/Plan VTE Prophylaxis VTE Prophylaxis Intervention: anti-embolic stocking Lines/Catheters IV Catheter Type (from [email or web address] Stephen Urinary Cath still in place: Yes Reason Cath still needed: urinary retention Assessment/Plan Chief Complaint/Hosp Course Assessment and plan/ 61-year-old male with: 1. CAD - Status post CABGX5, MAYER to LAD, SVG to PDA, SVG to Diag2, SVG to Ramus sequenced to OM on 06/13/2017, POD # 4. - Continue Aspirin, Coreg, Zetia, Lipitor 2. Acute on chronic systolic heart failure. Ejection fraction of 40%. - To optimize cardiac medications, see # 1 -Follow-up cardiology and CTS recommendations 3. Acute on chronic kidney disease. The patient being followed by nephrology - creatinine has worsened today is in the 8 range. Again, did not tolerate full completion of dialysis yesterday -Monitor urine output, follow renal recommendations -Continue dialysis per renal recommendations 4. Diabetes mellitus. Hemoglobin A1c 7.8. again, s/p CABG -sugars are stable - continue Lantus and moderate insulin sliding scale 5. Dyslipidemia - statins 6. Normocytic, normochromic anemia. Probably anemia chronic kidney disease and also from acute blood loss status post CABG. Monitor H&H closely. Blood transfusion will be deferred to cardiac surgery. 7. Fluids, electrolytes, and nutrition - monitor 8. DVT prophylaxis. As per cardiac surgery. 9. Plan. Continue postoperative care. Ventilator weaning as per cardiac surgery. Critical CARE time: 45 minutes. Problems: Subjective 24 Hr Interval Summary Free Text/Dictation Patient started on dialysis yesterday, but could not tolerate well and had some respiratory distress subsequently. Placed on nonrebreather and also had atrial fibrillation with RVR, now in normal sinus rhythm after being on amiodarone drip. Respiratory symptoms slightly improved this morning. Exam/Review of Systems Vital Signs Vitals Vital Signs Date Time Temp Pulse Resp B/P Pulse Ox O2 Delivery O2 Flow Rate FiO2 06/17/17 07:00 83 9 166/79 99 Non Rebreather 15.0 06/17/17 04:00 98.9 06/15/17 01:58 31 Intake and Output 06/16/17 06/16/17 06/17/17 15:00 23:00 07:00 Intake Total 420 ml 800.4 ml 183.6 ml Output Total 186 ml 723 ml 251 ml Balance 234 ml 77.4 ml -67.4 ml Exam General: lying in bed HEENT: Normocephalic, atraumatic. Eyes: Anicteric sclerae, conjunctivae clear. ENT: Nasal septum midline, oral mucosa is dry. Neck supple, no JVD noticed. Respiratory: Some bilaterally diminished breath sounds. Cardiovascular: S1, S2 heard. Dressing over her sternotomy site. Abdomen: Soft, nontender, and nondistended. Bowel sounds positive in all 4 quadrants. Extremities: No cyanosis, no clubbing, no edema. Neurologic: no focal deficits Skin: Normal skin turgor. Results Result Diagram: 06/17/17 0410 06/17/17 041 Results 24 hrs Laboratory Tests Test 06/16/17 11:13 06/16/17 16:58 06/16/17 17:09 06/16/17 17:30 Bedside Glucose 144 185 180 Blood Gas Specimen Source Blood arterial Arterial Blood Date Drawn 06/16/2017 5:35:50 PM Arterial Blood pH (Temp corrected) 7.284 *L Arterial Blood pCO2 (Temp correct) 36.8 Arterial Blood pO2 (Temp corrected) 63.2 L Arterial Blood HCO3 17.1 L Arterial Blood Base Excess -8.8 L Arterial Blood Oxygen Saturation 90.4 L Jaspal Test ACCEPTAB Arterial Blood Gas Puncture Site Right Radial Arterial Blood Carboxyhemoglobin 0.1 Arterial Blood Methemoglobin 0.2 Blood Gas A-a O2 Differential 331.3 H Oxyhemoglobin Percent 90.1 L Total Hemoglobin 11.7 L Blood Gas Temperature 37.0 Blood Gas Modality MASK - SIMPLE FiO2 61.0 Blood Gas Critical Value Read Back JENIFER GREGORY Blood Gas Notified Whom Blood Gas Notified Time 06/16/2017 5:45:33 PM Test 06/16/17 18:00 06/16/17 20:52 06/16/17 21:00 06/17/17 04:10 D-Dimer 3911.64 H D-Dimer Comment Bedside Glucose 153 Blood Gas Specimen Source Blood arterial Arterial Blood Date Drawn 06/16/2017 9:00:31 PM Arterial Blood pH (Temp corrected) 7.335 L Arterial Blood pCO2 (Temp correct) 37.8 Arterial Blood pO2 (Temp corrected) 82.5 Arterial Blood HCO3 19.7 L Arterial Blood Base Excess -5.6 L Arterial Blood Oxygen Saturation 95.0 Jaspal Test ACCEPTAB Arterial Blood Gas Puncture Site Right Radial Arterial Blood Carboxyhemoglobin 0.3 Arterial Blood Methemoglobin 0.2 Blood Gas A-a O2 Differential 592.7 H Oxyhemoglobin Percent 94.5 Total Hemoglobin 8.8 L Blood Gas Temperature 37.0 Blood Gas Modality MASK - NRB FiO2 100.0 Blood Gas Notified Whom UO Blood Gas Notified Time 06/16/2017 9:11:31 PM White Blood Count 9.6 Red Blood Count 2.45 L Hemoglobin 7.3 L Hematocrit 21.3 L Mean Corpuscular Volume 86.9 Mean Corpuscular Hemoglobin 29.8 Mean Corpuscular Hemoglobin Concent 34.3 Red Cell Distribution Width 14.8 H Platelet Count 148 Mean Platelet Volume 10.6 H Neutrophils % 71.9 Lymphocytes % 13.2 L Monocytes % 12.5 H Eosinophils % 0.9 Basophils % 0.3 Nucleated Red Blood Cells % 0.2 H Neutrophils # 6.9 Lymphocytes # 1.3 Monocytes # 1.2 H Eosinophils # 0.1 Basophils # 0.0 Nucleated Red Blood Cells # 0.0 Sodium Level 137 Potassium Level 3.8 Chloride Level 98 Carbon Dioxide Level 21 Anion Gap 22 H Blood Urea Nitrogen 95 H Creatinine 8.83 H Glucose Level 115 Calcium Level 8.4 Test 06/17/17 07:51 Bedside Glucose 152 Medications Medications Current Medications Nitroglycerin (Nitroglycerin (Sl Tab) 0.4 Mg) 1 tab Q5M PRN SL CHEST PAIN Last administered on 06/07/17 08:56; Admin Dose 1 TAB; Start 06/07/17 at 02:30 Docusate Sodium (Colace) 100 mg Q12H PRN PO CONSTIPATION Last administered on 06/17/17 05:40; Admin Dose 100 MG; Start 06/07/17 at 02:30 Bisacodyl (Dulcolax) 5 mg DAILY PRN PO CONSTIPATION; Start 06/07/17 at 02:30 EZETIMIBE (Zetia) 10 mg HS PO Last administered on 06/16/17 20:53; Admin Dose 10 MG; Start 06/07/17 at 21:00 Tamsulosin HCl (Flomax) 0.4 mg DAILY@21 PO Last administered on 06/16/17 20: 54; Admin Dose 0.4 MG; Start 06/07/17 at 21:00 Atorvastatin Calcium (Lipitor) 80 mg QHS PO Last administered on 06/16/17 20: 53; Admin Dose 80 MG; Start 06/07/17 at 21:00 Hydralazine HCl (Apresoline) 10 mg Q6H PRN IV SBP>160 Last administered on 03:13; Admin Dose 10 MG; Start 06/07/17 at 09:00 Hydromorphone HCl (Dilaudid) 0.2 mg Q15M PRN IV PAIN LEVEL 1-5 Last administered on 06/13/17 21:01; Admin Dose 0.2 MG; Start 06/13/17 at 12:30 Hydromorphone HCl (Dilaudid) 0.4 mg Q15M PRN IV PAIN LEVEL 6-10 Last administered on 06/16/17 12:09; Admin Dose 0.4 MG; Start 06/13/17 at 12:30 Oxycodone/ Acetaminophen (Percocet (5/ 325)) 1 tab Q3H PRN PO PAIN LEVEL 1-5 Last administered on 06/16/17 01:55; Admin Dose 1 TAB; Start 06/13/17 at 12: 30 Oxycodone/ Acetaminophen (Percocet (5/ 325)) 2 tab Q3H PRN PO PAIN LEVEL 6-10 Last administered on 06/17/17 06:26; Admin Dose 2 TAB; Start 06/13/17 at 12: 30 Ondansetron HCl (Zofran Inj) 4 mg Q6H PRN IV NAUSEA AND/OR VOMITING Last administered on 06/16/17 09:11; Admin Dose 4 MG; Start 06/13/17 at 12:30 Aspirin (Aspirin) 325 mg DAILY PO Last administered on 06/17/17 08:04; Admin Dose 325 MG; Start 06/14/17 at 09:00 Acetaminophen (Tylenol Tab) 650 mg Q3H PRN PO ELEVATED TEMPERATURE; Start 07/20 at 12:30 Morphine Sulfate (morphine) 6 mg Q2H PRN IV FOR NON CARDIAC PAIN (4-10) Last administered on 06/17/17 08:06; Admin Dose 6 MG; Start 06/14/17 at 08:00 Hydralazine HCl (Apresoline) 50 mg Q8 PO Last administered on 06/17/17 05:41 ; Admin Dose 50 MG; Start 06/15/17 at 14:00 Diagnostic Test (Pha) (Accu-Chek) 1 ea 02 XX ; Start 06/16/17 at 02:00 Miscellaneous Information 1 ea NOTE XX ; Start 06/15/17 at 11:00 Glucose (Glutose) 15 gm Q15M PRN PO DECREASED GLUCOSE; Start 06/15/17 at 11:00 Glucose (Glutose) 22.5 gm Q15M PRN PO DECREASED GLUCOSE; Start 06/15/17 at 11: 00 Dextrose (D50w Syringe) 25 ml Q15M PRN IV DECREASED GLUCOSE; Start 06/15/17 at 11:00 Dextrose (D50w Syringe) 50 ml Q15M PRN IV DECREASED GLUCOSE; Start 06/15/17 at 11:00 Glucagon (Glucagen) 1 mg Q15M PRN IM DECREASED GLUCOSE; Start 06/15/17 at 11: 00 Glucose (Glutose) 15 gm Q15M PRN BUCCAL DECREASED GLUCOSE; Start 06/15/17 at 11:00 Famotidine (Pepcid) 20 mg Q24H PO Last administered on 06/16/17 20:54; Admin Dose 20 MG; Start 06/15/17 at 20:00 Insulin Glargine (Lantus) 30 unit DAILY@08 SC Last administered on 06/17/17 07:58; Admin Dose 30 UNIT; Start 06/17/17 at 08:00 Hydromorphone HCl 0.8 mg 0.8 mg Q3H PRN IV PAIN Last administered on 13:10; Admin Dose 0.8 MG; Start 06/16/17 at 12:30 Amiodarone HCl 900 mg/Dextrose 500 ml @ 0 mls/hr Q0M IV Last administered on 16:56; Admin Dose 33.4 MLS/HR; Start 06/16/17 at 16:30; Stop at 16:29 Ferric Sodium Gluconate Complex/ Sodium Chloride (Ferrlecit/NS) 110 ml @ 110 mls/hr Q24H IVPB ; Start 06/17/17 at 11:00; Stop 06/21/17 at 11:59 Carvedilol (Coreg) 25 mg BID PO ; Start 06/17/17 at 09:00 LIZETTE APODACA Jun 17, 2017 08:32
[2017-06-17 08:46] LABS: MAGNESIUM 2.4 mg/dl (1.7-2.5); PHOSPHORUS 8.1 mg/dl (2.5-4.9)
--- NOTE | 2017-06-17 09:27 | RADRPT ---
PROCEDURE: XR Chest 1 view. CLINICAL INDICATION: Shortness of breath. TECHNIQUE: AP views of the chest was obtained. COMPARISON: Yesterday FINDINGS: The heart is large. Calcified atherosclerosis is noted in the aorta. Mediasternotomy wires and surg ical clips overlie the heart. Right-sided dialysis catheter is unchanged. Retrocardiac opacity is st able. Scattered atelectasis is noted in the right lower lobe. The lungs are hypoinflated The osseou s structures are unchanged. IMPRESSION: Cardiomegaly with calcified atherosclerosis in the aorta. Hypoinflated lungs. Retrocardiac opacity that may reflect left lower lobe atelectasis or infiltrate combined with small pleural effusion. Scattered atelectasis in the right lower lobe. RPTAT: AA .Cristóbal Palacio MD, MD Date Time Electronically viewed and signed by .Cristóbal Palacio MD, MD on 06/17/2017 09:27 .P/
--- NOTE | 2017-06-17 09:31 | CONS ---
Date/Time of Note Date/Time of Note DATE: 06/17/17 TIME: 09:29 Consult Date/Type/Reason Admit Date/Time Jun 07, 2017 at 02:04 Initial Consult Date 06/08/17 Type of Consultation: nephrology Ordering Provider: TAYLER BE pt. seen and examined s/p hd yesterday, not good blood flow via catheter d/w family at bedside. General: lying in bed HEENT: Normocephalic, atraumatic. Eyes: Anicteric sclerae, conjunctivae clear. ENT: Nasal septum midline, oral mucosa is dry. Neck supple, no JVD noticed. Respiratory: Some bilaterally diminished breath sounds. Cardiovascular: S1, S2 heard. Dressing over her sternotomy site. Abdomen: Soft, nontender, and nondistended. Bowel sounds positive in all 4 quadrants. Extremities: No cyanosis, no clubbing, no edema. Neurologic: no focal deficits Skin: Normal skin turgor Objective Vital Signs Date Time Temp Pulse Resp B/P Pulse Ox O2 Delivery O2 Flow Rate FiO2 06/17/17 08:00 89 06/17/17 07:00 9 166/79 99 Non Rebreather 15.0 06/17/17 04:00 98.9 06/15/17 01:58 31 Intake and Output 06/16/17 06/16/17 06/17/17 15:00 23:00 07:00 Intake Total 420 ml 800.4 ml 183.6 ml Output Total 186 ml 723 ml 251 ml Balance 234 ml 77.4 ml -67.4 ml Results/Medications Result Diagram: 06/17/17 0410 06/17/17 0410 Results 24 hrs Laboratory Tests Test 06/16/17 11:13 06/16/17 16:58 06/16/17 17:09 06/16/17 17:30 Bedside Glucose 144 185 180 Blood Gas Specimen Source Blood arterial Arterial Blood Date Drawn 06/16/2017 5:35:50 PM Arterial Blood pH (Temp corrected) 7.284 *L Arterial Blood pCO2 (Temp correct) 36.8 Arterial Blood pO2 (Temp corrected) 63.2 L Arterial Blood HCO3 17.1 L Arterial Blood Base Excess -8.8 L Arterial Blood Oxygen Saturation 90.4 L Jaspal Test ACCEPTAB Arterial Blood Gas Puncture Site Right Radial Arterial Blood Carboxyhemoglobin 0.1 Arterial Blood Methemoglobin 0.2 Blood Gas A-a O2 Differential 331.3 H Oxyhemoglobin Percent 90.1 L Total Hemoglobin 11.7 L Blood Gas Temperature 37.0 Blood Gas Modality MASK - SIMPLE FiO2 61.0 Blood Gas Critical Value Read Back JENIFER GREGORY Blood Gas Notified Whom CW Blood Gas Notified Time 06/16/2017 5:45:33 PM Test 06/16/17 18:00 06/16/17 20:52 06/16/17 21:00 06/17/17 04:10 D-Dimer 3911.64 H D-Dimer Comment Bedside Glucose 153 Blood Gas Specimen Source Blood arterial Arterial Blood Date Drawn 06/16/2017 9:00:31 PM Arterial Blood pH (Temp corrected) 7.335 L Arterial Blood pCO2 (Temp correct) 37.8 Arterial Blood pO2 (Temp corrected) 82.5 Arterial Blood HCO3 19.7 L Arterial Blood Base Excess -5.6 L Arterial Blood Oxygen Saturation 95.0 Jaspal Test ACCEPTAB Arterial Blood Gas Puncture Site Right Radial Arterial Blood Carboxyhemoglobin 0.3 Arterial Blood Methemoglobin 0.2 Blood Gas A-a O2 Differential 592.7 H Oxyhemoglobin Percent 94.5 Total Hemoglobin 8.8 L Blood Gas Temperature 37.0 Blood Gas Modality MASK - NRB FiO2 100.0 Blood Gas Notified Whom UO Blood Gas Notified Time 06/16/2017 9:11:31 PM White Blood Count 9.6 Red Blood Count 2.45 L Hemoglobin 7.3 L Hematocrit 21.3 L Mean Corpuscular Volume 86.9 Mean Corpuscular Hemoglobin 29.8 Mean Corpuscular Hemoglobin Concent 34.3 Red Cell Distribution Width 14.8 H Platelet Count 148 Mean Platelet Volume 10.6 H Neutrophils % 71.9 Lymphocytes % 13.2 L Monocytes % 12.5 H Eosinophils % 0.9 Basophils % 0.3 Nucleated Red Blood Cells % 0.2 H Neutrophils # 6.9 Lymphocytes # 1.3 Monocytes # 1.2 H Eosinophils # 0.1 Basophils # 0.0 Nucleated Red Blood Cells # 0.0 Sodium Level 137 Potassium Level 3.8 Chloride Level 98 Carbon Dioxide Level 21 Anion Gap 22 H Blood Urea Nitrogen 95 H Creatinine 8.83 H Glucose Level 115 Calcium Level 8.4 Phosphorus Level 8.1 H Magnesium Level 2.4 Test 06/17/17 07:51 Bedside Glucose 152 Medications Current Medications Nitroglycerin (Nitroglycerin (Sl Tab) 0.4 Mg) 1 tab Q5M PRN SL CHEST PAIN Last administered on 06/07/17 08:56; Admin Dose 1 TAB; Start 06/07/17 at 02:30 Docusate Sodium (Colace) 100 mg Q12H PRN PO CONSTIPATION Last administered on 06/17/17 05:40; Admin Dose 100 MG; Start 06/07/17 at 02:30 Bisacodyl (Dulcolax) 5 mg DAILY PRN PO CONSTIPATION; Start 06/07/17 at 02:30 EZETIMIBE (Zetia) 10 mg HS PO Last administered on 06/16/17 20:53; Admin Dose 10 MG; Start 06/07/17 at 21:00 Tamsulosin HCl (Flomax) 0.4 mg DAILY@21 PO Last administered on 06/16/17 20: 54; Admin Dose 0.4 MG; Start 06/07/17 at 21:00 Atorvastatin Calcium (Lipitor) 80 mg QHS PO Last administered on 06/16/17 20: 53; Admin Dose 80 MG; Start 06/07/17 at 21:00 Hydralazine HCl (Apresoline) 10 mg Q6H PRN IV SBP>160 Last administered on 03:13; Admin Dose 10 MG; Start 06/07/17 at 09:00 Hydromorphone HCl (Dilaudid) 0.2 mg Q15M PRN IV PAIN LEVEL 1-5 Last administered on 06/13/17 21:01; Admin Dose 0.2 MG; Start 06/13/17 at 12:30 Hydromorphone HCl (Dilaudid) 0.4 mg Q15M PRN IV PAIN LEVEL 6-10 Last administered on 06/16/17 12:09; Admin Dose 0.4 MG; Start 06/13/17 at 12:30 Oxycodone/ Acetaminophen (Percocet (5/ 325)) 1 tab Q3H PRN PO PAIN LEVEL 1-5 Last administered on 06/16/17 01:55; Admin Dose 1 TAB; Start 06/13/17 at 12: 30 Oxycodone/ Acetaminophen (Percocet (5/ 325)) 2 tab Q3H PRN PO PAIN LEVEL 6-10 Last administered on 06/17/17 06:26; Admin Dose 2 TAB; Start 06/13/17 at 12: 30 Ondansetron HCl (Zofran Inj) 4 mg Q6H PRN IV NAUSEA AND/OR VOMITING Last administered on 06/16/17 09:11; Admin Dose 4 MG; Start 06/13/17 at 12:30 Aspirin (Aspirin) 325 mg DAILY PO Last administered on 06/17/17 08:04; Admin Dose 325 MG; Start 06/14/17 at 09:00 Acetaminophen (Tylenol Tab) 650 mg Q3H PRN PO ELEVATED TEMPERATURE; Start 07/20 at 12:30 Morphine Sulfate (morphine) 6 mg Q2H PRN IV FOR NON CARDIAC PAIN (4-10) Last administered on 06/17/17 08:06; Admin Dose 6 MG; Start 06/14/17 at 08:00 Hydralazine HCl (Apresoline) 50 mg Q8 PO Last administered on 06/17/17 05:41 ; Admin Dose 50 MG; Start 06/15/17 at 14:00 Diagnostic Test (Pha) (Accu-Chek) 1 ea 02 XX ; Start 06/16/17 at 02:00 Miscellaneous Information 1 ea NOTE XX ; Start 06/15/17 at 11:00 Glucose (Glutose) 15 gm Q15M PRN PO DECREASED GLUCOSE; Start 06/15/17 at 11:00 Glucose (Glutose) 22.5 gm Q15M PRN PO DECREASED GLUCOSE; Start 06/15/17 at 11: 00 Dextrose (D50w Syringe) 25 ml Q15M PRN IV DECREASED GLUCOSE; Start 06/15/17 at 11:00 Dextrose (D50w Syringe) 50 ml Q15M PRN IV DECREASED GLUCOSE; Start 06/15/17 at 11:00 Glucagon (Glucagen) 1 mg Q15M PRN IM DECREASED GLUCOSE; Start 06/15/17 at 11: 00 Glucose (Glutose) 15 gm Q15M PRN BUCCAL DECREASED GLUCOSE; Start 06/15/17 at 11:00 Famotidine (Pepcid) 20 mg Q24H PO Last administered on 06/16/17 20:54; Admin Dose 20 MG; Start 06/15/17 at 20:00 Insulin Glargine (Lantus) 30 unit DAILY@08 SC Last administered on 06/17/17 07:58; Admin Dose 30 UNIT; Start 06/17/17 at 08:00 Hydromorphone HCl 0.8 mg 0.8 mg Q3H PRN IV PAIN Last administered on 13:10; Admin Dose 0.8 MG; Start 06/16/17 at 12:30 Amiodarone HCl 900 mg/Dextrose 500 ml @ 0 mls/hr Q0M IV Last administered on 16:56; Admin Dose 33.4 MLS/HR; Start 06/16/17 at 16:30; Stop at 16:29 Ferric Sodium Gluconate Complex/ Sodium Chloride (Ferrlecit/NS) 110 ml @ 110 mls/hr Q24H IVPB ; Start 06/17/17 at 11:00; Stop 06/21/17 at 11:59 Carvedilol (Coreg) 25 mg BID PO ; Start 06/17/17 at 09:00 Assessment/Plan Chief Complaint/Hosp Course 1. Nonoliguric acute kidney injury (mild) on top of chronic kidney disease stage IV with EGFR of 25%. -Etiology of current acute kidney injury is secondary to hemodynamics. -will need to start HD given poor urine output, rising creat, some uremic symptoms, probable need to transfuse. -Dr. Penny put new line. -avoid nephrotoxins, follow uop, should resolve ATN soon. 2. Anemia, monitor hemoglobin and hematocrit levels. r/o blood loss. transfuse 3. Mineral bone disorder. We will also monitor calcium and phosphorus levels. 4. Hypertension. Continue current blood pressure regimen. 5. Congestive heart failure. good uop with diuresis. appreciate cards inout. 6. Non-ST elevation myocardial infarction. cont cardiac meds. 7. Dyslipidemia. Continue statin therapy. Problems: ANGELLA KING MD Jun 17, 2017 09:31
[2017-06-17] MEDS: BISACODYL (EC) 5 MG TAB PO PRN (12:44)
[2017-06-17] MEDS: SOD FERRIC GLUC COMPLX 125 MG in SOD CHLORIDE 0.9% 100 ML IVPB SCH (12:44)
[2017-06-17] MEDS: AMLODIPINE 10 MG TAB PO SCH (15:09)
[2017-06-17] MEDS: AMIODARONE 200 MG TAB PO SCH (20:04)
[2017-06-17] MEDS: FAMOTIDINE 20 MG TAB PO SCH (20:05)
[2017-06-17] MEDS: TAMSULOSIN (SR) 0.4 MG CAP PO SCH (21:25)
[2017-06-17] MEDS: EZETIMIBE 10 MG TAB PO SCH (21:25)
[2017-06-17] MEDS: ATORVASTATIN 40 MG TAB PO SCH (21:26)
[2017-06-18] VITALS (41 sets, daily range): BP systolic 111–168; BP diastolic 59–102; PULSE 75–115; RESP 7–28
[2017-06-18] MEDS: BISACODYL (EC) 5 MG TAB PO PRN ×2 (00:38→15:07)
[2017-06-18] MEDS: morphine 10 MG INJ IV PRN (00:48)
[2017-06-18] MEDS: hydrALAzine 20 MG INJ IV PRN (01:04)
[2017-06-18] MEDS: ACCU-CHEK XX SCH (02:00)
[2017-06-18 05:42] LABS: ABNORMAL IP MESSAGE 1; BASOPHILS % 0.3 % (0.0-2.0); EOSINOPHILS # 0.2 10^3/ul (0.0-0.5); EOSINOPHILS % 1.1 % (0.0-7.0); HEMATOCRIT 26.7 % (42.0-52.0); HEMOGLOBIN 9.1 g/dl (14.0-18.0); LYMPHOCYTES # 1.5 10^3/ul (0.8-2.9); LYMPHOCYTES % 11.4 % (15.0-51.0); MEAN CORPUSCULAR HEMOGLOBIN 28.8 pg (29.0-33.0); MEAN CORPUSCULAR HGB CONC 34.1 g/dl (32.0-37.0); MEAN CORPUSCULAR VOLUME 84.5 fl (82.0-101.0); MEAN PLATELET VOLUME 10.1 fl (7.4-10.4); MONOCYTE # 1.7 10^3/ul (0.3-0.9); NEUTROPHIL # 9.7 10^3/ul (1.6-7.5); NEUTROPHILS % 72.3 % (39.0-77.0); PLATELET COUNT 189 10^3/UL (140-415); POSITIVE DIFF @See below; RED BLOOD COUNT 3.16 10^6/ul (4.70-6.10); RED CELL DISTRIBUTION WIDTH 14.6 % (11.5-14.5); WHITE BLOOD COUNT 13.4 10^3/ul (4.8-10.8)
[2017-06-18 06:20] LABS: CALCIUM 9.1 mg/dl (8.4-10.2); CREATININE 7.59 mg/dl (0.61-1.24); POTASSIUM 3.5 mmol/L (3.5-5.1)
[2017-06-18] MEDS ORDERED: AMIODARONE DRIP 1 MG/MIN X 6 HRS, THEN 0.5 MG/MIN X 18 HRS THEN DC IV SCH (06:30)
[2017-06-18] MEDS ORDERED: AMIODARONE 900 MG in DEXTROSE 5% 482 ML IV SCH (06:30)
[2017-06-18] MEDS: INSULIN ASPART [NOVOLOG] 3 ML PEN SC SCH ×4 (08:27→20:39)
[2017-06-18] MEDS: INSULIN GLARGINE [LANtus] 3 ML PEN SC SCH (08:28)
[2017-06-18] MEDS: AMLODIPINE 10 MG TAB PO SCH (08:43)
[2017-06-18] MEDS: DOCUSATE SODIUM 100 MG CAP PO PRN (08:43)
[2017-06-18] MEDS: AMIODARONE 200 MG TAB PO SCH ×2 (08:44→20:39)
[2017-06-18] MEDS: ASPIRIN 325 MG TAB PO SCH (08:44)
[2017-06-18] MEDS: HEPARIN 5,000 UNIT/0.5 ML VIAL SC SCH ×2 (08:46→20:44)
--- NOTE | 2017-06-18 08:58 | PN ---
Date/Time of Note Date/Time of Note DATE: 06/18/17 TIME: 08:56 Assessment/Plan Lines/Catheters IV Catheter Type (from Nrsg): Stephen Flower in Place (from Nrsg): Yes Cont'd flower catheter reason: other (indicate) Assessment/Plan Assessment/Plan s/p cabg acute kidney injury atrial fibrillation dialysis in am needs bm ok to telemetry Subjective 24 Hr Interval Summary Constitutional: improved, urine output Feeding: advancing diet Pain Control: mild Exam/Review of Systems Vital Signs Vitals Vital Signs Date Time Temp Pulse Resp B/P Pulse Ox O2 Delivery O2 Flow Rate FiO2 06/18/17 08:00 88 06/18/17 07:00 11 140/87 96 Nasal Cannula 06/18/17 04:00 98.7 06/18/17 01:50 5.0 06/15/17 01:58 31 Intake and Output 06/17/17 06/17/17 06/18/17 15:00 23:00 07:00 Intake Total 1772.9 ml 153.4 ml Output Total 2277 ml 476 ml 614 ml Balance -504.1 ml -322.6 ml -614 ml Exam Constitutional: alert Psych: nl mood/affect Head: normocephalic Eyes: nl conjunctiva Neck: supple Respiratory: congested cough Cardiovascular: other (rapid atrial fib) Genitourinary - Male: other (629 cc u/o 24) Neurological: DANDY TENDER II-XII intact Results Result Diagram: 06/18/17 0500 06/18/17 0500 ABEL RICHMOND MD Jun 18, 2017 08:58
--- NOTE | 2017-06-18 08:59 | PN ---
DATE: 06/18/2017 SUBJECTIVE: The patient had hemodialysis yesterday, tolerated well. No other events noted. No hem optysis, hematemesis or hematochezia. OBJECTIVE: VITAL SIGNS: Blood pressure 140/87, respiration 11, pulse 88, temperature 98.6. HEENT: Head is normocephalic. NECK: Supple. HEART: Regular rate. LUNGS: Show diminished breath sounds at the base. ABDOMEN: Soft, nontender to palpation. No rebound or guarding. EXTREMITIES: Negative for clubbing, cyanosis, no edema. DERMATOLOGIC: No rashes. MUSCULOSKELETAL: No joint effusions. NEUROLOGIC: No change in exam. MEDICATIONS: The patient's medications have been reviewed. LABORATORY DATA: Shows white count 13.4, hemoglobin 9.1, hematocrit 26.7, platelet count is 189. S odium 140, potassium 3.5, BUN 82, creatinine 7.59. ASSESSMENT AND PLAN: 1. Nonoliguric acute kidney injury on top of chronic kidney disease stage IV with a GFR of 25 mL pe r minute. Etiology of current acute kidney injury is secondary to acute tubular necrosis. The ginny ent was initiated on hemodialysis due to uremic symptoms. Had hemodialysis yesterday, tolerated wel l. Plan for dialysis again tomorrow. 2. Anemia. Monitor hemoglobin and hematocrit levels. Will give Epogen as needed. 3. monitor calcium and phosphorus levels. 4. Hypertension. Continue current blood pressure regimen. Continue ultrafiltration dialysis. 5. Congestive heart failure. Continue ultrafiltration dialysis. Follow up with cardiology. 6. Coronary artery disease, status post coronary artery bypass graft. Continue medical management. Dictated By: REBECCA BLANKENSHIP/BRANDON Conf#: [id number] DID#: [id number]
--- NOTE | 2017-06-18 10:22 | CONS ---
Date/Time of Note Date/Time of Note DATE: 06/18/17 TIME: 10:18 Assessment/Plan Assessment/Plan Additional Assessment/Plan Chest x-ray was reviewed from yesterday which is showing cardiomegaly with very minimal if any subsegmental left lower lobe atelectasis. Next Assessment and recommendations; next 1. Patient admitted with acute [place] status post CABG surgery 2. History of renal insufficiency now requiring hemodialysis. 3. History of diabetes and hypertension. 4. Significant cardiomegaly is present on chest x-ray. 5. Episodes of somnolence likely from sedative accumulation on account of renal failure. Continue current supportive care. Minimize narcotic/sedative use. Consultation Date/Type/Reason Admit Date/Time Jun 07, 2017 at 02:04 Date of Consultation: Jun 18, 2017 Type of Consultation: Pulmonary/critical care Reason for Consultation Pulmonary consultation requested for evaluation of shortness of breath and somnolence. History of presenting illness; patient is a 61-year-old male who was admitted with complaints of chest pain upon further evaluation patient was diagnosed with acute [place] and underwent CABG surgery. The patient has not been extubated 2 days ago but is exhibiting some degree of somnolence. Patient denies any further shortness of breath any chest pain. Any fever or chills. Any nausea vomiting. During the interview the patient did have episodes of sleeping off and on. But was readily arousable. Past medical history; 1. Patient with a prior history of coronary artery disease status post PTCA in the past. 2. Chronic renal insufficiency now requiring hemodialysis. 3. Hypertension and diabetes. 4. Anemia. Medications; reviewed. Allergies; none. Social history; patient is a very scant smoker. Family history; patient is has a supportive . No show any illnesses other than diabetes in the family. Occupation history; patient is retired. Next Review systems; denies any headache, chest pain, shortness of breath has resolved. Denies any abdominal pain nausea vomiting. General exam; elderly male, awake and alert. Currently in no distress. Having episodes of somnolence off and on. Constitutional: No chills, No diaphoresis, No disoriented, No febrile, No improved, No no complaints, No other, No poor po, No requiring IVF, No requiring O2 Eyes: No discharge, No no complaints, No other, No pain, No redness, No visual change ENT: No bleeding, No congestion, No discharge, No dysphagia, No no complaints, No other, No pain, No sore throat Respiratory: cough, shortness of breath Cardiovascular: chest pain Gastrointestinal: No blood, No constipation, No decreased appetite, No diarrhea , No flatus, No nausea, No no complaints, No other, No pain, No passing stool, No vomiting Genitourinary: No bleeding, No discharge, No dysuria, No flank pain, No hematuria, No no complaints, No other Musculoskeletal: No back pain, No bone/joint pain, No neck pain, No no complaints, No other, No restricted range of motion, No swelling Skin: No bruising, No erythema, No laceration, No no complaints, No other, No pruritis, No rash, No skin lesions Neurologic: No confusion, No dizziness, No focal-weakness, No headache, No no complaints, No other, No seizure, No syncope Endocrine: No dry skin, No no complaints, No other, No polydypsia, No polyuria , No temp intolerance Lymphatic: No adenopathy, No lymphadema, No no complaints, No other, No tender nodes Psychological: nl mood/affect Immunologic: No immunodeficiency, No no complaints, No other, No pruritis, No rhinitis, No urticaria Past Medical History Medical History: angina, congestive heart failure, coronary artery disease, diabetes, high cholesterol, hypertension Past Surgical History Past Surgical Hx: no surgical history Social History Alcohol Use: none Smoking Status: Current every day smoker Drug Use: none Exam/Review of Systems Vital Signs Vitals Vital Signs Date Time Temp Pulse Resp B/P Pulse Ox O2 Delivery O2 Flow Rate FiO2 06/18/17 09:00 95 16 132/90 95 Nasal Cannula 06/18/17 08:00 98.0 06/18/17 01:50 5.0 06/15/17 01:58 31 Intake and Output 06/17/17 06/17/17 06/18/17 15:00 23:00 07:00 Intake Total 1772.9 ml 153.4 ml Output Total 2277 ml 476 ml 614 ml Balance -504.1 ml -322.6 ml -614 ml Exam HEENT exam; supple neck, no JVD. No lymphadenopathy. Midline trachea. No thyromegaly. Pharynx is clear. Pupils are midsize and reactive to light. Patient has fair dentition. Neck Chest exam; diminished but clear breath sounds. S1-S2 audible, no murmurs. Regular rhythm. There is a well-healed scar along the sternum. Abdomen exam; soft, nontender. No organomegaly. Bowel sounds audible. Extremity exam; no peripheral edema. Pulses 1+ bilaterally. INTERNAL INVESTIGATOR exam; no focal deficit. Results Result Diagram: 06/18/17 0500 06/18/17 0500 Results 24 hrs Laboratory Tests Test 06/17/17 11:38 06/17/17 17:41 06/17/17 21:29 06/18/17 05:00 Bedside Glucose 148 145 146 White Blood Count 13.4 #H Red Blood Count 3.16 #L Hemoglobin 9.1 #L Hematocrit 26.7 #L Mean Corpuscular Volume 84.5 Mean Corpuscular Hemoglobin 28.8 L Mean Corpuscular Hemoglobin Concent 34.1 Red Cell Distribution Width 14.6 H Platelet Count 189 # Mean Platelet Volume 10.1 Neutrophils % 72.3 Lymphocytes % 11.4 L Monocytes % 13.0 H Eosinophils % 1.1 Basophils % 0.3 Nucleated Red Blood Cells % 0.0 Neutrophils # 9.7 H Lymphocytes # 1.5 Monocytes # 1.7 H Eosinophils # 0.2 Basophils # 0.0 Nucleated Red Blood Cells # 0.0 Sodium Level 140 Potassium Level 3.5 Chloride Level 99 Carbon Dioxide Level 26 Anion Gap 19 H Blood Urea Nitrogen 82 H Creatinine 7.59 H Glucose Level 132 Calcium Level 9.1 Test 06/18/17 05:20 06/18/17 08:26 Lab Scanned Report BLOOD TRANSFUSION Bedside Glucose 156 Medications Medications Current Medications Nitroglycerin (Nitroglycerin (Sl Tab) 0.4 Mg) 1 tab Q5M PRN SL CHEST PAIN Last administered on 06/07/17 08:56; Admin Dose 1 TAB; Start 06/07/17 at 02:30 Docusate Sodium (Colace) 100 mg Q12H PRN PO CONSTIPATION Last administered on 06/18/17 08:43; Admin Dose 100 MG; Start 06/07/17 at 02:30 Bisacodyl (Dulcolax) 5 mg DAILY PRN PO CONSTIPATION Last administered on 00:38; Admin Dose 5 MG; Start 06/07/17 at 02:30 EZETIMIBE (Zetia) 10 mg HS PO Last administered on 06/17/17 21:25; Admin Dose 10 MG; Start 06/07/17 at 21:00 Tamsulosin HCl (Flomax) 0.4 mg DAILY@21 PO Last administered on 06/17/17 21: 25; Admin Dose 0.4 MG; Start 06/07/17 at 21:00 Atorvastatin Calcium (Lipitor) 80 mg QHS PO Last administered on 06/17/17 21: 26; Admin Dose 80 MG; Start 06/07/17 at 21:00 Hydralazine HCl (Apresoline) 10 mg Q6H PRN IV SBP>160 Last administered on 01:04; Admin Dose 10 MG; Start 06/07/17 at 09:00 Hydromorphone HCl (Dilaudid) 0.2 mg Q15M PRN IV PAIN LEVEL 1-5 Last administered on 06/13/17 21:01; Admin Dose 0.2 MG; Start 06/13/17 at 12:30 Hydromorphone HCl (Dilaudid) 0.4 mg Q15M PRN IV PAIN LEVEL 6-10 Last administered on 06/16/17 12:09; Admin Dose 0.4 MG; Start 06/13/17 at 12:30 Oxycodone/ Acetaminophen (Percocet (5/ 325)) 1 tab Q3H PRN PO PAIN LEVEL 1-5 Last administered on 06/16/17 01:55; Admin Dose 1 TAB; Start 06/13/17 at 12: 30 Oxycodone/ Acetaminophen (Percocet (5/ 325)) 2 tab Q3H PRN PO PAIN LEVEL 6-10 Last administered on 06/17/17 06:26; Admin Dose 2 TAB; Start 06/13/17 at 12: 30 Ondansetron HCl (Zofran Inj) 4 mg Q6H PRN IV NAUSEA AND/OR VOMITING Last administered on 06/16/17 09:11; Admin Dose 4 MG; Start 06/13/17 at 12:30 Aspirin (Aspirin) 325 mg DAILY PO Last administered on 06/18/17 08:44; Admin Dose 325 MG; Start 06/14/17 at 09:00 Acetaminophen (Tylenol Tab) 650 mg Q3H PRN PO ELEVATED TEMPERATURE; Start 07/20 at 12:30 Morphine Sulfate (morphine) 6 mg Q2H PRN IV FOR NON CARDIAC PAIN (4-10) Last administered on 06/18/17 00:48; Admin Dose 6 MG; Start 06/14/17 at 08:00 Hydralazine HCl (Apresoline) 50 mg Q8 PO Last administered on 06/18/17 06:34 ; Admin Dose 50 MG; Start 06/15/17 at 14:00 Diagnostic Test (Pha) (Accu-Chek) 1 ea 02 XX ; Start 06/16/17 at 02:00 Miscellaneous Information 1 ea NOTE XX ; Start 06/15/17 at 11:00 Glucose (Glutose) 15 gm Q15M PRN PO DECREASED GLUCOSE; Start 06/15/17 at 11:00 Glucose (Glutose) 22.5 gm Q15M PRN PO DECREASED GLUCOSE; Start 06/15/17 at 11: 00 Dextrose (D50w Syringe) 25 ml Q15M PRN IV DECREASED GLUCOSE; Start 06/15/17 at 11:00 Dextrose (D50w Syringe) 50 ml Q15M PRN IV DECREASED GLUCOSE; Start 06/15/17 at 11:00 Glucagon (Glucagen) 1 mg Q15M PRN IM DECREASED GLUCOSE; Start 06/15/17 at 11: 00 Glucose (Glutose) 15 gm Q15M PRN BUCCAL DECREASED GLUCOSE; Start 06/15/17 at 11:00 Famotidine (Pepcid) 20 mg Q24H PO Last administered on 06/17/17 20:05; Admin Dose 20 MG; Start 06/15/17 at 20:00 Insulin Glargine (Lantus) 30 unit DAILY@08 SC Last administered on 06/18/17 08:28; Admin Dose 30 UNIT; Start 06/17/17 at 08:00 Hydromorphone HCl 0.8 mg 0.8 mg Q3H PRN IV PAIN Last administered on 13:10; Admin Dose 0.8 MG; Start 06/16/17 at 12:30 Ferric Sodium Gluconate Complex/ Sodium Chloride (Ferrlecit/NS) 110 ml @ 110 mls/hr Q24H IVPB Last administered on 06/17/17 12:44; Admin Dose 110 MLS/HR; Start 06/17/17 at 11:00; Stop 06/21/17 at 11:59 Carvedilol (Coreg) 25 mg BID PO Last administered on 06/18/17 08:44; Admin Dose 25 MG; Start 06/17/17 at 09:00 Amlodipine Besylate (Norvasc) 10 mg DAILY PO Last administered on 06/18/17 08 :43; Admin Dose 10 MG; Start 06/17/17 at 15:00; Stop 07/03/17 at 08:00 Amiodarone HCl (Cordarone) 200 mg BID PO Last administered on 06/18/17 08:44 ; Admin Dose 200 MG; Start 06/17/17 at 19:00; Stop 07/03/17 at 18:59 Heparin Sodium (Porcine) (Heparin (5000 Units/0.5 ml)) 5,000 unit BID SC Last administered on 06/18/17 08:46; Admin Dose 5,000 UNIT; Start 06/18/17 at 09: 00 FREDRICK WOODY Jun 18, 2017 10:22
[2017-06-18] MEDS: SOD FERRIC GLUC COMPLX 125 MG in SOD CHLORIDE 0.9% 100 ML IVPB SCH (11:44)
[2017-06-18] MEDS ORDERED: NIFEdipine (XL) 30 MG TAB PO SCH (12:00)
--- NOTE | 2017-06-18 12:02 | CONS ---
Date/Time of Note Date/Time of Note DATE: 06/18/17 TIME: 11:57 Assessment/Plan Assessment/Plan Chief Complaint/Hosp Course Paroxysmal afib: common post cardiac surgery. Was on amio drip, now PO. Back in sinus CAD s/p CABG x5: MAYER to LAD, SVG to diagonal artery, SVG to posterior descending artery, SVG to ramus intermedius sequenced to obtuse marginal artery. Doing well post-op NSTEMI Acute on chronic systolic heart failure: EF 40-45%F. ~Euvolemic by exam Acute on chronic renal failure: unknown baseline. Cr 3.6 initially. Now on HD but UOP has increased so may just be temporary CAD s/p prior PCI 2006 H/o CVA DM HTN -continue amiodarone 200mg BID, IV bolus as needed for recurrence of afib -continue coreg 25mg BID -increase to hydralazine 100mg q8h -amlodipine 10mg -continue ASA 325mg -lipitor 80mg -HD per nephrology -ok for tele Problems: Consultation Date/Type/Reason Admit Date/Time Jun 07, 2017 at 02:04 Initial Consult Date 06/07/17 Type of Consultation: Cardiology Referring Provider: TAYLER BE 24 HR Interval Summary Free Text/Dictation Had afib with RVR again but self converted prior to restarting amio drip. BP has been high. His only complaint is that he is very sleepy and tired. No further chest pain and no SOB. Exam/Review of Systems Vital Signs Vitals Vital Signs Date Time Temp Pulse Resp B/P Pulse Ox O2 Delivery O2 Flow Rate FiO2 06/18/17 09:00 95 16 132/90 95 Nasal Cannula 06/18/17 08:00 98.0 06/18/17 08:00 2.0 06/15/17 01:58 31 Intake and Output 06/17/17 06/17/17 06/18/17 15:00 23:00 07:00 Intake Total 1772.9 ml 153.4 ml Output Total 2277 ml 476 ml 614 ml Balance -504.1 ml -322.6 ml -614 ml Exam Constitutional: alert, oriented Psych: nl mood/affect, no complaints Head: atraumatic, normocephalic Neck: No jvd Respiratory: crackles/rales (mild), diminished breath sounds, No clear to auscultation Cardiovascular: regular rate and rhythm, No edema, No systolic murmur Gastrointestinal: non-tender, soft Neurological: nl speech, nl strength Results Result Diagram: 06/18/17 0500 06/18/17 0500 Results 24 hrs Laboratory Tests Test 06/17/17 17:41 06/17/17 21:29 06/18/17 05:00 06/18/17 05:20 Bedside Glucose 145 146 White Blood Count 13.4 #H Red Blood Count 3.16 #L Hemoglobin 9.1 #L Hematocrit 26.7 #L Mean Corpuscular Volume 84.5 Mean Corpuscular Hemoglobin 28.8 L Mean Corpuscular Hemoglobin Concent 34.1 Red Cell Distribution Width 14.6 H Platelet Count 189 # Mean Platelet Volume 10.1 Neutrophils % 72.3 Lymphocytes % 11.4 L Monocytes % 13.0 H Eosinophils % 1.1 Basophils % 0.3 Nucleated Red Blood Cells % 0.0 Neutrophils # 9.7 H Lymphocytes # 1.5 Monocytes # 1.7 H Eosinophils # 0.2 Basophils # 0.0 Nucleated Red Blood Cells # 0.0 Sodium Level 140 Potassium Level 3.5 Chloride Level 99 Carbon Dioxide Level 26 Anion Gap 19 H Blood Urea Nitrogen 82 H Creatinine 7.59 H Glucose Level 132 Calcium Level 9.1 Lab Scanned Report BLOOD TRANSFUSION Test 06/18/17 08:26 06/18/17 11:44 Bedside Glucose 156 163 Medications Medications Current Medications Nitroglycerin (Nitroglycerin (Sl Tab) 0.4 Mg) 1 tab Q5M PRN SL CHEST PAIN Last administered on 06/07/17 08:56; Admin Dose 1 TAB; Start 06/07/17 at 02:30 Docusate Sodium (Colace) 100 mg Q12H PRN PO CONSTIPATION Last administered on 06/18/17 08:43; Admin Dose 100 MG; Start 06/07/17 at 02:30 Bisacodyl (Dulcolax) 5 mg DAILY PRN PO CONSTIPATION Last administered on 00:38; Admin Dose 5 MG; Start 06/07/17 at 02:30 EZETIMIBE (Zetia) 10 mg HS PO Last administered on 06/17/17 21:25; Admin Dose 10 MG; Start 06/07/17 at 21:00 Tamsulosin HCl (Flomax) 0.4 mg DAILY@21 PO Last administered on 06/17/17 21: 25; Admin Dose 0.4 MG; Start 06/07/17 at 21:00 Atorvastatin Calcium (Lipitor) 80 mg QHS PO Last administered on 06/17/17 21: 26; Admin Dose 80 MG; Start 06/07/17 at 21:00 Hydralazine HCl (Apresoline) 10 mg Q6H PRN IV SBP>160 Last administered on 01:04; Admin Dose 10 MG; Start 06/07/17 at 09:00 Hydromorphone HCl (Dilaudid) 0.2 mg Q15M PRN IV PAIN LEVEL 1-5 Last administered on 06/13/17 21:01; Admin Dose 0.2 MG; Start 06/13/17 at 12:30 Hydromorphone HCl (Dilaudid) 0.4 mg Q15M PRN IV PAIN LEVEL 6-10 Last administered on 06/16/17 12:09; Admin Dose 0.4 MG; Start 06/13/17 at 12:30 Oxycodone/ Acetaminophen (Percocet (5/ 325)) 1 tab Q3H PRN PO PAIN LEVEL 1-5 Last administered on 06/16/17 01:55; Admin Dose 1 TAB; Start 06/13/17 at 12: 30 Oxycodone/ Acetaminophen (Percocet (5/ 325)) 2 tab Q3H PRN PO PAIN LEVEL 6-10 Last administered on 06/17/17 06:26; Admin Dose 2 TAB; Start 06/13/17 at 12: 30 Ondansetron HCl (Zofran Inj) 4 mg Q6H PRN IV NAUSEA AND/OR VOMITING Last administered on 06/16/17 09:11; Admin Dose 4 MG; Start 06/13/17 at 12:30 Aspirin (Aspirin) 325 mg DAILY PO Last administered on 06/18/17 08:44; Admin Dose 325 MG; Start 06/14/17 at 09:00 Acetaminophen (Tylenol Tab) 650 mg Q3H PRN PO ELEVATED TEMPERATURE; Start 07/20 at 12:30 Morphine Sulfate (morphine) 6 mg Q2H PRN IV FOR NON CARDIAC PAIN (4-10) Last administered on 06/18/17 00:48; Admin Dose 6 MG; Start 06/14/17 at 08:00 Hydralazine HCl (Apresoline) 50 mg Q8 PO Last administered on 06/18/17 06:34 ; Admin Dose 50 MG; Start 06/15/17 at 14:00 Diagnostic Test (Pha) (Accu-Chek) 1 ea 02 XX ; Start 06/16/17 at 02:00 Miscellaneous Information 1 ea NOTE XX ; Start 06/15/17 at 11:00 Glucose (Glutose) 15 gm Q15M PRN PO DECREASED GLUCOSE; Start 06/15/17 at 11:00 Glucose (Glutose) 22.5 gm Q15M PRN PO DECREASED GLUCOSE; Start 06/15/17 at 11: 00 Dextrose (D50w Syringe) 25 ml Q15M PRN IV DECREASED GLUCOSE; Start 06/15/17 at 11:00 Dextrose (D50w Syringe) 50 ml Q15M PRN IV DECREASED GLUCOSE; Start 06/15/17 at 11:00 Glucagon (Glucagen) 1 mg Q15M PRN IM DECREASED GLUCOSE; Start 06/15/17 at 11: 00 Glucose (Glutose) 15 gm Q15M PRN BUCCAL DECREASED GLUCOSE; Start 06/15/17 at 11:00 Famotidine (Pepcid) 20 mg Q24H PO Last administered on 06/17/17 20:05; Admin Dose 20 MG; Start 06/15/17 at 20:00 Insulin Glargine (Lantus) 30 unit DAILY@08 SC Last administered on 06/18/17 08:28; Admin Dose 30 UNIT; Start 06/17/17 at 08:00 Hydromorphone HCl 0.8 mg 0.8 mg Q3H PRN IV PAIN Last administered on 13:10; Admin Dose 0.8 MG; Start 06/16/17 at 12:30 Ferric Sodium Gluconate Complex/ Sodium Chloride (Ferrlecit/NS) 110 ml @ 110 mls/hr Q24H IVPB Last administered on 06/18/17 11:44; Admin Dose 110 MLS/HR; Start 06/17/17 at 11:00; Stop 06/21/17 at 11:59 Carvedilol (Coreg) 25 mg BID PO Last administered on 06/18/17 08:44; Admin Dose 25 MG; Start 06/17/17 at 09:00 Amlodipine Besylate (Norvasc) 10 mg DAILY PO Last administered on 06/18/17 08 :43; Admin Dose 10 MG; Start 06/17/17 at 15:00; Stop 07/03/17 at 08:00 Amiodarone HCl (Cordarone) 200 mg BID PO Last administered on 06/18/17 08:44 ; Admin Dose 200 MG; Start 06/17/17 at 19:00; Stop 07/03/17 at 18:59 Heparin Sodium (Porcine) (Heparin (5000 Units/0.5 ml)) 5,000 unit BID SC Last administered on 06/18/17 08:46; Admin Dose 5,000 UNIT; Start 06/18/17 at 09: 00 TAYLER BE Jun 18, 2017 12:02
--- NOTE | 2017-06-18 16:25 | PN ---
Date/Time of Note Date/Time of Note DATE: 06/18/17 TIME: 16:24 Assessment/Plan VTE Prophylaxis VTE Prophylaxis Intervention: SCD's Lines/Catheters IV Catheter Type (from Nrsg): any cath w pigtail Urinary Cath still in place: Yes Reason Cath still needed: other (indicate) Assessment/Plan Assessment/Plan 61 yo M with CAD, CKD, DM admitted for chest pain found to have multi vessel CAD , sp CABG 10.11. Hospitalization c/b ERIC on HD, pt started on HD for uremia. PLAN CAD: cardiology helping with BP control; cont lipid meds and asa ERIC on CKD: HD as per renal DM2: basal/bolus/SSI Anemia: likely 2/2 CKD. as per renal DVT prophx transfer to tele Subjective 24 Hr Interval Summary Free Text/Dictation no complaints Exam/Review of Systems Vital Signs Vitals Vital Signs Date Time Temp Pulse Resp B/P Pulse Ox O2 Delivery O2 Flow Rate FiO2 06/18/17 15:13 4.0 06/18/17 12:00 83 16 159/88 93 Nasal Cannula 06/18/17 11:00 97.5 06/15/17 01:58 31 Intake and Output 06/17/17 06/17/17 06/18/17 15:00 23:00 07:00 Intake Total 1772.9 ml 153.4 ml Output Total 2277 ml 476 ml 614 ml Balance -504.1 ml -322.6 ml -614 ml Exam +HD line in R neck no mrg +sternotomy scar and drain from wound with serosang output abd soft no rashes Results Result Diagram: 06/18/17 0500 06/18/17 0500 Results 24 hrs Laboratory Tests Test 06/17/17 17:41 06/17/17 21:29 06/18/17 05:00 06/18/17 05:20 Bedside Glucose 145 146 White Blood Count 13.4 #H Red Blood Count 3.16 #L Hemoglobin 9.1 #L Hematocrit 26.7 #L Mean Corpuscular Volume 84.5 Mean Corpuscular Hemoglobin 28.8 L Mean Corpuscular Hemoglobin Concent 34.1 Red Cell Distribution Width 14.6 H Platelet Count 189 # Mean Platelet Volume 10.1 Neutrophils % 72.3 Lymphocytes % 11.4 L Monocytes % 13.0 H Eosinophils % 1.1 Basophils % 0.3 Nucleated Red Blood Cells % 0.0 Neutrophils # 9.7 H Lymphocytes # 1.5 Monocytes # 1.7 H Eosinophils # 0.2 Basophils # 0.0 Nucleated Red Blood Cells # 0.0 Sodium Level 140 Potassium Level 3.5 Chloride Level 99 Carbon Dioxide Level 26 Anion Gap 19 H Blood Urea Nitrogen 82 H Creatinine 7.59 H Glucose Level 132 Calcium Level 9.1 Lab Scanned Report BLOOD TRANSFUSION Test 06/18/17 08:26 06/18/17 11:44 Bedside Glucose 156 163 Medications Medications Current Medications Nitroglycerin (Nitroglycerin (Sl Tab) 0.4 Mg) 1 tab Q5M PRN SL CHEST PAIN Last administered on 06/07/17 08:56; Admin Dose 1 TAB; Start 06/07/17 at 02:30 Docusate Sodium (Colace) 100 mg Q12H PRN PO CONSTIPATION Last administered on 06/18/17 08:43; Admin Dose 100 MG; Start 06/07/17 at 02:30 Bisacodyl (Dulcolax) 5 mg DAILY PRN PO CONSTIPATION Last administered on 15:07; Admin Dose 5 MG; Start 06/07/17 at 02:30 EZETIMIBE (Zetia) 10 mg HS PO Last administered on 06/17/17 21:25; Admin Dose 10 MG; Start 06/07/17 at 21:00 Tamsulosin HCl (Flomax) 0.4 mg DAILY@21 PO Last administered on 06/17/17 21: 25; Admin Dose 0.4 MG; Start 06/07/17 at 21:00 Atorvastatin Calcium (Lipitor) 80 mg QHS PO Last administered on 06/17/17 21: 26; Admin Dose 80 MG; Start 06/07/17 at 21:00 Hydralazine HCl (Apresoline) 10 mg Q6H PRN IV SBP>160 Last administered on 01:04; Admin Dose 10 MG; Start 06/07/17 at 09:00 Hydromorphone HCl (Dilaudid) 0.2 mg Q15M PRN IV PAIN LEVEL 1-5 Last administered on 06/13/17 21:01; Admin Dose 0.2 MG; Start 06/13/17 at 12:30 Hydromorphone HCl (Dilaudid) 0.4 mg Q15M PRN IV PAIN LEVEL 6-10 Last administered on 06/16/17 12:09; Admin Dose 0.4 MG; Start 06/13/17 at 12:30 Oxycodone/ Acetaminophen (Percocet (5/ 325)) 1 tab Q3H PRN PO PAIN LEVEL 1-5 Last administered on 06/16/17 01:55; Admin Dose 1 TAB; Start 06/13/17 at 12: 30 Oxycodone/ Acetaminophen (Percocet (5/ 325)) 2 tab Q3H PRN PO PAIN LEVEL 6-10 Last administered on 06/17/17 06:26; Admin Dose 2 TAB; Start 06/13/17 at 12: 30 Ondansetron HCl (Zofran Inj) 4 mg Q6H PRN IV NAUSEA AND/OR VOMITING Last administered on 06/16/17 09:11; Admin Dose 4 MG; Start 06/13/17 at 12:30 Aspirin (Aspirin) 325 mg DAILY PO Last administered on 06/18/17 08:44; Admin Dose 325 MG; Start 06/14/17 at 09:00 Acetaminophen (Tylenol Tab) 650 mg Q3H PRN PO ELEVATED TEMPERATURE; Start 07/20 at 12:30 Morphine Sulfate (morphine) 6 mg Q2H PRN IV FOR NON CARDIAC PAIN (4-10) Last administered on 06/18/17 00:48; Admin Dose 6 MG; Start 06/14/17 at 08:00 Diagnostic Test (Pha) (Accu-Chek) 1 ea 02 XX ; Start 06/16/17 at 02:00 Miscellaneous Information 1 ea NOTE XX ; Start 06/15/17 at 11:00 Glucose (Glutose) 15 gm Q15M PRN PO DECREASED GLUCOSE; Start 06/15/17 at 11:00 Glucose (Glutose) 22.5 gm Q15M PRN PO DECREASED GLUCOSE; Start 06/15/17 at 11: 00 Dextrose (D50w Syringe) 25 ml Q15M PRN IV DECREASED GLUCOSE; Start 06/15/17 at 11:00 Dextrose (D50w Syringe) 50 ml Q15M PRN IV DECREASED GLUCOSE; Start 06/15/17 at 11:00 Glucagon (Glucagen) 1 mg Q15M PRN IM DECREASED GLUCOSE; Start 06/15/17 at 11: 00 Glucose (Glutose) 15 gm Q15M PRN BUCCAL DECREASED GLUCOSE; Start 06/15/17 at 11:00 Famotidine (Pepcid) 20 mg Q24H PO Last administered on 06/17/17 20:05; Admin Dose 20 MG; Start 06/15/17 at 20:00 Insulin Glargine (Lantus) 30 unit DAILY@08 SC Last administered on 06/18/17 08:28; Admin Dose 30 UNIT; Start 06/17/17 at 08:00 Hydromorphone HCl 0.8 mg 0.8 mg Q3H PRN IV PAIN Last administered on 13:10; Admin Dose 0.8 MG; Start 06/16/17 at 12:30 Ferric Sodium Gluconate Complex/ Sodium Chloride (Ferrlecit/NS) 110 ml @ 110 mls/hr Q24H IVPB Last administered on 06/18/17 11:44; Admin Dose 110 MLS/HR; Start 06/17/17 at 11:00; Stop 06/21/17 at 11:59 Carvedilol (Coreg) 25 mg BID PO Last administered on 06/18/17 08:44; Admin Dose 25 MG; Start 06/17/17 at 09:00 Amlodipine Besylate (Norvasc) 10 mg DAILY PO Last administered on 06/18/17 08 :43; Admin Dose 10 MG; Start 06/17/17 at 15:00; Stop 07/03/17 at 08:00 Amiodarone HCl (Cordarone) 200 mg BID PO Last administered on 06/18/17 08:44 ; Admin Dose 200 MG; Start 06/17/17 at 19:00; Stop 07/03/17 at 18:59 Heparin Sodium (Porcine) (Heparin (5000 Units/0.5 ml)) 5,000 unit BID SC Last administered on 06/18/17 08:46; Admin Dose 5,000 UNIT; Start 06/18/17 at 09: 00 Hydralazine HCl (Apresoline) 100 mg Q8 PO Last administered on 06/18/17 14:49 ; Admin Dose 100 MG; Start 06/18/17 at 14:00 ZULMA LUTHER MD Jun 18, 2017 16:25
[2017-06-18] MEDS: POLYETHYLENE GLYCOL 17 GM PACKET PO SCH (17:43)
[2017-06-18] MEDS: FAMOTIDINE 20 MG TAB PO SCH (20:39)
[2017-06-18] MEDS: TAMSULOSIN (SR) 0.4 MG CAP PO SCH (20:40)
[2017-06-18] MEDS: ATORVASTATIN 40 MG TAB PO SCH (20:40)
[2017-06-18] MEDS: EZETIMIBE 10 MG TAB PO SCH (20:40)
[2017-06-19] VITALS (24 sets, daily range): BP systolic 108–171; BP diastolic 65–92; PULSE 72–100; RESP 10–24
[2017-06-19] MEDS: ACCU-CHEK XX SCH (01:53)
[2017-06-19 04:39] LABS: BASOPHILS % 0.3 % (0.0-2.0); EOSINOPHILS # 0.2 10^3/ul (0.0-0.5); EOSINOPHILS % 1.9 % (0.0-7.0); HEMATOCRIT 24.6 % (42.0-52.0); HEMOGLOBIN 8.4 g/dl (14.0-18.0); LYMPHOCYTES # 1.1 10^3/ul (0.8-2.9); LYMPHOCYTES % 8.5 % (15.0-51.0); MEAN CORPUSCULAR HEMOGLOBIN 29.3 pg (29.0-33.0); MEAN CORPUSCULAR HGB CONC 34.1 g/dl (32.0-37.0); MEAN CORPUSCULAR VOLUME 85.7 fl (82.0-101.0); MEAN PLATELET VOLUME 10.3 fl (7.4-10.4); MONOCYTE # 0.9 10^3/ul (0.3-0.9); MONOCYTES % 7.1 % (0.0-11.0); NEUTROPHILS % 80.8 % (39.0-77.0); PLATELET COUNT 188 10^3/UL (140-415); RED BLOOD COUNT 2.87 10^6/ul (4.70-6.10); RED CELL DISTRIBUTION WIDTH 14.7 % (11.5-14.5); WHITE BLOOD COUNT 12.3 10^3/ul (4.8-10.8)
[2017-06-19 05:09] LABS: CALCIUM 8.8 mg/dl (8.4-10.2); CREATININE 7.23 mg/dl (0.61-1.24); POTASSIUM 3.4 mmol/L (3.5-5.1)
[2017-06-19] MEDS: ONDANSETRON 4 MG INJ IV PRN (06:16)
--- NOTE | 2017-06-19 08:23 | CONS ---
Date/Time of Note Date/Time of Note DATE: 06/19/17 TIME: 08:19 Assessment/Plan Assessment/Plan Chief Complaint/Hosp Course Paroxysmal afib: common post cardiac surgery. Was on amio drip, now PO. Back in sinus CAD s/p CABG x5: MAYER to LAD, SVG to diagonal artery, SVG to posterior descending artery, SVG to ramus intermedius sequenced to obtuse marginal artery. Doing well post-op NSTEMI Acute on chronic systolic heart failure: EF 40-45%F. ~Euvolemic by exam Acute on chronic renal failure: unknown baseline. Cr 3.6 initially. Now on HD but UOP has increased so may just be temporary CAD s/p prior PCI 2006 H/o CVA DM HTN -decrease to hydralazine 75mg q8h -if has dizziness with ambulation, check orthostatics. May need some volume back as autodiuresing -renal function and UOP improving so may not need HD for much longer. Defer to nephrology -ok for tele -continue amiodarone 200mg BID, IV bolus as needed for recurrence of afib -continue coreg 25mg BID -amlodipine 10mg -continue ASA 325mg -lipitor 80mg -HD per nephrology Problems: Consultation Date/Type/Reason Admit Date/Time Jun 07, 2017 at 02:04 Initial Consult Date 06/07/17 Type of Consultation: Cardiology Referring Provider: TAYLER BE 24 HR Interval Summary Free Text/Dictation UOP good. No afib. No chest pain or SOB. BP now on the lower side this am. Pt had some dizziness with ambulation yesterday Exam/Review of Systems Vital Signs Vitals Vital Signs Date Time Temp Pulse Resp B/P Pulse Ox O2 Delivery O2 Flow Rate FiO2 06/19/17 05:00 79 12 114/75 96 Nasal Cannula 2.0 06/19/17 04:00 97.6 Intake and Output 06/18/17 06/18/17 06/19/17 15:00 23:00 07:00 Intake Total 680 ml 570 ml Output Total 802 ml 409 ml 375 ml Balance -122 ml 161 ml -375 ml Exam Constitutional: alert, oriented Psych: no complaints Head: atraumatic, normocephalic Neck: No jvd Respiratory: clear to auscultation, No crackles/rales Cardiovascular: regular rate and rhythm, No edema Gastrointestinal: non-tender, soft Neurological: nl mental status, nl speech Results Result Diagram: 06/19/1740906/19/17409 Results 24 hrs Laboratory Tests Test 06/18/17 08:26 06/18/17 11:44 06/18/17 17:28 06/18/17 20:38 Bedside Glucose 156 163 159 131 Test 06/19/17 04:10 White Blood Count 12.3 H Red Blood Count 2.87 L Hemoglobin 8.4 L Hematocrit 24.6 L Mean Corpuscular Volume 85.7 Mean Corpuscular Hemoglobin 29.3 Mean Corpuscular Hemoglobin Concent 34.1 Red Cell Distribution Width 14.7 H Platelet Count 188 Mean Platelet Volume 10.3 Neutrophils % 80.8 H Lymphocytes % 8.5 L Monocytes % 7.1 Eosinophils % 1.9 Basophils % 0.3 Nucleated Red Blood Cells % 0.0 Neutrophils # 10.0 H Lymphocytes # 1.1 Monocytes # 0.9 Eosinophils # 0.2 Basophils # 0.0 Nucleated Red Blood Cells # 0.0 Sodium Level 140 Potassium Level 3.4 L Chloride Level 103 Carbon Dioxide Level 23 Anion Gap 17 H Blood Urea Nitrogen 87 H Creatinine 7.23 H Glucose Level 121 Calcium Level 8.8 Magnesium Level 2.4 Medications Medications Current Medications Nitroglycerin (Nitroglycerin (Sl Tab) 0.4 Mg) 1 tab Q5M PRN SL CHEST PAIN Last administered on 06/07/17 08:56; Admin Dose 1 TAB; Start 06/07/17 at 02:30 Docusate Sodium (Colace) 100 mg Q12H PRN PO CONSTIPATION Last administered on 06/18/17 08:43; Admin Dose 100 MG; Start 06/07/17 at 02:30 Bisacodyl (Dulcolax) 5 mg DAILY PRN PO CONSTIPATION Last administered on 15:07; Admin Dose 5 MG; Start 06/07/17 at 02:30 EZETIMIBE (Zetia) 10 mg HS PO Last administered on 06/18/17 20:40; Admin Dose 10 MG; Start 06/07/17 at 21:00 Tamsulosin HCl (Flomax) 0.4 mg DAILY@21 PO Last administered on 06/18/17 20: 40; Admin Dose 0.4 MG; Start 06/07/17 at 21:00 Atorvastatin Calcium (Lipitor) 80 mg QHS PO Last administered on 06/18/17 20: 40; Admin Dose 80 MG; Start 06/07/17 at 21:00 Hydralazine HCl (Apresoline) 10 mg Q6H PRN IV SBP>160 Last administered on 01:04; Admin Dose 10 MG; Start 06/07/17 at 09:00 Oxycodone/ Acetaminophen (Percocet (5/ 325)) 1 tab Q3H PRN PO PAIN LEVEL 1-5 Last administered on 06/16/17 01:55; Admin Dose 1 TAB; Start 06/13/17 at 12: 30 Oxycodone/ Acetaminophen (Percocet (5/ 325)) 2 tab Q3H PRN PO PAIN LEVEL 6-10 Last administered on 06/17/17 06:26; Admin Dose 2 TAB; Start 06/13/17 at 12: 30 Ondansetron HCl (Zofran Inj) 4 mg Q6H PRN IV NAUSEA AND/OR VOMITING Last administered on 06/19/17 06:16; Admin Dose 4 MG; Start 06/13/17 at 12:30 Aspirin (Aspirin) 325 mg DAILY PO Last administered on 06/18/17 08:44; Admin Dose 325 MG; Start 06/14/17 at 09:00 Acetaminophen (Tylenol Tab) 650 mg Q3H PRN PO ELEVATED TEMPERATURE; Start 07/20 at 12:30 Diagnostic Test (Pha) (Accu-Chek) 1 ea 02 XX ; Start 06/16/17 at 02:00 Miscellaneous Information 1 ea NOTE XX ; Start 06/15/17 at 11:00 Glucose (Glutose) 15 gm Q15M PRN PO DECREASED GLUCOSE; Start 06/15/17 at 11:00 Glucose (Glutose) 22.5 gm Q15M PRN PO DECREASED GLUCOSE; Start 06/15/17 at 11: 00 Dextrose (D50w Syringe) 25 ml Q15M PRN IV DECREASED GLUCOSE; Start 06/15/17 at 11:00 Dextrose (D50w Syringe) 50 ml Q15M PRN IV DECREASED GLUCOSE; Start 06/15/17 at 11:00 Glucagon (Glucagen) 1 mg Q15M PRN IM DECREASED GLUCOSE; Start 06/15/17 at 11: 00 Glucose (Glutose) 15 gm Q15M PRN BUCCAL DECREASED GLUCOSE; Start 06/15/17 at 11:00 Famotidine (Pepcid) 20 mg Q24H PO Last administered on 06/18/17 20:39; Admin Dose 20 MG; Start 06/15/17 at 20:00 Insulin Glargine 30 unit 30 unit DAILY@08 SC Last administered on 06/18/17 08 :28; Admin Dose 30 UNIT; Start 06/17/17 at 08:00 Ferric Sodium Gluconate Complex/ Sodium Chloride (Ferrlecit/NS) 110 ml @ 110 mls/hr Q24H IVPB Last administered on 06/18/17 11:44; Admin Dose 110 MLS/HR; Start 06/17/17 at 11:00; Stop 06/21/17 at 11:59 Carvedilol (Coreg) 25 mg BID PO Last administered on 06/18/17 20:40; Admin Dose 25 MG; Start 06/17/17 at 09:00 Amlodipine Besylate (Norvasc) 10 mg DAILY PO Last administered on 06/18/17 08 :43; Admin Dose 10 MG; Start 06/17/17 at 15:00; Stop 07/03/17 at 08:00 Amiodarone HCl (Cordarone) 200 mg BID PO Last administered on 06/18/17 20:39 ; Admin Dose 200 MG; Start 06/17/17 at 19:00; Stop 07/03/17 at 18:59 Heparin Sodium (Porcine) (Heparin (5000 Units/0.5 ml)) 5,000 unit BID SC Last administered on 06/18/17 20:44; Admin Dose 5,000 UNIT; Start 06/18/17 at 09: 00 Hydralazine HCl (Apresoline) 100 mg Q8 PO Last administered on 06/18/17 22:49 ; Admin Dose 100 MG; Start 06/18/17 at 14:00 Polyethylene Glycol (Miralax) 17 gm BID PO Last administered on 06/18/17 17: 43; Admin Dose 17 GM; Start 06/18/17 at 17:15; Stop 07/03/17 at 17:14 Potassium Chloride (Potassium Chloride Pwd/Soln) 20 meq ONCE ONCE PO ; Start 06/19/17 at 08:30; Stop 06/19/17 at 08:31; Status TAYLER CHARLTON Jun 19, 2017 08:23
[2017-06-19] MEDS: AMLODIPINE 10 MG TAB PO SCH (08:26)
[2017-06-19] MEDS ORDERED: POTASSIUM CHLORIDE 20 MEQ POWDER FOR ORAL SOLN PO ONE (08:30)
[2017-06-19] MEDS: INSULIN GLARGINE [LANtus] 3 ML PEN SC SCH (08:37)
[2017-06-19] MEDS: INSULIN ASPART [NOVOLOG] 3 ML PEN SC SCH ×4 (08:38→20:30)
[2017-06-19] MEDS: AMIODARONE 200 MG TAB PO SCH ×2 (08:39→20:33)
[2017-06-19] MEDS: POLYETHYLENE GLYCOL 17 GM PACKET PO SCH ×2 (08:39→20:33)
[2017-06-19] MEDS: HEPARIN 5,000 UNIT/0.5 ML VIAL SC SCH ×2 (08:39→20:52)
[2017-06-19] MEDS: ASPIRIN 325 MG TAB PO SCH (08:39)
--- NOTE | 2017-06-19 08:55 | PN ---
Date/Time of Note Date/Time of Note DATE: 06/19/17 TIME: 08:54 Assessment/Plan VTE Prophylaxis VTE Prophylaxis Intervention: SCD's Lines/Catheters IV Catheter Type (from Nrsg): [place] Cath. Urinary Cath still in place: Yes Reason Cath still needed: other (indicate) Assessment/Plan Assessment/Plan 61 yo M with CAD, CKD, DM admitted for chest pain found to have multi vessel CAD , sp CABG 10.11. Hospitalization c/b [facility] on HD, pt started on HD for uremia. BP now improving. PLAN CAD: cardiology helping with BP control; cont lipid meds and asa ERIC on CKD: HD as per renal DM2: basal/bolus/SSI Anemia: likely 2/2 CKD. as per renal DVT prophx Subjective 24 Hr Interval Summary Free Text/Dictation No complaints. Exam/Review of Systems Vital Signs Vitals Vital Signs Date Time Temp Pulse Resp B/P Pulse Ox O2 Delivery O2 Flow Rate FiO2 06/19/17 05:00 79 12 114/75 96 Nasal Cannula 2.0 06/19/17 04:00 97.6 Intake and Output 06/18/17 06/18/17 06/19/17 14:59 22:59 06:59 Intake Total 530 ml 720 ml Output Total 858 ml 403 ml 425 ml Balance -328 ml 317 ml -425 ml Exam nad no mrg lungs clear +sternotomy scar, chest drain in place with sero/sang output abd soft no rashes Results Result Diagram: 06/19/17 04106/19/17 0410 Results 24 hrs Laboratory Tests Test 06/18/17 11:44 06/18/17 17:28 06/18/17 20:38 06/19/17 04:10 Bedside Glucose 163 159 131 White Blood Count 12.3 H Red Blood Count 2.87 L Hemoglobin 8.4 L Hematocrit 24.6 L Mean Corpuscular Volume 85.7 Mean Corpuscular Hemoglobin 29.3 Mean Corpuscular Hemoglobin Concent 34.1 Red Cell Distribution Width 14.7 H Platelet Count 188 Mean Platelet Volume 10.3 Neutrophils % 80.8 H Lymphocytes % 8.5 L Monocytes % 7.1 Eosinophils % 1.9 Basophils % 0.3 Nucleated Red Blood Cells % 0.0 Neutrophils # 10.0 H Lymphocytes # 1.1 Monocytes # 0.9 Eosinophils # 0.2 Basophils # 0.0 Nucleated Red Blood Cells # 0.0 Sodium Level 140 Potassium Level 3.4 L Chloride Level 103 Carbon Dioxide Level 23 Anion Gap 17 H Blood Urea Nitrogen 87 H Creatinine 7.23 H Glucose Level 121 Calcium Level 8.8 Magnesium Level 2.4 Test 06/19/17 08:29 Bedside Glucose 160 Medications Medications Current Medications Nitroglycerin (Nitroglycerin (Sl Tab) 0.4 Mg) 1 tab Q5M PRN SL CHEST PAIN Last administered on 06/07/17 08:56; Admin Dose 1 TAB; Start 06/07/17 at 02:30 Docusate Sodium (Colace) 100 mg Q12H PRN PO CONSTIPATION Last administered on 06/18/17 08:43; Admin Dose 100 MG; Start 06/07/17 at 02:30 Bisacodyl (Dulcolax) 5 mg DAILY PRN PO CONSTIPATION Last administered on 15:07; Admin Dose 5 MG; Start 06/07/17 at 02:30 EZETIMIBE (Zetia) 10 mg HS PO Last administered on 06/18/17 20:40; Admin Dose 10 MG; Start 06/07/17 at 21:00 Tamsulosin HCl (Flomax) 0.4 mg DAILY@21 PO Last administered on 06/18/17 20: 40; Admin Dose 0.4 MG; Start 06/07/17 at 21:00 Atorvastatin Calcium (Lipitor) 80 mg QHS PO Last administered on 06/18/17 20: 40; Admin Dose 80 MG; Start 06/07/17 at 21:00 Hydralazine HCl (Apresoline) 10 mg Q6H PRN IV SBP>160 Last administered on 01:04; Admin Dose 10 MG; Start 06/07/17 at 09:00 Oxycodone/ Acetaminophen (Percocet (5/ 325)) 1 tab Q3H PRN PO PAIN LEVEL 1-5 Last administered on 06/16/17 01:55; Admin Dose 1 TAB; Start 06/13/17 at 12: 30 Oxycodone/ Acetaminophen (Percocet (5/ 325)) 2 tab Q3H PRN PO PAIN LEVEL 6-10 Last administered on 06/17/17 06:26; Admin Dose 2 TAB; Start 06/13/17 at 12: 30 Ondansetron HCl (Zofran Inj) 4 mg Q6H PRN IV NAUSEA AND/OR VOMITING Last administered on 06/19/17 06:16; Admin Dose 4 MG; Start 06/13/17 at 12:30 Aspirin (Aspirin) 325 mg DAILY PO Last administered on 06/19/17 08:39; Admin Dose 325 MG; Start 06/14/17 at 09:00 Acetaminophen (Tylenol Tab) 650 mg Q3H PRN PO ELEVATED TEMPERATURE; Start 07/20 at 12:30 Diagnostic Test (Pha) (Accu-Chek) 1 ea 02 XX ; Start 06/16/17 at 02:00 Miscellaneous Information 1 ea NOTE XX ; Start 06/15/17 at 11:00 Glucose (Glutose) 15 gm Q15M PRN PO DECREASED GLUCOSE; Start 06/15/17 at 11:00 Glucose (Glutose) 22.5 gm Q15M PRN PO DECREASED GLUCOSE; Start 06/15/17 at 11: 00 Dextrose (D50w Syringe) 25 ml Q15M PRN IV DECREASED GLUCOSE; Start 06/15/17 at 11:00 Dextrose (D50w Syringe) 50 ml Q15M PRN IV DECREASED GLUCOSE; Start 06/15/17 at 11:00 Glucagon (Glucagen) 1 mg Q15M PRN IM DECREASED GLUCOSE; Start 06/15/17 at 11: 00 Glucose (Glutose) 15 gm Q15M PRN BUCCAL DECREASED GLUCOSE; Start 06/15/17 at 11:00 Famotidine (Pepcid) 20 mg Q24H PO Last administered on 06/18/17 20:39; Admin Dose 20 MG; Start 06/15/17 at 20:00 Insulin Glargine 30 unit 30 unit DAILY@08 SC Last administered on 06/19/17 08 :37; Admin Dose 30 UNIT; Start 06/17/17 at 08:00 Ferric Sodium Gluconate Complex/ Sodium Chloride (Ferrlecit/NS) 110 ml @ 110 mls/hr Q24H IVPB Last administered on 06/18/17 11:44; Admin Dose 110 MLS/HR; Start 06/17/17 at 11:00; Stop 06/21/17 at 11:59 Carvedilol (Coreg) 25 mg BID PO Last administered on 06/18/17 20:40; Admin Dose 25 MG; Start 06/17/17 at 09:00 Amlodipine Besylate (Norvasc) 10 mg DAILY PO Last administered on 06/18/17 08 :43; Admin Dose 10 MG; Start 06/17/17 at 15:00; Stop 07/03/17 at 08:00 Amiodarone HCl (Cordarone) 200 mg BID PO Last administered on 06/19/17 08:39 ; Admin Dose 200 MG; Start 06/17/17 at 19:00; Stop 07/03/17 at 18:59 Heparin Sodium (Porcine) (Heparin (5000 Units/0.5 ml)) 5,000 unit BID SC Last administered on 06/19/17 08:39; Admin Dose 5,000 UNIT; Start 06/18/17 at 09: 00 Polyethylene Glycol (Miralax) 17 gm BID PO Last administered on 06/19/17 08: 39; Admin Dose 17 GM; Start 06/18/17 at 17:15; Stop 07/03/17 at 17:14 Hydralazine HCl (Apresoline) 75 mg Q8 PO ; Start 06/19/17 at 14:00 ZULMA LUTHER MD Jun 19, 2017 08:55
--- NOTE | 2017-06-19 09:16 | RADRPT ---
PROCEDURE: XR Chest. CLINICAL INDICATION: Follow-up TECHNIQUE: AP Portable chest. COMPARISON: CHEST 06/17/2017; CHEST 06/16/2017 FINDINGS: Right dialysis catheter is unchanged. The cardiomediastinal silhouette is enlarged. Sternotomy wires are visualized. The aortic arch is ca lcified. Interval decreased edema. Retrocardiac opacity is again noted. No pneumothorax is seen. Th e osseous structures are intact. IMPRESSION: Interval decreased edema. Persistent retrocardiac opacity. Cardiomegaly. Right dialysis catheter in place. Physician Sabrina Date Time Electronically viewed and signed by Physician Sabrina on 06/19/2017 09:15 CS/
--- NOTE | 2017-06-19 09:26 | RADRPT ---
PROCEDURE: XR Chest. CLINICAL INDICATION: Chest pain. TECHNIQUE: AP Portable chest. COMPARISON: CHEST 06/19/2017; CHEST 06/17/2017 FINDINGS: Right dialysis catheter is unchanged. Sternotomy wires and mediastinal clips are visualized. The cardiomediastinal silhouette is markedly enlarged. The aortic arch is calcified. The lung volume s are decreased. Left perihilar ground-glass density and linear atelectasis are visualized. Retrocar diac opacity and probable small pleural effusion are again seen. No pneumothorax is identified. IMPRESSION: Decreased lung volumes. Increased left perihilar atelectasis. Unchanged retrocardiac opacity and small pleural effusion. Severe cardiomegaly. Physician Sabrina Date Time Electronically viewed and signed by Physician Sabrina on 06/19/2017 09:26 CS/
--- NOTE | 2017-06-19 10:39 | PN ---
DATE: 06/19/2017 SUBJECTIVE: The patient is stable. No events overnight. No fevers, chills, nausea, vomiting. OBJECTIVE: VITAL SIGNS: Blood pressure 114/75, respirations 12, pulse 79, temperature 97.6. HEENT: Head is normocephalic. NECK: Supple. HEART: Regular rate. LUNGS: Show diminished breath sounds at base. ABDOMEN: Soft, nontender to palpation. No rebound or guarding. EXTREMITIES: Negative for clubbing, cyanosis, or edema. DERMATOLOGIC: No rashes. MUSCULOSKELETAL: No joint effusions. NEUROLOGIC: No change in exam. MEDICATIONS: The patient's medications have been reviewed. LABORATORY DATA: Showed sodium 140, potassium 3.4, chloride 103, BUN 87, creatinine 1.23. White co unt 12.3, hemoglobin 8.4, hematocrit 24.6, and platelet count is 188. ASSESSMENT AND PLAN: 1. Nonoliguric acute kidney injury on top of chronic kidney disease stage IV. Etiology of acute ki dney injury is currently secondary to acute tubular necrosis. The patient is currently on hemodialy sis. Will plan for dialysis today for 3 hours on 3 K bath, calcium 2.5. 2. Anemia. Monitor hemoglobin and hematocrit levels. Will give Epogen as needed. 3. Mineral bone disorder. Will monitor calcium and phosphorus levels. 4. Hypokalemia. The patient will be dialyzed a 4 potassium bath. 5. Hypertension. Continue current blood pressure regimen. Continue ultrafiltration dialysis. 6. Congestive heart failure. Continue ultrafiltration with dialysis. Continue medical management. 7. History of coronary artery disease, status post coronary artery bypass graft. 8. Diabetes. Continue Accu-Cheks, insulin sliding scale. Dictated By: REBECCA BLANKENSHIP/BRANDON Conf#: [id number] DID#: [id number]
--- NOTE | 2017-06-19 10:57 | CONS ---
Date/Time of Note Date/Time of Note DATE: 06/19/17 TIME: 10:54 Assessment/Plan Assessment/Plan Additional Assessment/Plan Chest x-ray was reviewed from today which is showing cardiomegaly without any acute infiltrates. Assessment and recommendations; 1. Patient admitted with acute WI status post CABG surgery. 2. Acute renal failure now requiring hemodialysis. 3. Cardiomyopathy. 4. Anemia, diabetes and hypertension. 5. Cardiac arrhythmia. Patient remains in sinus rhythm. 6. Episodes of somnolence likely from sedative accumulation in view of acute renal failure, clinically improving. Continue current supportive care. Patient to be transferred to telemetry unit. Consultation Date/Type/Reason Admit Date/Time Jun 07, 2017 at 02:04 Initial Consult Date 06/18/17 Type of Consultation: Pulmonary/critical care Referring Provider: TAYLER BE 24 HR Interval Summary Free Text/Dictation Patient's condition is stable. Patient is much more awake. Still has episodes of somnolence but not as pronounced as yesterday. Has remained hemodynamically stable. General exam; elderly male, awake alert, currently in no distress. Exam/Review of Systems Vital Signs Vitals Vital Signs Date Time Temp Pulse Resp B/P Pulse Ox O2 Delivery O2 Flow Rate FiO2 06/19/17 09:55 97.6 83 19 154/83 95 06/19/17 09:00 Nasal Cannula 2.0 Intake and Output 06/18/17 06/18/17 06/19/17 15:00 23:00 07:00 Intake Total 680 ml 570 ml Output Total 802 ml 409 ml 375 ml Balance -122 ml 161 ml -375 ml Exam HEENT exam; supple neck, no JVD. No lymphadenopathy. Midline trachea. No thyromegaly. Patient has fair dentition. Pupils are midsize and reactive to light. Chest exam; clear to auscultation. S1-S2 audible, no murmurs. Regular rhythm. There is a sternal scar. Abdomen exam; soft, nontender. No organomegaly. Bowel sounds audible. Extremity exam; no peripheral edema. Pulses 1+ bilaterally. FISH PROCESSOR exam; patient is awake and alert without any neurological deficit. Results Result Diagram: 06/19/17 0410 06/19/17 0410 Results 24 hrs Laboratory Tests Test 06/18/17 11:44 06/18/17 17:28 06/18/17 20:38 06/19/17 04:10 Bedside Glucose 163 159 131 White Blood Count 12.3 H Red Blood Count 2.87 L Hemoglobin 8.4 L Hematocrit 24.6 L Mean Corpuscular Volume 85.7 Mean Corpuscular Hemoglobin 29.3 Mean Corpuscular Hemoglobin Concent 34.1 Red Cell Distribution Width 14.7 H Platelet Count 188 Mean Platelet Volume 10.3 Neutrophils % 80.8 H Lymphocytes % 8.5 L Monocytes % 7.1 Eosinophils % 1.9 Basophils % 0.3 Nucleated Red Blood Cells % 0.0 Neutrophils # 10.0 H Lymphocytes # 1.1 Monocytes # 0.9 Eosinophils # 0.2 Basophils # 0.0 Nucleated Red Blood Cells # 0.0 Sodium Level 140 Potassium Level 3.4 L Chloride Level 103 Carbon Dioxide Level 23 Anion Gap 17 H Blood Urea Nitrogen 87 H Creatinine 7.23 H Glucose Level 121 Calcium Level 8.8 Magnesium Level 2.4 Test 06/19/17 08:29 Bedside Glucose 160 Medications Medications Current Medications Nitroglycerin (Nitroglycerin (Sl Tab) 0.4 Mg) 1 tab Q5M PRN SL CHEST PAIN Last administered on 06/07/17 08:56; Admin Dose 1 TAB; Start 06/07/17 at 02:30 Docusate Sodium (Colace) 100 mg Q12H PRN PO CONSTIPATION Last administered on 06/18/17 08:43; Admin Dose 100 MG; Start 06/07/17 at 02:30 Bisacodyl (Dulcolax) 5 mg DAILY PRN PO CONSTIPATION Last administered on 15:07; Admin Dose 5 MG; Start 06/07/17 at 02:30 EZETIMIBE (Zetia) 10 mg HS PO Last administered on 06/18/17 20:40; Admin Dose 10 MG; Start 06/07/17 at 21:00 Tamsulosin HCl (Flomax) 0.4 mg DAILY@21 PO Last administered on 06/18/17 20: 40; Admin Dose 0.4 MG; Start 06/07/17 at 21:00 Atorvastatin Calcium (Lipitor) 80 mg QHS PO Last administered on 06/18/17 20: 40; Admin Dose 80 MG; Start 06/07/17 at 21:00 Hydralazine HCl (Apresoline) 10 mg Q6H PRN IV SBP>160 Last administered on 01:04; Admin Dose 10 MG; Start 06/07/17 at 09:00 Oxycodone/ Acetaminophen (Percocet (5/ 325)) 1 tab Q3H PRN PO PAIN LEVEL 1-5 Last administered on 06/16/17 01:55; Admin Dose 1 TAB; Start 06/13/17 at 12: 30 Oxycodone/ Acetaminophen (Percocet (5/ 325)) 2 tab Q3H PRN PO PAIN LEVEL 6-10 Last administered on 06/17/17 06:26; Admin Dose 2 TAB; Start 06/13/17 at 12: 30 Ondansetron HCl (Zofran Inj) 4 mg Q6H PRN IV NAUSEA AND/OR VOMITING Last administered on 06/19/17 06:16; Admin Dose 4 MG; Start 06/13/17 at 12:30 Aspirin (Aspirin) 325 mg DAILY PO Last administered on 06/19/17 08:39; Admin Dose 325 MG; Start 06/14/17 at 09:00 Acetaminophen (Tylenol Tab) 650 mg Q3H PRN PO ELEVATED TEMPERATURE; Start 07/20 at 12:30 Diagnostic Test (Pha) (Accu-Chek) 1 ea 02 XX ; Start 06/16/17 at 02:00 Miscellaneous Information 1 ea NOTE XX ; Start 06/15/17 at 11:00 Glucose (Glutose) 15 gm Q15M PRN PO DECREASED GLUCOSE; Start 06/15/17 at 11:00 Glucose (Glutose) 22.5 gm Q15M PRN PO DECREASED GLUCOSE; Start 06/15/17 at 11: 00 Dextrose (D50w Syringe) 25 ml Q15M PRN IV DECREASED GLUCOSE; Start 06/15/17 at 11:00 Dextrose (D50w Syringe) 50 ml Q15M PRN IV DECREASED GLUCOSE; Start 06/15/17 at 11:00 Glucagon (Glucagen) 1 mg Q15M PRN IM DECREASED GLUCOSE; Start 06/15/17 at 11: 00 Glucose (Glutose) 15 gm Q15M PRN BUCCAL DECREASED GLUCOSE; Start 06/15/17 at 11:00 Famotidine (Pepcid) 20 mg Q24H PO Last administered on 06/18/17 20:39; Admin Dose 20 MG; Start 06/15/17 at 20:00 Insulin Glargine 30 unit 30 unit DAILY@08 SC Last administered on 06/19/17 08 :37; Admin Dose 30 UNIT; Start 06/17/17 at 08:00 Ferric Sodium Gluconate Complex/ Sodium Chloride (Ferrlecit/NS) 110 ml @ 110 mls/hr Q24H IVPB Last administered on 06/18/17 11:44; Admin Dose 110 MLS/HR; Start 06/17/17 at 11:00; Stop 06/21/17 at 11:59 Carvedilol (Coreg) 25 mg BID PO Last administered on 06/18/17 20:40; Admin Dose 25 MG; Start 06/17/17 at 09:00 Amlodipine Besylate (Norvasc) 10 mg DAILY PO Last administered on 06/18/17 08 :43; Admin Dose 10 MG; Start 06/17/17 at 15:00; Stop 07/03/17 at 08:00 Amiodarone HCl (Cordarone) 200 mg BID PO Last administered on 06/19/17 08:39 ; Admin Dose 200 MG; Start 06/17/17 at 19:00; Stop 07/03/17 at 18:59 Heparin Sodium (Porcine) (Heparin (5000 Units/0.5 ml)) 5,000 unit BID SC Last administered on 06/19/17 08:39; Admin Dose 5,000 UNIT; Start 06/18/17 at 09: 00 Polyethylene Glycol (Miralax) 17 gm BID PO Last administered on 06/19/17 08: 39; Admin Dose 17 GM; Start 06/18/17 at 17:15; Stop 07/03/17 at 17:14 Hydralazine HCl (Apresoline) 75 mg Q8 PO ; Start 06/19/17 at 14:00 FREDRICK WOODY Jun 19, 2017 10:56
--- NOTE | 2017-06-19 11:56 | PN ---
Date/Time of Note Date/Time of Note DATE: 06/19/17 TIME: 11:56 Assessment/Plan Lines/Catheters IV Catheter Type (from [facility]): SHIRA Morocho in Place (from [facility]): Yes Assessment/Plan Chief Complaint/Hosp Course HD stable making more urine, creatinine 7 probably need dialysis one or two more days needs to ambulate. good progress Problems: Exam/Review of Systems Vital Signs Vitals Vital Signs Date Time Temp Pulse Resp B/P Pulse Ox O2 Delivery O2 Flow Rate FiO2 06/19/17 11:26 97.5 82 19 155/79 96 06/19/17 09:00 Nasal Cannula 2.0 Intake and Output 06/18/17 06/18/17 06/19/17 15:00 23:00 07:00 Intake Total 680 ml 570 ml Output Total 802 ml 409 ml 375 ml Balance -122 ml 161 ml -375 ml Results Result Diagram: 06/19/17 0410 06/19/17 0410 DENISA GREENE MD Jun 19, 2017 11:56
[2017-06-19] MEDS: SOD FERRIC GLUC COMPLX 125 MG in SOD CHLORIDE 0.9% 100 ML IVPB SCH (12:42)
[2017-06-19] MEDS: hydrALAzine 20 MG INJ IV PRN (19:23)
[2017-06-19] MEDS: TAMSULOSIN (SR) 0.4 MG CAP PO SCH (20:26)
[2017-06-19] MEDS: EZETIMIBE 10 MG TAB PO SCH (20:26)
[2017-06-19] MEDS: ATORVASTATIN 40 MG TAB PO SCH (20:26)
[2017-06-19] MEDS: FAMOTIDINE 20 MG TAB PO SCH (20:27)
[2017-06-20] VITALS (12 sets, daily range): BP systolic 127–154; BP diastolic 73–84; PULSE 90–98; RESP 16–19
[2017-06-20] MEDS: ACCU-CHEK XX SCH (02:00)
--- NOTE | 2017-06-20 07:01 | PN ---
Date/Time of Note Date/Time of Note DATE: 06/20/17 TIME: 07:01 Assessment/Plan Lines/Catheters IV Catheter Type (from [facility]): Stephen Morocho in Place (from [facility]): Yes Assessment/Plan Chief Complaint/Hosp Course check labs making urine possibly d/c dialysis cath increase activity Problems: Exam/Review of Systems Vital Signs Vitals Vital Signs Date Time Temp Pulse Resp B/P Pulse Ox O2 Delivery O2 Flow Rate FiO2 06/20/17 04:00 95 06/20/17 03:00 98.1 151/84 94 06/19/17 23:36 20 06/19/17 20:00 Nasal Cannula 2.0 Intake and Output 06/19/17 06/19/17 06/20/17 15:00 23:00 07:00 Intake Total 110 ml 650 ml 240 ml Output Total 2700 ml 200 ml Balance 110 ml -2050 ml 40 ml Results Result Diagram: 06/19/17 0410 06/19/17 0410 DENISA GREENE MD Jun 20, 2017 07:01
[2017-06-20 07:27] LABS: BASOPHIL # 0.1 10^3/ul (0.0-0.1); BASOPHILS % 0.3 % (0.0-2.0); EOSINOPHILS # 0.5 10^3/ul (0.0-0.5); HEMATOCRIT 27.1 % (42.0-52.0); LYMPHOCYTES # 1.6 10^3/ul (0.8-2.9); MEAN CORPUSCULAR HEMOGLOBIN 28.8 pg (29.0-33.0); MEAN CORPUSCULAR HGB CONC 33.2 g/dl (32.0-37.0); MEAN CORPUSCULAR VOLUME 86.9 fl (82.0-101.0); MEAN PLATELET VOLUME 10.1 fl (7.4-10.4); MONOCYTE # 1.5 10^3/ul (0.3-0.9); MONOCYTES % 8.3 % (0.0-11.0); NEUTROPHIL # 13.8 10^3/ul (1.6-7.5); NEUTROPHILS % 77.7 % (39.0-77.0); PLATELET COUNT 209 10^3/UL (140-415); RED BLOOD COUNT 3.12 10^6/ul (4.70-6.10); RED CELL DISTRIBUTION WIDTH 15.3 % (11.5-14.5); WHITE BLOOD COUNT 17.8 10^3/ul (4.8-10.8)
[2017-06-20 07:44] LABS: CALCIUM 9.5 mg/dl (8.4-10.2); CREATININE 5.44 mg/dl (0.61-1.24); POTASSIUM 3.4 mmol/L (3.5-5.1)
[2017-06-20] MEDS: ASPIRIN 325 MG TAB PO SCH (08:13)
[2017-06-20] MEDS: POLYETHYLENE GLYCOL 17 GM PACKET PO SCH ×3 (08:13→20:24)
[2017-06-20] MEDS: AMLODIPINE 10 MG TAB PO SCH (08:13)
[2017-06-20] MEDS: AMIODARONE 200 MG TAB PO SCH ×2 (08:13→20:19)
[2017-06-20] MEDS: INSULIN ASPART [NOVOLOG] 3 ML PEN SC SCH ×4 (08:24→20:19)
[2017-06-20] MEDS ORDERED: POTASSIUM CHLORIDE 20 MEQ POWDER FOR ORAL SOLN PO ONE (08:30)
[2017-06-20] MEDS: HEPARIN 5,000 UNIT/0.5 ML VIAL SC SCH ×2 (08:39→20:23)
[2017-06-20] MEDS: INSULIN GLARGINE [LANtus] 3 ML PEN SC SCH (08:40)
--- NOTE | 2017-06-20 08:49 | CONS ---
Date/Time of Note Date/Time of Note DATE: 06/20/17 TIME: 08:46 Assessment/Plan Assessment/Plan Chief Complaint/Hosp Course Paroxysmal afib: common post cardiac surgery. Was on amio drip, now PO. Back in sinus CAD s/p CABG x5: MAYER to LAD, SVG to diagonal artery, SVG to posterior descending artery, SVG to ramus intermedius sequenced to obtuse marginal artery. Doing well post-op NSTEMI Acute on chronic systolic heart failure: EF 40-45%F. ~Euvolemic by exam Acute on chronic renal failure: unknown baseline. Cr 3.6 initially. Now on HD but UOP has increased so may just be temporary CAD s/p prior PCI 2006 H/o CVA DM HTN -PT eval -increase to hydralazine 100mg q8h -renal function and UOP improving so may not need HD for much longer. Defer to nephrology -continue amiodarone 200mg BID,can switch to 200mg daily on discharge -continue coreg 25mg BID -amlodipine 10mg -continue ASA 325mg -lipitor 80mg Problems: Consultation Date/Type/Reason Admit Date/Time Jun 07, 2017 at 02:04 Initial Consult Date 06/07/17 Type of Consultation: Cardiology Referring Provider: TAYLER BE 24 HR Interval Summary Free Text/Dictation Had HD yesterday. Still making urine. No complaints. Has not been out of bed much. Exam/Review of Systems Vital Signs Vitals Vital Signs Date Time Temp Pulse Resp B/P Pulse Ox O2 Delivery O2 Flow Rate FiO2 06/20/17 08:41 98 06/20/17 07:54 99.0 19 154/84 97 06/19/17 20:00 Nasal Cannula 2.0 Intake and Output 06/19/17 06/19/17 06/20/17 15:00 23:00 07:00 Intake Total 110 ml 650 ml 240 ml Output Total 2700 ml 200 ml Balance 110 ml -2050 ml 40 ml Exam Constitutional: alert, oriented Psych: nl mood/affect, no complaints Head: atraumatic, normocephalic Neck: No jvd Respiratory: clear to auscultation, No crackles/rales Cardiovascular: regular rate and rhythm, No edema, No systolic murmur Gastrointestinal: non-tender, soft Neurological: nl mental status, nl speech Results Result Diagram: 06/20/1715 06/20/17 0615 Results 24 hrs Laboratory Tests Test 06/19/17 11:32 06/19/17 17:28 06/19/17 20:29 06/20/17 06:15 Bedside Glucose 159 138 141 White Blood Count 17.8 #H Red Blood Count 3.12 L Hemoglobin 9.0 L Hematocrit 27.1 L Mean Corpuscular Volume 86.9 Mean Corpuscular Hemoglobin 28.8 L Mean Corpuscular Hemoglobin Concent 33.2 Red Cell Distribution Width 15.3 H Platelet Count 209 Mean Platelet Volume 10.1 Neutrophils % 77.7 H Lymphocytes % 9.0 L Monocytes % 8.3 Eosinophils % 3.0 Basophils % 0.3 Nucleated Red Blood Cells % 0.0 Neutrophils # 13.8 H Lymphocytes # 1.6 Monocytes # 1.5 H Eosinophils # 0.5 Basophils # 0.1 Nucleated Red Blood Cells # 0.0 Sodium Level 142 Potassium Level 3.4 L Chloride Level 103 Carbon Dioxide Level 25 Anion Gap 17 H Blood Urea Nitrogen 62 H Creatinine 5.44 H Glucose Level 134 Calcium Level 9.5 Test 06/20/17 08:10 Bedside Glucose 150 Medications Medications Current Medications Nitroglycerin (Nitroglycerin (Sl Tab) 0.4 Mg) 1 tab Q5M PRN SL CHEST PAIN Last administered on 06/07/17 08:56; Admin Dose 1 TAB; Start 06/07/17 at 02:30 Docusate Sodium (Colace) 100 mg Q12H PRN PO CONSTIPATION Last administered on 06/18/17 08:43; Admin Dose 100 MG; Start 06/07/17 at 02:30 Bisacodyl (Dulcolax) 5 mg DAILY PRN PO CONSTIPATION Last administered on 15:07; Admin Dose 5 MG; Start 06/07/17 at 02:30 EZETIMIBE (Zetia) 10 mg HS PO Last administered on 06/19/17 20:26; Admin Dose 10 MG; Start 06/07/17 at 21:00 Tamsulosin HCl (Flomax) 0.4 mg DAILY@21 PO Last administered on 06/19/17 20: 26; Admin Dose 0.4 MG; Start 06/07/17 at 21:00 Atorvastatin Calcium (Lipitor) 80 mg QHS PO Last administered on 06/19/17 20: 26; Admin Dose 80 MG; Start 06/07/17 at 21:00 Hydralazine HCl (Apresoline) 10 mg Q6H PRN IV SBP>160 Last administered on 19:23; Admin Dose 10 MG; Start 06/07/17 at 09:00 Oxycodone/ Acetaminophen (Percocet (5/ 325)) 1 tab Q3H PRN PO PAIN LEVEL 1-5 Last administered on 06/16/17 01:55; Admin Dose 1 TAB; Start 06/13/17 at 12: 30 Oxycodone/ Acetaminophen (Percocet (5/ 325)) 2 tab Q3H PRN PO PAIN LEVEL 6-10 Last administered on 06/17/17 06:26; Admin Dose 2 TAB; Start 06/13/17 at 12: 30 Ondansetron HCl (Zofran Inj) 4 mg Q6H PRN IV NAUSEA AND/OR VOMITING Last administered on 06/19/17 06:16; Admin Dose 4 MG; Start 06/13/17 at 12:30 Aspirin (Aspirin) 325 mg DAILY PO Last administered on 06/20/17 08:13; Admin Dose 325 MG; Start 06/14/17 at 09:00 Acetaminophen (Tylenol Tab) 650 mg Q3H PRN PO ELEVATED TEMPERATURE; Start 07/20 at 12:30 Diagnostic Test (Pha) (Accu-Chek) 1 ea 02 XX ; Start 06/16/17 at 02:00 Miscellaneous Information 1 ea NOTE XX ; Start 06/15/17 at 11:00 Glucose (Glutose) 15 gm Q15M PRN PO DECREASED GLUCOSE; Start 06/15/17 at 11:00 Glucose (Glutose) 22.5 gm Q15M PRN PO DECREASED GLUCOSE; Start 06/15/17 at 11: 00 Dextrose (D50w Syringe) 25 ml Q15M PRN IV DECREASED GLUCOSE; Start 06/15/17 at 11:00 Dextrose (D50w Syringe) 50 ml Q15M PRN IV DECREASED GLUCOSE; Start 06/15/17 at 11:00 Glucagon (Glucagen) 1 mg Q15M PRN IM DECREASED GLUCOSE; Start 06/15/17 at 11: 00 Glucose (Glutose) 15 gm Q15M PRN BUCCAL DECREASED GLUCOSE; Start 06/15/17 at 11:00 Famotidine (Pepcid) 20 mg Q24H PO Last administered on 06/19/17 20:27; Admin Dose 20 MG; Start 06/15/17 at 20:00 Insulin Glargine 30 unit 30 unit DAILY@08 SC Last administered on 06/20/17 08 :40; Admin Dose 30 UNIT; Start 06/17/17 at 08:00 Ferric Sodium Gluconate Complex/ Sodium Chloride (Ferrlecit/NS) 110 ml @ 110 mls/hr Q24H IVPB Last administered on 06/19/17 12:42; Admin Dose 110 MLS/HR; Start 06/17/17 at 11:00; Stop 06/21/17 at 11:59 Carvedilol (Coreg) 25 mg BID PO Last administered on 06/20/17 08:13; Admin Dose 25 MG; Start 06/17/17 at 09:00 Amlodipine Besylate (Norvasc) 10 mg DAILY PO Last administered on 06/20/17 08 :13; Admin Dose 10 MG; Start 06/17/17 at 15:00; Stop 07/03/17 at 08:00 Amiodarone HCl (Cordarone) 200 mg BID PO Last administered on 06/20/17 08:13 ; Admin Dose 200 MG; Start 06/17/17 at 19:00; Stop 07/03/17 at 18:59 Heparin Sodium (Porcine) (Heparin (5000 Units/0.5 ml)) 5,000 unit BID SC Last administered on 06/20/17 08:39; Admin Dose 5,000 UNIT; Start 06/18/17 at 09: 00 Polyethylene Glycol (Miralax) 17 gm BID PO Last administered on 06/20/17 08: 13; Admin Dose 17 GM; Start 06/18/17 at 17:15; Stop 07/03/17 at 17:14 Hydralazine HCl (Apresoline) 100 mg Q8 PO ; Start 06/20/17 at 14:00 TAYLER BE Jun 20, 2017 08:49
--- NOTE | 2017-06-20 09:28 | PN ---
DATE: 06/20/2017 SUBJECTIVE: The patient was transferred from intensive care unit to telemetry. The patient had hem odialysis yesterday, tolerated well. No other events noted. OBJECTIVE: VITAL SIGNS: Blood pressure is 154/84, pulse 97, respiration 19, temperature 99.0. HEENT: Head is normocephalic. NECK: Supple. HEART: Regular rate. LUNGS: Show diminished breath sounds at the base. ABDOMEN: Soft, nontender to palpation. No rebound or guarding. EXTREMITIES: Negative for clubbing, cyanosis, no edema. DERMATOLOGIC: No rashes. MUSCULOSKELETAL: No joint effusions. NEUROLOGIC: No change in exam. MEDICATIONS: The patient's medications have been reviewed. LABORATORY DATA: Shows sodium 142, potassium 2.4, BUN 62, creatinine 5.44. White count 17.8, hemog lobin 9.0, hematocrit 27.1, platelet count is 209. ASSESSMENT AND PLAN: 1. Nonoliguric acute kidney injury on top of chronic kidney disease stage IV. Etiology of acute ki dney injury is secondary to acute tubular necrosis. The patient is currently dialysis dependent, no signs of recovery. Plan for dialysis again tomorrow for 3 hours, 2K bath, calcium 2.5. 2. Anemia. Monitor hemoglobin and hematocrit levels. We will give Epogen as needed. 3. Mineral bone disorder. Monitor calcium and phosphorus levels. 4. Hypokalemia. Continue to monitor. 5. Hypertension. Continue current blood pressure regimen. 6. Coronary artery disease, status post coronary artery bypass graft. Continue medical management. 7. Congestive heart failure. Continue current treatment plan. 8. Diabetes. Continue Accu-Cheks, insulin sliding scale. 9. Access. The patient has a Stephen catheter. No obvious signs of infection. 10. Leukocytosis. Continue to monitor closely. Consider checking blood cultures. Defer to primar y team. Dictated By: REBECCA BLANKENSHIP/BRANDON Conf#: [id number] DID#: [id number]
--- NOTE | 2017-06-20 09:37 | RADRPT ---
PROCEDURE: XR Chest. CLINICAL INDICATION: Follow-up TECHNIQUE: AP Portable chest. COMPARISON: CHEST 06/19/2017; CHEST 06/19/2017 FINDINGS: The right dialysis catheter is unchanged. The cardiomediastinal silhouette is enlarged. Sternotomy wires are visualized. The aortic arch is ca lcified. No pneumothorax is seen. Interval decreased left mid lung and basilar atelectasis . The rig ht lung is clear. The osseous structures are intact. IMPRESSION: Decrease left-sided atelectasis. Cardiomegaly. Physician Sabrina Date Time Electronically viewed and signed by Physician Sabrina on 06/20/2017 09:36 CS/
--- NOTE | 2017-06-20 09:44 | PN ---
Date/Time of Note Date/Time of Note DATE: 06/20/17 TIME: 09:38 Assessment/Plan VTE Prophylaxis VTE Prophylaxis Intervention: heparin Lines/Catheters IV Catheter Type (from Nrsg): Stephen Urinary Cath still in place: Yes Reason Cath still needed: other (indicate) (acute renal failure, strict I/O, S/ p CABG ) Assessment/Plan Assessment/Plan 61 yo M with CAD, CKD, DM admitted for chest pain found to have multi vessel CAD , sp CABG 10.11. Hospitalization c/b ERIC on HD, pt started on HD for uremia. BP now improving. PLAN CAD: cardiology helping with BP control; cont lipid meds and asa ERIC on CKD: HD as per renal, started on HD, HD as per nephrology DM2: basal/bolus/SSI Anemia: likely 2/2 CKD. as per renal, on IV iron for iron def anemia SCD: heparin for DVT prophylaxis Subjective 24 Hr Interval Summary Free Text/Dictation doing ok, Bp stable, no chest pain but SOB Constitutional: no complaints Eyes: no complaints Respiratory: pleuritic pain, shortness of breath Cardiovascular: no complaints Gastrointestinal: no complaints Genitourinary: no complaints Musculoskeletal: no complaints Neurologic: no complaints Exam/Review of Systems Vital Signs Vitals Vital Signs Date Time Temp Pulse Resp B/P Pulse Ox O2 Delivery O2 Flow Rate FiO2 06/20/17 08:41 98 06/20/17 07:54 99.0 19 154/84 97 06/19/17 20:00 Nasal Cannula 2.0 Intake and Output 06/19/17 06/19/17 06/20/17 15:00 23:00 07:00 Intake Total 110 ml 650 ml 240 ml Output Total 2700 ml 200 ml Balance 110 ml -2050 ml 40 ml Exam Constitutional: alert Psych: no complaints Head: normocephalic Eyes: nl conjunctiva ENMT: nl external ears & nose Neck: supple Respiratory: clear to auscultation, diminished breath sounds, normal air movement Cardiovascular: nl pulses, regular rate and rhythm Gastrointestinal: non-tender, soft Musculoskeletal: nl extremities to inspection Neurological: JUICE TESTER II-XII intact, nl mental status, nl speech, nl strength Results Result Diagram: 06/20/17 0615 06/20/17 0615 Results 24 hrs Laboratory Tests Test 06/19/17 11:32 06/19/17 17:28 06/19/17 20:29 06/20/17 06:15 Bedside Glucose 159 138 141 White Blood Count 17.8 #H Red Blood Count 3.12 L Hemoglobin 9.0 L Hematocrit 27.1 L Mean Corpuscular Volume 86.9 Mean Corpuscular Hemoglobin 28.8 L Mean Corpuscular Hemoglobin Concent 33.2 Red Cell Distribution Width 15.3 H Platelet Count 209 Mean Platelet Volume 10.1 Neutrophils % 77.7 H Lymphocytes % 9.0 L Monocytes % 8.3 Eosinophils % 3.0 Basophils % 0.3 Nucleated Red Blood Cells % 0.0 Neutrophils # 13.8 H Lymphocytes # 1.6 Monocytes # 1.5 H Eosinophils # 0.5 Basophils # 0.1 Nucleated Red Blood Cells # 0.0 Sodium Level 142 Potassium Level 3.4 L Chloride Level 103 Carbon Dioxide Level 25 Anion Gap 17 H Blood Urea Nitrogen 62 H Creatinine 5.44 H Glucose Level 134 Calcium Level 9.5 Test 06/20/17 08:10 Bedside Glucose 150 Medications Medications Current Medications Nitroglycerin (Nitroglycerin (Sl Tab) 0.4 Mg) 1 tab Q5M PRN SL CHEST PAIN Last administered on 06/07/17 08:56; Admin Dose 1 TAB; Start 06/07/17 at 02:30 Docusate Sodium (Colace) 100 mg Q12H PRN PO CONSTIPATION Last administered on 06/18/17 08:43; Admin Dose 100 MG; Start 06/07/17 at 02:30 Bisacodyl (Dulcolax) 5 mg DAILY PRN PO CONSTIPATION Last administered on 15:07; Admin Dose 5 MG; Start 06/07/17 at 02:30 EZETIMIBE (Zetia) 10 mg HS PO Last administered on 06/19/17 20:26; Admin Dose 10 MG; Start 06/07/17 at 21:00 Tamsulosin HCl (Flomax) 0.4 mg DAILY@21 PO Last administered on 06/19/17 20: 26; Admin Dose 0.4 MG; Start 06/07/17 at 21:00 Atorvastatin Calcium (Lipitor) 80 mg QHS PO Last administered on 06/19/17 20: 26; Admin Dose 80 MG; Start 06/07/17 at 21:00 Hydralazine HCl (Apresoline) 10 mg Q6H PRN IV SBP>160 Last administered on 19:23; Admin Dose 10 MG; Start 06/07/17 at 09:00 Oxycodone/ Acetaminophen (Percocet (5/ 325)) 1 tab Q3H PRN PO PAIN LEVEL 1-5 Last administered on 06/16/17 01:55; Admin Dose 1 TAB; Start 06/13/17 at 12: 30 Oxycodone/ Acetaminophen (Percocet (5/ 325)) 2 tab Q3H PRN PO PAIN LEVEL 6-10 Last administered on 06/17/17 06:26; Admin Dose 2 TAB; Start 06/13/17 at 12: 30 Ondansetron HCl (Zofran Inj) 4 mg Q6H PRN IV NAUSEA AND/OR VOMITING Last administered on 06/19/17 06:16; Admin Dose 4 MG; Start 06/13/17 at 12:30 Aspirin (Aspirin) 325 mg DAILY PO Last administered on 06/20/17 08:13; Admin Dose 325 MG; Start 06/14/17 at 09:00 Acetaminophen (Tylenol Tab) 650 mg Q3H PRN PO ELEVATED TEMPERATURE; Start 07/20 at 12:30 Diagnostic Test (Pha) (Accu-Chek) 1 ea 02 XX ; Start 06/16/17 at 02:00 Miscellaneous Information 1 ea NOTE XX ; Start 06/15/17 at 11:00 Glucose (Glutose) 15 gm Q15M PRN PO DECREASED GLUCOSE; Start 06/15/17 at 11:00 Glucose (Glutose) 22.5 gm Q15M PRN PO DECREASED GLUCOSE; Start 06/15/17 at 11: 00 Dextrose (D50w Syringe) 25 ml Q15M PRN IV DECREASED GLUCOSE; Start 06/15/17 at 11:00 Dextrose (D50w Syringe) 50 ml Q15M PRN IV DECREASED GLUCOSE; Start 06/15/17 at 11:00 Glucagon (Glucagen) 1 mg Q15M PRN IM DECREASED GLUCOSE; Start 06/15/17 at 11: 00 Glucose (Glutose) 15 gm Q15M PRN BUCCAL DECREASED GLUCOSE; Start 06/15/17 at 11:00 Famotidine (Pepcid) 20 mg Q24H PO Last administered on 06/19/17 20:27; Admin Dose 20 MG; Start 06/15/17 at 20:00 Insulin Glargine 30 unit 30 unit DAILY@08 SC Last administered on 06/20/17 08 :40; Admin Dose 30 UNIT; Start 06/17/17 at 08:00 Ferric Sodium Gluconate Complex/ Sodium Chloride (Ferrlecit/NS) 110 ml @ 110 mls/hr Q24H IVPB Last administered on 06/19/17 12:42; Admin Dose 110 MLS/HR; Start 06/17/17 at 11:00; Stop 06/21/17 at 11:59 Carvedilol (Coreg) 25 mg BID PO Last administered on 06/20/17 08:13; Admin Dose 25 MG; Start 06/17/17 at 09:00 Amlodipine Besylate (Norvasc) 10 mg DAILY PO Last administered on 06/20/17 08 :13; Admin Dose 10 MG; Start 06/17/17 at 15:00; Stop 07/03/17 at 08:00 Amiodarone HCl (Cordarone) 200 mg BID PO Last administered on 06/20/17 08:13 ; Admin Dose 200 MG; Start 06/17/17 at 19:00; Stop 07/03/17 at 18:59 Heparin Sodium (Porcine) (Heparin (5000 Units/0.5 ml)) 5,000 unit BID SC Last administered on 06/20/17 08:39; Admin Dose 5,000 UNIT; Start 06/18/17 at 09: 00 Polyethylene Glycol (Miralax) 17 gm BID PO Last administered on 06/20/17 08: 13; Admin Dose 17 GM; Start 06/18/17 at 17:15; Stop 07/03/17 at 17:14 Hydralazine HCl (Apresoline) 100 mg Q8 PO ; Start 06/20/17 at 14:00 HEBRIE YEN MD Jun 20, 2017 09:44
[2017-06-20] MEDS: CHLORPROMAZINE 10 MG TAB PO PRN (11:54)
--- NOTE | 2017-06-20 12:52 | CONS ---
Date/Time of Note Date/Time of Note DATE: 06/20/17 TIME: 12:50 Assessment/Plan Assessment/Plan Additional Assessment/Plan Chest x-ray was reviewed from today which is showing cardiomegaly without any acute infiltrates. Assessment and recommendations; 1. Patient admitted with acute IA status post CABG surgery. 2. Acute renal failure, requiring hemodialysis. 3. Underlying diabetes, hypertension and BPH. 4. Episodes of somnolence likely from sedative accumulation, patient's mental status is markedly improved now over the last 48 hours. Continue current supportive care. Consultation Date/Type/Reason Admit Date/Time Jun 07, 2017 at 02:04 Initial Consult Date 06/18/17 Type of Consultation: Pulmonary Referring Provider: TAYLER BE 24 HR Interval Summary Free Text/Dictation Patient's condition is markedly improved. He has been transferred out of ICU to telemetry unit. Remains awake and alert. No further somnolence episodes. Denies any chest pain, shortness of breath. General exam; elderly male, awake alert, currently in no distress. Exam/Review of Systems Vital Signs Vitals Vital Signs Date Time Temp Pulse Resp B/P Pulse Ox O2 Delivery O2 Flow Rate FiO2 06/20/17 12:21 90 06/20/17 11:26 98.4 17 148/79 97 06/20/17 07:30 Nasal Cannula 2.0 Intake and Output 06/19/17 06/19/17 06/20/17 15:00 23:00 07:00 Intake Total 110 ml 650 ml 240 ml Output Total 2700 ml 200 ml Balance 110 ml -2050 ml 40 ml Exam HEENT exam; supple neck, no JVD. No lymphadenopathy. Midline trachea. No thyromegaly. Pharynx is clear. Patient has multiple carious teeth. Pupils are equal and reactive to light. Chest exam; clear to auscultation. S1-S2 audible, no murmurs. Regular rhythm. There is a well-healing sternal scar. Abdomen exam; soft, nontender. No organomegaly. Bowel sounds audible. Extremity exam; no peripheral edema. SLACKMAN exam; no focal deficit. Results Result Diagram: 06/20/17 0615 06/20/17 0615 Results 24 hrs Laboratory Tests Test 06/19/17 17:28 06/19/17 20:29 06/20/17 06:15 06/20/17 08:10 Bedside Glucose 138 141 150 White Blood Count 17.8 #H Red Blood Count 3.12 L Hemoglobin 9.0 L Hematocrit 27.1 L Mean Corpuscular Volume 86.9 Mean Corpuscular Hemoglobin 28.8 L Mean Corpuscular Hemoglobin Concent 33.2 Red Cell Distribution Width 15.3 H Platelet Count 209 Mean Platelet Volume 10.1 Neutrophils % 77.7 H Lymphocytes % 9.0 L Monocytes % 8.3 Eosinophils % 3.0 Basophils % 0.3 Nucleated Red Blood Cells % 0.0 Neutrophils # 13.8 H Lymphocytes # 1.6 Monocytes # 1.5 H Eosinophils # 0.5 Basophils # 0.1 Nucleated Red Blood Cells # 0.0 Sodium Level 142 Potassium Level 3.4 L Chloride Level 103 Carbon Dioxide Level 25 Anion Gap 17 H Blood Urea Nitrogen 62 H Creatinine 5.44 H Glucose Level 134 Calcium Level 9.5 Test 06/20/17 11:49 Bedside Glucose 165 Medications Medications Current Medications Nitroglycerin (Nitroglycerin (Sl Tab) 0.4 Mg) 1 tab Q5M PRN SL CHEST PAIN Last administered on 06/07/17 08:56; Admin Dose 1 TAB; Start 06/07/17 at 02:30 Docusate Sodium (Colace) 100 mg Q12H PRN PO CONSTIPATION Last administered on 06/18/17 08:43; Admin Dose 100 MG; Start 06/07/17 at 02:30 Bisacodyl (Dulcolax) 5 mg DAILY PRN PO CONSTIPATION Last administered on 15:07; Admin Dose 5 MG; Start 06/07/17 at 02:30 EZETIMIBE (Zetia) 10 mg HS PO Last administered on 06/19/17 20:26; Admin Dose 10 MG; Start 06/07/17 at 21:00 Tamsulosin HCl (Flomax) 0.4 mg DAILY@21 PO Last administered on 06/19/17 20: 26; Admin Dose 0.4 MG; Start 06/07/17 at 21:00 Atorvastatin Calcium (Lipitor) 80 mg QHS PO Last administered on 06/19/17 20: 26; Admin Dose 80 MG; Start 06/07/17 at 21:00 Hydralazine HCl (Apresoline) 10 mg Q6H PRN IV SBP>160 Last administered on 19:23; Admin Dose 10 MG; Start 06/07/17 at 09:00 Oxycodone/ Acetaminophen (Percocet (5/ 325)) 1 tab Q3H PRN PO PAIN LEVEL 1-5 Last administered on 06/16/17 01:55; Admin Dose 1 TAB; Start 06/13/17 at 12: 30 Oxycodone/ Acetaminophen (Percocet (5/ 325)) 2 tab Q3H PRN PO PAIN LEVEL 6-10 Last administered on 06/17/17 06:26; Admin Dose 2 TAB; Start 06/13/17 at 12: 30 Ondansetron HCl (Zofran Inj) 4 mg Q6H PRN IV NAUSEA AND/OR VOMITING Last administered on 06/19/17 06:16; Admin Dose 4 MG; Start 06/13/17 at 12:30 Aspirin (Aspirin) 325 mg DAILY PO Last administered on 06/20/17 08:13; Admin Dose 325 MG; Start 06/14/17 at 09:00 Acetaminophen (Tylenol Tab) 650 mg Q3H PRN PO ELEVATED TEMPERATURE; Start 07/20 at 12:30 Diagnostic Test (Pha) (Accu-Chek) 1 ea 02 XX ; Start 06/16/17 at 02:00 Miscellaneous Information 1 ea NOTE XX ; Start 06/15/17 at 11:00 Glucose (Glutose) 15 gm Q15M PRN PO DECREASED GLUCOSE; Start 06/15/17 at 11:00 Glucose (Glutose) 22.5 gm Q15M PRN PO DECREASED GLUCOSE; Start 06/15/17 at 11: 00 Dextrose (D50w Syringe) 25 ml Q15M PRN IV DECREASED GLUCOSE; Start 06/15/17 at 11:00 Dextrose (D50w Syringe) 50 ml Q15M PRN IV DECREASED GLUCOSE; Start 06/15/17 at 11:00 Glucagon (Glucagen) 1 mg Q15M PRN IM DECREASED GLUCOSE; Start 06/15/17 at 11: 00 Glucose (Glutose) 15 gm Q15M PRN BUCCAL DECREASED GLUCOSE; Start 06/15/17 at 11:00 Famotidine (Pepcid) 20 mg Q24H PO Last administered on 06/19/17 20:27; Admin Dose 20 MG; Start 06/15/17 at 20:00 Insulin Glargine 30 unit 30 unit DAILY@08 SC Last administered on 06/20/17 08 :40; Admin Dose 30 UNIT; Start 06/17/17 at 08:00 Ferric Sodium Gluconate Complex/ Sodium Chloride (Ferrlecit/NS) 110 ml @ 110 mls/hr Q24H IVPB Last administered on 06/19/17 12:42; Admin Dose 110 MLS/HR; Start 06/17/17 at 11:00; Stop 06/21/17 at 11:59 Carvedilol (Coreg) 25 mg BID PO Last administered on 06/20/17 08:13; Admin Dose 25 MG; Start 06/17/17 at 09:00 Amlodipine Besylate (Norvasc) 10 mg DAILY PO Last administered on 06/20/17 08 :13; Admin Dose 10 MG; Start 06/17/17 at 15:00; Stop 07/03/17 at 08:00 Amiodarone HCl (Cordarone) 200 mg BID PO Last administered on 06/20/17 08:13 ; Admin Dose 200 MG; Start 06/17/17 at 19:00; Stop 07/03/17 at 18:59 Heparin Sodium (Porcine) (Heparin (5000 Units/0.5 ml)) 5,000 unit BID SC Last administered on 06/20/17 08:39; Admin Dose 5,000 UNIT; Start 06/18/17 at 09: 00 Polyethylene Glycol (Miralax) 17 gm BID PO Last administered on 06/20/17 08: 13; Admin Dose 17 GM; Start 06/18/17 at 17:15; Stop 07/03/17 at 17:14 Hydralazine HCl (Apresoline) 100 mg Q8 PO ; Start 06/20/17 at 14:00 Chlorpromazine (Thorazine) 10 mg TID PRN PO [place]ough Last administered on 11:54; Admin Dose 10 MG; Start 06/20/17 at 11:30 FREDRICK WOODY Jun 20, 2017 12:52
[2017-06-20] MEDS: SOD FERRIC GLUC COMPLX 125 MG in SOD CHLORIDE 0.9% 100 ML IVPB SCH (14:23)
[2017-06-20] MEDS: ATORVASTATIN 40 MG TAB PO SCH (20:17)
[2017-06-20] MEDS: EZETIMIBE 10 MG TAB PO SCH (20:17)
[2017-06-20] MEDS: FAMOTIDINE 20 MG TAB PO SCH (20:17)
[2017-06-20] MEDS: TAMSULOSIN (SR) 0.4 MG CAP PO SCH (20:17)
[2017-06-20] MEDS ORDERED: METOCLOPRAMIDE 10 MG INJ IV ONE (22:30)
[2017-06-20] MEDS ORDERED: BISACODYL 10 MG SUPP PR PRN (22:30)
[2017-06-21] VITALS (11 sets, daily range): BP systolic 105–142; BP diastolic 58–78; PULSE 86–100; RESP 18–21
[2017-06-21] MEDS: CHLORPROMAZINE 10 MG TAB PO PRN (01:58)
[2017-06-21] MEDS: ACCU-CHEK XX SCH (02:00)
--- NOTE | 2017-06-21 02:20 | EN ---
Date/Time of Note Date/Time of Note DATE: 06/21/17 TIME: 02:15 Event Note Medicine Medicine Event Note Was called to the room to assess the patient for abdominal bloating and hiccups. Patient repeatedly having hiccups despite thorazine and reglan. He has been unable to sleep secondary to the hiccups. Abdomen soft on exam, with some mild tenderness at the umbilical and epigastric region. Stat KUB orderd. Vital Signs stable Heent: nc/at, any cath in place cvs: RRR, normal s1, s2 lungs: clear to auscultation abdomen: soft, tenderness to palpation of the umbilical and epigastric region neuro: alert and oriented x 3 KUB: there appears to be air filled loops of bowel, ileus and retained stool. Will await official read A/P: #1 abdominal pain: STAT Kub, simethicone. Has not had a BM for mutiple days. Will insert NG tube to low intermittent suction for decompression. Will await official read for KUB. Greater than 30 minutes of critical care time was spent on the care and management of the patient. FORTINO THOMAS Jun 21, 2017 02:20
[2017-06-21] MEDS ORDERED: LORAZEPAM 2 MG INJ IV ONE (03:00)
--- NOTE | 2017-06-21 03:18 | RADRPT ---
PROCEDURE: XR Abdomen. CLINICAL INDICATION: Gas pains. TECHNIQUE: 2 frontal views of the abdomen. COMPARISON: None. FINDINGS: Air-filled loops of colon are likely present in the left abdomen. Mural thickening is likely present within loops of colon within the left abdomen which may reflect infectious versus inflammatory etio logy. Ischemia is included in the differential considerations. Recommend CT correlation. Solid stool seen in the right colon with mild small bowel ileus in the lower pelvis. Cardiomegaly. IMPRESSION: 1. Air-filled loops of colon with mural thickening are seen in the left abdomen. 2. Differential considerations include infectious versus inflammatory etiology. 3. Differential considerations also include bowel ischemia. 4. Recommend CT examination the abdomen and pelvis for correlation. These findings, impression and recommendation for CT examination were discussed with the patient's n shayne rGeen of the [address] telemetry unit at the conclusion of this examin ation by the undersigned interpreting radiologist on 06/21/2017 at over 0315 hours. RPTAT: [facility] Physician Katia Date Time Electronically viewed and signed by Physician Katia on 06/21/2017 03:17 RS/
[2017-06-21 04:05] LABS: ABNORMAL IP MESSAGE 1; BASOPHIL # 0.1 10^3/ul (0.0-0.1); BASOPHILS % 0.2 % (0.0-2.0); EOSINOPHILS # 0.3 10^3/ul (0.0-0.5); EOSINOPHILS % 1.2 % (0.0-7.0); HEMATOCRIT 25.7 % (42.0-52.0); HEMOGLOBIN 8.5 g/dl (14.0-18.0); LYMPHOCYTES # 1.5 10^3/ul (0.8-2.9); LYMPHOCYTES % 6.8 % (15.0-51.0); MEAN CORPUSCULAR HEMOGLOBIN 29.3 pg (29.0-33.0); MEAN CORPUSCULAR HGB CONC 33.1 g/dl (32.0-37.0); MEAN CORPUSCULAR VOLUME 88.6 fl (82.0-101.0); MEAN PLATELET VOLUME 9.7 fl (7.4-10.4); MONOCYTE # 1.8 10^3/ul (0.3-0.9); NEUTROPHIL # 17.8 10^3/ul (1.6-7.5); NEUTROPHILS % 81.3 % (39.0-77.0); PLATELET COUNT 210 10^3/UL (140-415); POSITIVE DIFF @See below; RED CELL DISTRIBUTION WIDTH 15.2 % (11.5-14.5); WHITE BLOOD COUNT 21.9 10^3/ul (4.8-10.8)
[2017-06-21 04:26] LABS: CALCIUM 8.8 mg/dl (8.4-10.2); CREATININE 5.59 mg/dl (0.61-1.24); MAGNESIUM 2.1 mg/dl (1.7-2.5); PHOSPHORUS 3.1 mg/dl (2.5-4.9); POTASSIUM 3.2 mmol/L (3.5-5.1)
[2017-06-21] MEDS ORDERED: BARIUM SULF 2% 450 ML BTL (BERRY SMOOTHIE) PO ONE (04:30)
[2017-06-21] MEDS ORDERED: IOHEXOL 300MG/ML 150 ML BTL ONE (05:46)
[2017-06-21] MEDS ORDERED: SOD CHLORIDE 0.9% 100 ML ONE (05:46)
[2017-06-21] MEDS: INSULIN ASPART [NOVOLOG] 3 ML PEN SC SCH ×4 (08:11→21:00)
[2017-06-21] MEDS: INSULIN GLARGINE [LANtus] 3 ML PEN SC SCH (08:11)
--- NOTE | 2017-06-21 08:28 | RADRPT ---
PROCEDURE: CT Abdomen and Pelvis with intravenous contrast. CLINICAL INDICATION: Abdominal pain.. Rule out ischemic bowel. TECHNIQUE: CT scan of the abdomen and pelvis with intravenous contrast was performed on the multi- slice CT scanner. The patient was scanned following the uncomplicated intravenous administration of 100 cc of Omnipaque-300 contrast. Coronal and sagittal reformatted images were obtained from the a xial source images. Images were reviewed on a high-resolution PACS workstation. Total DLP = 1267.4 mGy-cm. CTDIvol = 17.9 mGy. One or more of the following dose reduction techniques were used: Automated exposure control. Adjustment of the mA and/or kV according to patient size. Use of iterative reconstruction technique. COMPARISON: None. FINDINGS: CT abdomen and pelvis: The lung bases are remarkable for left greater than right small pleural effusions and bibasilar comp ressive atelectasis. Sternotomy wires and CABG clips are present. There is moderate anterior pericar dial effusion. Anterior pericardial gas densities are also present.. The heart size is normal size. Coronary calcific atherosclerosis and coronary artery stent is seen.. The liver is normal in size and density without focal mass or intrahepatic biliary dilatation. The spleen is normal in size and homogeneous in density. The pancreas as visualized is normal. The gallbladder is mildly distende d with small intraluminal calcified stone. There is no gallbladder wall thickening or inflammation.. The adrenal glands are normal. The kidneys are mildly atrophic with cortical thinning and scarrin g. There are bilateral renal cysts. There is no evidence of obstructive uropathy or urolithiasis. Re nal vascular calcifications may simulate renal stones.. The stomach is partially collapsed, but is grossly unremarkable. The small bowels are unremarkable. The colon and rectum are nondistended. There is mild colonic wall thickening along the descending an d rectosigmoid colon. There is moderate retained feces seen in the transverse and right colon. . The appendix appears normal.. No evidence of acute appendicitis or diverticulitis. The pelvic organs a re normal. The bladder is decompressed with balloon tip Morocho catheter and air within the bladder laverne men.. There is no abdominal or pelvic adenopathy,free air, mass or mesenteric inflammation. There is trace free fluid in the pelvis. The aorta is normal in caliber with extensive calcific atherosclerosis. Calcific atherosclerosis of the mesenteric arteries and renal arteries is also noted. There is normal contrast opacification of the proximal celiac trunk, proximal superior mesenteric artery, and proximal inferior mesenteric art armando.. The osseous structures show degenerative enthesopathy of the spine. No osteolytic or osteobla stic lesions are identified. The soft tissues are within normal limits. IMPRESSION: 1. Mild thickening of the descending and rectosigmoid colonic wall. Differential includes colitis o f infectious or ischemic etiology. Normal contrast opacification is seen in the proximal mesenteric arteries. 2. Status post recent CABG with moderate anterior pericardial effusion with pericardial gas densiti es noted. This may be due to recent postsurgical CABG changes. Infection is not excluded. Recommend clinical correlation. 3. Small left greater than right bilateral pleural effusions and bibasilar compressive atelectasis. 4. Cholelithiasis. 5. Calcific atherosclerosis of the aorta, coronary arteries and mesenteric arteries. Normal opacifi cation of the proximal mesenteric arteries which diminishes likelihood but does not exclude bowel is chemia. 6. Moderate retained feces in the right and transverse colon. RPTAT: QQ .Jessee Valdez MD, MD Date Time Electronically viewed and signed by .Jessee Valdez MD, on 06/21/2017 08:28 .L/
[2017-06-21] MEDS ORDERED: POTASSIUM CHLORIDE (SR) 20 MEQ TAB PO STA (08:40)
[2017-06-21] MEDS: POLYETHYLENE GLYCOL 17 GM PACKET PO SCH ×2 (08:48→21:00)
[2017-06-21] MEDS: AMIODARONE 200 MG TAB PO SCH ×2 (08:48→21:00)
[2017-06-21] MEDS: AMLODIPINE 10 MG TAB PO SCH (08:49)
[2017-06-21] MEDS: DOCUSATE SODIUM 100 MG CAP PO SCH ×2 (08:49→21:00)
[2017-06-21] MEDS: ASPIRIN 325 MG TAB PO SCH (08:49)
[2017-06-21] MEDS: HEPARIN 5,000 UNIT/0.5 ML VIAL SC SCH ×2 (09:19→21:08)
--- NOTE | 2017-06-21 09:33 | CONS ---
Date/Time of Note Date/Time of Note DATE: 06/21/17 TIME: 09:29 Assessment/Plan Assessment/Plan Chief Complaint/Hosp Course Paroxysmal afib: common post cardiac surgery. Was on amio drip, now PO. Back in sinus CAD s/p CABG x5: MAYER to LAD, SVG to diagonal artery, SVG to posterior descending artery, SVG to ramus intermedius sequenced to obtuse marginal artery. Doing well post-op NSTEMI Acute on chronic systolic heart failure: EF 40-45%F. ~Euvolemic by exam Acute on chronic renal failure: unknown baseline. Cr 3.6 initially. Now on HD but UOP has increased so may just be temporary CAD s/p prior PCI 2006 H/o CVA DM HTN -discussed with Dr. Weiss. Will monitor one day without HD to see how his renal function and UOP do, however pt did receive an IV contrast CT yesterday which may complicate things -hydralazine 100mg q8h -continue amiodarone 200mg BID,can switch to 200mg daily on discharge -continue coreg 25mg BID -amlodipine 10mg -continue ASA 325mg -lipitor 80mg Problems: Consultation Date/Type/Reason Admit Date/Time Jun 07, 2017 at 02:04 Initial Consult Date 06/07/17 Type of Consultation: Cardiology Referring Provider: TAYLER BE 24 HR Interval Summary Free Text/Dictation No HD yesterday. Cr slightly worse, Still making urine. Had abdominal discomfort and had an NG placed. Had contrast CT as well. Pt and family refused HD this am. Would like to wait another day Exam/Review of Systems Vital Signs Vitals Vital Signs Date Time Temp Pulse Resp B/P Pulse Ox O2 Delivery O2 Flow Rate FiO2 06/21/17 08:15 95 06/21/17 07:17 98.5 21 105/58 90 06/20/17 20:00 Nasal Cannula 2.0 Intake and Output 06/20/17 06/20/17 06/21/17 15:00 23:00 07:00 Intake Total 710 ml 120 ml Output Total 400 ml 450 ml Balance 310 ml -330 ml Exam Constitutional: alert, oriented Psych: no complaints Head: atraumatic, normocephalic Neck: No jvd Respiratory: clear to auscultation, diminished breath sounds Cardiovascular: regular rate and rhythm, No edema, No systolic murmur Gastrointestinal: non-tender, soft, No distended Neurological: nl mental status, nl speech Results Result Diagram: 06/21/17 0335 06/21/17 0335 Results 24 hrs Laboratory Tests Test 06/20/17 11:49 06/20/17 17:38 06/20/17 18:55 06/20/17 20:05 Bedside Glucose 165 95 100 121 Test 06/21/17 03:35 06/21/17 08:04 White Blood Count 21.9 #H Red Blood Count 2.90 L Hemoglobin 8.5 L Hematocrit 25.7 L Mean Corpuscular Volume 88.6 Mean Corpuscular Hemoglobin 29.3 Mean Corpuscular Hemoglobin Concent 33.1 Red Cell Distribution Width 15.2 H Platelet Count 210 Mean Platelet Volume 9.7 Neutrophils % 81.3 H Lymphocytes % 6.8 L Monocytes % 8.0 Eosinophils % 1.2 Basophils % 0.2 Nucleated Red Blood Cells % 0.0 Neutrophils # 17.8 H Lymphocytes # 1.5 Monocytes # 1.8 H Eosinophils # 0.3 Basophils # 0.1 Nucleated Red Blood Cells # 0.0 Sodium Level 140 Potassium Level 3.2 L Chloride Level 103 Carbon Dioxide Level 27 Anion Gap 13 Blood Urea Nitrogen 70 H Creatinine 5.59 H Glucose Level 120 Lactic Acid Level 0.8 Calcium Level 8.8 Phosphorus Level 3.1 Magnesium Level 2.1 Bedside Glucose 146 Medications Medications Current Medications Nitroglycerin (Nitroglycerin (Sl Tab) 0.4 Mg) 1 tab Q5M PRN SL CHEST PAIN Last administered on 06/07/17 08:56; Admin Dose 1 TAB; Start 06/07/17 at 02:30 Docusate Sodium (Colace) 100 mg Q12H PRN PO CONSTIPATION Last administered on 06/18/17 08:43; Admin Dose 100 MG; Start 06/07/17 at 02:30 Bisacodyl (Dulcolax) 5 mg DAILY PRN PO CONSTIPATION Last administered on 15:07; Admin Dose 5 MG; Start 06/07/17 at 02:30 EZETIMIBE (Zetia) 10 mg HS PO Last administered on 06/20/17 20:17; Admin Dose 10 MG; Start 06/07/17 at 21:00 Tamsulosin HCl (Flomax) 0.4 mg DAILY@21 PO Last administered on 06/20/17 20: 17; Admin Dose 0.4 MG; Start 06/07/17 at 21:00 Atorvastatin Calcium (Lipitor) 80 mg QHS PO Last administered on 06/20/17 20: 17; Admin Dose 80 MG; Start 06/07/17 at 21:00 Hydralazine HCl (Apresoline) 10 mg Q6H PRN IV SBP>160 Last administered on 19:23; Admin Dose 10 MG; Start 06/07/17 at 09:00 Oxycodone/ Acetaminophen (Percocet (5/ 325)) 1 tab Q3H PRN PO PAIN LEVEL 1-5 Last administered on 06/16/17 01:55; Admin Dose 1 TAB; Start 06/13/17 at 12: 30 Oxycodone/ Acetaminophen (Percocet (5/ 325)) 2 tab Q3H PRN PO PAIN LEVEL 6-10 Last administered on 06/17/17 06:26; Admin Dose 2 TAB; Start 06/13/17 at 12: 30 Ondansetron HCl (Zofran Inj) 4 mg Q6H PRN IV NAUSEA AND/OR VOMITING Last administered on 06/19/17 06:16; Admin Dose 4 MG; Start 06/13/17 at 12:30 Aspirin (Aspirin) 325 mg DAILY PO Last administered on 06/21/17 08:49; Admin Dose 325 MG; Start 06/14/17 at 09:00 Acetaminophen (Tylenol Tab) 650 mg Q3H PRN PO ELEVATED TEMPERATURE; Start 07/20 at 12:30 Diagnostic Test (Pha) (Accu-Chek) 1 ea 02 XX ; Start 06/16/17 at 02:00 Miscellaneous Information 1 ea NOTE XX ; Start 06/15/17 at 11:00 Glucose (Glutose) 15 gm Q15M PRN PO DECREASED GLUCOSE; Start 06/15/17 at 11:00 Glucose (Glutose) 22.5 gm Q15M PRN PO DECREASED GLUCOSE; Start 06/15/17 at 11: 00 Dextrose (D50w Syringe) 25 ml Q15M PRN IV DECREASED GLUCOSE; Start 06/15/17 at 11:00 Dextrose (D50w Syringe) 50 ml Q15M PRN IV DECREASED GLUCOSE; Start 06/15/17 at 11:00 Glucagon (Glucagen) 1 mg Q15M PRN IM DECREASED GLUCOSE; Start 06/15/17 at 11: 00 Glucose (Glutose) 15 gm Q15M PRN BUCCAL DECREASED GLUCOSE; Start 06/15/17 at 11:00 Famotidine (Pepcid) 20 mg Q24H PO Last administered on 06/20/17 20:17; Admin Dose 20 MG; Start 06/15/17 at 20:00 Insulin Glargine 30 unit 30 unit DAILY@08 SC Last administered on 06/21/17 08 :11; Admin Dose 30 UNIT; Start 06/17/17 at 08:00 Ferric Sodium Gluconate Complex/ Sodium Chloride (Ferrlecit/NS) 110 ml @ 110 mls/hr Q24H IVPB Last administered on 06/20/17 14:23; Admin Dose 110 MLS/HR; Start 06/17/17 at 11:00; Stop 06/21/17 at 11:59 Carvedilol (Coreg) 25 mg BID PO Last administered on 06/20/17 20:18; Admin Dose 25 MG; Start 06/17/17 at 09:00 Amlodipine Besylate (Norvasc) 10 mg DAILY PO Last administered on 06/21/17 08 :49; Admin Dose 10 MG; Start 06/17/17 at 15:00; Stop 07/03/17 at 08:00 Amiodarone HCl (Cordarone) 200 mg BID PO Last administered on 06/21/17 08:48 ; Admin Dose 200 MG; Start 06/17/17 at 19:00; Stop 07/03/17 at 18:59 Heparin Sodium (Porcine) (Heparin (5000 Units/0.5 ml)) 5,000 unit BID SC Last administered on 06/21/17 09:19; Admin Dose 5,000 UNIT; Start 06/18/17 at 09: 00 Polyethylene Glycol (Miralax) 17 gm BID PO Last administered on 06/21/17 08: 48; Admin Dose 17 GM; Start 06/18/17 at 17:15; Stop 07/03/17 at 17:14 Hydralazine HCl (Apresoline) 100 mg Q8 PO Last administered on 06/20/17 22:22 ; Admin Dose 100 MG; Start 06/20/17 at 14:00 Chlorpromazine (Thorazine) 10 mg TID PRN PO Hiccough Last administered on 01:58; Admin Dose 10 MG; Start 06/20/17 at 11:30 Docusate Sodium (Colace) 100 mg BID PO Last administered on 06/21/17 08:49; Admin Dose 100 MG; Start 06/21/17 at 09:00 Bisacodyl (Dulcolax Supp) 10 mg DAILY PRN [place] CONSTIPATION; Start 06/20/17 at 22:30 TAYLER BE Jun 21, 2017 09:33
--- NOTE | 2017-06-21 09:39 | PN ---
Date/Time of Note Date/Time of Note DATE: 06/21/17 TIME: 09:26 Assessment/Plan VTE Prophylaxis VTE Prophylaxis Intervention: heparin Lines/Catheters IV Catheter Type (from Nrsg): Stephen Cath Urinary Cath still in place: Yes Reason Cath still needed: other (indicate) (Post op ,s trict I/O to decide about group home plan for HD ) Assessment/Plan Assessment/Plan 61 yo M with CAD, CKD, DM admitted for chest pain found to have multi vessel CAD , sp CABG 10.11. Hospitalization c/b ERIC on HD, pt started on HD for uremia. BP now improving. Intractable hiccough, possible Colitis inflammatory vs infectious Moderate stool in Right and Transverse colon Leucocytosis trending up, possible GI source, PLAN CAD: cardiology helping with BP control; cont lipid meds and asa ERIC on CKD: HD as per renal, started on HD, HD as per nephrology, pt refused HD today, U/o 850cc DM2: basal/bolus/SSI Anemia: likely 2/2 CKD. as per renal, on IV iron for iron def anemia Gen surgery consult for colitis and intractable hiccough pt had a NG tube placed yesterday but then he pulled out NG tube today Keep pt NPO, hold PO meds until pt is evaluated by Gen surgery pt WBC count bumped upto 21.3- will start empirically Ceftriaxone and Flgyl to cover him for GI source of infection Blood cx x 2 UA, urine cx SCD: heparin for DVT prophylaxis Subjective 24 Hr Interval Summary Free Text/Dictation c/o persistent hiccough, requiring NG tube placement, pt pulled out NG tube, CT abdomen showed inflammatory vs infectious colitis and moderate constipatin in Right and transverse colon Exam/Review of Systems Vital Signs Vitals Vital Signs Date Time Temp Pulse Resp B/P Pulse Ox O2 Delivery O2 Flow Rate FiO2 06/21/17 08:15 95 06/21/17 07:17 98.5 21 105/58 90 06/20/17 20:00 Nasal Cannula 2.0 Intake and Output 06/20/17 06/20/17 06/21/17 15:00 23:00 07:00 Intake Total 710 ml 120 ml Output Total 400 ml 450 ml Balance 310 ml -330 ml Exam Constitutional: alert Respiratory: clear to auscultation, diminished breath sounds, normal air movement Cardiovascular: nl pulses, regular rate and rhythm, surgical scar healthy Gastrointestinal: non-tender, soft, TTp in epigastrium Musculoskeletal: nl extremities to inspection Neurological: MOLDER FITTING II-XII intact, nl mental status, nl speech, nl strength Results Result Diagram: 06/21/1733406/21/17 033 Results 24 hrs Laboratory Tests Test 06/20/17 11:49 06/20/17 17:38 06/20/17 18:55 06/20/17 20:05 Bedside Glucose 165 95 100 121 Test 06/21/17 03:35 06/21/17 08:04 White Blood Count 21.9 #H Red Blood Count 2.90 L Hemoglobin 8.5 L Hematocrit 25.7 L Mean Corpuscular Volume 88.6 Mean Corpuscular Hemoglobin 29.3 Mean Corpuscular Hemoglobin Concent 33.1 Red Cell Distribution Width 15.2 H Platelet Count 210 Mean Platelet Volume 9.7 Neutrophils % 81.3 H Lymphocytes % 6.8 L Monocytes % 8.0 Eosinophils % 1.2 Basophils % 0.2 Nucleated Red Blood Cells % 0.0 Neutrophils # 17.8 H Lymphocytes # 1.5 Monocytes # 1.8 H Eosinophils # 0.3 Basophils # 0.1 Nucleated Red Blood Cells # 0.0 Sodium Level 140 Potassium Level 3.2 L Chloride Level 103 Carbon Dioxide Level 27 Anion Gap 13 Blood Urea Nitrogen 70 H Creatinine 5.59 H Glucose Level 120 Lactic Acid Level 0.8 Calcium Level 8.8 Phosphorus Level 3.1 Magnesium Level 2.1 Bedside Glucose 146 Medications Medications Current Medications Nitroglycerin (Nitroglycerin (Sl Tab) 0.4 Mg) 1 tab Q5M PRN SL CHEST PAIN Last administered on 06/07/17 08:56; Admin Dose 1 TAB; Start 06/07/17 at 02:30 Docusate Sodium (Colace) 100 mg Q12H PRN PO CONSTIPATION Last administered on 06/18/17 08:43; Admin Dose 100 MG; Start 06/07/17 at 02:30 Bisacodyl (Dulcolax) 5 mg DAILY PRN PO CONSTIPATION Last administered on 15:07; Admin Dose 5 MG; Start 06/07/17 at 02:30 EZETIMIBE (Zetia) 10 mg HS PO Last administered on 06/20/17 20:17; Admin Dose 10 MG; Start 06/07/17 at 21:00 Tamsulosin HCl (Flomax) 0.4 mg DAILY@21 PO Last administered on 06/20/17 20: 17; Admin Dose 0.4 MG; Start 06/07/17 at 21:00 Atorvastatin Calcium (Lipitor) 80 mg QHS PO Last administered on 06/20/17 20: 17; Admin Dose 80 MG; Start 06/07/17 at 21:00 Hydralazine HCl (Apresoline) 10 mg Q6H PRN IV SBP>160 Last administered on 19:23; Admin Dose 10 MG; Start 06/07/17 at 09:00 Oxycodone/ Acetaminophen (Percocet (5/ 325)) 1 tab Q3H PRN PO PAIN LEVEL 1-5 Last administered on 06/16/17 01:55; Admin Dose 1 TAB; Start 06/13/17 at 12: 30 Oxycodone/ Acetaminophen (Percocet (5/ 325)) 2 tab Q3H PRN PO PAIN LEVEL 6-10 Last administered on 06/17/17 06:26; Admin Dose 2 TAB; Start 06/13/17 at 12: 30 Ondansetron HCl (Zofran Inj) 4 mg Q6H PRN IV NAUSEA AND/OR VOMITING Last administered on 06/19/17 06:16; Admin Dose 4 MG; Start 06/13/17 at 12:30 Aspirin (Aspirin) 325 mg DAILY PO Last administered on 06/21/17 08:49; Admin Dose 325 MG; Start 06/14/17 at 09:00 Acetaminophen (Tylenol Tab) 650 mg Q3H PRN PO ELEVATED TEMPERATURE; Start 07/20 at 12:30 Diagnostic Test (Pha) (Accu-Chek) 1 ea 02 XX ; Start 06/16/17 at 02:00 Miscellaneous Information 1 ea NOTE XX ; Start 06/15/17 at 11:00 Glucose (Glutose) 15 gm Q15M PRN PO DECREASED GLUCOSE; Start 06/15/17 at 11:00 Glucose (Glutose) 22.5 gm Q15M PRN PO DECREASED GLUCOSE; Start 06/15/17 at 11: 00 Dextrose (D50w Syringe) 25 ml Q15M PRN IV DECREASED GLUCOSE; Start 06/15/17 at 11:00 Dextrose (D50w Syringe) 50 ml Q15M PRN IV DECREASED GLUCOSE; Start 06/15/17 at 11:00 Glucagon (Glucagen) 1 mg Q15M PRN IM DECREASED GLUCOSE; Start 06/15/17 at 11: 00 Glucose (Glutose) 15 gm Q15M PRN BUCCAL DECREASED GLUCOSE; Start 06/15/17 at 11:00 Famotidine (Pepcid) 20 mg Q24H PO Last administered on 06/20/17 20:17; Admin Dose 20 MG; Start 06/15/17 at 20:00 Insulin Glargine 30 unit 30 unit DAILY@08 SC Last administered on 06/21/17 08 :11; Admin Dose 30 UNIT; Start 06/17/17 at 08:00 Ferric Sodium Gluconate Complex/ Sodium Chloride (Ferrlecit/NS) 110 ml @ 110 mls/hr Q24H IVPB Last administered on 06/20/17 14:23; Admin Dose 110 MLS/HR; Start 06/17/17 at 11:00; Stop 06/21/17 at 11:59 Carvedilol (Coreg) 25 mg BID PO Last administered on 06/20/17 20:18; Admin Dose 25 MG; Start 06/17/17 at 09:00 Amlodipine Besylate (Norvasc) 10 mg DAILY PO Last administered on 06/21/17 08 :49; Admin Dose 10 MG; Start 06/17/17 at 15:00; Stop 07/03/17 at 08:00 Amiodarone HCl (Cordarone) 200 mg BID PO Last administered on 06/21/17 08:48 ; Admin Dose 200 MG; Start 06/17/17 at 19:00; Stop 07/03/17 at 18:59 Heparin Sodium (Porcine) (Heparin (5000 Units/0.5 ml)) 5,000 unit BID SC Last administered on 06/21/17 09:19; Admin Dose 5,000 UNIT; Start 06/18/17 at 09: 00 Polyethylene Glycol (Miralax) 17 gm BID PO Last administered on 06/21/17 08: 48; Admin Dose 17 GM; Start 06/18/17 at 17:15; Stop 07/03/17 at 17:14 Hydralazine HCl (Apresoline) 100 mg Q8 PO Last administered on 06/20/17 22:22 ; Admin Dose 100 MG; Start 06/20/17 at 14:00 Chlorpromazine (Thorazine) 10 mg TID PRN PO Hiccough Last administered on 01:58; Admin Dose 10 MG; Start 06/20/17 at 11:30 Docusate Sodium (Colace) 100 mg BID PO Last administered on 06/21/17 08:49; Admin Dose 100 MG; Start 06/21/17 at 09:00 Bisacodyl (Dulcolax Supp) 10 mg DAILY PRN [place] CONSTIPATION; Start 06/20/17 at 22:30 HERBIE YEN MD Jun 21, 2017 09:39
[2017-06-21] MEDS ORDERED: FAMOTIDINE 20 MG INJ IV ONE (10:00)
[2017-06-21] MEDS ORDERED: CEFTRIAXONE 1 GM/50 ML (PMX) 50 ML IVPB SCH (10:00)
[2017-06-21] MEDS ORDERED: POTASSIUM CHLORIDE 20 MEQ in SOD CHLORIDE 0.9% 100 ML IVPB ONE (10:00)
[2017-06-21] MEDS: PIPER-TAZO 2.25 GM (PMX) 50 ML IVPB SCH ×3 (10:18→21:02)
[2017-06-21 11:00] LABS: AADO2 Arterial 95.1 mmHg (7.0-24.0); Allen Test ACCEPTAB; Arterial Base Excess 0.7 mmol/L (-3.0-3); Arterial COHb 0.8 % (0.0-3.0); Arterial Fraction of Oxyhgb 95.3 % (93.0-99.0); Arterial HCO3 23.5 mmol/L (22.0-26.0); Arterial MetHb 0.3 % (0.0-1.5); Arterial Total Hemglobin 8.8 g/dl (12.0-18.0); MODE NASAL CANNULA
--- NOTE | 2017-06-21 11:08 | PN ---
DATE: 06/21/2017 SUBJECTIVE: The patient is stable. The patient's at bedside is refusing hemodialysis. Please note I explained the risks and benefits of refusing. She does not wish to have dialysis as she fee ls this will prevent her 's kidneys from recovering. No other events noted. OBJECTIVE: VITAL SIGNS: Blood pressure 105/58, temperature 98.5, pulse 95, respirations 21. HEENT: Head is normocephalic. NECK: Supple. HEART: Regular rate. LUNGS: Show diminished breath sounds at base. ABDOMEN: Soft, nontender to palpation. No rebound or guarding. EXTREMITIES: Negative for clubbing, cyanosis, no edema. DERMATOLOGIC: No rashes. MUSCULOSKELETAL: No joint effusions. NEUROLOGIC: No change in exam. MEDICATIONS: The patient's medications have been reviewed. LABORATORY DATA: Shows a white count 21.9, hemoglobin 8.5, hematocrit 25.7, platelet count is 210. Sodium 140, potassium 3.2, BUN is 70, creatinine 5.59. IMAGING STUDIES: Reviewed. ASSESSMENT AND PLAN: 1. Nonoliguric acute kidney injury on top of chronic kidney disease stage IV. Etiology of acute ki dney injury is secondary to acute tubular necrosis. The patient is currently dialysis dependent. W ill continue to monitor for signs of recovery. The patient's family is refusing dialysis at this ti me. We will monitor closely. 2. Anemia. Monitor hemoglobin and hematocrit levels. Will give Epogen as needed. 3. Mineral bone disorder. Continue to monitor calcium and phosphorus levels. 4. Hypokalemia. Continue dialysis with a high potassium bath. Continue to replete. 5. Hypertension. Continue current blood pressure regimen. 6. Coronary artery disease status post coronary artery bypass graft. Continue medical management. 7. Congestive heart failure. Continue current treatment plan. 8. Diabetes. Continue Accu-Cheks, insulin sliding scale. 9. Access. The patient has a Stephen catheter, continue to monitor. 10. Leukocytosis, possible colitis. We will consider for antibiotics and defer to primary team for management, but also consider checking C. difficile stools. Dictated By: REBECCA BLANKENSHIP/BRANDON Conf#: [id number] DID#: [id number]
[2017-06-21 12:37] LABS: ADD UMIC YES; UR ASCORBIC ACID NEGATIVE (NEGATIVE); UR BACTERIA FEW /HPF (NONE SEEN); UR BILIRUBIN (Dip) NEGATIVE (NEGATIVE); UR BLOOD (Dip) 3+ mg/dL (NEGATIVE); UR CLARITY CLOUDY (CLEAR); UR COLOR RED (YELLOW); UR GLUCOSE (Dip) NEGATIVE (NEGATIVE); UR KETONES (Dip) NEGATIVE (NEGATIVE); UR LEUKOCYTE ESTERASE (Dip) 1+ Leu/ul (NEGATIVE); UR NITRITE (Dip) NEGATIVE (NEGATIVE); UR RBC > 182 /HPF (0-5); UR TOTAL PROTEIN (Dip) 2+ mg/dl (NEGATIVE); UR UROBILINOGEN (Dip) NEGATIVE (NEGATIVE)
--- NOTE | 2017-06-21 13:04 | CONS ---
Date/Time of Note Date/Time of Note DATE: 06/21/17 TIME: 13:02 Consult Date/Type/Reason Admit Date/Time Jun 07, 2017 at 02:04 Initial Consult Date 06/18/17 Type of Consultation: Pulmonary Ordering Provider: TAYLER BE Subjective Sitting up in chair. Denies shortness of breath. Does however look mildly labored. Objective Vital Signs Date Time Temp Pulse Resp B/P Pulse Ox O2 Delivery O2 Flow Rate FiO2 06/21/17 12:18 97 06/21/17 07:30 Nasal Cannula 2.0 06/21/17 07:17 98.5 21 105/58 90 Intake and Output 06/20/17 06/20/17 06/21/17 15:00 23:00 07:00 Intake Total 710 ml 120 ml Output Total 400 ml 450 ml Balance 310 ml -330 ml Exam GENERAL: Elderly Citizen Of [place] gentleman sitting up in chair comfortable. VITAL SIGNS: per chart NECK: Supple. No JVD or lymphadenopathy. CARDIAC EXAM: S1, S2. No added sounds or murmurs. CHEST: clear bilaterally, No added sounds, rales or wheezes ABDOMEN: Soft, nontender. No guarding or rebound. EXTREMITIES: No cyanosis, clubbing or edema. NEUROLOGIC: Generalized weakness. No focal deficits. Results/Medications Result Diagram: 06/21/17 0335 06/21/17 0335 Results 24 hrs Laboratory Tests Test 06/20/17 17:38 06/20/17 18:55 06/20/17 20:05 06/21/17 03:35 Bedside Glucose 95 100 121 White Blood Count 21.9 #H Red Blood Count 2.90 L Hemoglobin 8.5 L Hematocrit 25.7 L Mean Corpuscular Volume 88.6 Mean Corpuscular Hemoglobin 29.3 Mean Corpuscular Hemoglobin Concent 33.1 Red Cell Distribution Width 15.2 H Platelet Count 210 Mean Platelet Volume 9.7 Neutrophils % 81.3 H Lymphocytes % 6.8 L Monocytes % 8.0 Eosinophils % 1.2 Basophils % 0.2 Nucleated Red Blood Cells % 0.0 Neutrophils # 17.8 H Lymphocytes # 1.5 Monocytes # 1.8 H Eosinophils # 0.3 Basophils # 0.1 Nucleated Red Blood Cells # 0.0 Sodium Level 140 Potassium Level 3.2 L Chloride Level 103 Carbon Dioxide Level 27 Anion Gap 13 Blood Urea Nitrogen 70 H Creatinine 5.59 H Glucose Level 120 Lactic Acid Level 0.8 Calcium Level 8.8 Phosphorus Level 3.1 Magnesium Level 2.1 Test 06/21/17 08:04 06/21/17 09:44 06/21/17 09:52 06/21/17 11:57 Bedside Glucose 146 169 Blood Gas Specimen Source Blood arterial Arterial Blood Date Drawn 06/21/2017 9:50:44 AM Arterial Blood pH (Temp corrected) 7.504 H Arterial Blood pCO2 (Temp correct) 30.6 L Arterial Blood pO2 (Temp corrected) 82.8 Arterial Blood HCO3 23.5 Arterial Blood Base Excess 0.7 Arterial Blood Oxygen Saturation 96.4 Jaspal Test ACCEPTAB Arterial Blood Gas Puncture Site Right Radial Arterial Blood Carboxyhemoglobin 0.8 Arterial Blood Methemoglobin 0.3 Blood Gas A-a O2 Differential 95.1 H Oxyhemoglobin Percent 95.3 Total Hemoglobin 8.8 L Blood Gas Temperature 37.0 Blood Gas Modality NASAL CANNULA FiO2 30.0 Blood Gas Notified Whom JLD Blood Gas Notified Time 06/21/2017 10:05:21 AM Urine Color RED Urine Clarity CLOUDY A Urine pH 6.0 Urine Specific [place] 1.020 Urine Ketones NEGATIVE Urine Nitrite NEGATIVE Urine Bilirubin NEGATIVE Urine Urobilinogen NEGATIVE Urine Leukocyte Esterase 1+ H Urine Microscopic RBC > 182 H Urine Microscopic WBC > 182 H Urine Bacteria FEW A Urine Hemoglobin 3+ H Urine Glucose NEGATIVE Urine Total Protein 2+ H Medications Current Medications Nitroglycerin (Nitroglycerin (Sl Tab) 0.4 Mg) 1 tab Q5M PRN SL CHEST PAIN Last administered on 06/07/17 08:56; Admin Dose 1 TAB; Start 06/07/17 at 02:30 Docusate Sodium (Colace) 100 mg Q12H PRN PO CONSTIPATION Last administered on 06/18/17 08:43; Admin Dose 100 MG; Start 06/07/17 at 02:30 Bisacodyl (Dulcolax) 5 mg DAILY PRN PO CONSTIPATION Last administered on 15:07; Admin Dose 5 MG; Start 06/07/17 at 02:30 EZETIMIBE (Zetia) 10 mg HS PO Last administered on 06/20/17 20:17; Admin Dose 10 MG; Start 06/07/17 at 21:00 Tamsulosin HCl (Flomax) 0.4 mg DAILY@21 PO Last administered on 06/20/17 20: 17; Admin Dose 0.4 MG; Start 06/07/17 at 21:00 Atorvastatin Calcium (Lipitor) 80 mg QHS PO Last administered on 06/20/17 20: 17; Admin Dose 80 MG; Start 06/07/17 at 21:00 Hydralazine HCl (Apresoline) 10 mg Q6H PRN IV SBP>160 Last administered on 19:23; Admin Dose 10 MG; Start 06/07/17 at 09:00 Oxycodone/ Acetaminophen (Percocet (5/ 325)) 1 tab Q3H PRN PO PAIN LEVEL 1-5 Last administered on 06/16/17 01:55; Admin Dose 1 TAB; Start 06/13/17 at 12: 30 Oxycodone/ Acetaminophen (Percocet (5/ 325)) 2 tab Q3H PRN PO PAIN LEVEL 6-10 Last administered on 06/17/17 06:26; Admin Dose 2 TAB; Start 06/13/17 at 12: 30 Ondansetron HCl (Zofran Inj) 4 mg Q6H PRN IV NAUSEA AND/OR VOMITING Last administered on 06/19/17 06:16; Admin Dose 4 MG; Start 06/13/17 at 12:30 Aspirin (Aspirin) 325 mg DAILY PO Last administered on 06/21/17 08:49; Admin Dose 325 MG; Start 06/14/17 at 09:00 Acetaminophen (Tylenol Tab) 650 mg Q3H PRN PO ELEVATED TEMPERATURE; Start 07/20 at 12:30 Diagnostic Test (Pha) (Accu-Chek) 1 ea 02 XX ; Start 06/16/17 at 02:00 Miscellaneous Information 1 ea NOTE XX ; Start 06/15/17 at 11:00 Glucose (Glutose) 15 gm Q15M PRN PO DECREASED GLUCOSE; Start 06/15/17 at 11:00 Glucose (Glutose) 22.5 gm Q15M PRN PO DECREASED GLUCOSE; Start 06/15/17 at 11: 00 Dextrose (D50w Syringe) 25 ml Q15M PRN IV DECREASED GLUCOSE; Start 06/15/17 at 11:00 Dextrose (D50w Syringe) 50 ml Q15M PRN IV DECREASED GLUCOSE; Start 06/15/17 at 11:00 Glucagon (Glucagen) 1 mg Q15M PRN IM DECREASED GLUCOSE; Start 06/15/17 at 11: 00 Glucose (Glutose) 15 gm Q15M PRN BUCCAL DECREASED GLUCOSE; Start 06/15/17 at 11:00 Insulin Glargine (Lantus) 30 unit DAILY@08 SC Last administered on 06/21/17 08:11; Admin Dose 30 UNIT; Start 06/17/17 at 08:00 Carvedilol (Coreg) 25 mg BID PO Last administered on 06/20/17 20:18; Admin Dose 25 MG; Start 06/17/17 at 09:00 Amlodipine Besylate (Norvasc) 10 mg DAILY PO Last administered on 06/21/17 08 :49; Admin Dose 10 MG; Start 06/17/17 at 15:00; Stop 07/03/17 at 08:00 Amiodarone HCl (Cordarone) 200 mg BID PO Last administered on 06/21/17 08:48 ; Admin Dose 200 MG; Start 06/17/17 at 19:00; Stop 07/03/17 at 18:59 Heparin Sodium (Porcine) (Heparin (5000 Units/0.5 ml)) 5,000 unit BID SC Last administered on 06/21/17 09:19; Admin Dose 5,000 UNIT; Start 06/18/17 at 09: 00 Polyethylene Glycol (Miralax) 17 gm BID PO Last administered on 06/21/17 08: 48; Admin Dose 17 GM; Start 06/18/17 at 17:15; Stop 07/03/17 at 17:14 Hydralazine HCl (Apresoline) 100 mg Q8 PO Last administered on 06/20/17 22:22 ; Admin Dose 100 MG; Start 06/20/17 at 14:00 Chlorpromazine (Thorazine) 10 mg TID PRN PO Hiccough Last administered on 01:58; Admin Dose 10 MG; Start 06/20/17 at 11:30 Docusate Sodium (Colace) 100 mg BID PO Last administered on 06/21/17 08:49; Admin Dose 100 MG; Start 06/21/17 at 09:00 Bisacodyl 10 mg 10 mg DAILY PRN [place] CONSTIPATION; Start 06/20/17 at 22:30 Metronidazole 100 ml @ 100 mls/hr Q8 IVPB ; Start 06/21/17 at 14:00 Piperacillin Sod/ Tazobactam Sod (Zosyn 2.25gm/ 50ml (Pmx)) 50 ml @ 100 mls/hr Q8 IVPB Last administered on 06/21/17t 10:18; Admin Dose 100 MLS/HR; Start at 10:00 Famotidine (Pepcid Iv) 10 mg Q24H IV ; Start 06/22/17 at 09:00 Assessment/Plan Chief Complaint/Hosp Course Assessment 1. Patient admitted with acute PA status post CABG surgery. 2. Acute renal failure, requiring hemodialysis. 3. Underlying diabetes, hypertension and BPH. 4. Dyspnea possibly secondary to volume overload will repeat chest x-ray. Plan Continue hemodialysis as tolerated Encourage incentive spirometry Physical therapy Repeat chest x-ray Problems: M[facility] YOU [facility] Jun 21, 2017 13:04
[2017-06-21] MEDS: SOD FERRIC GLUC COMPLX 125 MG in SOD CHLORIDE 0.9% 100 ML IVPB SCH (13:25)
--- NOTE | 2017-06-21 16:19 | PN ---
Date/Time of Note Date/Time of Note DATE: 06/21/17 TIME: 16:18 Assessment/Plan Lines/Catheters IV Catheter Type (from [facility]): Stephen Cath Morocho in Place (from [facility]): Yes Assessment/Plan Chief Complaint/Hosp Course WBC up to 21k remove dialysis catheter making more urine and creat 5 hold on dialysis and recheck creat in AM Problems: Exam/Review of Systems Vital Signs Vitals Vital Signs Date Time Temp Pulse Resp B/P Pulse Ox O2 Delivery O2 Flow Rate FiO2 06/21/17 16:07 97 06/21/17 15:15 98.2 21 142/73 96 06/21/17 07:30 Nasal Cannula 2.0 Intake and Output 06/20/17 06/20/17 06/21/17 15:00 23:00 07:00 Intake Total 710 ml 120 ml Output Total 400 ml 450 ml Balance 310 ml -330 ml Results Result Diagram: 06/21/17 0335 06/21/17 0335 DENISA GREENE MD Jun 21, 2017 16:19
[2017-06-21] MEDS: metroNIDAZOLE 500 MG/NS (PMX) 100 ML IVPB SCH ×2 (17:03→21:01)
--- NOTE | 2017-06-21 18:25 | RADRPT ---
Vent Rate: 134 bpm RR Interval: 0 msec MA Interval: 0 msec QRS Duration: 162 msec QT Interval: 384 msec QTC Interval: 573 msec P-R-T [place]: 0 - 32 - 0 degrees Atrial fibrillation with rapid ventricular response Left bundle branch block Abnormal ECG Electronically Signed By: Chapin Daniel [id number]
--- NOTE | 2017-06-21 18:30 | RADRPT ---
Vent Rate: 87 bpm RR Interval: 0 msec SD Interval: 178 msec QRS Duration: 184 msec QT Interval: 462 msec QTC Interval: 555 msec P-R-T [place]: 15 - -19 - 119 degrees Normal sinus rhythm Left bundle branch block Abnormal ECG Electronically Signed By: Chapin Daniel [id number]
--- NOTE | 2017-06-21 19:41 | RADRPT ---
PROCEDURE: X-ray Chest. CLINICAL INDICATION: NG tube placement. TECHNIQUE: Single view chest x-ray. COMPARISON: Exam dated 06/21/2017. FINDINGS: There has been interval placement of an NG tube that descends below the GE junction of the field of view. There has been prior median sternotomy. A well-positioned right IJ catheter remains in place. There are atherosclerotic changes of the aorta. The cardiomediastinal silhouette remains e nlarged. There is similar retrocardiac opacity. The right lung is clear. There is no pneumothorax. There are no acute osseous abnormalities. IMPRESSION: 1. Interval placement of an NG tube that descends below the GE junction with its tip of the field o f view. 2. Vascular calcifications consistent with atherosclerosis. 3. Cardiomegaly and retrocardiac opacity, unchanged. RPTAT: HLBP .Taurus Castellanos MD, Date Time Electronically viewed and signed by .Taurus Castellanos MD, MD on 06/21/2017 19:41 .P/
--- NOTE | 2017-06-21 19:44 | RADRPT ---
PROCEDURE: XR Chest. CLINICAL INDICATION: Shortness of breath. TECHNIQUE: Single frontal chest x-ray. COMPARISON: 06/20/2017 FINDINGS: Patient is rotated to the right. The patient is status post sternotomy. Right internal jugular centr al venous line tip is in the junction of the SVC and right atrium. Heart is enlarged.. There are at herosclerotic calcifications of the aortic knob.. Pulmonary vessels are within normal limits without evidence for CHF. There is increased elevation left hemidiaphragm with basilar atelectasis versus i nfiltrate.. There is no pleural effusion. There is no pneumothorax. The osseous structures are un remarkable. IMPRESSION: Increased elevation left hemidiaphragm with associated basilar atelectasis versus infiltrate. Otherw ise no change. RPTAT: HMVK .Toby Reyez MD, Date Time Electronically viewed and signed by .Toby Reyez MD, on 06/21/2017 19:44 .K/
[2017-06-21] MEDS: EZETIMIBE 10 MG TAB PO SCH (21:00)
[2017-06-21] MEDS: ATORVASTATIN 40 MG TAB PO SCH (21:00)
[2017-06-21] MEDS: TAMSULOSIN (SR) 0.4 MG CAP PO SCH (21:00)
--- NOTE | 2017-06-21 23:30 | CONS ---
Date/Time of Note Date/Time of Note DATE: 06/21/17 TIME: 23:21 Assessment/Plan Assessment/Plan Chief Complaint/Hosp Course 1. Colitis with concern for bowel obstruction vs ileus: doubt obstruction: patient with ngt; -continue ngt -keep npo for now until bowel function -ambulate/continue PT -cont abx 2. Leukocytosis: ?2/2 #1 +/- pna/atelectasis +/-?dvt (elevated ddimer) vs. uti vs. other tachycardic but afebrile; uptrending -?panculture -trend 3. CAD S/p 5 vessel CABG -close monitoring -medical management 4. Acute on chronic renal failure: on HD, family currently refusing -HD per renal -avoid nephrotoxic meds -renally dose medications 5. CHF: improved symptomatically -HD and diuresis 6. Diabetes -glucose optimization 7. Hypertension -medical management 8. Normoctic, normochromic anemia: no acute bleed noted -monitor and transfuse as needed 9. Hypokalemia -replete and monitor 10. UTI: -abx per sensitivity -frequent bladder emptying Thank you. Patient seen and examined in collaboration with Dr. Titus Trinidad. Problems: Consultation Date/Type/Reason Admit Date/Time Jun 07, 2017 at 02:04 Constitutional: no complaints Eyes: no complaints ENT: No bleeding, No congestion, No discharge, No dysphagia, No no complaints, No other, No pain, No sore throat Respiratory: pleuritic pain, shortness of breath Cardiovascular: no complaints Gastrointestinal: no complaints Genitourinary: no complaints Musculoskeletal: no complaints Skin: No bruising, No erythema, No laceration, No no complaints, No other, No pruritis, No rash, No skin lesions Neurologic: no complaints Endocrine: No dry skin, No no complaints, No other, No polydypsia, No polyuria , No temp intolerance Lymphatic: No adenopathy, No lymphadema, No no complaints, No other, No tender nodes Psychological: no complaints Immunologic: No immunodeficiency, No no complaints, No other, No pruritis, No rhinitis, No urticaria Past Medical History Medical History: angina, congestive heart failure, coronary artery disease, diabetes, high cholesterol, hypertension Past Surgical History Past Surgical Hx: no surgical history Social History Alcohol Use: none Smoking Status: Current every day smoker Drug Use: none Exam/Review of Systems Vital Signs Vitals Vital Signs Date Time Temp Pulse Resp B/P Pulse Ox O2 Delivery O2 Flow Rate FiO2 06/21/17 21:38 2.0 06/21/17 20:21 100 06/21/17 19:52 97.7 19 126/66 96 06/21/17 07:30 Nasal Cannula Intake and Output 06/20/17 06/20/17 06/21/17 15:00 23:00 07:00 Intake Total 710 ml 120 ml Output Total 400 ml 450 ml Balance 310 ml -330 ml Results Result Diagram: 06/21/17 0335 06/21/17 0335 Results 24 hrs Laboratory Tests Test 06/21/17 03:35 06/21/17 08:04 06/21/17 09:44 06/21/17 09:52 White Blood Count 21.9 #H Red Blood Count 2.90 L Hemoglobin 8.5 L Hematocrit 25.7 L Mean Corpuscular Volume 88.6 Mean Corpuscular Hemoglobin 29.3 Mean Corpuscular Hemoglobin Concent 33.1 Red Cell Distribution Width 15.2 H Platelet Count 210 Mean Platelet Volume 9.7 Neutrophils % 81.3 H Lymphocytes % 6.8 L Monocytes % 8.0 Eosinophils % 1.2 Basophils % 0.2 Nucleated Red Blood Cells % 0.0 Neutrophils # 17.8 H Lymphocytes # 1.5 Monocytes # 1.8 H Eosinophils # 0.3 Basophils # 0.1 Nucleated Red Blood Cells # 0.0 Sodium Level 140 Potassium Level 3.2 L Chloride Level 103 Carbon Dioxide Level 27 Anion Gap 13 Blood Urea Nitrogen 70 H Creatinine 5.59 H Glucose Level 120 Lactic Acid Level 0.8 Calcium Level 8.8 Phosphorus Level 3.1 Magnesium Level 2.1 Bedside Glucose 146 Blood Gas Specimen Source Blood arterial Arterial Blood Date Drawn 06/21/2017 9:50:44 AM Arterial Blood pH (Temp corrected) 7.504 H Arterial Blood pCO2 (Temp correct) 30.6 L Arterial Blood pO2 (Temp corrected) 82.8 Arterial Blood HCO3 23.5 Arterial Blood Base Excess 0.7 Arterial Blood Oxygen Saturation 96.4 Jaspal Test ACCEPTAB Arterial Blood Gas Puncture Site Right Radial Arterial Blood Carboxyhemoglobin 0.8 Arterial Blood Methemoglobin 0.3 Blood Gas A-a O2 Differential 95.1 H Oxyhemoglobin Percent 95.3 Total Hemoglobin 8.8 L Blood Gas Temperature 37.0 Blood Gas Modality NASAL CANNULA FiO2 30.0 Blood Gas Notified Whom JLD Blood Gas Notified Time 06/21/2017 10:05:21 AM Urine Color RED Urine Clarity CLOUDY A Urine pH 6.0 Urine Specific [place] 1.020 Urine Ketones NEGATIVE Urine Nitrite NEGATIVE Urine Bilirubin NEGATIVE Urine Urobilinogen NEGATIVE Urine Leukocyte Esterase 1+ H Urine Microscopic RBC > 182 H Urine Microscopic WBC > 182 H Urine Bacteria FEW A Urine Hemoglobin 3+ H Urine Glucose NEGATIVE Urine Total Protein 2+ H Test 06/21/17 11:57 06/21/17 17:46 06/21/17 21:03 Bedside Glucose 169 157 170 Medications Medications Current Medications Nitroglycerin (Nitroglycerin (Sl Tab) 0.4 Mg) 1 tab Q5M PRN SL CHEST PAIN Last administered on 06/07/17 08:56; Admin Dose 1 TAB; Start 06/07/17 at 02:30 Docusate Sodium (Colace) 100 mg Q12H PRN PO CONSTIPATION Last administered on 06/18/17 08:43; Admin Dose 100 MG; Start 06/07/17 at 02:30 Bisacodyl (Dulcolax) 5 mg DAILY PRN PO CONSTIPATION Last administered on 15:07; Admin Dose 5 MG; Start 06/07/17 at 02:30 EZETIMIBE (Zetia) 10 mg HS PO Last administered on 06/20/17 20:17; Admin Dose 10 MG; Start 06/07/17 at 21:00 Tamsulosin HCl (Flomax) 0.4 mg DAILY@21 PO Last administered on 06/20/17 20: 17; Admin Dose 0.4 MG; Start 06/07/17 at 21:00 Atorvastatin Calcium (Lipitor) 80 mg QHS PO Last administered on 06/20/17 20: 17; Admin Dose 80 MG; Start 06/07/17 at 21:00 Hydralazine HCl (Apresoline) 10 mg Q6H PRN IV SBP>160 Last administered on 19:23; Admin Dose 10 MG; Start 06/07/17 at 09:00 Oxycodone/ Acetaminophen (Percocet (5/ 325)) 1 tab Q3H PRN PO PAIN LEVEL 1-5 Last administered on 06/16/17 01:55; Admin Dose 1 TAB; Start 06/13/17 at 12: 30 Oxycodone/ Acetaminophen (Percocet (5/ 325)) 2 tab Q3H PRN PO PAIN LEVEL 6-10 Last administered on 06/17/17 06:26; Admin Dose 2 TAB; Start 06/13/17 at 12: 30 Ondansetron HCl (Zofran Inj) 4 mg Q6H PRN IV NAUSEA AND/OR VOMITING Last administered on 06/19/17 06:16; Admin Dose 4 MG; Start 06/13/17 at 12:30 Aspirin (Aspirin) 325 mg DAILY PO Last administered on 06/21/17 08:49; Admin Dose 325 MG; Start 06/14/17 at 09:00 Acetaminophen (Tylenol Tab) 650 mg Q3H PRN PO ELEVATED TEMPERATURE; Start 07/20 at 12:30 Diagnostic Test (Pha) (Accu-Chek) 1 ea 02 XX ; Start 06/16/17 at 02:00 Miscellaneous Information 1 ea NOTE XX ; Start 06/15/17 at 11:00 Glucose (Glutose) 15 gm Q15M PRN PO DECREASED GLUCOSE; Start 06/15/17 at 11:00 Glucose (Glutose) 22.5 gm Q15M PRN PO DECREASED GLUCOSE; Start 06/15/17 at 11: 00 Dextrose (D50w Syringe) 25 ml Q15M PRN IV DECREASED GLUCOSE; Start 06/15/17 at 11:00 Dextrose (D50w Syringe) 50 ml Q15M PRN IV DECREASED GLUCOSE; Start 06/15/17 at 11:00 Glucagon (Glucagen) 1 mg Q15M PRN IM DECREASED GLUCOSE; Start 06/15/17 at 11: 00 Glucose (Glutose) 15 gm Q15M PRN BUCCAL DECREASED GLUCOSE; Start 06/15/17 at 11:00 Insulin Glargine (Lantus) 30 unit DAILY@08 SC Last administered on 06/21/17 08:11; Admin Dose 30 UNIT; Start 06/17/17 at 08:00 Carvedilol (Coreg) 25 mg BID PO Last administered on 06/20/17 20:18; Admin Dose 25 MG; Start 06/17/17 at 09:00 Amlodipine Besylate (Norvasc) 10 mg DAILY PO Last administered on 06/21/17 08 :49; Admin Dose 10 MG; Start 06/17/17 at 15:00; Stop 07/03/17 at 08:00 Amiodarone HCl (Cordarone) 200 mg BID PO Last administered on 06/21/17 08:48 ; Admin Dose 200 MG; Start 06/17/17 at 19:00; Stop 07/03/17 at 18:59 Heparin Sodium (Porcine) (Heparin (5000 Units/0.5 ml)) 5,000 unit BID SC Last administered on 06/21/17 21:08; Admin Dose 5,000 UNIT; Start 06/18/17 at 09: 00 Polyethylene Glycol (Miralax) 17 gm BID PO Last administered on 06/21/17 08: 48; Admin Dose 17 GM; Start 06/18/17 at 17:15; Stop 07/03/17 at 17:14 Hydralazine HCl (Apresoline) 100 mg Q8 PO Last administered on 06/21/17 13:28 ; Admin Dose 100 MG; Start 06/20/17 at 14:00 Chlorpromazine (Thorazine) 10 mg TID PRN PO Hiccough Last administered on 01:58; Admin Dose 10 MG; Start 06/20/17 at 11:30 Docusate Sodium (Colace) 100 mg BID PO Last administered on 06/21/17 08:49; Admin Dose 100 MG; Start 06/21/17 at 09:00 Bisacodyl 10 mg 10 mg DAILY PRN [place] CONSTIPATION; Start 06/20/17 at 22:30 Metronidazole 100 ml @ 100 mls/hr Q8 IVPB Last administered on 06/21/17 21: 01; Admin Dose 100 MLS/HR; Start 06/21/17 at 14:00 Piperacillin Sod/ Tazobactam Sod (Zosyn 2.25gm/ 50ml (Pmx)) 50 ml @ 100 mls/hr Q8 IVPB Last administered on 06/21/17 21:02; Admin Dose 100 MLS/HR; Start at 10:00 Famotidine (Pepcid Iv) 10 mg Q24H IV ; Start 06/22/17 at 09:00 GARRY RUSSO NP Jun 21, 2017 23:30
[2017-06-22] VITALS (13 sets, daily range): BP systolic 127–147; BP diastolic 61–81; PULSE 80–103; RESP 18–21
[2017-06-22] MEDS: ACCU-CHEK XX SCH (02:00)
[2017-06-22] MEDS: PIPER-TAZO 2.25 GM (PMX) 50 ML IVPB SCH ×3 (06:08→21:46)
[2017-06-22] MEDS: metroNIDAZOLE 500 MG/NS (PMX) 100 ML IVPB SCH ×3 (06:08→21:46)
[2017-06-22 06:15] LABS: ABNORMAL IP MESSAGE 1; BASOPHIL # 0.1 10^3/ul (0.0-0.1); BASOPHILS % 0.3 % (0.0-2.0); EOSINOPHILS # 0.2 10^3/ul (0.0-0.5); EOSINOPHILS % 1.3 % (0.0-7.0); HEMATOCRIT 25.1 % (42.0-52.0); HEMOGLOBIN 8.4 g/dl (14.0-18.0); LYMPHOCYTES # 1.5 10^3/ul (0.8-2.9); LYMPHOCYTES % 7.8 % (15.0-51.0); MEAN CORPUSCULAR HEMOGLOBIN 30.1 pg (29.0-33.0); MEAN CORPUSCULAR HGB CONC 33.5 g/dl (32.0-37.0); MEAN PLATELET VOLUME 9.6 fl (7.4-10.4); MONOCYTE # 1.7 10^3/ul (0.3-0.9); MONOCYTES % 8.9 % (0.0-11.0); NEUTROPHIL # 14.9 10^3/ul (1.6-7.5); NEUTROPHILS % 79.6 % (39.0-77.0); PLATELET COUNT 221 10^3/UL (140-415); POSITIVE DIFF @See below; RED BLOOD COUNT 2.79 10^6/ul (4.70-6.10); RED CELL DISTRIBUTION WIDTH 15.8 % (11.5-14.5); WHITE BLOOD COUNT 18.7 10^3/ul (4.8-10.8)
[2017-06-22 06:45] LABS: INR 1.24; PROTIME 15.7 Sec (12.2-14.2); PT RATIO 1.2
[2017-06-22 06:46] LABS: PARTIAL THROMBOPLASTIN TIME 41.3 Sec (25.0-35.0)
[2017-06-22 07:03] LABS: ALBUMIN 2.9 g/dl (3.3-4.9); ALBUMIN/GLOBULIN RATIO 0.9; BILIRUBIN,INDIRECT 0.1 mg/dl (0-1.1); BILIRUBIN,TOTAL 0.1 mg/dl (0.2-1.3); CREATININE 6.27 mg/dl (0.61-1.24); POTASSIUM 3.5 mmol/L (3.5-5.1); TOTAL PROTEIN 6.1 g/dl (6.1-8.1)
--- NOTE | 2017-06-22 07:11 | PN ---
Date/Time of Note Date/Time of Note DATE: 06/22/17 TIME: 07:10 Assessment/Plan Lines/Catheters IV Catheter Type (from Nrs): Saline Lock Morocho in Place (from Nrs): Yes Assessment/Plan Chief Complaint/Hosp Course WBC down to 18 on zosyn needs dialysis catheter out as possible source of infection making more urine over [id number] creat 6, K 3.5 hold on dialysis and recheck creat in AM Problems: Exam/Review of Systems Vital Signs Vitals Vital Signs Date Time Temp Pulse Resp B/P Pulse Ox O2 Delivery O2 Flow Rate FiO2 06/22/17 04:09 101 06/22/17 03:54 98.9 19 138/75 95 06/22/17 01:36 2.0 06/21/17 20:00 Nasal Cannula Intake and Output 06/21/17 06/21/17 06/22/17 15:00 23:00 07:00 Intake Total 460 ml 250 ml Output Total 500 ml 510 ml Balance -40 ml -260 ml Results Result Diagram: 06/22/17 0527 06/22/17 0527 DENISA GREENE MD Jun 22, 2017 07:11
[2017-06-22 07:14] LABS: MAGNESIUM 2.2 mg/dl (1.7-2.5); PHOSPHORUS 4.3 mg/dl (2.5-4.9)
[2017-06-22] MEDS: FAMOTIDINE 20 MG INJ IV SCH (08:15)
[2017-06-22] MEDS: INSULIN ASPART [NOVOLOG] 3 ML PEN SC SCH ×4 (08:18→20:24)
[2017-06-22] MEDS: HEPARIN 5,000 UNIT/0.5 ML VIAL SC SCH ×2 (08:34→20:32)
[2017-06-22] MEDS: INSULIN GLARGINE [LANtus] 3 ML PEN SC SCH (08:50)
[2017-06-22] MEDS: ASPIRIN 325 MG TAB PO SCH ×2 (09:00→10:43)
[2017-06-22] MEDS: AMLODIPINE 10 MG TAB PO SCH ×2 (09:00→10:43)
[2017-06-22] MEDS: AMIODARONE 200 MG TAB PO SCH (09:00)
[2017-06-22] MEDS: POLYETHYLENE GLYCOL 17 GM PACKET PO SCH ×2 (09:00→20:24)
[2017-06-22] MEDS: DOCUSATE SODIUM 100 MG CAP PO SCH ×3 (09:00→20:22)
--- NOTE | 2017-06-22 09:36 | PN ---
DATE: 06/22/2017 SUBJECTIVE: The patient at this point is refusing hemodialysis. 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 No other events noted. OBJECTIVE: VITAL SIGNS: Blood pressure 132/81, respiration 21, pulse 98, temperature 98.3. HEENT: Head is normocephalic. NECK: Supple. HEART: Regular rate. LUNGS: Show diminished breath sounds at base. ABDOMEN: Soft, nontender to palpation. No rebound or guarding. EXTREMITIES: Negative for clubbing, cyanosis, no edema. DERMATOLOGIC: No rashes. MUSCULOSKELETAL: No joint effusion. NEUROLOGIC: No change in exam. MEDICATIONS: The patient's medications reviewed. LABORATORY DATA: Shows white count 18.7, hemoglobin 8.4, platelet count 221. Sodium 143, potassiu m 3.5, BUN 77, creatinine 6.27. ASSESSMENT AND PLAN: 1. Nonoliguric acute kidney injury on top of chronic kidney disease stage IV. Etiology secondary t o acute tubular necrosis. The patient is currently refusing hemodialysis. Risks and benefits inclu ding the possibility of were explained to the patient and the patient's family. He still is a damant and refusing dialysis. 2. Leukocytosis, possible line infection. We will have the patient's Stephen catheter removed. 3. Anemia. Monitor hemoglobin and hematocrit levels. Continue Epogen. 4. Mineral bone disorder. Monitor calcium, phosphorus levels. 5. Hypokalemia, improved. 6. Hypertension. Continue current blood pressure regimen. 7. Coronary artery disease, status post coronary artery bypass graft. Continue medical management. 8. Congestive heart failure. Continue current treatment plan. 9. Diabetes. Continue Accu-Cheks, insulin sliding scale. Dictated By: REBECCA BLANKENSHIP/BRANDON Conf#: [id number] DID#: [id number]
--- NOTE | 2017-06-22 10:36 | CONS ---
Date/Time of Note Date/Time of Note DATE: 06/22/17 TIME: 10:31 Assessment/Plan Assessment/Plan Chief Complaint/Hosp Course Paroxysmal afib: common post cardiac surgery. Was on amio drip, now PO. Back in sinus CAD s/p CABG x5: MAYER to LAD, SVG to diagonal artery, SVG to posterior descending artery, SVG to ramus intermedius sequenced to obtuse marginal artery. Doing well post-op NSTEMI Acute on chronic systolic heart failure: EF 40-45%F. ~Euvolemic by exam Acute on chronic renal failure: unknown baseline. Cr 3.6 initially. Required HD briefly. Now with good UOP but Cr worsening again. Family refuses HD and understands the risks. Sepsis: urinary vs from HD cath. On antibiotics Ileus: resolved CAD s/p prior PCI 2006 H/o CVA DM HTN -HD cath and flower to be removed -ok to give PO meds, will defer starting diet to PMD -no e/o CHF by exam or CXR so would not diurese -hydralazine 100mg q8h -continue amiodarone 200mg daily (continue for total of one month) -continue coreg 25mg BID -amlodipine 10mg -continue ASA 325mg -lipitor 80mg Problems: Consultation Date/Type/Reason Admit Date/Time Jun 07, 2017 at 02:04 Initial Consult Date 06/07/17 Type of Consultation: Cardiology Referring Provider: TAYLER BE 24 HR Interval Summary Free Text/Dictation Cr worse this am but UOP still appropriate. Family is refusing HD and want HD catheter out. They also want the flower removed. He is now ambulating with PT and feels well. No abd pain, nausea, distension. Exam/Review of Systems Vital Signs Vitals Vital Signs Date Time Temp Pulse Resp B/P Pulse Ox O2 Delivery O2 Flow Rate FiO2 06/22/17 08:10 98 06/22/17 07:23 98.3 21 132/81 94 06/22/17 01:36 2.0 06/21/17 20:00 Nasal Cannula Intake and Output 06/21/17 06/21/17 06/22/17 15:00 23:00 07:00 Intake Total 460 ml 250 ml Output Total 500 ml 510 ml Balance -40 ml -260 ml Exam Constitutional: alert, oriented Psych: nl mood/affect, no complaints Head: atraumatic, normocephalic Neck: No jvd Respiratory: clear to auscultation, No crackles/rales Cardiovascular: regular rate and rhythm, No edema, No systolic murmur Gastrointestinal: non-tender, soft, No distended Neurological: nl mental status, nl speech Results Result Diagram: 06/22/1727 06/22/1727 Results 24 hrs Laboratory Tests Test 06/21/17 11:57 06/21/17 17:46 06/21/17 21:03 06/22/17 05:27 Bedside Glucose 169 157 170 White Blood Count 18.7 H Red Blood Count 2.79 L Hemoglobin 8.4 L Hematocrit 25.1 L Mean Corpuscular Volume 90.0 Mean Corpuscular Hemoglobin 30.1 Mean Corpuscular Hemoglobin Concent 33.5 Red Cell Distribution Width 15.8 H Platelet Count 221 Mean Platelet Volume 9.6 Neutrophils % 79.6 H Lymphocytes % 7.8 L Monocytes % 8.9 Eosinophils % 1.3 Basophils % 0.3 Nucleated Red Blood Cells % 0.0 Neutrophils # 14.9 H Lymphocytes # 1.5 Monocytes # 1.7 H Eosinophils # 0.2 Basophils # 0.1 Nucleated Red Blood Cells # 0.0 Prothrombin Time 15.7 H Prothrombin Time Ratio 1.2 INR International Normalized Ratio 1.24 Activated Partial Thromboplast Time 41.3 H Sodium Level 143 Potassium Level 3.5 Chloride Level 106 Carbon Dioxide Level 22 Anion Gap 19 H Blood Urea Nitrogen 77 H Creatinine 6.27 H Glucose Level 146 Calcium Level 9.0 Phosphorus Level 4.3 Magnesium Level 2.2 Total Bilirubin 0.1 L Direct Bilirubin 0.00 Indirect Bilirubin 0.1 Aspartate Amino Transf (AST/SGOT) 20 Alanine Aminotransferase (ALT/SGPT) 22 Alkaline Phosphatase 94 Total Protein 6.1 Albumin 2.9 L Globulin 3.20 Albumin/Globulin Ratio 0.90 Test 06/22/17 08:11 Bedside Glucose 154 Medications Medications Current Medications Nitroglycerin (Nitroglycerin (Sl Tab) 0.4 Mg) 1 tab Q5M PRN SL CHEST PAIN Last administered on 06/07/17t 08:56; Admin Dose 1 TAB; Start 06/07/17 at 02:30 Docusate Sodium (Colace) 100 mg Q12H PRN PO CONSTIPATION Last administered on 06/18/17 08:43; Admin Dose 100 MG; Start 06/07/17 at 02:30 Bisacodyl (Dulcolax) 5 mg DAILY PRN PO CONSTIPATION Last administered on 15:07; Admin Dose 5 MG; Start 06/07/17 at 02:30 EZETIMIBE (Zetia) 10 mg HS PO Last administered on 06/20/17 20:17; Admin Dose 10 MG; Start 06/07/17 at 21:00 Tamsulosin HCl (Flomax) 0.4 mg DAILY@21 PO Last administered on 06/20/17 20: 17; Admin Dose 0.4 MG; Start 06/07/17 at 21:00 Atorvastatin Calcium (Lipitor) 80 mg QHS PO Last administered on 06/20/17 20: 17; Admin Dose 80 MG; Start 06/07/17 at 21:00 Hydralazine HCl (Apresoline) 10 mg Q6H PRN IV SBP>160 Last administered on 19:23; Admin Dose 10 MG; Start 06/07/17 at 09:00 Oxycodone/ Acetaminophen (Percocet (5/ 325)) 1 tab Q3H PRN PO PAIN LEVEL 1-5 Last administered on 06/16/17 01:55; Admin Dose 1 TAB; Start 06/13/17 at 12: 30 Oxycodone/ Acetaminophen (Percocet (5/ 325)) 2 tab Q3H PRN PO PAIN LEVEL 6-10 Last administered on 06/17/17 06:26; Admin Dose 2 TAB; Start 06/13/17 at 12: 30 Ondansetron HCl (Zofran Inj) 4 mg Q6H PRN IV NAUSEA AND/OR VOMITING Last administered on 06/19/17 06:16; Admin Dose 4 MG; Start 06/13/17 at 12:30 Aspirin (Aspirin) 325 mg DAILY PO Last administered on 06/21/17 08:49; Admin Dose 325 MG; Start 06/14/17 at 09:00 Acetaminophen (Tylenol Tab) 650 mg Q3H PRN PO ELEVATED TEMPERATURE; Start 07/20 at 12:30 Diagnostic Test (Pha) (Accu-Chek) 1 ea 02 XX ; Start 06/16/17 at 02:00 Miscellaneous Information 1 ea NOTE XX ; Start 06/15/17 at 11:00 Glucose (Glutose) 15 gm Q15M PRN PO DECREASED GLUCOSE; Start 06/15/17 at 11:00 Glucose (Glutose) 22.5 gm Q15M PRN PO DECREASED GLUCOSE; Start 06/15/17 at 11: 00 Dextrose (D50w Syringe) 25 ml Q15M PRN IV DECREASED GLUCOSE; Start 06/15/17 at 11:00 Dextrose (D50w Syringe) 50 ml Q15M PRN IV DECREASED GLUCOSE; Start 06/15/17 at 11:00 Glucagon (Glucagen) 1 mg Q15M PRN IM DECREASED GLUCOSE; Start 06/15/17 at 11: 00 Glucose (Glutose) 15 gm Q15M PRN BUCCAL DECREASED GLUCOSE; Start 06/15/17 at 11:00 Insulin Glargine (Lantus) 30 unit DAILY@08 SC Last administered on 06/22/17 08:50; Admin Dose 30 UNIT; Start 06/17/17 at 08:00 Carvedilol (Coreg) 25 mg BID PO Last administered on 06/20/17 20:18; Admin Dose 25 MG; Start 06/17/17 at 09:00 Amlodipine Besylate (Norvasc) 10 mg DAILY PO Last administered on 06/21/17 08 :49; Admin Dose 10 MG; Start 06/17/17 at 15:00; Stop 07/03/17 at 08:00 Amiodarone HCl (Cordarone) 200 mg BID PO Last administered on 06/21/17 08:48 ; Admin Dose 200 MG; Start 06/17/17 at 19:00; Stop 07/03/17 at 18:59 Heparin Sodium (Porcine) (Heparin (5000 Units/0.5 ml)) 5,000 unit BID SC Last administered on 06/22/17 08:34; Admin Dose 5,000 UNIT; Start 06/18/17 at 09: 00 Polyethylene Glycol (Miralax) 17 gm BID PO Last administered on 06/21/17 08: 48; Admin Dose 17 GM; Start 06/18/17 at 17:15; Stop 07/03/17 at 17:14 Hydralazine HCl (Apresoline) 100 mg Q8 PO Last administered on 06/21/17 13:28 ; Admin Dose 100 MG; Start 06/20/17 at 14:00 Chlorpromazine (Thorazine) 10 mg TID PRN PO Hiccough Last administered on 01:58; Admin Dose 10 MG; Start 06/20/17 at 11:30 Docusate Sodium (Colace) 100 mg BID PO Last administered on 06/21/17 08:49; Admin Dose 100 MG; Start 06/21/17 at 09:00 Bisacodyl 10 mg 10 mg DAILY PRN GA CONSTIPATION; Start 06/20/17 at 22:30 Metronidazole 100 ml @ 100 mls/hr Q8 IVPB Last administered on 06/22/17 06: 08; Admin Dose 100 MLS/HR; Start 06/21/17 at 14:00 Piperacillin Sod/ Tazobactam Sod (Zosyn 2.25gm/ 50ml (Pmx)) 50 ml @ 100 mls/hr Q8 IVPB Last administered on 06/22/17 06:08; Admin Dose 100 MLS/HR; Start at 10:00 Famotidine (Pepcid Iv) 10 mg Q24H IV Last administered on 06/22/17 08:15; Admin Dose 10 MG; Start 06/22/17 at 09:00 TAYLER BE Jun 22, 2017 10:36
--- NOTE | 2017-06-22 17:53 | PN ---
Date/Time of Note Date/Time of Note DATE: 06/22/17 TIME: 17:45 Assessment/Plan Lines/Catheters IV Catheter Type (from [facility]): dialysis any catheter [place] in Place (from [facility]): Yes Assessment/Plan Chief Complaint/Hosp Course 1. Colitis with concern for bowel obstruction vs ileus: doubt obstruction: patient pulled ngt; +bowel function -will start clears -ambulate/continue PT -cont abx 2. Leukocytosis: ?2/2 #1 +/- pna/atelectasis +/-?dvt (elevated ddimer) vs. uti vs. other tachycardic but afebrile;improving -?panculture -trend 3. CAD S/p 5 vessel CABG -close monitoring -medical management 4. Acute on chronic renal failure: on HD, family currently refusing despite increasing cr -HD per renal -avoid nephrotoxic meds -renally dose medications 5. CHF: improved symptomatically -HD and diuresis 6. Diabetes -glucose optimization 7. Hypertension -medical management 8. Normoctic, normochromic anemia: no acute bleed noted: h/h stable -monitor and transfuse as needed 9. Hypokalemia: normalized 10. UTI: -abx per sensitivity -frequent bladder emptying Thank you. Patient seen and examined in collaboration with Dr. Titus Trinidad. Problems: Subjective 24 Hr Interval Summary Feels ok. +bowel function after laxatives. Hiccoughs continues. NG pulled out by patient refusing to have it reinserted. No c/o pain, sob, congested cough, n/ v/d/dysuria, cp, palpitations. Exam/Review of Systems Vital Signs Vitals Vital Signs Date Time Temp Pulse Resp B/P Pulse Ox O2 Delivery O2 Flow Rate FiO2 06/22/17 16:05 80 06/22/17 15:35 97.9 21 139/73 93 06/22/17 10:33 2.0 06/22/17 07:30 Nasal Cannula Intake and Output 06/21/17 06/21/17 06/22/17 15:00 23:00 07:00 Intake Total 460 ml 250 ml Output Total 500 ml 510 ml Balance -40 ml -260 ml Exam Constitutional: alert, oriented, other (somnolent) Psych: nl mood/affect, no complaints Head: atraumatic, normocephalic Eyes: nl lids, nl sclera ENMT: mucosa pink and moist, nl nasal mucosa & septum Neck: non-tender, supple Respiratory: normal air movement, No labored breathing Cardiovascular: nl pulses, other (sr, bbb), regular rate and rhythm Gastrointestinal: non-tender, other (min distended-improved), soft Genitourinary - Male: nl penis, nl scrotum Musculoskeletal: nl extremities to inspection, nl gait and stance Extremities: normal pulses, No edema Neurological: nl mental status, nl speech, nl strength Skin: nl turgor, other (mid chest incision without drainage), No rash or lesions Results Result Diagram: 06/22/17 0527 06/22/17 0527 GARRY RUSSO NP Jun 22, 2017 17:53
--- NOTE | 2017-06-22 18:43 | PN ---
Date/Time of Note Date/Time of Note DATE: 06/22/17 TIME: 18:41 Assessment/Plan VTE Prophylaxis VTE Prophylaxis Intervention: heparin Lines/Catheters IV Catheter Type (from Nrsg): dialysis nay catheter Urinary Cath still in place: Yes Reason Cath still needed: urinary retention, other (indicate) (startict I/O ) Assessment/Plan Assessment/Plan 61 yo M with CAD, CKD, DM admitted for chest pain found to have multi vessel CAD , sp CABG 10.11. Hospitalization c/b ERIC on HD, pt started on HD for uremia. BP now improving. Intractable hiccough, possible Colitis inflammatory vs infectious Moderate stool in Right and Transverse colon Leucocytosis trending up, possible GI source, ERIC on CKD, renal following, started on HD today PLAN CAD: cardiology helping with BP control; cont lipid meds and asa ERIC on CKD: HD as per renal, started on HD, HD as per nephrology, pt refused HD today, U/o 850cc DM2: basal/bolus/SSI Anemia: likely 2/2 CKD. as per renal, on IV iron for iron def anemia Gen surgery consult for colitis and intractable hiccough IV abx, NG tube as per g surgery, follow up on Cultures SCD: heparin for DVT prophylaxis Subjective 24 Hr Interval Summary Free Text/Dictation pt is more stable today , On 2 L NC Exam/Review of Systems Vital Signs Vitals Vital Signs Date Time Temp Pulse Resp B/P Pulse Ox O2 Delivery O2 Flow Rate FiO2 06/22/17 16:05 80 06/22/17 15:35 97.9 21 139/73 93 06/22/17 10:33 2.0 06/22/17 07:30 Nasal Cannula Intake and Output 06/21/17 06/21/17 06/22/17 15:00 23:00 07:00 Intake Total 460 ml 250 ml Output Total 500 ml 510 ml Balance -40 ml -260 ml Exam Constitutional: alert Respiratory: clear to auscultation, diminished breath sounds, normal air movement Cardiovascular: nl pulses, regular rate and rhythm, surgical scar healthy Gastrointestinal: non-tender, soft, TTp in epigastrium Musculoskeletal: nl extremities to inspection Neurological: MOTORCYCLE TESTER II-XII intact, nl mental status, nl speech, nl strength Results Result Diagram: 06/22/1752606/22/17526 Results 24 hrs Laboratory Tests Test 06/21/17 21:03 10/20/17 05:27 06/22/17 08:11 06/22/17 11:52 Bedside Glucose 170 154 183 White Blood Count 18.7 H Red Blood Count 2.79 L Hemoglobin 8.4 L Hematocrit 25.1 L Mean Corpuscular Volume 90.0 Mean Corpuscular Hemoglobin 30.1 Mean Corpuscular Hemoglobin Concent 33.5 Red Cell Distribution Width 15.8 H Platelet Count 221 Mean Platelet Volume 9.6 Neutrophils % 79.6 H Lymphocytes % 7.8 L Monocytes % 8.9 Eosinophils % 1.3 Basophils % 0.3 Nucleated Red Blood Cells % 0.0 Neutrophils # 14.9 H Lymphocytes # 1.5 Monocytes # 1.7 H Eosinophils # 0.2 Basophils # 0.1 Nucleated Red Blood Cells # 0.0 Prothrombin Time 15.7 H Prothrombin Time Ratio 1.2 INR International Normalized Ratio 1.24 Activated Partial Thromboplast Time 41.3 H Sodium Level 143 Potassium Level 3.5 Chloride Level 106 Carbon Dioxide Level 22 Anion Gap 19 H Blood Urea Nitrogen 77 H Creatinine 6.27 H Glucose Level 146 Calcium Level 9.0 Phosphorus Level 4.3 Magnesium Level 2.2 Total Bilirubin 0.1 L Direct Bilirubin 0.00 Indirect Bilirubin 0.1 Aspartate Amino Transf (AST/SGOT) 20 Alanine Aminotransferase (ALT/SGPT) 22 Alkaline Phosphatase 94 Total Protein 6.1 Albumin 2.9 L Globulin 3.20 Albumin/Globulin Ratio 0.90 Test 06/22/17 17:58 Bedside Glucose 181 Medications Medications Current Medications Nitroglycerin (Nitroglycerin (Sl Tab) 0.4 Mg) 1 tab Q5M PRN SL CHEST PAIN Last administered on 06/07/17 08:56; Admin Dose 1 TAB; Start 06/07/17 at 02:30 Docusate Sodium (Colace) 100 mg Q12H PRN PO CONSTIPATION Last administered on 06/18/17 08:43; Admin Dose 100 MG; Start 06/07/17 at 02:30 Bisacodyl (Dulcolax) 5 mg DAILY PRN PO CONSTIPATION Last administered on 15:07; Admin Dose 5 MG; Start 06/07/17 at 02:30 EZETIMIBE (Zetia) 10 mg HS PO Last administered on 06/20/17 20:17; Admin Dose 10 MG; Start 06/07/17 at 21:00 Tamsulosin HCl (Flomax) 0.4 mg DAILY@21 PO Last administered on 06/20/17 20: 17; Admin Dose 0.4 MG; Start 06/07/17 at 21:00 Atorvastatin Calcium (Lipitor) 80 mg QHS PO Last administered on 06/20/17 20: 17; Admin Dose 80 MG; Start 06/07/17 at 21:00 Hydralazine HCl (Apresoline) 10 mg Q6H PRN IV SBP>160 Last administered on 19:23; Admin Dose 10 MG; Start 06/07/17 at 09:00 Oxycodone/ Acetaminophen (Percocet (5/ 325)) 1 tab Q3H PRN PO PAIN LEVEL 1-5 Last administered on 06/16/17 01:55; Admin Dose 1 TAB; Start 06/13/17 at 12: 30 Oxycodone/ Acetaminophen (Percocet (5/ 325)) 2 tab Q3H PRN PO PAIN LEVEL 6-10 Last administered on 06/17/17 06:26; Admin Dose 2 TAB; Start 06/13/17 at 12: 30 Ondansetron HCl (Zofran Inj) 4 mg Q6H PRN IV NAUSEA AND/OR VOMITING Last administered on 06/19/17 06:16; Admin Dose 4 MG; Start 06/13/17 at 12:30 Aspirin (Aspirin) 325 mg DAILY PO Last administered on 06/22/17 10:43; Admin Dose 325 MG; Start 06/14/17 at 09:00 Acetaminophen (Tylenol Tab) 650 mg Q3H PRN PO ELEVATED TEMPERATURE; Start 07/20 at 12:30 Diagnostic Test (Pha) (Accu-Chek) 1 ea 02 XX ; Start 06/16/17 at 02:00 Miscellaneous Information 1 ea NOTE XX ; Start 06/15/17 at 11:00 Glucose (Glutose) 15 gm Q15M PRN PO DECREASED GLUCOSE; Start 06/15/17 at 11:00 Glucose (Glutose) 22.5 gm Q15M PRN PO DECREASED GLUCOSE; Start 06/15/17 at 11: 00 Dextrose (D50w Syringe) 25 ml Q15M PRN IV DECREASED GLUCOSE; Start 06/15/17 at 11:00 Dextrose (D50w Syringe) 50 ml Q15M PRN IV DECREASED GLUCOSE; Start 06/15/17 at 11:00 Glucagon (Glucagen) 1 mg Q15M PRN IM DECREASED GLUCOSE; Start 06/15/17 at 11: 00 Glucose (Glutose) 15 gm Q15M PRN BUCCAL DECREASED GLUCOSE; Start 06/15/17 at 11:00 Insulin Glargine (Lantus) 30 unit DAILY@08 SC Last administered on 06/22/17 08:50; Admin Dose 30 UNIT; Start 06/17/17 at 08:00 Carvedilol (Coreg) 25 mg BID PO Last administered on 06/22/17 10:42; Admin Dose 25 MG; Start 06/17/17 at 09:00 Amlodipine Besylate (Norvasc) 10 mg DAILY PO Last administered on 06/22/17 10 :43; Admin Dose 10 MG; Start 06/17/17 at 15:00; Stop 07/03/17 at 08:00 Heparin Sodium (Porcine) (Heparin (5000 Units/0.5 ml)) 5,000 unit BID SC Last administered on 06/22/17 08:34; Admin Dose 5,000 UNIT; Start 06/18/17 at 09: 00 Polyethylene Glycol (Miralax) 17 gm BID PO Last administered on 06/21/17 08: 48; Admin Dose 17 GM; Start 06/18/17 at 17:15; Stop 07/03/17 at 17:14 Hydralazine HCl (Apresoline) 100 mg Q8 PO Last administered on 06/22/17 13:18 ; Admin Dose 100 MG; Start 06/20/17 at 14:00 Chlorpromazine (Thorazine) 10 mg TID PRN PO Hiccough Last administered on 01:58; Admin Dose 10 MG; Start 06/20/17 at 11:30 Docusate Sodium (Colace) 100 mg BID PO Last administered on 06/22/17 10:42; Admin Dose 100 MG; Start 06/21/17 at 09:00 Bisacodyl 10 mg 10 mg DAILY PRN RI CONSTIPATION; Start 06/20/17 at 22:30 Metronidazole 100 ml @ 100 mls/hr Q8 IVPB Last administered on 06/22/17 13: 19; Admin Dose 100 MLS/HR; Start 06/21/17 at 14:00 Piperacillin Sod/ Tazobactam Sod (Zosyn 2.25gm/ 50ml (Pmx)) 50 ml @ 100 mls/hr Q8 IVPB Last administered on 06/22/17 13:17; Admin Dose 100 MLS/HR; Start at 10:00 Famotidine (Pepcid Iv) 10 mg Q24H IV Last administered on 06/22/17 08:15; Admin Dose 10 MG; Start 06/22/17 at 09:00 Amiodarone HCl (Cordarone) 200 mg DAILY PO ; Start 06/23/17 at 09:00 HERBIE YEN MD Jun 22, 2017 18:43
[2017-06-22] MEDS: EZETIMIBE 10 MG TAB PO SCH (20:22)
[2017-06-22] MEDS: ATORVASTATIN 40 MG TAB PO SCH (20:23)
[2017-06-22] MEDS: TAMSULOSIN (SR) 0.4 MG CAP PO SCH (20:23)
[2017-06-22] MEDS: CHLORPROMAZINE 10 MG TAB PO PRN (21:48)
[2017-06-23] VITALS (9 sets, daily range): BP systolic 118–130; BP diastolic 59–77; PULSE 81–86; RESP 6–19
[2017-06-23] MEDS: ACCU-CHEK XX SCH (01:16)
[2017-06-23] MEDS: PIPER-TAZO 2.25 GM (PMX) 50 ML IVPB SCH (05:24)
[2017-06-23] MEDS: metroNIDAZOLE 500 MG/NS (PMX) 100 ML IVPB SCH (05:24)
[2017-06-23 07:24] LABS: ABNORMAL IP MESSAGE 1; BASOPHIL # 0.1 10^3/ul (0.0-0.1); BASOPHILS % 0.3 % (0.0-2.0); EOSINOPHILS # 0.5 10^3/ul (0.0-0.5); EOSINOPHILS % 2.4 % (0.0-7.0); HEMATOCRIT 23.9 % (42.0-52.0); HEMOGLOBIN 7.8 g/dl (14.0-18.0); LYMPHOCYTES # 1.5 10^3/ul (0.8-2.9); LYMPHOCYTES % 7.7 % (15.0-51.0); MEAN CORPUSCULAR HEMOGLOBIN 29.9 pg (29.0-33.0); MEAN CORPUSCULAR HGB CONC 32.6 g/dl (32.0-37.0); MEAN CORPUSCULAR VOLUME 91.6 fl (82.0-101.0); MEAN PLATELET VOLUME 9.7 fl (7.4-10.4); MONOCYTE # 1.6 10^3/ul (0.3-0.9); NEUTROPHIL # 15.8 10^3/ul (1.6-7.5); PLATELET COUNT 247 10^3/UL (140-415); POSITIVE DIFF @See below; RED BLOOD COUNT 2.61 10^6/ul (4.70-6.10); RED CELL DISTRIBUTION WIDTH 15.9 % (11.5-14.5)
[2017-06-23] MEDS: INSULIN ASPART [NOVOLOG] 3 ML PEN SC SCH ×3 (07:55→17:55)
[2017-06-23 07:56] LABS: ALBUMIN/GLOBULIN RATIO 0.86
[2017-06-23 08:00] LABS: ALBUMIN 2.6 g/dl (3.3-4.9); BILIRUBIN,INDIRECT 0.1 mg/dl (0-1.1); BILIRUBIN,TOTAL 0.1 mg/dl (0.2-1.3); CALCIUM 8.6 mg/dl (8.4-10.2); CREATININE 6.02 mg/dl (0.61-1.24); POTASSIUM 3.3 mmol/L (3.5-5.1); TOTAL PROTEIN 5.6 g/dl (6.1-8.1)
--- NOTE | 2017-06-23 08:00 | CONS ---
Date/Time of Note Date/Time of Note DATE: 06/23/17 TIME: 07:59 Assessment/Plan Assessment/Plan Chief Complaint/Hosp Course Paroxysmal afib: common post cardiac surgery. Was on amio drip, now PO. Back in sinus CAD s/p CABG x5: MAYER to LAD, SVG to diagonal artery, SVG to posterior descending artery, SVG to ramus intermedius sequenced to obtuse marginal artery. Doing well post-op NSTEMI Acute on chronic systolic heart failure: EF 40-45%F. ~Euvolemic by exam Acute on chronic renal failure: unknown baseline. Cr 3.6 initially. Required HD briefly. Now with good UOP but Cr worsening again. Family refuses HD and understands the risks. Sepsis: urinary vs from HD cath. On antibiotics Ileus: resolved CAD s/p prior PCI 2006 H/o CVA DM HTN -ok for d/c from my perspective if renal function remains stable d/c with below cardiac meds -hydralazine 100mg q8h -continue amiodarone 200mg daily (continue for total of one month) -continue coreg 25mg BID -amlodipine 10mg -continue ASA 325mg -lipitor 80mg Problems: Consultation Date/Type/Reason Admit Date/Time Jun 07, 2017 at 02:04 Initial Consult Date 06/07/17 Type of Consultation: Cardiology Referring Provider: TAYLER BE 24 HR Interval Summary Free Text/Dictation Feels well. Urinating frequently. Not all is recorded. No complaints. Ambulating without issues. Wants to go home today Exam/Review of Systems Vital Signs Vitals Vital Signs Date Time Temp Pulse Resp B/P Pulse Ox O2 Delivery O2 Flow Rate FiO2 06/23/17 04:27 84 06/23/17 03:56 98.1 19 129/77 98 06/23/17 02:56 2.0 06/22/17 20:00 Nasal Cannula Intake and Output 06/22/17 06/22/17 06/23/17 15:00 23:00 07:00 Intake Total 250 ml Output Total 450 ml Balance -200 ml Exam Constitutional: alert, oriented Psych: nl mood/affect, no complaints Head: atraumatic, normocephalic Neck: No jvd Respiratory: clear to auscultation, No crackles/rales Cardiovascular: regular rate and rhythm, No edema Gastrointestinal: non-tender, soft Musculoskeletal: nl extremities to inspection Neurological: nl mental status, nl speech Results Result Diagram: 06/23/17 0647 06/22/17 0527 Results 24 hrs Laboratory Tests Test 06/22/17 08:11 06/22/17 11:52 06/22/17 17:58 06/22/17 20:19 Bedside Glucose 154 183 181 168 Test 06/23/17 06:47 White Blood Count 20.0 H Red Blood Count 2.61 L Hemoglobin 7.8 L Hematocrit 23.9 L Mean Corpuscular Volume 91.6 Mean Corpuscular Hemoglobin 29.9 Mean Corpuscular Hemoglobin Concent 32.6 Red Cell Distribution Width 15.9 H Platelet Count 247 Mean Platelet Volume 9.7 Neutrophils % 79.0 H Lymphocytes % 7.7 L Monocytes % 8.0 Eosinophils % 2.4 Basophils % 0.3 Nucleated Red Blood Cells % 0.0 Neutrophils # 15.8 H Lymphocytes # 1.5 Monocytes # 1.6 H Eosinophils # 0.5 Basophils # 0.1 Nucleated Red Blood Cells # 0.0 Medications Medications Current Medications Nitroglycerin (Nitroglycerin (Sl Tab) 0.4 Mg) 1 tab Q5M PRN SL CHEST PAIN Last administered on 06/07/17 08:56; Admin Dose 1 TAB; Start 06/07/17 at 02:30 Docusate Sodium (Colace) 100 mg Q12H PRN PO CONSTIPATION Last administered on 06/18/17 08:43; Admin Dose 100 MG; Start 06/07/17 at 02:30 Bisacodyl (Dulcolax) 5 mg DAILY PRN PO CONSTIPATION Last administered on 15:07; Admin Dose 5 MG; Start 06/07/17 at 02:30 EZETIMIBE (Zetia) 10 mg HS PO Last administered on 06/22/17 20:22; Admin Dose 10 MG; Start 06/07/17 at 21:00 Tamsulosin HCl (Flomax) 0.4 mg DAILY@21 PO Last administered on 06/22/17 20: 23; Admin Dose 0.4 MG; Start 06/07/17 at 21:00 Atorvastatin Calcium (Lipitor) 80 mg QHS PO Last administered on 06/22/17 20: 23; Admin Dose 80 MG; Start 06/07/17 at 21:00 Hydralazine HCl (Apresoline) 10 mg Q6H PRN IV SBP>160 Last administered on 19:23; Admin Dose 10 MG; Start 06/07/17 at 09:00 Oxycodone/ Acetaminophen (Percocet (5/ 325)) 1 tab Q3H PRN PO PAIN LEVEL 1-5 Last administered on 06/16/17 01:55; Admin Dose 1 TAB; Start 06/13/17 at 12: 30 Oxycodone/ Acetaminophen (Percocet (5/ 325)) 2 tab Q3H PRN PO PAIN LEVEL 6-10 Last administered on 06/17/17 06:26; Admin Dose 2 TAB; Start 06/13/17 at 12: 30 Ondansetron HCl (Zofran Inj) 4 mg Q6H PRN IV NAUSEA AND/OR VOMITING Last administered on 06/19/17 06:16; Admin Dose 4 MG; Start 06/13/17 at 12:30 Aspirin (Aspirin) 325 mg DAILY PO Last administered on 06/22/17 10:43; Admin Dose 325 MG; Start 06/14/17 at 09:00 Acetaminophen (Tylenol Tab) 650 mg Q3H PRN PO ELEVATED TEMPERATURE; Start 07/20 at 12:30 Diagnostic Test (Pha) (Accu-Chek) 1 ea 02 XX ; Start 06/16/17 at 02:00 Miscellaneous Information 1 ea NOTE XX ; Start 06/15/17 at 11:00 Glucose (Glutose) 15 gm Q15M PRN PO DECREASED GLUCOSE; Start 06/15/17 at 11:00 Glucose (Glutose) 22.5 gm Q15M PRN PO DECREASED GLUCOSE; Start 06/15/17 at 11: 00 Dextrose (D50w Syringe) 25 ml Q15M PRN IV DECREASED GLUCOSE; Start 06/15/17 at 11:00 Dextrose (D50w Syringe) 50 ml Q15M PRN IV DECREASED GLUCOSE; Start 06/15/17 at 11:00 Glucagon (Glucagen) 1 mg Q15M PRN IM DECREASED GLUCOSE; Start 06/15/17 at 11: 00 Glucose (Glutose) 15 gm Q15M PRN BUCCAL DECREASED GLUCOSE; Start 06/15/17 at 11:00 Insulin Glargine (Lantus) 30 unit DAILY@08 SC Last administered on 06/22/17 08:50; Admin Dose 30 UNIT; Start 06/17/17 at 08:00 Carvedilol (Coreg) 25 mg BID PO Last administered on 06/22/17 20:24; Admin Dose 25 MG; Start 06/17/17 at 09:00 Amlodipine Besylate (Norvasc) 10 mg DAILY PO Last administered on 06/22/17 10 :43; Admin Dose 10 MG; Start 06/17/17 at 15:00; Stop 07/03/17 at 08:00 Heparin Sodium (Porcine) (Heparin (5000 Units/0.5 ml)) 5,000 unit BID SC Last administered on 06/22/17 20:32; Admin Dose 5,000 UNIT; Start 06/18/17 at 09: 00 Polyethylene Glycol (Miralax) 17 gm BID PO Last administered on 06/21/17 08: 48; Admin Dose 17 GM; Start 06/18/17 at 17:15; Stop 07/03/17 at 17:14 Hydralazine HCl (Apresoline) 100 mg Q8 PO Last administered on 06/23/17 05:24 ; Admin Dose 100 MG; Start 06/20/17 at 14:00 Chlorpromazine (Thorazine) 10 mg TID PRN PO Hiccough Last administered on 21:48; Admin Dose 10 MG; Start 06/20/17 at 11:30 Docusate Sodium (Colace) 100 mg BID PO Last administered on 06/22/17 10:42; Admin Dose 100 MG; Start 06/21/17 at 09:00 Bisacodyl 10 mg 10 mg DAILY PRN GA CONSTIPATION; Start 06/20/17 at 22:30 Metronidazole 100 ml @ 100 mls/hr Q8 IVPB Last administered on 06/23/17 05: 24; Admin Dose 100 MLS/HR; Start 06/21/17 at 14:00 Piperacillin Sod/ Tazobactam Sod (Zosyn 2.25gm/ 50ml (Pmx)) 50 ml @ 100 mls/hr Q8 IVPB Last administered on 06/23/17 05:24; Admin Dose 100 MLS/HR; Start at 10:00 Famotidine (Pepcid Iv) 10 mg Q24H IV Last administered on 06/22/17 08:15; Admin Dose 10 MG; Start 06/22/17 at 09:00 Amiodarone HCl (Cordarone) 200 mg DAILY PO ; Start 06/23/17 at 09:00 TAYLER BE Jun 23, 2017 08:00
[2017-06-23 08:08] LABS: INR 1.15; PROTIME 14.7 Sec (12.2-14.2); PT RATIO 1.1
[2017-06-23 08:09] LABS: PARTIAL THROMBOPLASTIN TIME 38.8 Sec (25.0-35.0)
[2017-06-23] MEDS: ASPIRIN 325 MG TAB PO SCH (08:20)
[2017-06-23] MEDS: AMLODIPINE 10 MG TAB PO SCH (08:23)
[2017-06-23] MEDS: FAMOTIDINE 20 MG INJ IV SCH (08:24)
--- NOTE | 2017-06-23 08:51 | PN ---
Date/Time of Note Date/Time of Note DATE: 06/23/17 TIME: 08:50 Assessment/Plan Lines/Catheters IV Catheter Type (from [facility]): Saline Lock [place] in Place (from [facility]): Yes Assessment/Plan Chief Complaint/Hosp Course WBC 20K, afebrile making urine creat 6 wants to go home but still has leukocytosis Problems: Exam/Review of Systems Vital Signs Vitals Vital Signs Date Time Temp Pulse Resp B/P Pulse Ox O2 Delivery O2 Flow Rate FiO2 06/23/17 08:18 86 06/23/17 08:15 98.2 17 120/59 95 06/23/17 02:56 2.0 06/22/17 20:00 Nasal Cannula Intake and Output 06/22/17 06/22/17 06/23/17 15:00 23:00 07:00 Intake Total 250 ml Output Total 450 ml Balance -200 ml Results Result Diagram: 06/23/17 0647 06/23/17 0647 DENISA GREENE MD Jun 23, 2017 08:51
[2017-06-23] MEDS: HEPARIN 5,000 UNIT/0.5 ML VIAL SC SCH (08:57)
[2017-06-23] MEDS: INSULIN GLARGINE [LANtus] 3 ML PEN SC SCH (08:57)
[2017-06-23] MEDS: POLYETHYLENE GLYCOL 17 GM PACKET PO SCH (08:59)
[2017-06-23] MEDS: DOCUSATE SODIUM 100 MG CAP PO SCH (08:59)
[2017-06-23] MEDS ORDERED: AMIODARONE 200 MG TAB PO SCH (09:00)
[2017-06-23] MEDS ORDERED: CIPROFLOXACIN 500 MG TAB PO SCH (10:30)
[2017-06-23] MEDS: metroNIDAZOLE 500 MG TAB PO SCH ×2 (13:34→14:03)
[2017-06-23] MEDS: POTASSIUM CHLORIDE (SR) 20 MEQ TAB PO STA ×2 (13:34→14:03)
[2017-06-23] MEDS ORDERED: AMLO-147 PO (14:04)
[2017-06-23] MEDS ORDERED: CIPR500T4 PO (14:04)
[2017-06-23] MEDS ORDERED: ASPI325T4 PO (14:04)
[2017-06-23] MEDS ORDERED: METR500T PO (14:04)
[2017-06-23] MEDS ORDERED: HYDR100T25 PO (14:04)
[2017-06-23] MEDS ORDERED: AMIO200T2 PO (14:04)
[2017-06-23] MEDS ORDERED: ATOR40TA68 PO (14:04)
[2017-06-23] MEDS ORDERED: CARV25TA79 PO (14:04)
--- NOTE | 2017-06-23 14:06 | PDOCDIS ---
Discharge Instructions CONDITION Patient Condition: Stable HOME CARE INSTRUCTIONS: Diet Instructions: Regular FOLLOW UP/APPOINTMENTS Follow-up Plan Go see your regular doctor on Sunday and ask her to check a complete blood count and a chemistry profile. ZULMA LUTHER MD Jun 23, 2017 14:06
--- NOTE | 2017-06-23 14:12 | DS ---
Date/Time of Note Date/Time of Note DATE: 06/23/17 TIME: 14:12 Discharge Summary Admission/Discharge Info Admit Date/Time Jun 07, 2017 at 02:04 Discharge Date/Time Discharge Diagnosis multiple vessel CAD sp CABG, ERIC on CKD, colitis Patient Condition: Guarded Consults cardiology, general surgery, nephrology, CT surgery Procedures 10.5 Left heart catheterization with selective left and right coronary angiography. 10.11 PROCEDURE PERFORMED: 1. CABG x5, MAYER to LAD, SVG to diagonal artery, SVG to posterior descending artery, saphenous vein graft to diagonal artery. 2. Saphenous vein graft to ramus intermedius sequenced to obtuse marginal artery, endoscopic vein harvesting of greater saphenous vein from both lower extremities. 10.19 CT AP IMPRESSION: 1. Mild thickening of the descending and rectosigmoid colonic wall. Differential includes colitis of infectious or ischemic etiology. Normal contrast opacification is seen in the proximal mesenteric arteries. 2. Status post recent CABG with moderate anterior pericardial effusion with pericardial gas densities noted. This may be due to recent postsurgical CABG changes. Infection is not excluded. Recommend clinical correlation. 3. Small left greater than right bilateral pleural effusions and bibasilar compressive atelectasis. 4. Cholelithiasis. 5. Calcific atherosclerosis of the aorta, coronary arteries and mesenteric arteries. Normal opacification of the proximal mesenteric arteries which diminishes likelihood but does not exclude bowel ischemia. 6. Moderate retained feces in the right and transverse colon. Hx of Present Illness cc: chest pain This is 61-year-old male brought in from home by ambulance for chest pain.. Patient has history of cardiac stenting. He apparently required additional stenting however secondary to his kidney issue they didn't proceed. Medically managed the past 4 months. He had chest pain for 2 hours starting at 9 pm last night, substernal with no exacerbating or alleviating factors, nonradiating.. Currently chest pain-free after nitroglycerin given by EMS. Mild associated shortness of breath no nausea no vomiting no chills. Denies any diaphoresis or lower extremity swelling. allergies; nkda Meds: see nov Hospital Course 61 yo M with CAD, CKD, DM admitted for chest pain found to have multi vessel CAD , sp CABG 10.11. Hospitalization c/b ERIC on HD, pt started on HD for uremia however pt refused HD after a few days of treatment. Hospitalization also c/b abd pain, pt found to have colitis, etio unclear. Of note, on date of discharge pt with a leukocytosis of unclear etiology that had been present for the past 3 days. I advised pt stay one more night for monitoring to ensure he did not have an infection. Despite speaking with pt using [place] language line, he refused. Cardiac meds adjusted per group account director recommendation. copy of dc summary given pt and family and faxed to pcp prior to discharge Home Meds Reported Medications Insulin Lispro Protamin/Lispro (Humalog Mix 75-25 Kwikpen) 100 Unit/1 Ml Insuln.pen, 0 SQ 06/07/17 Linagliptin (TRADJENTA) 5 Mg Tablet, 5 MG PO, TAB 06/07/17 Ezetimibe* (Zetia*) 10 Mg Tablet, 10 MG PO HS, TAB 06/07/17 Valsartan* (Diovan*) 320 Mg Tablet, 320 MG PO DAILY, TAB 06/07/17 Clopidogrel Bisulfate* (Clopidogrel Bisulfate*) 75 Mg Tablet, 75 MG PO DAILY, # 30 TAB 06/07/17 Tamsulosin Hcl* (Tamsulosin Hcl*) 0.4 Mg Cap.er.24h, 0.4 MG PO DAILY, CAP 06/07/17 Aspirin* (Aspirin* EC) 81 Mg Tablet.dr, 81 MG PO DAILY, TAB 06/07/17 Atorvastatin* (Atorvastatin*) 40 Mg Tablet, 40 MG PO QHS, #30 TAB 06/07/17 Furosemide* (Furosemide*) 40 Mg/5 Ml Solution, 40 MG PO DAILY, #150 ML 06/07/17 Labetalol Hcl* (Labetalol Hcl*) 200 Mg Tablet, 200 MG PO BID, TAB 06/07/17 Clonidine Hcl* (Clonidine Hcl*) 0.3 Mg Tablet, 0.3 MG PO Q6H, TAB 06/07/17 Hydralazine Hcl* (Apresoline*) 50 Mg Tab, 50 MG PO Q8, #90 TAB 06/07/17 Nifedipine* (Nifedipine ER*) 30 Mg Tablet.sa, 30 MG PO DAILY, TAB.SA 06/07/17 Follow-up Plan Go see your regular doctor on Sunday and ask her to check a complete blood count and a chemistry profile. Primary Care Provider Jumana Khachatrian Time spent on discharge: > 30 minutes Pending Labs Laboratory Tests Test 06/22/17 17:58 06/22/17 20:19 06/23/17 06:47 06/23/17 06:48 Bedside Glucose 181mg/dL (70-220) 168mg/dL (70-220) White Blood Count 20.010^3/ul (4.8-10.8) Red Blood Count 2.6110^6/ul (4.70-6.10) Hemoglobin 7.8g/dl (14.0-18.0) Hematocrit 23.9% (42.0-52.0) Mean Corpuscular Volume 91.6fl (82.0-101.0) Mean Corpuscular Hemoglobin 29.9pg (29.0-33.0) Mean Corpuscular Hemoglobin Concent 32.6g/dl (32.0-37.0) Red Cell Distribution Width 15.9% (11.5-14.5) Platelet Count 36775^3/UL (140-415) Mean Platelet Volume 9.7fl (7.4-10.4) Neutrophils % 79.0% (39.0-77.0) Lymphocytes % 7.7% (15.0-51.0) Monocytes % 8.0% (0.0-11.0) Eosinophils % 2.4% (0.0-7.0) Basophils % 0.3% (0.0-2.0) Nucleated Red Blood Cells % 0.0/100WBC (0.0-0.0) Neutrophils # 15.810^3/ul (1.6-7.5) Lymphocytes # 1.510^3/ul (0.8-2.9) Monocytes # 1.610^3/ul (0.3-0.9) Eosinophils # 0.510^3/ul (0.0-0.5) Basophils # 0.110^3/ul (0.0-0.1) Nucleated Red Blood Cells # 0.010^3/ul (0.0-0.0) Sodium Level 143mmol/L (135-144) Potassium Level 3.3mmol/L (3.5-5.1) Chloride Level 109mmol/L (97-110) Carbon Dioxide Level 22mmol/L (21-31) Anion Gap 15 (8-16) Blood Urea Nitrogen 82mg/dl (7-20) Creatinine 6.02mg/dl (0.61-1.24) Glucose Level 148mg/dl (70-220) Calcium Level 8.6mg/dl (8.4-10.2) Total Bilirubin 0.1mg/dl (0.2-1.3) Direct Bilirubin 0.00mg/dl (0.00-0.20) Indirect Bilirubin 0.1mg/dl (0-1.1) Aspartate Amino Transf (AST/SGOT) 27IU/L (15-46) Alanine Aminotransferase (ALT/SGPT) 21IU/L (13-69) Alkaline Phosphatase 106IU/L (42-121) Total Protein 5.6g/dl (6.1-8.1) Albumin 2.6g/dl (3.3-4.9) Globulin 3.00g/dl (1.3-3.2) Albumin/Globulin Ratio 0.86 Prothrombin Time 14.7Sec (12.2-14.2) Prothrombin Time Ratio 1.1 INR International Normalized Ratio 1.15 Activated Partial Thromboplast Time 38.8Sec (25.0-35.0) Test 06/23/17 08:15 06/23/17 12:40 Bedside Glucose 159mg/dL (70-220) 149mg/dL (70-220) ZULMA LUTHER MD Jun 23, 2017 14:12
--- NOTE | 2017-06-23 17:24 | CONS ---
Date/Time of Note Date/Time of Note DATE: 06/23/17 TIME: 17:23 Consult Date/Type/Reason Admit Date/Time Jun 07, 2017 at 02:04 Initial Consult Date 06/18/17 Type of Consultation: Pulm Ordering Provider: TAYLER BE Subjective No events. Being d/c'ed by PMD Objective Vital Signs Date Time Temp Pulse Resp B/P Pulse Ox O2 Delivery O2 Flow Rate FiO2 06/23/17 16:10 82 06/23/17 15:16 98.1 6 130/64 97 06/23/17 12:05 2.0 28 06/22/17 20:00 Nasal Cannula Intake and Output 06/22/17 06/22/17 06/23/17 15:00 23:00 07:00 Intake Total 250 ml Output Total 450 ml Balance -200 ml Exam NECK: Supple. No JVD or lymphadenopathy. CARDIAC EXAM: S1, S2. No added sounds or murmurs. CHEST: clear bilaterally, No added sounds, rales or wheezes ABDOMEN: Soft, nontender. No guarding or rebound. EXTREMITIES: No cyanosis, clubbing or edema. Results/Medications Result Diagram: 06/23/17 0647 06/23/17 0647 Results 24 hrs Laboratory Tests Test 06/22/17 17:58 06/22/17 20:19 06/23/17 06:47 06/23/17 06:48 Bedside Glucose 181 168 White Blood Count 20.0 H Red Blood Count 2.61 L Hemoglobin 7.8 L Hematocrit 23.9 L Mean Corpuscular Volume 91.6 Mean Corpuscular Hemoglobin 29.9 Mean Corpuscular Hemoglobin Concent 32.6 Red Cell Distribution Width 15.9 H Platelet Count 247 Mean Platelet Volume 9.7 Neutrophils % 79.0 H Lymphocytes % 7.7 L Monocytes % 8.0 Eosinophils % 2.4 Basophils % 0.3 Nucleated Red Blood Cells % 0.0 Neutrophils # 15.8 H Lymphocytes # 1.5 Monocytes # 1.6 H Eosinophils # 0.5 Basophils # 0.1 Nucleated Red Blood Cells # 0.0 Sodium Level 143 Potassium Level 3.3 L Chloride Level 109 Carbon Dioxide Level 22 Anion Gap 15 Blood Urea Nitrogen 82 H Creatinine 6.02 H Glucose Level 148 Calcium Level 8.6 Total Bilirubin 0.1 L Direct Bilirubin 0.00 Indirect Bilirubin 0.1 Aspartate Amino Transf (AST/SGOT) 27 Alanine Aminotransferase (ALT/SGPT) 21 Alkaline Phosphatase 106 Total Protein 5.6 L Albumin 2.6 L Globulin 3.00 Albumin/Globulin Ratio 0.86 Prothrombin Time 14.7 H Prothrombin Time Ratio 1.1 INR International Normalized Ratio 1.15 Activated Partial Thromboplast Time 38.8 H Test 06/23/17 08:15 06/23/17 12:40 Bedside Glucose 159 149 Medications Current Medications Nitroglycerin (Nitroglycerin (Sl Tab) 0.4 Mg) 1 tab Q5M PRN SL CHEST PAIN Last administered on 06/07/17 08:56; Admin Dose 1 TAB; Start 06/07/17 at 02:30 Docusate Sodium (Colace) 100 mg Q12H PRN PO CONSTIPATION Last administered on 06/18/17 08:43; Admin Dose 100 MG; Start 06/07/17 at 02:30 Bisacodyl (Dulcolax) 5 mg DAILY PRN PO CONSTIPATION Last administered on 15:07; Admin Dose 5 MG; Start 06/07/17 at 02:30 EZETIMIBE (Zetia) 10 mg HS PO Last administered on 06/22/17 20:22; Admin Dose 10 MG; Start 06/07/17 at 21:00 Tamsulosin HCl (Flomax) 0.4 mg DAILY@21 PO Last administered on 06/22/17 20: 23; Admin Dose 0.4 MG; Start 06/07/17 at 21:00 Atorvastatin Calcium (Lipitor) 80 mg QHS PO Last administered on 06/22/17 20: 23; Admin Dose 80 MG; Start 06/07/17 at 21:00 Hydralazine HCl (Apresoline) 10 mg Q6H PRN IV SBP>160 Last administered on 19:23; Admin Dose 10 MG; Start 06/07/17 at 09:00 Oxycodone/ Acetaminophen (Percocet (5/ 325)) 1 tab Q3H PRN PO PAIN LEVEL 1-5 Last administered on 06/16/17 01:55; Admin Dose 1 TAB; Start 06/13/17 at 12: 30 Oxycodone/ Acetaminophen (Percocet (5/ 325)) 2 tab Q3H PRN PO PAIN LEVEL 6-10 Last administered on 06/17/17 06:26; Admin Dose 2 TAB; Start 06/13/17 at 12: 30 Ondansetron HCl (Zofran Inj) 4 mg Q6H PRN IV NAUSEA AND/OR VOMITING Last administered on 06/19/17 06:16; Admin Dose 4 MG; Start 06/13/17 at 12:30 Aspirin (Aspirin) 325 mg DAILY PO Last administered on 06/23/17 08:20; Admin Dose 325 MG; Start 06/14/17 at 09:00 Acetaminophen (Tylenol Tab) 650 mg Q3H PRN PO ELEVATED TEMPERATURE; Start 07/20 at 12:30 Diagnostic Test (Pha) (Accu-Chek) 1 ea 02 XX ; Start 06/16/17 at 02:00 Miscellaneous Information 1 ea NOTE XX ; Start 06/15/17 at 11:00 Glucose (Glutose) 15 gm Q15M PRN PO DECREASED GLUCOSE; Start 06/15/17 at 11:00 Glucose (Glutose) 22.5 gm Q15M PRN PO DECREASED GLUCOSE; Start 06/15/17 at 11: 00 Dextrose (D50w Syringe) 25 ml Q15M PRN IV DECREASED GLUCOSE; Start 06/15/17 at 11:00 Dextrose (D50w Syringe) 50 ml Q15M PRN IV DECREASED GLUCOSE; Start 06/15/17 at 11:00 Glucagon (Glucagen) 1 mg Q15M PRN IM DECREASED GLUCOSE; Start 06/15/17 at 11: 00 Glucose (Glutose) 15 gm Q15M PRN BUCCAL DECREASED GLUCOSE; Start 06/15/17 at 11:00 Insulin Glargine (Lantus) 30 unit DAILY@08 SC Last administered on 06/23/17 08:57; Admin Dose 30 UNIT; Start 06/17/17 at 08:00 Carvedilol (Coreg) 25 mg BID PO Last administered on 06/23/17 08:22; Admin Dose 25 MG; Start 06/17/17 at 09:00 Amlodipine Besylate (Norvasc) 10 mg DAILY PO Last administered on 06/23/17 08 :23; Admin Dose 10 MG; Start 06/17/17 at 15:00; Stop 07/03/17 at 08:00 Heparin Sodium (Porcine) (Heparin (5000 Units/0.5 ml)) 5,000 unit BID SC Last administered on 06/23/17 08:57; Admin Dose 5,000 UNIT; Start 06/18/17 at 09: 00 Polyethylene Glycol (Miralax) 17 gm BID PO Last administered on 06/21/17 08: 48; Admin Dose 17 GM; Start 06/18/17 at 17:15; Stop 07/03/17 at 17:14 Hydralazine HCl (Apresoline) 100 mg Q8 PO Last administered on 06/23/17 14:04 ; Admin Dose 100 MG; Start 06/20/17 at 14:00 Chlorpromazine (Thorazine) 10 mg TID PRN PO Hiccough Last administered on 21:48; Admin Dose 10 MG; Start 06/20/17 at 11:30 Docusate Sodium (Colace) 100 mg BID PO Last administered on 06/22/17 10:42; Admin Dose 100 MG; Start 06/21/17 at 09:00 Bisacodyl (Dulcolax Supp) 10 mg DAILY PRN [place] CONSTIPATION; Start 06/20/17 at 22:30 Amiodarone HCl (Cordarone) 200 mg DAILY PO Last administered on 06/23/17 08: 23; Admin Dose 200 MG; Start 06/23/17 at 09:00 Ciprofloxacin (Cipro) 500 mg DAILY@06 PO Last administered on 06/23/17 11:33 ; Admin Dose 500 MG; Start 06/23/17 at 10:30 Metronidazole (Flagyl) 500 mg Q8 PO Last administered on 06/23/17 14:03; Admin Dose 500 MG; Start 06/23/17 at 14:00 Assessment/Plan Additional Assessment/Plan IMP: 1. Patient admitted with acute ME status post CABG surgery. 2. Acute renal failure, requiring hemodialysis. 3. Underlying diabetes, hypertension and BPH. 4. Dyspnea possibly secondary to volume overload will repeat chest x-ray. RECS: Continue hemodialysis as tolerated Encourage incentive spirometry Physical therapy CACHORRO GRIGGS MD Jun 23, 2017 17:24
--- NOTE | 2017-06-23 17:45 | PN ---
Date/Time of Note Date/Time of Note DATE: 06/23/17 TIME: 17:43 Assessment/Plan Lines/Catheters IV Catheter Type (from [facility]): Saline Lock [place] in Place (from [facility]): Yes Assessment/Plan Chief Complaint/Hosp Course 1. Colitis with concern for bowel obstruction vs ileus: doubt obstruction: patient pulled ngt; +bowel function; tolerating diet -ambulate/continue PT -cont abx -monitor 2. Leukocytosis: ?2/2 #1 +/- pna/atelectasis +/-?dvt (elevated ddimer) vs. uti vs. other tachycardic but afebrile;up again today -?panculture -trend 3. CAD S/p 5 vessel CABG -close monitoring -medical management 4. Acute on chronic renal failure: on HD, family currently refusing despite increasing cr -HD per renal -avoid nephrotoxic meds -renally dose medications 5. CHF: improved symptomatically -HD and diuresis 6. Diabetes -glucose optimization 7. Hypertension -medical management 8. Normoctic, normochromic anemia: no acute bleed noted: h/h stable -monitor and transfuse as needed 9. Hypokalemia -replete and monitor 10. UTI: -abx per sensitivity -frequent bladder emptying Thank you. Patient seen and examined in collaboration with Dr. Titus Trinidad. Problems: Subjective 24 Hr Interval Summary Feeling well. +bowel function. Tolerating diet. No n/v/d/dysuria, sob, congested cough, change in tele rhythm. Exam/Review of Systems Vital Signs Vitals Vital Signs Date Time Temp Pulse Resp B/P Pulse Ox O2 Delivery O2 Flow Rate FiO2 06/23/17 16:10 82 06/23/17 15:16 98.1 6 130/64 97 06/23/17 12:05 2.0 28 06/22/17 20:00 Nasal Cannula Intake and Output 06/22/17 06/22/17 06/23/17 15:00 23:00 07:00 Intake Total 250 ml Output Total 450 ml Balance -200 ml Exam Free Text/Dictation Constitutional: alert, oriented, other (somnolent) Psych: nl mood/affect, no complaints Head: atraumatic, normocephalic Eyes: nl lids, nl sclera ENMT: mucosa pink and moist, nl nasal mucosa & septum Neck: non-tender, supple Respiratory: normal air movement, No labored breathing Cardiovascular: nl pulses, other (sr, bbb), regular rate and rhythm Gastrointestinal: non-tender, other (non distended), soft, +bowel sounds Genitourinary - Male: nl penis, nl scrotum Musculoskeletal: nl extremities to inspection, nl gait and stance Extremities: normal pulses, No edema Neurological: nl mental status, nl speech, nl strength Skin: nl turgor, other (mid chest incision without drainage), No rash or lesions Results Result Diagram: 06/23/17 0647 06/23/17 0647 GARRY RUSSO NP Jun 23, 2017 17:45
--- NOTE | 2017-06-24 03:15 | PN ---
DATE: 06/23/2017 SUBJECTIVE: The patient's dialysis catheter was removed yesterday. Patient's family continues to r efuse hemodialysis. Again, risks and benefits were explained to the patient including the possibili ty of . The patient's family understands. Continues to refuse dialysis. OBJECTIVE: VITAL SIGNS: Blood pressure is 118/63, respirations 18, pulse 79, temperature 98.6. HEENT: Head is normocephalic. NECK: Supple. HEART: Regular rate. LUNGS: Show diminished breath sounds at the base. ABDOMEN: Soft, nontender to palpation without rebound or guarding. EXTREMITIES: Negative for clubbing or cyanosis. No edema. DERMATOLOGIC: No rashes. MUSCULOSKELETAL: No joint effusions. NEUROLOGIC: No change in exam. MEDICATIONS: The patient's medications have been reviewed. LABORATORY DATA: Shows sodium 143, potassium 3.3, chloride 109, BUN 82, creatinine 6.02. White cou nt 20.0, hemoglobin 7.8, hematocrit 23.9, platelet count is 247. ASSESSMENT AND PLAN: 1. Nonoliguric acute kidney injury on top of chronic kidney disease stage IV, etiology secondary to acute tubular necrosis. The patient currently refusing hemodialysis. All risks and benefits were explained to the patient's family. At this point, will continue current treatment plan, supportive care, renally dose all medicines. 2. Leukocytosis. Etiology may be secondary to line infection. The patient's Port-A-Cath was remov ed. Continue current antibiotic therapy. 3. Anemia. Monitor hemoglobin and hematocrit levels. Continue Epogen. 4. Mineral bone disorder. Monitor calcium and phosphorus levels. 5. Hypertension. Continue current blood pressure regimen. 6. Coronary artery disease status post coronary artery bypass graft. Continue current blood pressu re regimen. 7. Congestive heart failure. Continue current treatment plan. 8. Diabetes. Continue Accu-Cheks and insulin sliding scale. Dictated By: REBECCA BLANKENSHIP/BRANDON Conf#: [id number] DID#: [id number]
== END 2017-06-23 18:55 | disposition home or self-care (01) | DRG 233 ==
LOC: E/R 23:33 → TEL 06-07 02:04 → ICU 06-13 12:52 → TEL 06-19 09:40
PROVIDERS: ADMIT Family Medicine; ATTEND Family Medicine
PROC: B211YZZ Fluoroscopy of Multiple Coronary Arteries using Other Contrast (ICD-10-PCS; 2017-06-07)
PROC: 4A023N7 Measurement of Cardiac Sampling and Pressure, Left Heart, Percutaneous Approach (ICD-10-PCS; 2017-06-07)
PROC: 02100Z9 Bypass Coronary Artery, One Artery from Left Internal Mammary, Open Approach (ICD-10-PCS; 2017-06-13)
PROC: 06BQ4ZZ Excision of Left Saphenous Vein, Percutaneous Endoscopic Approach (ICD-10-PCS; 2017-06-13)
PROC: 06BP4ZZ Excision of Right Saphenous Vein, Percutaneous Endoscopic Approach (ICD-10-PCS; 2017-06-13)
PROC: 5A1221Z Performance of Cardiac Output, Continuous (ICD-10-PCS; 2017-06-13)
PROC: 021309W Bypass Coronary Artery, Four or More Arteries from Aorta with Autologous Venous Tissue, Open Approach (ICD-10-PCS; principal; 2017-06-13 07:30)
PROC: 30233N1 Transfusion of Nonautologous Red Blood Cells into Peripheral Vein, Percutaneous Approach (ICD-10-PCS; 2017-06-14)
PROC: 05HM33Z Insertion of Infusion Device into Right Internal Jugular Vein, Percutaneous Approach (ICD-10-PCS; 2017-06-16)
PROC: 5A1D70Z Performance of Urinary Filtration, Intermittent, Less than 6 Hours Per Day (ICD-10-PCS; 2017-06-16)
PROC: 5A1D70Z Performance of Urinary Filtration, Intermittent, Less than 6 Hours Per Day (ICD-10-PCS; 2017-06-17)
PROC: 30233N1 Transfusion of Nonautologous Red Blood Cells into Peripheral Vein, Percutaneous Approach (ICD-10-PCS; 2017-06-17)
PROC: 5A1D70Z Performance of Urinary Filtration, Intermittent, Less than 6 Hours Per Day (ICD-10-PCS; 2017-06-19)
DX: I21.4 Non-ST elevation (NSTEMI) myocardial infarction (principal); I50.23 Acute on chronic systolic (congestive) heart failure; N17.0 Acute kidney failure with tubular necrosis; A41.9 Sepsis, unspecified organism; N18.4 Chronic kidney disease, stage 4 (severe); T82.855A Stenosis of coronary artery stent, initial encounter; I13.0 Hypertensive heart and chronic kidney disease with heart failure and stage 1 through stage 4 chronic kidney disease, or unspecified chronic kidney disease; N39.0 Urinary tract infection, site not specified; I48.0 Paroxysmal atrial fibrillation; E11.65 Type 2 diabetes mellitus with hyperglycemia; I25.10 Atherosclerotic heart disease of native coronary artery without angina pectoris; D63.1 Anemia in chronic kidney disease; E78.5 Hyperlipidemia, unspecified; N40.0 Benign prostatic hyperplasia without lower urinary tract symptoms; Y83.8 Other surgical procedures as the cause of abnormal reaction of the patient, or of later complication, without mention of misadventure at the time of the procedure; Z95.5 Presence of coronary angioplasty implant and graft; K52.9 Noninfective gastroenteritis and colitis, unspecified; D72.829 Elevated white blood cell count, unspecified; I16.0 Hypertensive urgency; F17.200 Nicotine dependence, unspecified, uncomplicated; Z90.5 Acquired absence of kidney; E87.6 Hypokalemia; Z86.73 Personal history of transient ischemic attack (TIA), and cerebral infarction without residual deficits; Z79.02 Long term (current) use of antithrombotics/antiplatelets; Z79.82 Long term (current) use of aspirin; Z79.4 Long term (current) use of insulin
CPT/HCPCS: 36415; 36430; 36592; 36600; 70450; 71010; 74000; 74177; 76775; 78582; 80048; 80053; 80061; 81001; 81003; 82043; 82550; 82553; 82803; 82962; 83036; 83605; 83735; 83880; 84100; 84155; 84156; 84300; 84443; 84484; 85014; 85018; 85025; 85378; 85610; 85730; 86850; 86900; 86901; 86920; 87040; 87081; 87086; 90935; 93005; 93306; 93312; 93325; 93458; 93880; 94002; 94664; 96374; 96375; 97116; 97162; 97530; J1940; A9540; C1752; C1887; J0171; J0282; J0360; J0690; J1170; J1265; J1644; J1815; J2001; J2060; J2150; J2250; J2260; J2270; J2370; J2405; J2440; J2543; J2597; J2720; J2765; J2916; J3010; J3370; J3475; J3480; J7030; J7040; J7060; J7070; P9016; P9045; P9047; Q9967

== ENCOUNTER 2018-02-03 19:29 | Inpatient (IN) | END 2018-02-09 14:35 | disposition home or self-care (01) | DRG 243 ==

== ENCOUNTER 2018-02-13 19:50 | Inpatient (IN) | END 2018-02-16 14:30 | disposition home or self-care (01) | DRG 698 ==

== ENCOUNTER 2018-03-01 02:52 | Inpatient (IN) | END 2018-03-04 16:55 | disposition left against medical advice (07) | DRG 291 ==

== ENCOUNTER 2018-04-29 05:40 | Inpatient (IN) | END 2018-04-30 23:00 | disposition home or self-care (01) | DRG 291 ==